=== PATIENT | female | born 1950 | race Caucasian/White ===

== ENCOUNTER 2018-07-12 09:00 | Emergency (ER) | payer MEDICARE, BC ==
[2018-07-12] MEDS ORDERED: Sodium Chloride 0.9% 1,000 ML IV SCH (10:00)
--- NOTE | 2018-07-12 11:01 | CT ---
Head wo Cont CLINICAL HISTORY: Head trauma COMPARISON: None TECHNIQUE: Transverse scans were obtained from the base of the skull through the vertex without IV co ntrast on a multislice, multidetector CT scanner. Auto dosage reduction and iterative reconstruction techniques employed. FINDINGS: There are scattered benign calcifications in both basal ganglia.. There is no mass effect, hemorrhage, or extraaxial collection. The basal cisterns and sulci over the convexities are mildly pr ominent. The ventricles are asymmetric with some mild dilatation of the right lateral ventricle. Ther e is a slight shift of the anterior midline to the left. This is likely chronic Calvarium appears intact IMPRESSION: No intracranial hemorrhage or extra-axial collection Asymmetric lateral ventricles with slight enlargement on the right. This causes some minimal leftward shift of the anterior horn. This is likely chronic
--- NOTE | 2018-07-12 11:28 | EDM.PDOC ---
ED HPI GENERAL MEDICAL PROBLEM - General Chief Complaint: Syncope Stated Complaint: MEDICAL VIA TRI Time Seen by Provider: 07/12/18 09:15 Source of Information: Reports: Patient, Family History Limitations: Reports: No Limitations - History of Present Illness INITIAL COMMENTS - FREE TEXT/NARRATIVE: pt arrived with pain in the upper abdoman. She has a history of multiple episodes of syncope. She had an episode today which was very severe and she bumped her head. Onset: Today, Sudden Duration: Hour(s): Location: Reports: Head, Abdomen Associated Symptoms: Reports: Diaphoresis, Headaches, Syncope Head Pain Score (Numeric/FACES): 3 - Related Data Allergies Allergy/AdvReac Type Severity Reaction Status Date / Time No Known Allergies Allergy Verified 07/12/18 09:20 Home Meds: Home Meds Aspirin [Halfprin] 81 mg PO DAILY 09/01/13 [History] Calcium Carbonate/Vitamin D3 [Calcarb 600 with Vit D] 1 each PO DAILY 09/01/13 [ History] FLUoxetine HCl [Prozac] 20 mg PO DAILY 09/01/13 [History] LORazepam [Ativan] 0.5 mg PO ASDIRECTED PRN 09/01/13 [History] Lidocaine 5% [Lidoderm 5%] 1 patch TOP DAILY 09/01/13 [History] Multivitamin [Multi-Vitamin Daily] 1 each PO DAILY 09/01/13 [History] Omeprazole [Prilosec] 20 mg PO DAILY 09/01/13 [History] Vit B Cmplx 3/Fa/Vit C/Biotin [Christa-Dion Rx Tablet] 1 each PO DAILY 09/01/13 [ History] Vit B12/Pyridoxine/Thiamine [Apatate] 240 ml PO DAILY 09/01/13 [History] Vit D3/Folic Acid/B2/B6/B12 [Folgard Tablet] 1 each PO DAILY 09/01/13 [History] traMADol HCl [Ultram] 50 mg PO ASDIRECTED 09/01/13 [History] traZODone HCl [Trazodone HCl] 50 mg PO DAILY 09/01/13 [History] Past Medical History HEENT History: Reports: Impaired Vision 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: , 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 Musculoskeletal History: Reports: Arthritis Psychiatric History: Reports: Anxiety Hematologic History: Reports: Anemia - Infectious Disease History Infectious Disease History: Reports: Chicken Pox - Past Surgical History GI Surgical History: Reports: Bariatric Procedure, Cholecystectomy, Colonoscopy Social & Family History - Tobacco Use Smoking Status *Q: Current Some Day Smoker Years of Tobacco use: 5 Packs/Tins Daily: 0.2 Used Tobacco, but Quit: No Second Hand Smoke Exposure: Yes - Caffeine Use Caffeine Use: Reports: Coffee - Recreational Drug Use Recreational Drug Use: No ED ROS GENERAL - Review of Systems Review Of Systems: See Below Constitutional: Reports: No Symptoms HEENT: Reports: No Symptoms Respiratory: Reports: No Symptoms Cardiovascular: Reports: Syncope, Other (pt had a sudden episode of feeling dizzy and passing out at home. She did hit her forehead on the left side. ) Endocrine: Reports: Fatigue GI/Abdominal: Reports: Abdominal Pain, Other (Pt has frequent episodes of abdomanal pain. ) : Reports: No Symptoms ED EXAM, GENERAL - Physical Exam Exam: See Below Free Text/Narrative:: Pt had an episode of syncope and she fell to the floor and hit the left side of her head. She has a headache which is not severe. She is having episodes of severe crampy pain which started this am before she passed out. Exam Limited By: No Limitations General Appearance: Alert, Anxious, Mild Distress Ears: Normal TMs Nose: Normal Inspection Throat/Mouth: Normal Inspection Head: Other (Pt has bruising on the left forehead) Neck: Normal Inspection Respiratory/Chest: No Respiratory Distress Cardiovascular: Regular Rate, Rhythm GI/Abdominal: Soft, Non-Tender, Other (Pt has a ventral hernis on the umbilus area to the left) (Female) Exam: Deferred Rectal (Female) Exam: Deferred Back Exam: Normal Inspection Extremities: Normal Inspection Neurological: Alert, Oriented, Normal Cognition Psychiatric: Normal Affect Course - Vital Signs Last Recorded V/S: Last Vital Signs Temp 36.2 C 07/12/18 12:00 Pulse 65 07/12/18 13:05 Resp 18 07/12/18 13:05 BP 106/59 L 07/12/18 13:05 Pulse Ox 95 07/12/18 13:05 Orthostatic Blood Pressure [ 119/64 Standing] Orthostatic Blood Pressure [ 110/62 Sitting] Orthostatic Blood Pressure [ 110/60 Supine] - Orders/Labs/Meds Labs: Laboratory Tests 08/31/18 08/31/18 08/31/18 Range/Units 09:30 09:40 09:47 WBC 7.3 (4.5-11.0) K/uL RBC 3.20 L (3.30-5.50) M/uL Hgb 9.1 L (12.0-15.0) g/dL Hct 28.3 L (36.0-48.0) % MCV 88 (80-98) fL MCH 28 (27-31) pg MCHC 32 (32-36) % Plt Count 384 (150-400) K/uL Neut % (Auto) 84 H (36-66) % Lymph % (Auto) 7 L (24-44) % Travis % (Auto) 8 H (2-6) % Eos % (Auto) 1 L (2-4) % Baso % (Auto) 0 (0-1) % Sodium (140-148) mmol/L Potassium (3.6-5.2) mmol/L Chloride (100-108) mmol/L Carbon Dioxide (21-32) mmol/L Anion Gap (5.0-14.0) mmol/L BUN (7-18) mg/dL Creatinine (0.6-1.0) mg/dL Est Cr Clr Drug Dosing mL/min Estimated GFR (MDRD) (>60) Glucose (74-106) mg/dL Calcium (8.5-10.1) mg/dL Magnesium (1.8-2.4) mg/dL Ferritin (8-388) ng/ml Total Bilirubin (0.2-1.0) mg/dL AST (15-37) U/L ALT (12-78) U/L Alkaline Phosphatase (46-116) U/L Troponin I < 0.017 (0.000-0.056) ng/mL C-Reactive Protein 0.04 (0.0-0.3) mg/dL Total Protein (6.4-8.2) g/dL Albumin (3.4-5.0) g/dL Globulin (2.3-3.5) g/dL Albumin/Globulin Ratio (1.2-2.2) Vitamin B12 (193-986) pg/ml Urine Color Urine Appearance Urine pH (4.5-8.0) Ur Specific [place] (1.008-1.030) Urine Protein (NEGATIVE) mg/dL Urine Glucose (UA) (NEGATIVE) mg/dL Urine Ketones (NEGATIVE) mg/dL Urine Occult Blood (NEGATIVE) Urine Nitrite (NEGATIVE) Urine Bilirubin (NEGATIVE) Urine Urobilinogen (NORMAL) mg/dL Ur Leukocyte Esterase (NEGATIVE) Urine RBC (0-5) Urine WBC (0-5) Ur Epithelial Cells Amorphous Sediment Urine Bacteria Urine Mucus 07/12/18 07/12/18 07/12/18 Range/Units 09:47 10:23 10:42 WBC (4.5-11.0) K/uL RBC (3.30-5.50) M/uL Hgb (12.0-15.0) g/dL Hct (36.0-48.0) % MCV (80-98) fL MCH (27-31) pg MCHC (32-36) % Plt Count (150-400) K/uL Neut % (Auto) (36-66) % Lymph % (Auto) (24-44) % Travis % (Auto) (2-6) % Eos % (Auto) (2-4) % Baso % (Auto) (0-1) % Sodium 133 L (140-148) mmol/L Potassium 4.6 (3.6-5.2) mmol/L Chloride 102 (100-108) mmol/L Carbon Dioxide 24 (21-32) mmol/L Anion Gap 11.6 (5.0-14.0) mmol/L BUN 21 H (7-18) mg/dL Creatinine 0.9 (0.6-1.0) mg/dL Est Cr Clr Drug Dosing 56.78 mL/min Estimated GFR (MDRD) > 60 (>60) Glucose 102 (74-106) mg/dL Calcium 8.6 (8.5-10.1) mg/dL Magnesium 2.4 (1.8-2.4) mg/dL Ferritin 12 (8-388) ng/ml Total Bilirubin 0.3 (0.2-1.0) mg/dL AST 27 (15-37) U/L ALT 24 (12-78) U/L Alkaline Phosphatase 84 (46-116) U/L Troponin I (0.000-0.056) ng/mL C-Reactive Protein (0.0-0.3) mg/dL Total Protein 7.1 (6.4-8.2) g/dL Albumin 3.3 L (3.4-5.0) g/dL Globulin 3.8 H (2.3-3.5) g/dL Albumin/Globulin Ratio 0.9 L (1.2-2.2) Vitamin B12 350 (193-986) pg/ml Urine Color Urine Appearance Urine pH (4.5-8.0) Ur Specific [place] (1.008-1.030) Urine Protein (NEGATIVE) mg/dL Urine Glucose (UA) (NEGATIVE) mg/dL Urine Ketones (NEGATIVE) mg/dL Urine Occult Blood (NEGATIVE) Urine Nitrite (NEGATIVE) Urine Bilirubin (NEGATIVE) Urine Urobilinogen (NORMAL) mg/dL Ur Leukocyte Esterase (NEGATIVE) Urine RBC (0-5) Urine WBC (0-5) Ur Epithelial Cells Amorphous Sediment Urine Bacteria Urine Mucus 07/12/18 Range/Units 11:02 WBC (4.5-11.0) K/uL RBC (3.30-5.50) M/uL Hgb (12.0-15.0) g/dL Hct (36.0-48.0) % MCV (80-98) fL MCH (27-31) pg MCHC (32-36) % Plt Count (150-400) K/uL Neut % (Auto) (36-66) % Lymph % (Auto) (24-44) % Travis % (Auto) (2-6) % Eos % (Auto) (2-4) % Baso % (Auto) (0-1) % Sodium (140-148) mmol/L Potassium (3.6-5.2) mmol/L Chloride (100-108) mmol/L Carbon Dioxide (21-32) mmol/L Anion Gap (5.0-14.0) mmol/L BUN (7-18) mg/dL Creatinine (0.6-1.0) mg/dL Est Cr Clr Drug Dosing mL/min Estimated GFR (MDRD) (>60) Glucose (74-106) mg/dL Calcium (8.5-10.1) mg/dL Magnesium (1.8-2.4) mg/dL Ferritin (8-388) ng/ml Total Bilirubin (0.2-1.0) mg/dL AST (15-37) U/L ALT (12-78) U/L Alkaline Phosphatase (46-116) U/L Troponin I (0.000-0.056) ng/mL C-Reactive Protein (0.0-0.3) mg/dL Total Protein (6.4-8.2) g/dL Albumin (3.4-5.0) g/dL Globulin (2.3-3.5) g/dL Albumin/Globulin Ratio (1.2-2.2) Vitamin B12 (193-986) pg/ml Urine Color Urine Appearance Cloudy Urine pH 6.0 (4.5-8.0) Ur Specific [place] 1.015 (1.008-1.030) Urine Protein Trace (NEGATIVE) mg/dL Urine Glucose (UA) Normal (NEGATIVE) mg/dL Urine Ketones Negative (NEGATIVE) mg/dL Urine Occult Blood Negative (NEGATIVE) Urine Nitrite Positive H (NEGATIVE) Urine Bilirubin Small (NEGATIVE) Urine Urobilinogen 1 (NORMAL) mg/dL Ur Leukocyte Esterase Moderate (NEGATIVE) Urine RBC 0-5 (0-5) Urine WBC 0-5 (0-5) Ur Epithelial Cells Few Amorphous Sediment Not seen Urine Bacteria Many Urine Mucus Not seen Meds: Medications Discontinued Medications Generic Name Dose Route Start Last Admin Trade Name Freq PRN Reason Stop Dose Admin Acetaminophen 650 mg 07/12/18 12:21 07/12/18 12:31 Tylenol PO 07/12/18 12:22 650 mg NOW ONE Administration Sodium Chloride 1,000 mls @ 999 mls/hr 07/12/18 10:00 07/12/18 10:16 Normal Saline IV 999 mls/hr ASDIRECTED ASHWIN Administration Sodium Chloride 71 mls @ 3 mls/sec 07/12/18 12:15 07/12/18 12:14 Normal Saline IV 07/12/18 23:00 3 mls/sec ASDIRECTED ASHWIN Administration Iopamidol 96 ml 07/12/18 12:15 07/12/18 12:14 Isovue-300 (61%) IV 07/12/18 23:00 100 ml . DIRECTED ASHWIN Administration Sodium Chloride 10 ml 07/12/18 12:02 07/12/18 12:14 Saline Flush FLUSH 07/12/18 12:03 10 ml ONETIME ONE Administration - Re-Assessments/Exams Free Text/Narrative Re-Assessment/Exam: 07/12/18 13:32 pt had a cat scn of the head which was neg. She had a cat scan of the abdoman pelvis which showed a large heatal hernia and she has a ventral hernia . She has post RNy changes. Her hb is 9.3 whish is unchanged. Her b12 is ok, mag is good and ferritin is low normal. Departure - Departure Time of Disposition: 13:16 Disposition: Home, Self-Care 01 Condition: Fair Clinical Impression: Syncope, Head contusion, Dehydration, Ventral hernia, Hiatal hernia, Anemia, UTI (urinary tract infection) Instructions: Facial or Scalp Contusion, [id number], Dehydration, Adult, Easy -to-Read, Urinary Tract Infection, Adult, Syncope, [id number] Referrals: PCP,None [Primary Care Provider] - Forms: ED Department Discharge Care Plan Goals: push fluids, consult with Dr Mccallum regarding being gastroscoped. cipro 500mg bid
[2018-07-12] MEDS ORDERED: Sodium Chloride 0.9% 10 ML Syringe FLUSH ONE (12:02)
[2018-07-12] MEDS ORDERED: Iopamidol 612 MG/ML 100 ML Bottle IV SCH (12:15)
[2018-07-12] MEDS ORDERED: Sodium Chloride 0.9% 71 ML IV SCH (12:15)
[2018-07-12] MEDS ORDERED: Acetaminophen 325 MG Tab PO ONE (12:21)
--- NOTE | 2018-07-12 12:50 | CT ---
Abdomen Pelvis w Cont CLINICAL HISTORY: Minimal abdominal pain, recent surgery COMPARISON: None. TECHNIQUE: Axial tomographic images are obtained from the dome of the diaphragm to the pubic symphysi s without IV contrast enhancement. No oral contrast was used. Auto dosage reduction and iterative rec onstruction techniques employed. FINDINGS: The lung bases show some streaky bibasal atelectasis. There is a moderate-sized hiatal lawrence ia. There are postsurgical changes proximal and distal to the hernia. Patient is status post gastric bypass, Donald-en-Y procedure. Patient has had a previous cholecystectomy. The is some fluid in the gal lbladder fossa likely related to recent surgery. There is a midline ventral hernia. The liver shows n o focal mass or biliary dilatation. The spleen has a normal size and shape. The pancreas shows no ma ss or inflammatory change. The adrenal glands appear normal bilaterally. The kidneys show no mass, st ones or hydronephrosis. The aorta has a normal contour. There is no suspicious retroperitoneal adenop athy. There is some focally dilated small bowel in the right lower quadrant. This is likely related to the distal anastomosis. Small bowel configuration is otherwise normal. There is moderate retained stool t hroughout the colon. Bladder has normal contour. IMPRESSION: Patient is status post gastric bypass, Donald-en-Y procedure. Moderate-sized sliding-type hiatal hernia above the diaphragmatic sulma. Small amount of fluid in the gallbladder fossa likely related to prior surgery Mild midline ventral hernia with no evidence of incarceration Moderate retained stool
[2018-07-12 13:06] VITALS: BP 106/59
== END 2018-07-12 13:30 | disposition home or self-care (01) ==
LOC: JP.ED 09:00
DX: R55 Syncope and collapse (principal); S00.93XA Contusion of unspecified part of head, initial encounter; E86.0 Dehydration; K44.9 Diaphragmatic hernia without obstruction or gangrene; K43.9 Ventral hernia without obstruction or gangrene; D64.9 Anemia, unspecified; N39.0 Urinary tract infection, site not specified; F17.210 Nicotine dependence, cigarettes, uncomplicated; Z79.82 Long term (current) use of aspirin; Z79.899 Other long term (current) drug therapy; W01.198A Fall on same level from slipping, tripping and stumbling with subsequent striking against other object, initial encounter
CPT/HCPCS: 36415; 70450; 74177; 80053; 81001; 82607; 82728; 83735; 84484; 85025; 86140; 87086; 87088; 87186; 93005; 96360; 99285; A9270; J7030; J7050; Q9967

== ENCOUNTER 2018-09-30 08:42 | Day surgery (SDC) | payer MEDICARE, BC ==
[2018-09-30] MEDS ORDERED: Cyanocobalamin (Vitamin B12) 1,000 MCG/ML SDV IM ONE (09:30)
[2018-09-30] MEDS ORDERED: Lactated Ringers 1,000 ML IV ONE (09:30)
[2018-09-30] MEDS ORDERED: Glycopyrrolate 0.2 MG/ML 2 ML SDV IVPUSH ONE (10:00)
[2018-09-30] MEDS ORDERED: MVI, Adult with Vitamin K 10 ML, Thiamine 200 MG, Chromium/Copper/Mang/Selen/Zn 1 ML in... IV ONE ×4 (10:30)
[2018-09-30] MEDS ORDERED: Propofol 200 MG/20 ML SDV ONE (10:57)
[2018-09-30] MEDS ORDERED: Midazolam 1 MG/ML 2 ML SDV ONE (10:57)
[2018-09-30] MEDS ORDERED: fentaNYL 100 MCG/2 ML SDV ONE (10:57)
[2018-09-30 13:24] VITALS: BP 100/67
--- NOTE | 2018-10-06 13:38 | OR ---
DATE OF PROCEDURE: 09/30/2018 PREOPERATIVE DIAGNOSIS: Early satiety and dysphagia associated with weight loss. POSTOPERATIVE DIAGNOSIS: Normal upper gastrointestinal endoscopic examination, status post Donald-en-Y gastric bypass. OPERATIVE PROCEDURE: Upper GI endoscopy. ANESTHESIA: IV sedation. INDICATION FOR PROCEDURE: This is a 68-year-old status post previous Donald-en-Y gastric bypass, who has been having early satiety and problems with some sense of dysphagia, and plan is to proceed with upper GI endoscopy with biopsies and/or dilation as indicated. Potential risks including bleeding and perforation were discussed, and the patient wishes to proceed. DETAILS OF PROCEDURE: The patient was taken to the operating room, placed in a left lateral decubitus position. IV sedation was administered, after which the upper GI endoscope was passed orally through the length of the esophagus and into the gastric pouch and from there through the gastrojejunostomy and roughly 20 cm into the Donald limb. Overall, the exam was entirely normal. There was no areas of stricturing or significant inflammation, and no evidence of more distal bowel obstruction in terms of anything backing up in the Donald limb. These above findings were reconfirmed, the procedure was concluded. The patient was taken to the recovery room in satisfactory condition. Gene Mccallum MD /[id number]
== END 2018-09-30 13:49 | disposition home or self-care (01) ==
LOC: JP.SDS 08:42
PROVIDERS: ATTEND Surgery
DX: R68.81 Early satiety (principal); R13.10 Dysphagia, unspecified; R63.4 Abnormal weight loss; K21.9 Gastro-esophageal reflux disease without esophagitis; K44.9 Diaphragmatic hernia without obstruction or gangrene; F41.9 Anxiety disorder, unspecified; Z98.84 Bariatric surgery status; D50.9 Iron deficiency anemia, unspecified
CPT/HCPCS: 36415; 43235; 82525; 82607; 82728; 82746; 84425; 84590; 84630; J2250; J2704; J3010; J3411; J3420; J3490; J7120

== ENCOUNTER 2018-12-19 15:11 | Inpatient (IN) | payer BC, MEDICARE ==
[2018-12-19] MEDS ORDERED: Lactated Ringers 1,000 ML IV SCH ×2 (15:30→17:30)
[2018-12-19] MEDS ORDERED: HYDROmorphone 1 MG/ML Syringe IVPUSH ONE (15:31)
[2018-12-19] MEDS ORDERED: Prochlorperazine 10 MG/2 ML SDV IVPUSH ONE (15:33)
[2018-12-19] MEDS ORDERED: Prochlorperazine 10 MG/2 ML SDV ONE (15:35)
--- NOTE | 2018-12-19 15:42 | EDM.PDOC ---
ED HPI GENERAL MEDICAL PROBLEM - General Chief Complaint: Abdominal Pain Stated Complaint: ABD PAIN Time Seen by Provider: 12/19/18 15:25 Source of Information: Reports: Patient, Old Records, RN History Limitations: Reports: No Limitations - History of Present Illness INITIAL COMMENTS - FREE TEXT/NARRATIVE: 68 yo female presents with mid abdominal pain with a slight amt of bloating. Sx' s began yesterday and have progressed. Had a gastric bypass many yrs ago. Has nausea without vomiting so far. No fever. BM's have been normal so far. Onset: Gradual Onset Date: 12/18/18 Duration: Day(s): (1+), Getting Worse Location: Reports: Abdomen Quality: Reports: Ache Severity: Severe Improves with: Reports: None Worsens with: Reports: Other (time) Context: Reports: Other (see HPI) Associated Symptoms: Reports: Nausea/Vomiting (no vomiting so far.). 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) Abdominal Pain Score (Numeric/FACES): 10 - Related Data Allergies Allergy/AdvReac Type Severity Reaction Status Date / Time No Known Allergies Allergy Verified 09/30/18 09:32 Home Meds: Home Meds Aspirin [Halfprin] 81 mg PO DAILY 09/01/13 [History] Calcium Carbonate/Vitamin D3 [Calcarb 600 with Vit D] 1 tab PO DAILY 09/01/13 [ History] FLUoxetine HCl [Prozac] 60 mg PO DAILY 09/01/13 [History] LORazepam [Ativan] 0.5 mg PO BID PRN 09/01/13 [History] Lidocaine 5% [Lidoderm 5%] 1 patch TOP DAILY 09/01/13 [History] Multivitamin [Multi-Vitamin Daily] 1 tab PO DAILY 09/01/13 [History] Omeprazole [Prilosec] 20 mg PO DAILY 09/01/13 [History] Vit B Cmplx 3/Fa/Vit C/Biotin [Christa-Dion Rx Tablet] 1 tab PO DAILY 09/01/13 [ History] Vit D3/Folic Acid/B2/B6/B12 [Folgard Tablet] 2 tab PO BID 09/01/13 [History] traZODone HCl [Trazodone HCl] 100 mg PO BEDTIME 09/01/13 [History] Albuterol Sulfate [Proair Respiclick] 2 puff IH Q4HR PRN 09/27/18 [History] Cyanocobalamin (Vitamin B12) [Vitamin B12] 1,000 mcg PO DAILY 09/27/18 [History] Iron,Carbonyl/Ascorbic Acid [Iron 100-Vitamin C Tablet] 1 tab PO BID 09/27/18 [ History] Silver Sulfadiazine [Silvadene 1% Cream 20 GM] 1 applic TOP BID 09/27/18 [ History] Zinc Gluconate [Zinc] 50 mg PO DAILY 09/27/18 [History] Cyanocobalamin (Vitamin B-12) [Cyanocobalamin Injection] 1,000 mcg IJ .[id number] 09/30/18 [History] Past Medical History HEENT History: Reports: Impaired Vision Other HEENT History: wears glasses Gastrointestinal History: Reports: GERD Genitourinary History: Reports: UTI, Recurrent 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: , 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 Musculoskeletal History: Reports: Arthritis, Other (See Below) Other Musculoskeletal History: scoliosis Psychiatric History: Reports: Anxiety Endocrine/Metabolic History: Reports: Vitamin D Deficiency Hematologic History: Reports: Anemia, Iron Deficiency - Infectious Disease History Infectious Disease History: Reports: Chicken Pox, Measles - Past Surgical History HEENT Surgical History: Reports: None GI Surgical History: Reports: Bariatric Procedure, Cholecystectomy, Colonoscopy , Esophageal Dilatation, Hernia Repair/Other Female Surgical History: Reports: Section, Hysterectomy Musculoskeletal Surgical History: Reports: Shoulder Surgery Other Musculoskeletal Surgeries/Procedures:: right rotator cuff repair Social & Family History - Family History Family Medical History: Noncontributory - Caffeine Use Caffeine Use: Reports: Coffee ED ROS GENERAL - Review of Systems Review Of Systems: See Below Constitutional: Reports: No Symptoms HEENT: Reports: No Symptoms Respiratory: Reports: No Symptoms Cardiovascular: Reports: No Symptoms GI/Abdominal: Reports: Abdominal Pain, Anorexia, Nausea. Denies: Black Stool, Bloody Stool, Constipation, Diarrhea, Decreased Appetite, Distension, Flatus, Hematemesis, Hematochezia, Melena, Vomiting : Reports: No Symptoms Musculoskeletal: Reports: No Symptoms Skin: Reports: No Symptoms Neurological: Reports: No Symptoms Psychiatric: Reports: No Symptoms ED EXAM, GI/ABD - Physical Exam Exam: See Below Exam Limited By: No Limitations General Appearance: Alert, WD/WN, No Apparent Distress Eyes: Bilateral: Normal Appearance Ears: Normal External Exam, Normal Canal, Hearing Grossly Normal Nose: Normal Inspection, No Blood Throat/Mouth: Normal Inspection, Normal Lips, Normal Oropharynx, Normal Voice, No Airway Compromise Head: Atraumatic, Normocephalic Neck: Normal Inspection Respiratory/Chest: No Respiratory Distress, Lungs Clear, Normal Breath Sounds, No Accessory Muscle Use Cardiovascular: Regular Rate, Rhythm, No Edema GI/Abdominal Exam: Soft, Distended (mild), Guarding, Tender (centrally most tender). No: Non-Tender, No Distention, Rigid, Rebound Back Exam: Normal Inspection. No: CVA Tenderness (R), CVA Tenderness (L) Extremities: Normal Inspection, Normal Range of Motion, Non-Tender, No Pedal Edema Neurological: Alert, Oriented, CN II-XII Intact, Normal Cognition, No Motor/ Sensory Deficits Psychiatric: Normal Affect, Normal Mood Skin Exam: Warm, Dry, Intact, Normal Color, No Rash Lymphatic: No Adenopathy Course - Vital Signs Text/Narrative:: Dr. Mccallum called @ 1713h, Dr. Calix called @ 1716h Last Recorded V/S: Last Vital Signs Temp 36.6 C 12/19/18 15:58 Pulse 61 12/19/18 16:27 Resp 16 12/19/18 16:27 BP 98/52 L 12/19/18 16:27 Pulse Ox 98 12/19/18 16:27 - Orders/Labs/Meds Orders: Active Orders 24 hr Category Date Time Status Abdomen Pelvis w Cont [CT] Stat Exams 12/19/18 15:31 Taken Lactated Ringers [Ringers, Lactated] 1,000 ml Med 12/19/18 15:30 Active IV ASDIRECTED Medication Orders Lactated Ringer's (Ringers, Lactated) 1,000 mls @ 500 mls/hr IV ASDIRECTED ASHWIN Last Admin: 12/19/18 15:49 Dose: 500 mls/hr Labs: Laboratory Tests 12/19/18 12/19/18 Range/Units 15:31 15:31 WBC 8.3 (4.5-11.0) K/uL RBC 3.95 (3.30-5.50) M/uL Hgb 13.6 D (12.0-15.0) g/dL Hct 41.2 (36.0-48.0) % MCV 104 H (80-98) fL MCH 34 H (27-31) pg MCHC 33 (32-36) % Plt Count 235 (150-400) K/uL Sodium 139 L (140-148) mmol/L Potassium 3.9 (3.6-5.2) mmol/L Chloride 106 (100-108) mmol/L Carbon Dioxide 21 (21-32) mmol/L Anion Gap 15.9 H (5.0-14.0) mmol/L BUN 25 H (7-18) mg/dL Creatinine 0.8 (0.6-1.0) mg/dL Est Cr Clr Drug Dosing 61.40 mL/min Estimated GFR (MDRD) > 60 (>60) Glucose 138 H (74-106) mg/dL Calcium 8.3 L (8.5-10.1) mg/dL Meds: Medications Generic Name Dose Route Start Last Admin Trade Name Freq PRN Reason Stop Dose Admin Lactated Ringer's 1,000 mls @ 500 mls/hr 12/19/18 15:30 12/19/18 15:49 Ringers, Lactated IV 500 mls/hr ASDIRECTED ASHWIN Administration Discontinued Medications Generic Name Dose Route Start Last Admin Trade Name Freq PRN Reason Stop Dose Admin Hydromorphone HCl 1 mg 12/19/18 15:31 12/19/18 15:51 Dilaudid IVPUSH 12/19/18 15:32 1 mg ONETIME ONE Administration Sodium Chloride 70 mls @ 3 mls/sec 12/19/18 16:03 12/19/18 16:20 Normal Saline IV 12/19/18 16:04 3 mls/sec ONETIME ONE Administration Iopamidol 93 ml 12/19/18 16:03 12/19/18 16:19 Isovue-300 (61%) IV 12/19/18 16:04 100 ml . DIRECTED PRN Administration RADIOLOGY EXAM Prochlorperazine Edisylate 5 mg 12/19/18 15:33 12/19/18 15:51 Compazine IVPUSH 12/19/18 15:34 5 mg ONETIME ONE Administration Prochlorperazine Edisylate Confirm 12/19/18 15:35 Compazine Administered 12/19/18 15:36 Dose 10 mg .ROUTE .STK-MED ONE Sodium Chloride 10 ml 12/19/18 16:03 12/19/18 17:00 Normal Saline FLUSH 12/19/18 16:04 10 ml ONETIME ONE Administration - Radiology Interpretation Free Text/Narrative:: CT abd/pelvis with IV Contrast-SBO CT Results Date: 12/19/18 Departure - Departure Time of Disposition: 17:35 Disposition: Refer to Observation Condition: Fair Clinical Impression: Small bowel obstruction - Discharge Information *PRESCRIPTION DRUG MONITORING PROGRAM REVIEWED*: Not Applicable *COPY OF PRESCRIPTION DRUG MONITORING REPORT IN PATIENT JUSTYNA: Not Applicable Referrals: PCP,None [Primary Care Provider] - Forms: ED Department Discharge - My Orders Last 24 Hours: My Active Orders 12/19/18 15:30 Lactated Ringers [Ringers, Lactated] 1,000 ml IV ASDIRECTED 12/19/18 15:31 Abdomen Pelvis w Cont [CT] Stat - Assessment/Plan Last 24 Hours: My Active Orders 12/19/18 15:30 Lactated Ringers [Ringers, Lactated] 1,000 ml IV ASDIRECTED 12/19/18 15:31 Abdomen Pelvis w Cont [CT] Stat
[2018-12-19] MEDS ORDERED: Iopamidol 612 MG/ML 100 ML Bottle IV PRN (16:03)
[2018-12-19] MEDS ORDERED: Sodium Chloride 0.9% 10 ML SDV FLUSH ONE (16:03)
--- NOTE | 2018-12-19 17:35 | PCM.HP ---
H&P History of Present Illness - General Date of Service: 12/19/18 Admit Problem/Dx: Admission Diagnosis/Problem Admission Diagnosis/Problem Small bowel obstruction Source of Information: Patient, Family, Old Records, Provider, RN Notes Reviewed History Limitations: Reports: No Limitations - History of Present Illness Initial Comments - Free Text/Narative: Ms. Garcia is a 68-year-old woman who was admitted through the emergency department with nausea and abdominal pain secondary to a small bowel obstruction. She had a recent episode of small bowel obstruction occurring approximately 3 months ago that resolved spontaneously. She felt well until last night when she noted onset of symptoms of nausea associated with a cramping ache across the mid abdomen. Pain would wax and wane, it did not seem to be associated with any particular precipitating or relieving factors. Pain did not radiate from the mid abdomen. Because of persistent symptom she presented to the emergency department this afternoon. CT scan of the abdomen shows evidence of small bowel obstruction but no obvious transition point. Abdominal Pain Score (Numeric/FACES): 10 - Related Data Allergies/Adverse Reactions: Allergies Allergy/AdvReac Type Severity Reaction Status Date / Time No Known Allergies Allergy Verified 09/30/18 09:32 Home Medications: Home Meds Aspirin [Halfprin] 81 mg PO DAILY 09/01/13 [History] Calcium Carbonate/Vitamin D3 [Calcarb 600 with Vit D] 1 tab PO DAILY 09/01/13 [ History] FLUoxetine HCl [Prozac] 60 mg PO DAILY 09/01/13 [History] LORazepam [Ativan] 0.5 mg PO BID PRN 09/01/13 [History] Lidocaine 5% [Lidoderm 5%] 1 patch TOP DAILY 09/01/13 [History] Multivitamin [Multi-Vitamin Daily] 1 tab PO DAILY 09/01/13 [History] Omeprazole [Prilosec] 20 mg PO DAILY 09/01/13 [History] Vit B Cmplx 3/Fa/Vit C/Biotin [Christa-Dion Rx Tablet] 1 tab PO DAILY 09/01/13 [ History] Vit D3/Folic Acid/B2/B6/B12 [Folgard Tablet] 2 tab PO BID 09/01/13 [History] traZODone HCl [Trazodone HCl] 100 mg PO BEDTIME 09/01/13 [History] Albuterol Sulfate [Proair Respiclick] 2 puff IH Q4HR PRN 09/27/18 [History] Cyanocobalamin (Vitamin B12) [Vitamin B12] 1,000 mcg PO DAILY 09/27/18 [History] Iron,Carbonyl/Ascorbic Acid [Iron 100-Vitamin C Tablet] 1 tab PO BID 09/27/18 [ History] Silver Sulfadiazine [Silvadene 1% Cream 20 GM] 1 applic TOP BID 09/27/18 [ History] Zinc Gluconate [Zinc] 50 mg PO DAILY 09/27/18 [History] Cyanocobalamin (Vitamin B-12) [Cyanocobalamin Injection] 1,000 mcg IJ .[id number] 09/30/18 [History] Past Medical History HEENT History: Reports: Impaired Vision Other HEENT History: wears glasses Gastrointestinal History: Reports: GERD Genitourinary History: Reports: UTI, Recurrent [employer] CHIE[employer] History: Reports: , Spontaneous Musculoskeletal History: Reports: Arthritis, Other (See Below) Other Musculoskeletal History: scoliosis Psychiatric History: Reports: Anxiety Endocrine/Metabolic History: Reports: Vitamin D Deficiency Hematologic History: Reports: Anemia, Iron Deficiency - Infectious Disease History Infectious Disease History: Reports: Chicken Pox, Measles - Past Surgical History HEENT Surgical History: Reports: None GI Surgical History: Reports: Bariatric Procedure, Cholecystectomy, Colonoscopy , Esophageal Dilatation, Hernia Repair/Other Female Surgical History: Reports: Section, Hysterectomy Musculoskeletal Surgical History: Reports: Shoulder Surgery Other Musculoskeletal Surgeries/Procedures:: right rotator cuff repair Social & Family History - Family History Family Medical History: Noncontributory - Tobacco Use Smoking Status *Q: Current Every Day Smoker Years of Tobacco use: 6 Packs/Tins Daily: 0.4 - Caffeine Use Caffeine Use: Reports: Coffee - Recreational Drug Use Recreational Drug Use: No H&P Review of Systems - Review of Systems: Review Of Systems: See Below General: Reports: Weakness, Decreased Appetite. Denies: Fever, Chills HEENT: Reports: No Symptoms Pulmonary: Reports: No Symptoms Cardiovascular: Reports: No Symptoms Gastrointestinal: Reports: Abdominal Pain, Decreased Appetite, Nausea. Denies: Black Stool, Bloody Stool, Constipation, Diarrhea, Vomiting Genitourinary: Reports: No Symptoms Musculoskeletal: Reports: Back Pain (Chronic) Skin: Reports: No Symptoms Psychiatric: Reports: No Symptoms Neurological: Reports: No Symptoms Hematologic/Lymphatic: Reports: No Symptoms Immunologic: Reports: No Symptoms Exam - Exam Exam: See Below - Vital Signs Vital Signs: Last Vital Signs Temp 97.8 F 12/19/18 15:58 Pulse 61 12/19/18 16:27 Resp 16 12/19/18 16:27 BP 98/52 L 12/19/18 16:27 Pulse Ox 98 12/19/18 16:27 Weight: 137 lb 2.04 oz - Exam Quality Assessment: DVT Prophylaxis General: Alert, Oriented, Cooperative, Moderate Distress HEENT: Conjunctiva Clear, Hearing Intact, Mucosa Moist & [place], Normal Nasal Septum, Posterior Pharynx Clear, Pupils Equal Neck: Supple, Trachea Midline, +2 Carotid Pulse wo Bruit Lungs: Clear to Auscultation, Normal Respiratory Effort Cardiovascular: Regular Rate, Regular Rhythm, Normal S1, Normal S2. No: Systolic Murmur, Diastolic Murmur GI/Abdominal Exam: Soft, No Organomegaly, Tender. No: Distended, Guarding, Rigid, Rebound Back Exam: Normal Inspection, Full Range of Motion Extremities: Non-Tender, No Pedal Edema Skin: Warm, Dry Neurological: Cranial Nerves Intact, Strength Equal Bilateral, Normal Speech, Normal Tone, Sensation Intact. No: Focal Deficit Neuro Extensive - Mental Status: Alert, Oriented x3, Normal Mood/Affect, Normal Cognition, Memory Intact - Patient Data Lab Results Last 24 hrs: Laboratory Results - last 24 hr 12/19/18 12/19/18 Range/Units 15:31 15:31 WBC 8.3 (4.5-11.0) K/uL RBC 3.95 (3.30-5.50) M/uL Hgb 13.6 D (12.0-15.0) g/dL Hct 41.2 (36.0-48.0) % MCV 104 H (80-98) fL MCH 34 H (27-31) pg MCHC 33 (32-36) % Plt Count 235 (150-400) K/uL Sodium 139 L (140-148) mmol/L Potassium 3.9 (3.6-5.2) mmol/L Chloride 106 (100-108) mmol/L Carbon Dioxide 21 (21-32) mmol/L Anion Gap 15.9 H (5.0-14.0) mmol/L BUN 25 H (7-18) mg/dL Creatinine 0.8 (0.6-1.0) mg/dL Est Cr Clr Drug Dosing 61.40 mL/min Estimated GFR (MDRD) > 60 (>60) Glucose 138 H (74-106) mg/dL Calcium 8.3 L (8.5-10.1) mg/dL Result Diagrams: 12/19/18 15:31 12/19/18 15:31 *Q Meaningful Use (ADM) - VTE *Q VTE Pharmacological Contraindications *Q: Patient Scheduled Surgery - VTE Risk Assess *Q Each Risk Factor Represents 1 Point: None Total Score 1 Point Risk Factors: 0 Each Risk Factor Represents 2 Points: Age 60 - 74 Years Total Score 2 Point Risk Factors: 2 Each Risk Factor Represents 3 Points: None Total Score 3 Point Risk Factors: 0 Each Risk Factor Represents 5 Points: None Total Score 5 Point Risk Factors: 0 Venous Thromboembolism Risk Factor Score *Q: 2 Problem List Initiated/Reviewed/Updated: Yes Orders Last 24hrs: Active Orders 24 hr Category Date Time Status Patient Status Manage Transfer [TRANSFER] Routine ADT 12/19/18 17:21 Ordered Abdomen Pelvis w Cont [CT] Stat Exams 12/19/18 15:31 Taken UA W/MICROSCOPIC [URIN] Stat Lab 12/19/18 17:19 Ordered Lactated Ringers [Ringers, Lactated] 1,000 ml Med 12/19/18 15:30 Active IV ASDIRECTED Lactated Ringers [Ringers, Lactated] 1,000 ml Med 12/19/18 17:30 Active IV ASDIRECTED Resuscitation Status Routine Resus Stat 12/19/18 17:24 Ordered Medication Orders Lactated Ringer's (Ringers, Lactated) 1,000 mls @ 500 mls/hr IV ASDIRECTED ASHWIN Last Admin: 12/19/18 15:49 Dose: 500 mls/hr Lactated Ringer's (Ringers, Lactated) 1,000 mls @ 150 mls/hr IV ASDIRECTED ASHWIN Assessment/Plan Comment:: ASSESSMENT AND PLAN SMALL BOWEL OBSTRUCTION-history of recent obstruction within the past few months that resolved spontaneously. Symptoms of nausea and cramping abdominal pain over the past 24 hours. She was able to have a bowel movement earlier today. CT scan shows evidence of small bowel obstruction with no obvious transition point. -Nothing by mouth -IV fluids for hydration -Follow-up abdominal flat plate and upright x-ray in a.m. -Consult Dr. Mccallum to see and assume care in a.m. -Medication for pain and nausea as needed -NG tube placement if she develops vomiting ADNEXAL MASS NOTED ON CT SCAN -Pelvic ultrasound for further evaluation STATUS POST AUGUSTINA-EN-Y GASTRIC BYPASS SURGERY MAINTENANCE ISSUES -DVT prophylaxis; SCUDs -GI prophylaxis; Protonix 40 mg IV daily -Bonilla catheter; not indicated -Nutrition; nothing by mouth -Nicotine dependence; not required CODE STATUS-FULL CODE ADMISSION STATUS-patient will be admitted to inpatient status, expect at least a 2 night hospital stay for evaluation and management of problems as outlined above. At the time of this admission I do not reasonably expected evaluation and management of this problem will require more than a 96 hour hospital stay. DISPOSITION-anticipate discharge to home after the hospital stay. PRIMARY CARE PROVIDER-
[2018-12-19] MEDS ORDERED: HYDROmorphone 0.5 MG/0.5 ML Syringe IVPUSH ONE (17:57)
[2018-12-19] MEDS ORDERED: Sodium Chloride 0.9% 10 ML Syringe FLUSH PRN (18:10)
[2018-12-19] MEDS ORDERED: Albuterol 0.083% 2.5 MG/3 ML Neb Soln NEB PRN (18:10)
[2018-12-19] MEDS ORDERED: LORazepam 2 MG/ML SDV IVPUSH PRN (18:10)
[2018-12-19] MEDS: Ondansetron 4 MG/2 ML SDV IV PRN (18:29)
[2018-12-19] MEDS: Lactated Ringers 1,000 ML IV SCH (18:41)
[2018-12-19] MEDS: Pantoprazole 40 MG Vial IVPUSH SCH (18:48)
[2018-12-19] MEDS: HYDROmorphone 0.5 MG/0.5 ML Syringe IVPUSH PRN (21:18)
--- NOTE | 2018-12-19 22:34 | CRLUS ---
INDICATION: Cystic lesion in the right adnexa on prior CT. TECHNIQUE: Ultrasound pelvis transabdominal and transvaginal for better assessment or to better visualize the endometrium. Real-time sonographic images with spectral and color Doppler imaging of the ovaries were obtained. COMPARISON: CT abdomen pelvis September 12, 2018. FINDINGS: Uterus: Surgically absent. Right ovary: 4.1 by 3.3 x 3.8 cm. There is a 3.7 x 3.4 x 3.1 cm cystic mass on the right ovary. This is similar to the findings on the prior CT from September 12, 2018. Normal Doppler blood flow in the right ovary. Left ovary: Surgically absent. Cul-de-sac: No significant free fluid. IMPRESSION: No significant change in cystic mass on the right ovary. Recommend nonemergent gynecology consultation for further evaluation. Dictated by Mikayla Nick MD @ Dec 19 2018 10:28PM Signed by Dr. Mikayla Nick @ Dec 19 2018 10:32PM
--- NOTE | 2018-12-19 22:50 | CRLCT ---
INDICATION: Evaluate adnexal mass. COMPARISON: Ultrasound of the pelvis from earlier today and CT of the abdomen and pelvis from 09/12/2018 TECHNIQUE: CT examination of the abdomen and pelvis was performed with the uneventful intravenous administration of 90 cc of Isovue-300 while 3 mm thick axial sections were obtained from the lung bases through the pubic symphysis. Oral contrast was not administered. Please note that all CT scans at this facility use dose modulation, iterative reconstruction, and/or weight-based dosing when appropriate to reduce radiation dose to as low as reasonably achievable. FINDINGS: In the abdomen, the liver is seen to have increased intrahepatic biliary ductal dilatation, now moderate, associated with increased dilatation of the common bile duct, now measuring up to 19 millimeters in caliber extending through the pancreatic head. I cannot identify any obstructing lesion such as a common duct calculus or pancreatic head mass. I suggest correlation with patient`s LFTs. The patient is status post cholecystectomy, but the increase in dilatation is notable. The spleen, pancreas, and adrenals are normal in appearance. Again seen is a tiny simple cyst arising from the upper pole of the right kidney. The kidneys are otherwise normal in appearance. The gallbladder is normal in appearance. The abdominal aorta is normal in caliber with no sign of dilatation. There is no sign of retroperitoneal mass or adenopathy. Again seen are changes of mesh hernia repair in the anterior abdominal wall with no sign of recurrence of a hernia. Again seen is a moderate hiatal hernia. Again seen are multiple lines of surgical tommy along the gastric fundus as well as a small bowel anastomosis in the left upper quadrant, findings consistent with bariatric surgery. There is new moderate dilatation of loops of small bowel in the left abdomen, extending from the upper abdomen through the right lower quadrant. This involves the mid small bowel, with the distal small bowel in the right pelvis having a normal caliber. I cannot identify a definite point of transition, but it may be somewhere in the right upper pelvis. The findings suggest a partial small bowel obstruction possibly from an adhesion. The distal stomach and colon in the abdomen are normal in appearance. In the pelvis, the appendix is nonvisualized, but there is no sign of an inflammatory process in the area of the appendix. The loops of small bowel and colon in the pelvis are normal in appearance. The previously seen simple appearing cyst in the right ovary is unchanged in size and shape. It measures 3.9 x 2.8 by 3.7 centimeters. A few small calcifications are seen adjacent to the cyst. The uterus is absent and the left adnexal region remain normal in appearance. The urinary bladder is normal in appearance. There is no sign of pelvic or inguinal mass or adenopathy. The lung bases are clear. The osseous structures are normal in appearance for the patient`s age. IMPRESSION: CT of the abdomen shows new moderate dilatation of loops of small bowel in the right upper and lower quadrants, without a distinct point of transition. The distal small bowel in the right pelvis is normal in caliber, suggesting partial small bowel obstruction from an adhesion. Stable moderate hiatal hernia. Stable changes of bariatric surgery. Increased dilatation of the intrahepatic and extrahepatic biliary system, with the common bile duct measuring up to 19 millimeters in calibre. The dilatation extends through the pancreatic head with no identifiable obstructing lesion. Recommend correlation with the patient`s LFTs. Status post cholecystectomy. CT of the pelvis shows no change in the simple appearing cyst in the right ovary measuring up to 3.9 centimeters in diameter. Again seen are changes of hysterectomy. Please note that all CT scans at this facility use dose modulation, iterative reconstruction, and/or weight-based dosing when appropriate to reduce radiation dose to as low as reasonably achievable. Dictated by Nico Herrera MD @ Dec 19 2018 10:30PM Signed by Dr. Nico Herrera @ Dec 19 2018 10:49PM
[2018-12-19] MEDS: traZODone 50 MG Tab PO SCH (22:52)
[2018-12-20] MEDS: HYDROmorphone 0.5 MG/0.5 ML Syringe IVPUSH PRN ×7 (00:26→22:23)
[2018-12-20] MEDS: Lactated Ringers 1,000 ML IV SCH (03:00)
--- NOTE | 2018-12-20 05:12 | CRLCR ---
INDICATION: Follow-up SBO COMPARISON: CT of the abdomen and pelvis from yesterday at 2249 hours FINDINGS: Erect and supine films of the abdomen were obtained at 0509 hours. The dilated loops of small bowel in the right paramedian abdomen are not evident on today`s plain film. This suggests resolution of the previously seen obstruction. The rest of the small bowel is nondistended, with relatively little gas in the small bowel. There is fecal material and gas throughout the colon which is nondistended. Again seen are ring markers from mesh hernia repair in the upper abdomen. A moderate hiatal hernia is again seen. The osseous structures are normal in appearance for the patient`s age. The lung bases are clear. IMPRESSION: The previously seen moderately dilated small bowel in the right paramedian abdomen is no longer seen, suggesting resolution of small bowel obstruction. Moderate hiatal hernia. Dictated by Nico Herrera MD @ Dec 20 2018 5:09AM Signed by Dr. Nico Herrera @ Dec 20 2018 5:12AM
[2018-12-20] MEDS: Ondansetron 4 MG/2 ML SDV IV PRN ×4 (05:46→22:23)
[2018-12-20] MEDS: Magnesium Sulfate/Water 2 GM in Premix Bag 1 BAG IV SCH ×2 (09:49→14:22)
[2018-12-20] MEDS: FLUoxetine 20 MG Cap PO SCH (09:52)
[2018-12-20] MEDS: Aspirin 81 MG Tab.EC PO SCH (09:52)
[2018-12-20] MEDS: Lidocaine 5% 700 MG Patch TOP SCH (09:52)
[2018-12-20] MEDS: Dextrose 5%-Lactated Ringers 1,000 ML IV SCH ×2 (11:18→21:17)
[2018-12-20] MEDS: Pantoprazole 40 MG Vial IVPUSH SCH (17:59)
[2018-12-20] MEDS: traZODone 50 MG Tab PO SCH (22:23)
[2018-12-21] MEDS: HYDROmorphone 0.5 MG/0.5 ML Syringe IVPUSH PRN ×2 (01:45→04:57)
--- NOTE | 2018-12-21 04:53 | CRLCR ---
INDICATION: Follow-up small bowel obstruction. COMPARISON: From yesterday at 0404 hours FINDINGS: Erect and supine films of the abdomen were obtained at 0413 hours. In the abdomen, there is no sign of distention of the small bowel or colon to suggest obstruction or ileus. There is no sign of free air or distinct mass. There continues to be a mild amount of gas scattered throughout the colon with a moderate amount of fecal material in the right colon. Again seen are multiple ring markers in the upper abdomen and periumbilical region consistent with mesh hernia repair. The osseous structures are normal in appearance for the patient`s age. The lung bases are clear. IMPRESSION: No sign of obstruction or ileus. Status post mesh hernia repair in the upper abdomen and the periumbilical region. Dictated by Nico Herrera MD @ Dec 21 2018 4:49AM Signed by Dr. Nico Herrera @ Dec 21 2018 4:51AM
[2018-12-21] MEDS ORDERED: Morphine PF 150 MG/30 ML PCA Syringe IV PRN (07:08)
[2018-12-21] MEDS ORDERED: Naloxone 0.4 MG/ML SDV IV PRN (07:08)
[2018-12-21] MEDS ORDERED: Neostigmine Methylsulfate 1 MG/ML 5 ML Syringe ONE (07:17)
[2018-12-21] MEDS ORDERED: Ondansetron 4 MG/2 ML SDV ONE (07:17)
[2018-12-21] MEDS ORDERED: Dexamethasone 4 MG/ML SDV ONE (07:17)
[2018-12-21] MEDS ORDERED: Glycopyrrolate 0.2 MG/ML 5 ML MDV ONE (07:17)
[2018-12-21] MEDS ORDERED: fentaNYL 250 MCG/5 ML SDV ONE (07:17)
[2018-12-21] MEDS ORDERED: Rocuronium 50 MG/5 ML Vial ONE ×2 (07:17→10:08)
[2018-12-21] MEDS ORDERED: Succinylcholine 200 MG/10 ML MDV ONE (07:17)
[2018-12-21] MEDS ORDERED: Propofol 200 MG/20 ML SDV ONE (07:17)
[2018-12-21] MEDS ORDERED: Meropenem 500 MG SDV ONE (07:47)
[2018-12-21] MEDS ORDERED: cefOXitin 2 GM in Sodium Chloride 0.9% 50 ML IV ONE (08:00)
[2018-12-21] MEDS ORDERED: Ropivacaine 32 ML, Dexamethasone 8 MG, EPINEPHrine 0.4 MG, Sodium Chloride 0.9% 45.6 ML NERVRT SCH ×4 (08:00)
[2018-12-21] MEDS: Dextrose 5%-Lactated Ringers 1,000 ML IV SCH ×2 (08:04→20:50)
[2018-12-21] MEDS: FLUoxetine 20 MG Cap PO SCH (09:26)
[2018-12-21] MEDS: Aspirin 81 MG Tab.EC PO SCH (09:26)
[2018-12-21] MEDS: Lidocaine 5% 700 MG Patch TOP SCH (09:26)
[2018-12-21] MEDS ORDERED: Lactated Ringers 1,000 ML ONE (09:34)
[2018-12-21] MEDS ORDERED: fentaNYL 100 MCG/2 ML SDV ONE (11:32)
[2018-12-21] MEDS ORDERED: Albuterol/Ipratropium 3.0-0.5 MG/3 ML Neb Soln INH PRN (13:03)
[2018-12-21] MEDS ORDERED: Labetalol 20 MG/4 ML Syringe IVPUSH PRN (13:03)
[2018-12-21] MEDS ORDERED: diphenhydrAMINE 50 MG/ML SDV IVPUSH PRN (13:03)
[2018-12-21] MEDS ORDERED: hydrOXYzine HCl 100 MG/2 ML SDV IM PRN (13:03)
[2018-12-21] MEDS ORDERED: Metoclopramide 10 MG/2 ML SDV IVPUSH PRN (13:03)
[2018-12-21] MEDS ORDERED: Acetaminophen Soln 650 MG/20.3 ML UD Cup PO SCH (14:00)
[2018-12-21] MEDS ORDERED: Scopolamine 1.5 MG Transdermal Patch TOP SCH (14:00)
[2018-12-21] MEDS: Gabapentin 250 MG/5 ML Solution ML 470 ML Bottle PO SCH ×2 (14:22→20:36)
[2018-12-21] MEDS: Acetaminophen 325 MG Tab PO SCH ×2 (14:24→20:32)
[2018-12-21] MEDS: cefOXitin 2 GM in Sodium Chloride 0.9% 50 ML IV SCH ×2 (15:06→20:33)
[2018-12-21] MEDS: Albuterol/Ipratropium 3.0-0.5 MG/3 ML Neb Soln INH SCH ×2 (15:15→20:32)
[2018-12-21] MEDS ORDERED: MVI, Adult with Vitamin K 10 ML, Thiamine 100 MG, Chromium/Copper/Mang/Selen/Zn 1 ML in... IV SCH ×4 (16:00)
[2018-12-21] MEDS: Pantoprazole 40 MG Vial IVPUSH SCH (17:42)
[2018-12-21] MEDS: traZODone 50 MG Tab PO SCH (20:36)
[2018-12-22] MEDS: Dextrose 5%-Lactated Ringers 1,000 ML IV SCH ×2 (02:27→07:51)
[2018-12-22] MEDS: cefOXitin 2 GM in Sodium Chloride 0.9% 50 ML IV SCH ×4 (02:27→20:51)
[2018-12-22] MEDS: Acetaminophen 325 MG Tab PO SCH ×4 (02:29→20:51)
[2018-12-22] MEDS ORDERED: Iohexol 647 MG/ML 50 ML SDV IVPUSH PRN (04:25)
--- NOTE | 2018-12-22 05:27 | CRLCR ---
INDICATION: Status post laparoscopic Donald-en-Y revision. COMPARISON: Plain film of the abdomen from yesterday. FINDINGS: Two erect films of the abdomen were obtained after the oral administration of contrast. The 1st film was obtained at 0444 hours and the 2nd films obtained at 0457 hours. There is no distention of bowel to suggest obstruction or ileus. There is a tiny amount of free air in the abdomen underneath the left hemidiaphragm consistent with recent surgery. There is a new line of surgical skin clips located along the anterior abdomen and pelvis. The previously seen spring markers from mesh hernia repair in the superior anterior abdominal wall in the periumbilical region are no longer present. Initially, the oral contrast is collected in the moderately dilated, irregular esophagus, consistent with presbyesophagus. On the final image, contrast has passed easily into the mid and distal small bowel, with no sign of extravasation in the upper abdomen. There is no sign of bowel obstruction or ileus. The osseous structures are normal in appearance for the patient`s age. There is mild linear atelectasis in the medial left lung base, similar in appearance to the previous study. IMPRESSION: No sign of obstruction or ileus. Prompt passage of administered oral contrast through the nondistended small bowel to reach the distal small bowel after only 13 minutes. No sign of extravasation of contrast in the upper abdomen in the area of surgery. Dictated by Nico Herrera MD @ Dec 22 2018 5:20AM Signed by Dr. Nico Herrera @ Dec 22 2018 5:25AM
[2018-12-22] MEDS: Albuterol/Ipratropium 3.0-0.5 MG/3 ML Neb Soln INH SCH ×4 (07:19→20:51)
[2018-12-22] MEDS: Docusate Sodium 100 MG Cap PO SCH ×2 (08:34→20:52)
[2018-12-22] MEDS: Aspirin 81 MG Tab.EC PO SCH (08:34)
[2018-12-22] MEDS: FLUoxetine 20 MG Cap PO SCH (08:34)
[2018-12-22] MEDS: Lidocaine 5% 700 MG Patch TOP SCH (08:35)
[2018-12-22] MEDS: Gabapentin 250 MG/5 ML Solution ML 470 ML Bottle PO SCH ×3 (09:36→20:51)
[2018-12-22] MEDS: SCOPOLAMINE PATCH CHECK TOP SCH (09:37)
--- NOTE | 2018-12-22 12:40 | PN ---
DATE OF SERVICE: 12/22/2018 The patient has been afebrile with stable vital signs. No major problems have been noted overnight. Urine output has been satisfactory. Her upper GI x-ray looked good. We will begin a step-2 diet today. Bonilla catheter, we will leave in for today. Otherwise, maximize activity and work with pulmonary toilet. The IV rate will be slowed down as well. Gene Mccallum MD /[id number]
[2018-12-22] MEDS: MVI, Adult with Vitamin K 10 ML, Thiamine 100 MG, Chromium/Copper/Mang/Selen/Zn 1 ML in... IV SCH ×4 (17:31)
[2018-12-22] MEDS: Pantoprazole 40 MG Delayed-Release Granules 1 Packet PO SCH (17:31)
[2018-12-22] MEDS: traZODone 50 MG Tab PO SCH (20:52)
[2018-12-23] MEDS: Acetaminophen 325 MG Tab PO SCH ×3 (02:33→13:42)
[2018-12-23] MEDS: cefOXitin 2 GM in Sodium Chloride 0.9% 50 ML IV SCH ×2 (02:33→08:51)
[2018-12-23] MEDS: Albuterol/Ipratropium 3.0-0.5 MG/3 ML Neb Soln INH SCH ×4 (07:23→20:23)
[2018-12-23] MEDS: Lidocaine 5% 700 MG Patch TOP SCH (08:47)
[2018-12-23] MEDS: Aspirin 81 MG Tab.EC PO SCH (08:47)
[2018-12-23] MEDS: Docusate Sodium 100 MG Cap PO SCH ×2 (08:47→20:21)
[2018-12-23] MEDS: FLUoxetine 20 MG Cap PO SCH (08:48)
[2018-12-23] MEDS: Gabapentin 250 MG/5 ML Solution ML 470 ML Bottle PO SCH ×2 (08:51→13:42)
[2018-12-23] MEDS ORDERED: Magnesium Hydroxide 400 MG/5 ML Susp 30 ML Cup PO ONE (09:00)
[2018-12-23] MEDS ORDERED: Cyanocobalamin (Vitamin B12) 1,000 MCG/ML SDV IM ONE (09:00)
[2018-12-23] MEDS: SCOPOLAMINE PATCH CHECK TOP SCH (09:45)
[2018-12-23] MEDS ORDERED: Bisacodyl 5 MG Tab PO ONE (10:00)
[2018-12-23] MEDS: HYDROmorphone 2 MG Tab PO PRN ×3 (10:32→18:36)
[2018-12-23] MEDS: Ondansetron 4 MG/2 ML SDV IV PRN (10:36)
[2018-12-23] MEDS: MVI, Adult with Vitamin K 10 ML, Thiamine 100 MG, Chromium/Copper/Mang/Selen/Zn 1 ML in... IV SCH ×8 (14:32→15:37)
--- NOTE | 2018-12-23 15:14 | PCM.SURGPN ---
- General Info Date of Service: 12/23/18 Date of Surgery/Procedure: 12/22/18 POD#: 1 Post-Op Diagnosis: a) Adhesive small bowel obstruction involving mesh Donald limb. b) Portion of the stomach. c) Donald limb of the small bowel adherent to intraperitoneal mesh. Functional Status: Reports: Pain Controlled (DC [employer] and transition to Dilaudid 4 mg every 4 hours PRN for pain.), Tolerating Diet (Transition to Step III diet. ), Urinating (825 mL urine output.), Incentive Spirometry (Using 10 times per hour.) - Review of Systems Systems Review Comment:: 68 YO Josie Mcbride is post op day 1 from a SBO. She is afebrile with stable vital signs. No complications or concerns overnight. The patient's pain is tolerated well on [employer] morphine but she will transition to oral pain medications today to include Dilaudid 4 mg every 4 hours PRN and Tylenol 1,000 mg every 6 hours PRN for pain. The patient's catheter and pulse oximeter should be DC today. Patient is tolerating diet and can transition to a Step III diet. The patient does not have questions at this time. - Patient Data Vitals - Most Recent: Last Vital Signs Temp 35.8 C 12/23/18 11:39 Pulse 80 12/23/18 14:43 Resp 16 12/23/18 11:39 BP 127/62 12/23/18 11:39 Pulse Ox 92 L 12/23/18 11:39 Weight - Most Recent: 65.635 kg I&O - Last 24 Hours: Intake & Output 12/23/18 12/23/18 12/23/18 06:59 14:59 22:59 Intake Total 1100 2264 Output Total 1999 825 Balance -900 1439 Med Orders - Current: Current Medications Acetaminophen (Tylenol) 650 mg PO Q6H [facility] Last Admin: 12/23/18 13:42 Dose: 650 mg Albuterol/Ipratropium (Duoneb 3.0-0.5 Mg/3 Ml) 3 ml INH QIDRT [facility] Last Admin: 12/23/18 14:42 Dose: 3 ml Albuterol/Ipratropium (Duoneb 3.0-0.5 Mg/3 Ml) 3 ml INH ASDIRECTED PRN PRN Reason: BREATHING Aspirin (Halfprin) 81 mg PO DAILY [facility] Last Admin: 12/23/18 08:47 Dose: 81 mg Diphenhydramine HCl (Benadryl) 50 mg IVPUSH Q4H PRN PRN Reason: ITCHING Last Admin: 12/21/18 14:18 Dose: 50 mg Docusate Sodium (Colace) 100 mg PO BID [facility] Last Admin: 12/23/18 08:47 Dose: 100 mg Fluoxetine HCl (Prozac) 60 mg PO DAILY [facility] Last Admin: 12/23/18 08:48 Dose: 60 mg Gabapentin (Neurontin) 300 mg PO TID [facility] Last Admin: 12/23/18 13:42 Dose: 300 mg Hydromorphone HCl (Dilaudid) 2 - 4 mg PO Q4H PRN PRN Reason: Pain Last Admin: 12/23/18 14:30 Dose: 4 mg Hydroxyzine HCl (Vistaril) 100 mg IM Q4H PRN PRN Reason: pain Dextrose/Lactated Ringer's (Dextrose 5%-Lactated Ringers) 1,000 mls @ 100 mls/ hr IV ASDIRECTED [facility] Last Admin: 12/22/18 07:51 Dose: 100 mls/hr Multivitamins/Minerals 10 ml/Thiamine HCl 100 mg/ Chromium/Copper/Manganese/ Seleni/Zn 1 ml/ Dextrose/Lactated Ringer's 1,012 mls @ 100 mls/hr IV DAILY@ 1600 [facility] Last Admin: 12/23/18 14:32 Dose: 100 mls/hr Labetalol HCl (Normodyne) 5 mg IVPUSH Q5M PRN PRN Reason: SBP over 160 OR DBP over 95 Lidocaine (Lidoderm 5%) 700 mg TOP DAILY [facility] Last Admin: 12/23/18 08:47 Dose: Not Given Lorazepam (Ativan) 0.5 mg IVPUSH Q4H PRN PRN Reason: Anxiety Last Admin: 12/23/18 13:48 Dose: 0.5 mg Metoclopramide HCl (Reglan) 10 mg IVPUSH Q6H PRN PRN Reason: NAUSEA NOT CONTROL BY ZOFRAN Miscellaneous Information (Remove Patch) 1 ea TRDERM DAILY@2000 [facility] Last Admin: 12/22/18 21:04 Dose: Not Given Ondansetron HCl (Zofran) 4 mg IV Q4H PRN PRN Reason: Nausea/Vomiting Last Admin: 12/23/18 10:36 Dose: 4 mg Pantoprazole Sodium (Protonix Granules) 40 mg PO Q24H [facility] Last Admin: 12/22/18 17:31 Dose: 40 mg Trazodone HCl (Trazodone) 100 mg PO BEDTIME [facility] Last Admin: 12/22/18 20:52 Dose: 100 mg Discontinued Medications Albuterol (Proventil Neb Soln) 2.5 mg NEB Q4H PRN PRN Reason: Shortness Of Breath/wheezing Bisacodyl (Dulcolax) 20 mg PO ONETIME ONE Stop: 12/23/18 10:01 Last Admin: 12/23/18 10:39 Dose: 20 mg Ropivacaine 32 ml/Dexamethasone 8 mg/Epinephrine HCl 0.4 mg/ Sodium Chloride 45.6 ml 0 ml NERVRT ASDIRECTED [facility] Last Admin: 12/21/18 09:30 Dose: 80 syringe Cyanocobalamin (Vitamin B12) 1,000 mcg IM ONETIME ONE Stop: 12/23/18 09:01 Last Admin: 12/23/18 08:48 Dose: 1,000 mcg Dexamethasone (Dexamethasone) Confirm Administered Dose 4 mg .ROUTE .STK-MED ONE Stop: 12/21/18 07:18 Fentanyl (Sublimaze) Confirm Administered Dose 250 mcg .ROUTE .STK-MED ONE Stop: 12/21/18 07:18 Fentanyl (Sublimaze) Confirm Administered Dose 100 mcg .ROUTE .STK-MED ONE Stop: 12/21/18 11:33 Glycopyrrolate (Robinul) Confirm Administered Dose 1 mg .ROUTE .STK-MED ONE Stop: 12/21/18 07:18 Hydromorphone HCl (Dilaudid) 1 mg IVPUSH ONETIME ONE Stop: 12/19/18 15:32 Last Admin: 12/19/18 15:51 Dose: 1 mg Hydromorphone HCl (Dilaudid) 0.5 mg IVPUSH ONETIME ONE Stop: 12/19/18 17:58 Last Admin: 12/19/18 18:20 Dose: 0.5 mg Hydromorphone HCl (Dilaudid) 0.5 mg IVPUSH Q2H PRN PRN Reason: Pain Last Admin: 12/21/18 04:57 Dose: 0.5 mg Lactated Ringer's (Ringers, Lactated) 1,000 mls @ 500 mls/hr IV ASDIRECTED [facility] Last Admin: 12/19/18 15:49 Dose: 500 mls/hr Sodium Chloride (Normal Saline) 70 mls @ 3 mls/sec IV ONETIME ONE Stop: 12/19/18 16:04 Last Admin: 12/19/18 16:20 Dose: 3 mls/sec Lactated Ringer's (Ringers, Lactated) 1,000 mls @ 150 mls/hr IV ASDIRECTED [facility] Lactated Ringer's (Ringers, Lactated) 1,000 mls @ 125 mls/hr IV ASDIRECTED [facility] Last Admin: 12/20/18 03:00 Dose: 125 mls/hr Dextrose/Lactated Ringer's (Dextrose 5%-Lactated Ringers) 1,000 mls @ 100 mls/ hr IV ASDIRECTED [facility] Last Admin: 12/21/18 08:04 Dose: 100 mls/hr Magnesium Sulfate 2 gm/ Premix 50 mls @ 25 mls/hr IV Q6H [facility] Stop: 12/20/18 16:29 Last Admin: 12/20/18 14:22 Dose: 25 mls/hr Cefoxitin Sodium 2 gm/ Sodium (Chloride) 50 mls @ 100 mls/hr IV ONCALL ONE Stop: 12/21/18 08:29 Last Admin: 12/21/18 09:13 Dose: 100 mls/hr Lactated Ringer's (Ringers, Lactated) Confirm Administered Dose 1,000 mls @ as directed .ROUTE .STK-MED ONE Stop: 12/21/18 09:35 Dextrose/Lactated Ringer's (Dextrose 5%-Lactated Ringers) 1,000 mls @ 200 mls/ hr IV ASDIRECTED [facility] Last Admin: 12/22/18 02:27 Dose: 200 mls/hr Multivitamins/Minerals 10 ml/Thiamine HCl 100 mg/ Chromium/Copper/Manganese/ Seleni/Zn 1 ml/ Dextrose/Lactated Ringer's 1,012 mls @ 200 mls/hr IV DAILY@ 1600 [facility] Last Admin: 12/21/18 15:50 Dose: 200 mls/hr Cefoxitin Sodium 2 gm/ Sodium (Chloride) 50 mls @ 100 mls/hr IV Q6H [facility] Stop: 12/23/18 09:29 Last Admin: 12/23/18 08:51 Dose: 100 mls/hr Iohexol (Omnipaque-300) 50 ml IVPUSH . DIRECTED PRN PRN Reason: RADIOLOGY EXAM Stop: 12/23/18 04:26 Last Admin: 12/22/18 04:46 Dose: 50 ml Iopamidol (Isovue-300 (61%)) 93 ml IV . DIRECTED PRN PRN Reason: RADIOLOGY EXAM Stop: 12/19/18 16:04 Last Admin: 12/19/18 16:19 Dose: 100 ml Magnesium Hydroxide (Milk Of Magnesia) 30 ml PO ONETIME ONE Stop: 12/23/18 09:01 Last Admin: 12/23/18 10:32 Dose: 30 ml Meropenem (Merrem) Confirm Administered Dose 500 mg .ROUTE .STK-MED ONE Stop: 12/21/18 07:48 Last Admin: 12/21/18 10:08 Dose: 500 mg Miscellaneous Information (Remove Patch) 1 ea TRDERM ONETIME ONE Stop: 12/23/18 10:01 Last Admin: 12/23/18 09:46 Dose: Not Given Morphine Sulfate (Morphine Casting Room Helper 150 Mg In 30 Ml) 0 mg IV ASDIRECTED PRN; Protocol PRN Reason: PAIN Last Admin: 12/21/18 12:36 Dose: 150 mg Naloxone HCl (Narcan) 0.1 mg IV ASDIRECTED PRN PRN Reason: DECREASED RESPIRATORY RATE Neostigmine Methylsulfate (Neostigmine) Confirm Administered Dose 5 mg .ROUTE .STK-MED ONE Stop: 12/21/18 07:18 Scopolamine Patch (Check) 1 each TOP DAILY [facility] Stop: 12/23/18 13:04 Last Admin: 12/23/18 09:45 Dose: Not Given Ondansetron HCl (Zofran) Confirm Administered Dose 4 mg .ROUTE .STK-MED ONE Stop: 12/21/18 07:18 Pantoprazole Sodium (Protonix Iv) 40 mg IVPUSH Q24H [facility] Last Admin: 12/21/18 17:42 Dose: 40 mg Prochlorperazine Edisylate (Compazine) 5 mg IVPUSH ONETIME ONE Stop: 12/19/18 15:34 Last Admin: 12/19/18 15:51 Dose: 5 mg Prochlorperazine Edisylate (Compazine) Confirm Administered Dose 10 mg .ROUTE .STK-MED ONE Stop: 12/19/18 15:36 Last Admin: 12/20/18 07:38 Dose: Not Given Propofol (Diprivan 20 Ml) Confirm Administered Dose 200 mg .ROUTE .STK-MED ONE Stop: 12/21/18 07:18 Rocuronium [place] (Zemuron) Confirm Administered Dose 50 mg .ROUTE .STK-MED ONE Stop: 12/21/18 07:18 Rocuronium [place] (Zemuron) Confirm Administered Dose 50 mg .ROUTE .STK-MED ONE Stop: 12/21/18 10:09 Scopolamine (Transderm-Scop) 1.5 mg TOP Q72H [facility] Stop: 12/23/18 10:00 Last Admin: 12/21/18 14:20 Dose: 1.5 mg Sodium Chloride (Normal Saline) 10 ml FLUSH ONETIME ONE Stop: 12/19/18 16:04 Last Admin: 12/19/18 17:00 Dose: 10 ml Sodium Chloride (Saline Flush) 10 ml FLUSH ASDIRECTED PRN PRN Reason: Keep Vein Open Last Admin: 12/19/18 18:48 Dose: 10 ml Succinylcholine Chloride (Quelicin) Confirm Administered Dose 200 mg .ROUTE .STK -MED ONE Stop: 12/21/18 07:18 - Exam Quality Assessment: DVT Prophylaxis (SCDs in place) General: Alert, Oriented Neck: Supple Lungs: Clear to Auscultation, Normal Respiratory Effort Cardiovascular: Regular Rate, Regular Rhythm Extremities: No Pedal Edema Neurological: No New Focal Deficit Psy/Mental Status: Normal Affect, Normal Mood - Problem List Review Problem List Initiated/Reviewed/Updated: Yes - My Orders Last 24 Hours: Active Orders 24 hr Category Date Time Status May Shower [RC] ASDIRECTED Care 12/23/18 08:18 Active Consult to Physical Therapy [PT Evaluation and Cons 12/23/18 08:00 Active Treatment] [CONS] Routine Bariatric Diet [DIET] Diet 12/23/18 Breakfast Active HYDROmorphone [Dilaudid] Med 12/23/18 08:18 Active 2 - 4 mg PO Q4H PRN MVI, Adult with Vitamin K [Infuvite Adult] 10 ml Med 12/22/18 16:00 Active Thiamine [Vitamin B-1] 100 mg Chromium/Copper/Austyn/Selen/Zn [Multitrace-5 Concentrate ] 1 ml Dextrose 5%-Lactated Ringers 1,000 ml IV DAILY@1600 Pantoprazole [ProTONIX Granules] Med 12/22/18 16:00 Active 40 mg PO Q24H Oral Care [OM.PC] BID Oth 12/22/18 22:00 Ordered Medication Orders Acetaminophen (Tylenol) 650 mg PO Q6H [facility] Last Admin: 12/23/18 13:42 Dose: 650 mg Admin: 12/23/18 08:47 Dose: 650 mg Admin: 12/23/18 02:33 Dose: 650 mg Admin: 12/22/18 20:51 Dose: 650 mg Admin: 12/22/18 14:27 Dose: 650 mg Admin: 12/22/18 08:34 Dose: 650 mg Admin: 12/22/18 02:29 Dose: 650 mg Admin: 12/21/18 20:32 Dose: 650 mg Admin: 12/21/18 14:24 Dose: 650 mg Albuterol/Ipratropium (Duoneb 3.0-0.5 Mg/3 Ml) 3 ml INH QIDRT [facility] Last Admin: 12/23/18 14:42 Dose: 3 ml Admin: 12/23/18 10:52 Dose: 3 ml Admin: 12/23/18 07:23 Dose: 3 ml Admin: 12/22/18 20:51 Dose: 3 ml Admin: 12/22/18 14:49 Dose: 3 ml Admin: 12/22/18 10:48 Dose: 3 ml Admin: 12/22/18 07:19 Dose: 3 ml Admin: 12/21/18 20:32 Dose: 3 ml Admin: 12/21/18 15:15 Dose: 3 ml Albuterol/Ipratropium (Duoneb 3.0-0.5 Mg/3 Ml) 3 ml INH ASDIRECTED PRN PRN Reason: BREATHING Aspirin (Halfprin) 81 mg PO DAILY [facility] Last Admin: 12/23/18 08:47 Dose: 81 mg Admin: 12/22/18 08:34 Dose: 81 mg Admin: 12/21/18 09:26 Dose: Not Given Admin: 12/20/18 09:52 Dose: 81 mg Diphenhydramine HCl (Benadryl) 50 mg IVPUSH Q4H PRN PRN Reason: ITCHING Last Admin: 12/21/18 14:18 Dose: 50 mg Docusate Sodium (Colace) 100 mg PO BID [facility] Last Admin: 12/23/18 08:47 Dose: 100 mg Admin: 12/22/18 20:52 Dose: 100 mg Admin: 12/22/18 08:34 Dose: 100 mg Fluoxetine HCl (Prozac) 60 mg PO DAILY [facility] Last Admin: 12/23/18 08:48 Dose: 60 mg Admin: 12/22/18 08:34 Dose: 60 mg Admin: 12/21/18 09:26 Dose: Not Given Admin: 12/20/18 09:52 Dose: 60 mg Gabapentin (Neurontin) 300 mg PO TID [facility] Last Admin: 12/23/18 13:42 Dose: 300 mg Admin: 12/23/18 08:51 Dose: 300 mg Admin: 12/22/18 20:51 Dose: 300 mg Admin: 12/22/18 14:27 Dose: 300 mg Admin: 12/22/18 09:36 Dose: 300 mg Admin: 12/21/18 20:36 Dose: 300 mg Admin: 12/21/18 14:22 Dose: 300 mg Hydromorphone HCl (Dilaudid) 2 - 4 mg PO Q4H PRN PRN Reason: Pain Last Admin: 12/23/18 14:30 Dose: 4 mg Admin: 12/23/18 10:32 Dose: 4 mg Hydroxyzine HCl (Vistaril) 100 mg IM Q4H PRN PRN Reason: pain Dextrose/Lactated Ringer's (Dextrose 5%-Lactated Ringers) 1,000 mls @ 100 mls/ hr IV ASDIRECTED [facility] Last Admin: 12/22/18 07:51 Dose: 100 mls/hr Multivitamins/Minerals 10 ml/Thiamine HCl 100 mg/ Chromium/Copper/Manganese/ Seleni/Zn 1 ml/ Dextrose/Lactated Ringer's 1,012 mls @ 100 mls/hr IV DAILY@ 1600 [facility] Last Admin: 12/23/18 14:32 Dose: 100 mls/hr Admin: 02/10/19 17:31 Dose: 100 mls/hr Labetalol HCl (Normodyne) 5 mg IVPUSH Q5M PRN PRN Reason: SBP over 160 OR DBP over 95 Lidocaine (Lidoderm 5%) 700 mg TOP DAILY [facility] Last Admin: 12/23/18 08:47 Dose: Not Given Admin: 12/22/18 08:35 Dose: Not Given Admin: 12/21/18 09:26 Dose: Not Given Admin: 12/20/18 09:52 Dose: Not Given Lorazepam (Ativan) 0.5 mg IVPUSH Q4H PRN PRN Reason: Anxiety Last Admin: 12/23/18 13:48 Dose: 0.5 mg Metoclopramide HCl (Reglan) 10 mg IVPUSH Q6H PRN PRN Reason: NAUSEA NOT CONTROL BY ZOFRAN Miscellaneous Information (Remove Patch) 1 ea TRDERM DAILY@1999 [facility] Last Admin: 12/22/18 21:04 Dose: Not Given Admin: 12/21/18 20:25 Dose: Not Given Admin: 12/20/18 21:18 Dose: Not Given Admin: 12/19/18 22:52 Dose: Not Given Ondansetron HCl (Zofran) 4 mg IV Q4H PRN PRN Reason: Nausea/Vomiting Last Admin: 12/23/18 10:36 Dose: 4 mg Admin: 12/20/18 22:23 Dose: 4 mg Admin: 12/20/18 15:53 Dose: 4 mg Admin: 12/20/18 11:08 Dose: 4 mg Admin: 12/20/18 05:46 Dose: 4 mg Admin: 12/19/18 18:29 Dose: 4 mg Pantoprazole Sodium (Protonix Granules) 40 mg PO Q24H [facility] Last Admin: 12/22/18 17:31 Dose: 40 mg Trazodone HCl (Trazodone) 100 mg PO BEDTIME [facility] Last Admin: 12/22/18 20:52 Dose: 100 mg Admin: 12/21/18 20:36 Dose: 100 mg Admin: 12/20/18 22:23 Dose: 100 mg Admin: 12/19/18 22:52 Dose: 100 mg - Assessment Assessment (Free Text/Narrative):: Operation: a) 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 b) Separate small bowel resection. c) Removal of peritoneal mesh. d) Excision of wedge bypassed stomach adherent to mesh. e) Placement of vicryl mesh. Post Operative Diagnosis: a) Adhesive small bowel obstruction involving mesh Donald limb. b) Portion of the stomach. c) Donald limb of the small bowel adherent to intraperitoneal mesh. Surgeon: Gene Mccallum MD Date of Surgery: 12/22/2018 Assistants: Ruth Santillan PA-C and TIFFANIE PerezS - Plan Plan (Free Text/Narrative):: 1. Step III diet. 2. Dilaudid 4 mg every 4 hours PRN for pain. 3. May shower. 4. M 5. DC [employer]. 6. DC pulse ox.
[2018-12-23] MEDS: Pantoprazole 40 MG Delayed-Release Granules 1 Packet PO SCH (16:30)
[2018-12-23] MEDS: Acetaminophen/HYDROcodone 325-5 MG Tab PO PRN (20:20)
[2018-12-23] MEDS: traZODone 50 MG Tab PO SCH (20:21)
[2018-12-23] MEDS: Dextrose 5%-Lactated Ringers 1,000 ML IV SCH (23:54)
[2018-12-24] MEDS: Acetaminophen/HYDROcodone 325-5 MG Tab PO PRN ×6 (03:23→23:51)
[2018-12-24] MEDS: Albuterol/Ipratropium 3.0-0.5 MG/3 ML Neb Soln INH SCH ×4 (07:16→21:37)
[2018-12-24] MEDS: Aspirin 81 MG Tab.EC PO SCH (08:49)
[2018-12-24] MEDS: Docusate Sodium 100 MG Cap PO SCH ×2 (08:49→21:36)
[2018-12-24] MEDS: FLUoxetine 20 MG Cap PO SCH (08:49)
[2018-12-24] MEDS: Bisacodyl 5 MG Tab PO SCH ×2 (08:50→21:36)
[2018-12-24] MEDS: Lidocaine 5% 700 MG Patch TOP SCH ×2 (08:50→11:25)
--- NOTE | 2018-12-24 11:22 | PCM.SURGPN ---
- General Info Date of Service: 12/24/18 Date of Surgery/Procedure: 12/21/18 POD#: 3 Post-Op Diagnosis: a) Adhesive small bowel obstruction involving mesh Donald limb. b) Portion of the stomach. c) Donald limb of the small bowel adherent to intraperitoneal mesh. Functional Status: Reports: Pain Controlled ([place] 325-5 mg 1-2 tabs PO every 4 hours PRN), Tolerating Diet, Urinating (Urine output 350 mL), New Symptoms (The gabapentin made her dizzy and confused. This was DC.), Incentive Spirometry ( Using 10x in a row per hour) - Review of Systems Systems Review Comment:: 68 YO female Josie Mcbride is post op day 3 from an adhesive small bowel obstruction involving mesh Donald limb, portion of the stomach, and Donald limb of the small bowel adherent to intraperitoneal mesh. The patient remains afebrile with stable vital signs. The patient was started on gabapentin and this made her dizzy and confused which caused a fall yesterday. The gabapentin was DC. She remains slightly confused today. Her pain is well controlled on [place]. The patient is urinating but is not passing gas or having BMs. The patient will start Doculax until BM. The patient will not be discharged today. - Patient Data Vitals - Most Recent: Last Vital Signs Temp 36.9 C 12/24/18 08:00 Pulse 82 12/24/18 08:00 Resp 16 12/24/18 08:00 BP 111/53 L 12/24/18 08:00 Pulse Ox 90 L 12/24/18 08:00 Weight - Most Recent: 65.635 kg I&O - Last 24 Hours: Intake & Output 12/23/18 12/24/18 12/24/18 22:59 06:59 14:59 Intake Total 817 440 960 Output Total 500 600 350 Balance 317 -160 610 Med Orders - Current: Current Medications Hydrocodone Bitart/Acetaminophen ([place] 325-5 Mg) 1 - 2 tab PO Q4H PRN PRN Reason: Pain Last Admin: 12/24/18 07:37 Dose: 2 tab Albuterol/Ipratropium (Duoneb 3.0-0.5 Mg/3 Ml) 3 ml INH QIDRT ASHWIN Last Admin: 12/24/18 10:37 Dose: 3 ml Albuterol/Ipratropium (Duoneb 3.0-0.5 Mg/3 Ml) 3 ml INH ASDIRECTED PRN PRN Reason: BREATHING Aspirin (Halfprin) 81 mg PO DAILY [facility] Last Admin: 12/24/18 08:49 Dose: 81 mg Bisacodyl (Dulcolax) 10 mg PO BID [facility] Last Admin: 12/24/18 08:50 Dose: 10 mg Diphenhydramine HCl (Benadryl) 50 mg IVPUSH Q4H PRN PRN Reason: ITCHING Last Admin: 12/21/18 14:18 Dose: 50 mg Docusate Sodium (Colace) 100 mg PO BID [facility] Last Admin: 12/24/18 08:49 Dose: 100 mg Fluoxetine HCl (Prozac) 60 mg PO DAILY [facility] Last Admin: 12/24/18 08:49 Dose: 60 mg Hydroxyzine HCl (Vistaril) 100 mg IM Q4H PRN PRN Reason: pain Labetalol HCl (Normodyne) 5 mg IVPUSH Q5M PRN PRN Reason: SBP over 160 OR DBP over 95 Lidocaine (Lidoderm 5%) 700 mg TOP DAILY [facility] Last Admin: 12/24/18 08:50 Dose: Not Given Metoclopramide HCl (Reglan) 10 mg IVPUSH Q6H PRN PRN Reason: NAUSEA NOT CONTROL BY ZOFRAN Miscellaneous Information (Remove Patch) 1 ea TRDERM DAILY@1999 [facility] Last Admin: 12/23/18 20:22 Dose: Not Given Ondansetron HCl (Zofran) 4 mg IV Q4H PRN PRN Reason: Nausea/Vomiting Last Admin: 12/23/18 10:36 Dose: 4 mg Pantoprazole Sodium (Protonix Granules) 40 mg PO Q24H [facility] Last Admin: 12/23/18 16:30 Dose: 40 mg Trazodone HCl (Trazodone) 100 mg PO BEDTIME [facility] Last Admin: 12/23/18 20:21 Dose: 100 mg Discontinued Medications Acetaminophen (Tylenol) 650 mg PO Q6H [facility] Last Admin: 12/23/18 13:42 Dose: 650 mg Albuterol (Proventil Neb Soln) 2.5 mg NEB Q4H PRN PRN Reason: Shortness Of Breath/wheezing Bisacodyl (Dulcolax) 20 mg PO ONETIME ONE Stop: 12/23/18 10:01 Last Admin: 12/23/18 10:39 Dose: 20 mg Ropivacaine 32 ml/Dexamethasone 8 mg/Epinephrine HCl 0.4 mg/ Sodium Chloride 45.6 ml 0 ml NERVRT ASDIRECTED [facility] Last Admin: 12/21/18 09:30 Dose: 80 syringe Cyanocobalamin (Vitamin B12) 1,000 mcg IM ONETIME ONE Stop: 12/23/18 09:01 Last Admin: 12/23/18 08:48 Dose: 1,000 mcg Dexamethasone (Dexamethasone) Confirm Administered Dose 4 mg .ROUTE .STK-MED ONE Stop: 12/21/18 07:18 Fentanyl (Sublimaze) Confirm Administered Dose 250 mcg .ROUTE .STK-MED ONE Stop: 12/21/18 07:18 Fentanyl (Sublimaze) Confirm Administered Dose 100 mcg .ROUTE .STK-MED ONE Stop: 12/21/18 11:33 Gabapentin (Neurontin) 300 mg PO TID [facility] Last Admin: 12/23/18 13:42 Dose: 300 mg Glycopyrrolate (Robinul) Confirm Administered Dose 1 mg .ROUTE .STK-MED ONE Stop: 12/21/18 07:18 Hydromorphone HCl (Dilaudid) 1 mg IVPUSH ONETIME ONE Stop: 12/19/18 15:32 Last Admin: 12/19/18 15:51 Dose: 1 mg Hydromorphone HCl (Dilaudid) 0.5 mg IVPUSH ONETIME ONE Stop: 12/19/18 17:58 Last Admin: 12/19/18 18:20 Dose: 0.5 mg Hydromorphone HCl (Dilaudid) 0.5 mg IVPUSH Q2H PRN PRN Reason: Pain Last Admin: 12/21/18 04:57 Dose: 0.5 mg Hydromorphone HCl (Dilaudid) 2 - 4 mg PO Q4H PRN PRN Reason: Pain Last Admin: 12/23/18 18:36 Dose: 4 mg Lactated Ringer's (Ringers, Lactated) 1,000 mls @ 500 mls/hr IV ASDIRECTED [facility] Last Admin: 12/19/18 15:49 Dose: 500 mls/hr Sodium Chloride (Normal Saline) 70 mls @ 3 mls/sec IV ONETIME ONE Stop: 12/19/18 16:04 Last Admin: 12/19/18 16:20 Dose: 3 mls/sec Lactated Ringer's (Ringers, Lactated) 1,000 mls @ 150 mls/hr IV ASDIRECTED [facility] Lactated Ringer's (Ringers, Lactated) 1,000 mls @ 125 mls/hr IV ASDIRECTED [facility] Last Admin: 12/20/18 03:00 Dose: 125 mls/hr Dextrose/Lactated Ringer's (Dextrose 5%-Lactated Ringers) 1,000 mls @ 100 mls/ hr IV ASDIRECTED [facility] Last Admin: 12/21/18 08:04 Dose: 100 mls/hr Magnesium Sulfate 2 gm/ Premix 50 mls @ 25 mls/hr IV Q6H [facility] Stop: 12/20/18 16:29 Last Admin: 12/20/18 14:22 Dose: 25 mls/hr Cefoxitin Sodium 2 gm/ Sodium (Chloride) 50 mls @ 100 mls/hr IV ONCALL ONE Stop: 12/21/18 08:29 Last Admin: 12/21/18 09:13 Dose: 100 mls/hr Lactated Ringer's (Ringers, Lactated) Confirm Administered Dose 1,000 mls @ as directed .ROUTE .STK-MED ONE Stop: 12/21/18 09:35 Dextrose/Lactated Ringer's (Dextrose 5%-Lactated Ringers) 1,000 mls @ 200 mls/ hr IV ASDIRECTED [facility] Last Admin: 12/22/18 02:27 Dose: 200 mls/hr Multivitamins/Minerals 10 ml/Thiamine HCl 100 mg/ Chromium/Copper/Manganese/ Seleni/Zn 1 ml/ Dextrose/Lactated Ringer's 1,012 mls @ 200 mls/hr IV DAILY@ 1600 [facility]WIN Last Admin: 12/21/18 15:50 Dose: 200 mls/hr Cefoxitin Sodium 2 gm/ Sodium (Chloride) 50 mls @ 100 mls/hr IV Q6H [facility] Stop: 12/23/18 09:29 Last Admin: 12/23/18 08:51 Dose: 100 mls/hr Dextrose/Lactated Ringer's (Dextrose 5%-Lactated Ringers) 1,000 mls @ 100 mls/ hr IV ASDIRECTED [facility] Last Admin: 12/23/18 23:54 Dose: 100 mls/hr Multivitamins/Minerals 10 ml/Thiamine HCl 100 mg/ Chromium/Copper/Manganese/ Seleni/Zn 1 ml/ Dextrose/Lactated Ringer's 1,012 mls @ 100 mls/hr IV DAILY@ 1600 ASHWIN Last Admin: 12/23/18 15:37 Dose: Not Given Iohexol (Omnipaque-300) 50 ml IVPUSH . DIRECTED PRN PRN Reason: RADIOLOGY EXAM Stop: 12/23/18 04:26 Last Admin: 12/22/18 04:46 Dose: 50 ml Iopamidol (Isovue-300 (61%)) 93 ml IV . DIRECTED PRN PRN Reason: RADIOLOGY EXAM Stop: 12/19/18 16:04 Last Admin: 12/19/18 16:19 Dose: 100 ml Lorazepam (Ativan) 0.5 mg IVPUSH Q4H PRN PRN Reason: Anxiety Last Admin: 12/23/18 13:48 Dose: 0.5 mg Magnesium Hydroxide (Milk Of Magnesia) 30 ml PO ONETIME ONE Stop: 12/23/18 09:01 Last Admin: 12/23/18 10:32 Dose: 30 ml Meropenem (Merrem) Confirm Administered Dose 500 mg .ROUTE .STK-MED ONE Stop: 12/21/18 07:48 Last Admin: 12/21/18 10:08 Dose: 500 mg Miscellaneous Information (Remove Patch) 1 ea TRDERM ONETIME ONE Stop: 12/23/18 10:01 Last Admin: 12/23/18 09:46 Dose: Not Given Morphine Sulfate (Morphine [employer] Helper 150 Mg In 30 Ml) 0 mg IV ASDIRECTED PRN; Protocol PRN Reason: PAIN Last Admin: 12/21/18 12:36 Dose: 150 mg Naloxone HCl (Narcan) 0.1 mg IV ASDIRECTED PRN PRN Reason: DECREASED RESPIRATORY RATE Neostigmine Methylsulfate (Neostigmine) Confirm Administered Dose 5 mg .ROUTE .STK-MED ONE Stop: 12/21/18 07:18 Scopolamine Patch (Check) 1 each TOP DAILY [facility] Stop: 12/23/18 13:04 Last Admin: 12/23/18 09:45 Dose: Not Given Ondansetron HCl (Zofran) Confirm Administered Dose 4 mg .ROUTE .STK-MED ONE Stop: 12/21/18 07:18 Pantoprazole Sodium (Protonix Iv) 40 mg IVPUSH Q24H [facility] Last Admin: 12/21/18 17:42 Dose: 40 mg Prochlorperazine Edisylate (Compazine) 5 mg IVPUSH ONETIME ONE Stop: 12/19/18 15:34 Last Admin: 12/19/18 15:51 Dose: 5 mg Prochlorperazine Edisylate (Compazine) Confirm Administered Dose 10 mg .ROUTE .STK-MED ONE Stop: 12/19/18 15:36 Last Admin: 12/20/18 07:38 Dose: Not Given Propofol (Diprivan 20 Ml) Confirm Administered Dose 200 mg .ROUTE .STK-MED ONE Stop: 12/21/18 07:18 Rocuronium [place] (Zemuron) Confirm Administered Dose 50 mg .ROUTE .STK-MED ONE Stop: 12/21/18 07:18 Rocuronium [place] (Zemuron) Confirm Administered Dose 50 mg .ROUTE .STK-MED ONE Stop: 12/21/18 10:09 Scopolamine (Transderm-Scop) 1.5 mg TOP Q72H [facility] Stop: 12/23/18 10:00 Last Admin: 12/21/18 14:20 Dose: 1.5 mg Sodium Chloride (Normal Saline) 10 ml FLUSH ONETIME ONE Stop: 12/19/18 16:04 Last Admin: 12/19/18 17:00 Dose: 10 ml Sodium Chloride (Saline Flush) 10 ml FLUSH ASDIRECTED PRN PRN Reason: Keep Vein Open Last Admin: 12/19/18 18:48 Dose: 10 ml Succinylcholine Chloride (Quelicin) Confirm Administered Dose 200 mg .ROUTE .STK -MED ONE Stop: 12/21/18 07:18 - Exam General: Alert, Other (Slight confusion today) Neck: Supple Lungs: Normal Respiratory Effort, Wheezing (In left lower lung field) Cardiovascular: Regular Rate, Regular Rhythm Extremities: No Pedal Edema Neurological: No New Focal Deficit Psy/Mental Status: Normal Affect, Normal Mood - Problem List Review Problem List Initiated/Reviewed/Updated: Yes - My Orders Last 24 Hours: Active Orders 24 hr Category Date Time Status Acetaminophen/HYDROcodone [[place] 325-5 MG] Med 12/23/18 19:55 Active 1 - 2 tab PO Q4H PRN Bisacodyl [Dulcolax] Med 12/24/18 09:00 Active 10 mg PO BID Convert IV to Saline Lock [OM.PC] Routine Oth 12/24/18 07:58 Ordered Medication Orders Hydrocodone Bitart/Acetaminophen ([place] 325-5 Mg) 1 - 2 tab PO Q4H PRN PRN Reason: Pain Last Admin: 12/24/18 07:37 Dose: 2 tab Admin: 12/24/18 03:23 Dose: 2 tab Admin: 12/23/18 20:20 Dose: 2 tab Albuterol/Ipratropium (Duoneb 3.0-0.5 Mg/3 Ml) 3 ml INH QIDRT [facility] Last Admin: 12/24/18 10:37 Dose: 3 ml Admin: 12/24/18 07:16 Dose: 3 ml Admin: 12/23/18 20:23 Dose: 3 ml Admin: 12/23/18 14:42 Dose: 3 ml Admin: 12/23/18 10:52 Dose: 3 ml Admin: 12/23/18 07:23 Dose: 3 ml Admin: 12/22/18 20:51 Dose: 3 ml Admin: 12/22/18 14:49 Dose: 3 ml Admin: 12/22/18 10:48 Dose: 3 ml Admin: 12/22/18 07:19 Dose: 3 ml Admin: 12/21/18 20:32 Dose: 3 ml Admin: 12/21/18 15:15 Dose: 3 ml Albuterol/Ipratropium (Duoneb 3.0-0.5 Mg/3 Ml) 3 ml INH ASDIRECTED PRN PRN Reason: BREATHING Aspirin (Halfprin) 81 mg PO DAILY [facility] Last Admin: 12/24/18 08:49 Dose: 81 mg Admin: 12/23/18 08:47 Dose: 81 mg Admin: 12/22/18 08:34 Dose: 81 mg Admin: 12/21/18 09:26 Dose: Not Given Admin: 12/20/18 09:52 Dose: 81 mg Bisacodyl (Dulcolax) 10 mg PO BID [facility] Last Admin: 12/24/18 08:50 Dose: 10 mg Diphenhydramine HCl (Benadryl) 50 mg IVPUSH Q4H PRN PRN Reason: ITCHING Last Admin: 12/21/18 14:18 Dose: 50 mg Docusate Sodium (Colace) 100 mg PO BID [facility] Last Admin: 12/24/18 08:49 Dose: 100 mg Admin: 12/23/18 20:21 Dose: 100 mg Admin: 12/23/18 08:47 Dose: 100 mg Admin: 12/22/18 20:52 Dose: 100 mg Admin: 12/22/18 08:34 Dose: 100 mg Fluoxetine HCl (Prozac) 60 mg PO DAILY [facility] Last Admin: 12/24/18 08:49 Dose: 60 mg Admin: 12/23/18 08:48 Dose: 60 mg Admin: 12/22/18 08:34 Dose: 60 mg Admin: 12/21/18 09:26 Dose: Not Given Admin: 12/20/18 09:52 Dose: 60 mg Hydroxyzine HCl (Vistaril) 100 mg IM Q4H PRN PRN Reason: pain Labetalol HCl (Normodyne) 5 mg IVPUSH Q5M PRN PRN Reason: SBP over 160 OR DBP over 95 Lidocaine (Lidoderm 5%) 700 mg TOP DAILY [facility] Last Admin: 12/24/18 08:50 Dose: Not Given Admin: 12/23/18 08:47 Dose: Not Given Admin: 12/22/18 08:35 Dose: Not Given Admin: 12/21/18 09:26 Dose: Not Given Admin: 12/20/18 09:52 Dose: Not Given Metoclopramide HCl (Reglan) 10 mg IVPUSH Q6H PRN PRN Reason: NAUSEA NOT CONTROL BY ZOFRAN Miscellaneous Information (Remove Patch) 1 ea TRDERM DAILY@1999 [facility] Last Admin: 12/23/18 20:22 Dose: Admin: 12/22/18 21:04 Dose: Not Given Admin: 12/21/18 20:25 Dose: Not Given Admin: 12/20/18 21:18 Dose: Not Given Admin: 12/19/18 22:52 Dose: Not Given Ondansetron HCl (Zofran) 4 mg IV Q4H PRN PRN Reason: Nausea/Vomiting Last Admin: 12/23/18 10:36 Dose: 4 mg Admin: 12/20/18 22:23 Dose: 4 mg Admin: 12/20/18 15:53 Dose: 4 mg Admin: 12/20/18 11:08 Dose: 4 mg Admin: 12/20/18 05:46 Dose: 4 mg Admin: 12/19/18 18:29 Dose: 4 mg Pantoprazole Sodium (Protonix Granules) 40 mg PO Q24H [facility] Last Admin: 12/23/18 16:30 Dose: 40 mg Admin: 12/22/18 17:31 Dose: 40 mg Trazodone HCl (Trazodone) 100 mg PO BEDTIME [facility] Last Admin: 12/23/18 20:21 Dose: 100 mg Admin: 12/22/18 20:52 Dose: 100 mg Admin: 12/21/18 20:36 Dose: 100 mg Admin: 12/20/18 22:23 Dose: 100 mg Admin: 12/19/18 22:52 Dose: 100 mg - Assessment Assessment (Free Text/Narrative):: Operation: a) 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 b) Separate small bowel resection. c) Removal of peritoneal mesh. d) Excision of wedge bypassed stomach adherent to mesh. e) Placement of vicryl mesh. Post Operative Diagnosis: a) Adhesive small bowel obstruction involving mesh Donald limb. b) Portion of the stomach. c) Donald limb of the small bowel adherent to intraperitoneal mesh. Surgeon: Gene Mccallum MD Date of Surgery: 12/22/2018 Assistants: Ruth Santillan PA-C and TIFFANIE PerezS - Plan Plan (Free Text/Narrative):: 1. IV to saline lock 2. Dulcolax 10 mg PO BID. DC when she has a BM. 3. DC Dilaudid and Gabapentin. 4. [place] 325-5 mg 1-2 tabs PO every 4 hours PRN for pain.
[2018-12-24] MEDS ORDERED: LORazepam 0.5 MG Tab PO PRN (12:30)
[2018-12-24] MEDS: Pantoprazole 40 MG Delayed-Release Granules 1 Packet PO SCH (15:18)
[2018-12-24] MEDS: traZODone 50 MG Tab PO SCH (21:37)
[2018-12-24] MEDS: Acetaminophen 325 MG Tab PO PRN (23:51)
[2018-12-25] MEDS: Acetaminophen 325 MG Tab PO PRN ×5 (05:00→21:48)
[2018-12-25] MEDS: Acetaminophen/HYDROcodone 325-5 MG Tab PO PRN ×5 (05:01→21:47)
[2018-12-25] MEDS: Albuterol/Ipratropium 3.0-0.5 MG/3 ML Neb Soln INH SCH ×4 (07:14→21:31)
[2018-12-25] MEDS ORDERED: Magnesium Hydroxide 400 MG/5 ML Susp 30 ML Cup PO ONE (08:00)
--- NOTE | 2018-12-25 08:32 | PCM.SURGPN ---
- General Info Date of Service: 12/25/18 Date of Surgery/Procedure: 12/21/18 POD#: 4 Post-Op Diagnosis: Post Operative Diagnosis: a) Adhesive small bowel obstruction involving mesh Donald limb. b) Portion of the stomach. c) Donald limb of the small bowel adherent to intraperitoneal mesh. Functional Status: Reports: Tolerating Diet (She would like to increase her diet but this has not been recommended due to lack of BM.), Ambulating, Urinating - Review of Systems Systems Review Comment:: 68 YO female Josie Mcbride is post op day 4 from an adhesive small bowel obstruction involving mesh Donald limb, portion of the stomach, and Doanld limb of the small bowel adherent to intraperitoneal mesh. The patient remains afebrile with stable vital signs. Her pain is poorly controlled per patient on 1 Gunlock 325-5 mg PO and 1 Tylenol 600 mg PG every 6 hours. The patient's pain is 1/10 when the medication is initiated but goes to 8/10 within a couple hours. She is dissatisfied with the pain control at this point. The patient is urinating and passing gas but has not had a BM. The patient is also concerned about the amount of fluid retained on her legs and is wondering how we will manage this. The nurses noted confusion and forgetfulness with her bed alarm. - Patient Data Vitals - Most Recent: Last Vital Signs Temp 36.9 C 12/25/18 07:35 Pulse 79 12/25/18 07:35 Resp 18 12/25/18 07:35 BP 106/62 12/25/18 07:35 Pulse Ox 97 12/25/18 07:35 Weight - Most Recent: 65.635 kg I&O - Last 24 Hours: Intake & Output 12/24/18 12/25/18 12/25/18 22:59 06:59 14:59 Intake Total 400 1220 Output Total 1700 700 Balance -1300 520 Lab Results Last 24 Hrs: Laboratory Results - last 24 hr 12/20/18 Range/Units 04:40 Thiamine (Vit B1) Mary 163.3 (66.5-200.0) nmol/L Med Orders - Current: Current Medications Acetaminophen (Tylenol) 325 mg PO Q4H PRN PRN Reason: Pain Last Admin: 12/25/18 05:00 Dose: 325 mg Hydrocodone Bitart/Acetaminophen (Gunlock 325-5 Mg) 1 - 2 tab PO Q4H PRN PRN Reason: Pain Last Admin: 12/25/18 05:01 Dose: 1 tab Albuterol/Ipratropium (Duoneb 3.0-0.5 Mg/3 Ml) 3 ml INH QIDRT [facility] Last Admin: 12/25/18 07:14 Dose: 3 ml Albuterol/Ipratropium (Duoneb 3.0-0.5 Mg/3 Ml) 3 ml INH ASDIRECTED PRN PRN Reason: BREATHING Aspirin (Halfprin) 81 mg PO DAILY [facility] Last Admin: 12/24/18 08:49 Dose: 81 mg Bisacodyl (Dulcolax) 10 mg PO BID [facility] Last Admin: 12/24/18 21:36 Dose: 10 mg Diphenhydramine HCl (Benadryl) 50 mg IVPUSH Q4H PRN PRN Reason: ITCHING Last Admin: 12/21/18 14:18 Dose: 50 mg Docusate Sodium (Colace) 100 mg PO BID [facility] Last Admin: 12/24/18 21:36 Dose: 100 mg Fluoxetine HCl (Prozac) 60 mg PO DAILY [facility] Last Admin: 12/24/18 08:49 Dose: 60 mg Hydroxyzine HCl (Vistaril) 100 mg IM Q4H PRN PRN Reason: pain Last Admin: 12/24/18 17:00 Dose: 100 mg Labetalol HCl (Normodyne) 5 mg IVPUSH Q5M PRN PRN Reason: SBP over 160 OR DBP over 95 Lidocaine (Lidoderm 5%) 700 mg TOP DAILY [facility] Last Admin: 12/24/18 11:25 Dose: 700 mg Lorazepam (Ativan) 0.5 mg PO QID PRN PRN Reason: ANXIETY Last Admin: 12/24/18 12:41 Dose: 0.5 mg Metoclopramide HCl (Reglan) 10 mg IVPUSH Q6H PRN PRN Reason: NAUSEA NOT CONTROL BY ZOFRAN Miscellaneous Information (Remove Patch) 1 ea TRDERM DAILY@1999 [facility] Last Admin: 12/24/18 19:24 Dose: Not Given Ondansetron HCl (Zofran) 4 mg IV Q4H PRN PRN Reason: Nausea/Vomiting Last Admin: 12/23/18 10:36 Dose: 4 mg Pantoprazole Sodium (Protonix Granules) 40 mg PO Q24H [facility] Last Admin: 12/24/18 15:18 Dose: 40 mg Trazodone HCl (Trazodone) 100 mg PO BEDTIME [facility] Last Admin: 12/24/18 21:37 Dose: 100 mg Discontinued Medications Acetaminophen (Tylenol) 650 mg PO Q6H [facility] Last Admin: 12/23/18 13:42 Dose: 650 mg Albuterol (Proventil Neb Soln) 2.5 mg NEB Q4H PRN PRN Reason: Shortness Of Breath/wheezing Bisacodyl (Dulcolax) 20 mg PO ONETIME ONE Stop: 12/23/18 10:01 Last Admin: 12/23/18 10:39 Dose: 20 mg Ropivacaine 32 ml/Dexamethasone 8 mg/Epinephrine HCl 0.4 mg/ Sodium Chloride 45.6 ml 0 ml NERVRT ASDIRECTED [facility] Last Admin: 12/21/18 09:30 Dose: 80 syringe Cyanocobalamin (Vitamin B12) 1,000 mcg IM ONETIME ONE Stop: 12/23/18 09:01 Last Admin: 12/23/18 08:48 Dose: 1,000 mcg Dexamethasone (Dexamethasone) Confirm Administered Dose 4 mg .ROUTE .STK-MED ONE Stop: 12/21/18 07:18 Fentanyl (Sublimaze) Confirm Administered Dose 250 mcg .ROUTE .STK-MED ONE Stop: 12/21/18 07:18 Fentanyl (Sublimaze) Confirm Administered Dose 100 mcg .ROUTE .STK-MED ONE Stop: 12/21/18 11:33 Gabapentin (Neurontin) 300 mg PO TID [facility] Last Admin: 12/23/18 13:42 Dose: 300 mg Glycopyrrolate (Robinul) Confirm Administered Dose 1 mg .ROUTE .STK-MED ONE Stop: 12/21/18 07:18 Hydromorphone HCl (Dilaudid) 1 mg IVPUSH ONETIME ONE Stop: 12/19/18 15:32 Last Admin: 12/19/18 15:51 Dose: 1 mg Hydromorphone HCl (Dilaudid) 0.5 mg IVPUSH ONETIME ONE Stop: 12/19/18 17:58 Last Admin: 12/19/18 18:20 Dose: 0.5 mg Hydromorphone HCl (Dilaudid) 0.5 mg IVPUSH Q2H PRN PRN Reason: Pain Last Admin: 12/21/18 04:57 Dose: 0.5 mg Hydromorphone HCl (Dilaudid) 2 - 4 mg PO Q4H PRN PRN Reason: Pain Last Admin: 12/23/18 18:36 Dose: 4 mg Lactated Ringer's (Ringers, Lactated) 1,000 mls @ 500 mls/hr IV ASDIRECTED [facility] Last Admin: 12/19/18 15:49 Dose: 500 mls/hr Sodium Chloride (Normal Saline) 70 mls @ 3 mls/sec IV ONETIME ONE Stop: 12/19/18 16:04 Last Admin: 12/19/18 16:20 Dose: 3 mls/sec Lactated Ringer's (Ringers, Lactated) 1,000 mls @ 150 mls/hr IV ASDIRECTED [facility] Lactated Ringer's (Ringers, Lactated) 1,000 mls @ 125 mls/hr IV ASDIRECTED [facility] Last Admin: 12/20/18 03:00 Dose: 125 mls/hr Dextrose/Lactated Ringer's (Dextrose 5%-Lactated Ringers) 1,000 mls @ 100 mls/ hr IV ASDIRECTED [facility] Last Admin: 12/21/18 08:04 Dose: 100 mls/hr Magnesium Sulfate 2 gm/ Premix 50 mls @ 25 mls/hr IV Q6H [facility] Stop: 12/20/18 16:29 Last Admin: 12/20/18 14:22 Dose: 25 mls/hr Cefoxitin Sodium 2 gm/ Sodium (Chloride) 50 mls @ 100 mls/hr IV ONCALL ONE Stop: 12/21/18 08:29 Last Admin: 12/21/18 09:13 Dose: 100 mls/hr Lactated Ringer's (Ringers, Lactated) Confirm Administered Dose 1,000 mls @ as directed .ROUTE .STK-MED ONE Stop: 12/21/18 09:35 Dextrose/Lactated Ringer's (Dextrose 5%-Lactated Ringers) 1,000 mls @ 200 mls/ hr IV ASDIRECTED [facility] Last Admin: 12/22/18 02:27 Dose: 200 mls/hr Multivitamins/Minerals 10 ml/Thiamine HCl 100 mg/ Chromium/Copper/Manganese/ Seleni/Zn 1 ml/ Dextrose/Lactated Ringer's 1,012 mls @ 200 mls/hr IV DAILY@ 1600 [facility] Last Admin: 12/21/18 15:50 Dose: 200 mls/hr Cefoxitin Sodium 2 gm/ Sodium (Chloride) 50 mls @ 100 mls/hr IV Q6H [facility] Stop: 12/23/18 09:29 Last Admin: 12/23/18 08:51 Dose: 100 mls/hr Dextrose/Lactated Ringer's (Dextrose 5%-Lactated Ringers) 1,000 mls @ 100 mls/ hr IV ASDIRECTED [facility] Last Admin: 12/23/18 23:54 Dose: 100 mls/hr Multivitamins/Minerals 10 ml/Thiamine HCl 100 mg/ Chromium/Copper/Manganese/ Seleni/Zn 1 ml/ Dextrose/Lactated Ringer's 1,012 mls @ 100 mls/hr IV DAILY@ 1600 [facility] Last Admin: 12/23/18 15:37 Dose: Not Given Iohexol (Omnipaque-300) 50 ml IVPUSH . DIRECTED PRN PRN Reason: RADIOLOGY EXAM Stop: 12/23/18 04:26 Last Admin: 12/22/18 04:46 Dose: 50 ml Iopamidol (Isovue-300 (61%)) 93 ml IV . DIRECTED PRN PRN Reason: RADIOLOGY EXAM Stop: 12/19/18 16:04 Last Admin: 12/19/18 16:19 Dose: 100 ml Lorazepam (Ativan) 0.5 mg IVPUSH Q4H PRN PRN Reason: Anxiety Last Admin: 12/23/18 13:48 Dose: 0.5 mg Magnesium Hydroxide (Milk Of Magnesia) 30 ml PO ONETIME ONE Stop: 12/23/18 09:01 Last Admin: 12/23/18 10:32 Dose: 30 ml Magnesium Hydroxide (Milk Of Magnesia) 30 ml PO ONETIME ONE Stop: 12/25/18 08:01 Meropenem (Merrem) Confirm Administered Dose 500 mg .ROUTE .STK-MED ONE Stop: 12/21/18 07:48 Last Admin: 12/21/18 10:08 Dose: 500 mg Miscellaneous Information (Remove Patch) 1 ea TRDERM ONETIME ONE Stop: 12/23/18 10:01 Last Admin: 12/23/18 09:46 Dose: Not Given Morphine Sulfate (Morphine Pony Trimmer 150 Mg In 30 Ml) 0 mg IV ASDIRECTED PRN; Protocol PRN Reason: PAIN Last Admin: 12/21/18 12:36 Dose: 150 mg Naloxone HCl (Narcan) 0.1 mg IV ASDIRECTED PRN PRN Reason: DECREASED RESPIRATORY RATE Neostigmine Methylsulfate (Neostigmine) Confirm Administered Dose 5 mg .ROUTE .STK-MED ONE Stop: 12/21/18 07:18 Scopolamine Patch (Check) 1 each TOP DAILY [facility] Stop: 12/23/18 13:04 Last Admin: 12/23/18 09:45 Dose: Not Given Ondansetron HCl (Zofran) Confirm Administered Dose 4 mg .ROUTE .STK-MED ONE Stop: 12/21/18 07:18 Pantoprazole Sodium (Protonix Iv) 40 mg IVPUSH Q24H [facility] Last Admin: 12/21/18 17:42 Dose: 40 mg Prochlorperazine Edisylate (Compazine) 5 mg IVPUSH ONETIME ONE Stop: 12/19/18 15:34 Last Admin: 12/19/18 15:51 Dose: 5 mg Prochlorperazine Edisylate (Compazine) Confirm Administered Dose 10 mg .ROUTE .STK-MED ONE Stop: 12/19/18 15:36 Last Admin: 12/20/18 07:38 Dose: Not Given Propofol (Diprivan 20 Ml) Confirm Administered Dose 200 mg .ROUTE .STK-MED ONE Stop: 12/21/18 07:18 Rocuronium [place] (Zemuron) Confirm Administered Dose 50 mg .ROUTE .STK-MED ONE Stop: 12/21/18 07:18 Rocuronium [place] (Zemuron) Confirm Administered Dose 50 mg .ROUTE .STK-MED ONE Stop: 12/21/18 10:09 Scopolamine (Transderm-Scop) 1.5 mg TOP Q72H [facility] Stop: 12/23/18 10:00 Last Admin: 12/21/18 14:20 Dose: 1.5 mg Sodium Chloride (Normal Saline) 10 ml FLUSH ONETIME ONE Stop: 12/19/18 16:04 Last Admin: 12/19/18 17:00 Dose: 10 ml Sodium Chloride (Saline Flush) 10 ml FLUSH ASDIRECTED PRN PRN Reason: Keep Vein Open Last Admin: 12/19/18 18:48 Dose: 10 ml Succinylcholine Chloride (Quelicin) Confirm Administered Dose 200 mg .ROUTE .STK -MED ONE Stop: 12/21/18 07:18 - Exam Physical Findings Comment:: General: No fever, sweats, chills, or weight loss. Approximate 12 lb weight gain since surgery. HEENT: Negative. Neck: Supple. Heart: Regular rate and rhythm. Lungs: Wheezing is gone from yesterday but ronchi noted. Extremities: Dependent edema in legs bilaterally with 1+ pitting edema. Neuro: No new focal deficit. Psych: Excessive talkativeness and confusion noted per staff. - Problem List Review Problem List Initiated/Reviewed/Updated: Yes - My Orders Last 24 Hours: Active Orders 24 hr Category Date Time Status Acetaminophen [Tylenol] Med 12/24/18 23:27 Active 325 mg PO Q4H PRN Bisacodyl [Dulcolax] Med 12/24/18 09:00 Active 10 mg PO BID LORazepam [Ativan] Med 12/24/18 12:30 Active 0.5 mg PO QID PRN Convert IV to Saline Lock [OM.PC] Routine Oth 12/24/18 07:58 Ordered Peripheral IV Discontinue [OM.PC] Routine Oth 12/24/18 12:15 Ordered Medication Orders Acetaminophen (Tylenol) 325 mg PO Q4H PRN PRN Reason: Pain Last Admin: 12/25/18 05:00 Dose: 325 mg Admin: 12/24/18 23:51 Dose: 325 mg Hydrocodone Bitart/Acetaminophen (Gunlock 325-5 Mg) 1 - 2 tab PO Q4H PRN PRN Reason: Pain Last Admin: 12/25/18 05:01 Dose: 1 tab Admin: 12/24/18 23:51 Dose: 1 tab Admin: 12/24/18 19:23 Dose: 2 tab Admin: 12/24/18 15:18 Dose: 2 tab Admin: 12/24/18 11:24 Dose: 2 tab Admin: 12/24/18 07:37 Dose: 2 tab Admin: 12/24/18 03:23 Dose: 2 tab Admin: 12/23/18 20:20 Dose: 2 tab Albuterol/Ipratropium (Duoneb 3.0-0.5 Mg/3 Ml) 3 ml INH QIDRT [facility] Last Admin: 12/25/18 07:14 Dose: 3 ml Admin: 12/24/18 21:37 Dose: 3 ml Admin: 12/24/18 14:33 Dose: 3 ml Admin: 12/24/18 10:37 Dose: 3 ml Admin: 12/24/18 07:16 Dose: 3 ml Admin: 12/23/18 20:23 Dose: 3 ml Admin: 12/23/18 14:42 Dose: 3 ml Admin: 12/23/18 10:52 Dose: 3 ml Admin: 12/23/18 07:23 Dose: 3 ml Admin: 12/22/18 20:51 Dose: 3 ml Admin: 12/22/18 14:49 Dose: 3 ml Admin: 12/22/18 10:48 Dose: 3 ml Admin: 12/22/18 07:19 Dose: 3 ml Admin: 12/21/18 20:32 Dose: 3 ml Admin: 12/21/18 15:15 Dose: 3 ml Albuterol/Ipratropium (Duoneb 3.0-0.5 Mg/3 Ml) 3 ml INH ASDIRECTED PRN PRN Reason: BREATHING Aspirin (Halfprin) 81 mg PO DAILY [facility] Last Admin: 12/24/18 08:49 Dose: 81 mg Admin: 12/23/18 08:47 Dose: 81 mg Admin: 12/22/18 08:34 Dose: 81 mg Admin: 12/21/18 09:26 Dose: Not Given Admin: 12/20/18 09:52 Dose: 81 mg Bisacodyl (Dulcolax) 10 mg PO BID [facility] Last Admin: 12/24/18 21:36 Dose: 10 mg Admin: 12/24/18 08:50 Dose: 10 mg Diphenhydramine HCl (Benadryl) 50 mg IVPUSH Q4H PRN PRN Reason: ITCHING Last Admin: 12/21/18 14:18 Dose: 50 mg Docusate Sodium (Colace) 100 mg PO BID [facility] Last Admin: 12/24/18 21:36 Dose: 100 mg Admin: 12/24/18 08:49 Dose: 100 mg Admin: 12/23/18 20:21 Dose: 100 mg Admin: 12/23/18 08:47 Dose: 100 mg Admin: 12/22/18 20:52 Dose: 100 mg Admin: 12/22/18 08:34 Dose: 100 mg Fluoxetine HCl (Prozac) 60 mg PO DAILY [facility] Last Admin: 12/24/18 08:49 Dose: 60 mg Admin: 12/23/18 08:48 Dose: 60 mg Admin: 12/22/18 08:34 Dose: 60 mg Admin: 12/21/18 09:26 Dose: Not Given Admin: 12/20/18 09:52 Dose: 60 mg Hydroxyzine HCl (Vistaril) 100 mg IM Q4H PRN PRN Reason: pain Last Admin: 12/24/18 17:00 Dose: 100 mg Labetalol HCl (Normodyne) 5 mg IVPUSH Q5M PRN PRN Reason: SBP over 160 OR DBP over 95 Lidocaine (Lidoderm 5%) 700 mg TOP DAILY [facility] Last Admin: 12/24/18 11:25 Dose: 700 mg Admin: 12/24/18 08:50 Dose: Not Given Admin: 12/23/18 08:47 Dose: Not Given Admin: 12/22/18 08:35 Dose: Not Given Admin: 12/21/18 09:26 Dose: Not Given Admin: 12/20/18 09:52 Dose: Not Given Lorazepam (Ativan) 0.5 mg PO QID PRN PRN Reason: ANXIETY Last Admin: 12/24/18 12:41 Dose: 0.5 mg Metoclopramide HCl (Reglan) 10 mg IVPUSH Q6H PRN PRN Reason: NAUSEA NOT CONTROL BY ZOFRAN Miscellaneous Information (Remove Patch) 1 ea TRDERM DAILY@1999 [facility] Last Admin: 12/24/18 19:24 Dose: Admin: 12/23/18 20:22 Dose: Admin: 12/22/18 21:04 Dose: Not Given Admin: 12/21/18 20:25 Dose: Not Given Admin: 12/20/18 21:18 Dose: Not Given Admin: 12/19/18 22:52 Dose: Not Given Ondansetron HCl (Zofran) 4 mg IV Q4H PRN PRN Reason: Nausea/Vomiting Last Admin: 12/23/18 10:36 Dose: 4 mg Admin: 12/20/18 22:23 Dose: 4 mg Admin: 12/20/18 15:53 Dose: 4 mg Admin: 12/20/18 11:08 Dose: 4 mg Admin: 12/20/18 05:46 Dose: 4 mg Admin: 12/19/18 18:29 Dose: 4 mg Pantoprazole Sodium (Protonix Granules) 40 mg PO Q24H [facility] Last Admin: 12/24/18 15:18 Dose: 40 mg Admin: 12/23/18 16:30 Dose: 40 mg Admin: 12/22/18 17:31 Dose: 40 mg Trazodone HCl (Trazodone) 100 mg PO BEDTIME [facility] Last Admin: 12/24/18 21:37 Dose: 100 mg Admin: 12/23/18 20:21 Dose: 100 mg Admin: 12/22/18 20:52 Dose: 100 mg Admin: 12/21/18 20:36 Dose: 100 mg Admin: 12/20/18 22:23 Dose: 100 mg Admin: 12/19/18 22:52 Dose: 100 mg - Assessment Assessment (Free Text/Narrative):: Operation: a) 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 b) Separate small bowel resection. c) Removal of peritoneal mesh. d) Excision of wedge bypassed stomach adherent to mesh. e) Placement of vicryl mesh. Post Operative Diagnosis: a) Adhesive small bowel obstruction involving mesh Donald limb. b) Portion of the stomach. c) Donald limb of the small bowel adherent to intraperitoneal mesh. Surgeon: Gene Mccallum MD Date of Surgery: 12/22/2018 Assistants: Ruth Santillan PA-C and TIFFANIE PerezS - Plan Plan (Free Text/Narrative):: 1. Start Lasix 10 mg PO one time for dependent edema. 2. Start Potassium 20 mg PO one time. 3. Extra dose of Milk of Magnesia to initiate BM. 4. Keep pain medications as prescribed.
[2018-12-25] MEDS ORDERED: Potassium Chloride 10% 20 MEQ/15 ML Soln 15 ML UD Cup PO ONE (08:35)
[2018-12-25] MEDS ORDERED: Furosemide 20 MG Tab PO ONE (09:00)
[2018-12-25] MEDS ORDERED: Potassium Chloride 20 MEQ Tab.ER PO ONE (09:00)
[2018-12-25] MEDS: Aspirin 81 MG Tab.EC PO SCH (09:27)
[2018-12-25] MEDS: Docusate Sodium 100 MG Cap PO SCH ×2 (09:27→21:31)
[2018-12-25] MEDS: Bisacodyl 5 MG Tab PO SCH ×2 (09:27→21:31)
[2018-12-25] MEDS: FLUoxetine 20 MG Cap PO SCH (09:28)
[2018-12-25] MEDS: Lidocaine 5% 700 MG Patch TOP SCH ×2 (09:29→11:30)
[2018-12-25] MEDS ORDERED: hydrOXYzine HCl 25 MG Tab PO PRN (13:34)
[2018-12-25] MEDS: traMADol 50 MG Tab PO SCH ×2 (14:30→20:11)
[2018-12-25] MEDS: Pantoprazole 40 MG Delayed-Release Granules 1 Packet PO SCH (16:39)
[2018-12-25] MEDS ORDERED: Bisacodyl 10 MG Supp RECTAL ONE (17:28)
[2018-12-25] MEDS ORDERED: Bisacodyl 10 MG Supp RECTAL PRN (17:29)
[2018-12-25] MEDS: traZODone 50 MG Tab PO SCH (21:32)
[2018-12-26] MEDS: traMADol 50 MG Tab PO SCH ×2 (01:23→07:31)
[2018-12-26] MEDS: Acetaminophen/HYDROcodone 325-5 MG Tab PO PRN ×2 (03:23→08:15)
[2018-12-26] MEDS: Acetaminophen 325 MG Tab PO PRN ×2 (03:23→08:15)
[2018-12-26] MEDS: Albuterol/Ipratropium 3.0-0.5 MG/3 ML Neb Soln INH SCH (07:38)
[2018-12-26 07:56] VITALS: BP 125/62
[2018-12-26] MEDS: Docusate Sodium 100 MG Cap PO SCH (08:00)
[2018-12-26] MEDS: Aspirin 81 MG Tab.EC PO SCH (08:00)
[2018-12-26] MEDS: Bisacodyl 5 MG Tab PO SCH (08:00)
[2018-12-26] MEDS: FLUoxetine 20 MG Cap PO SCH (08:00)
[2018-12-26] MEDS: Lidocaine 5% 700 MG Patch TOP SCH (08:01)
--- NOTE | 2018-12-26 08:59 | PCM.DCSUM1 ---
Discharge Summary - Hospital Course Free Text/Narrative:: Admission Diagnosis: 1. Small bowel obstruction 2. Status post exploratory laparotomy 3. Bariatric surgery status 4. GERD 5. Anemia 6. Dehydration 7. Head contusion 8. Hiatal hernia 9. Ventral hernia 10. Hx of past hernia repair 11. Syncope 12. UTI 13. Colonoscopy 14. Pain medication agreement Discharge Diagnosis: Exploratory laparotomy with removal of intra peritoneal mesh, release of small bowel obstruction, placement of vicryl mesh, partial gastrectomy, and excision of right ovarian cyst. Brief History: Pre-Op Diagnosis: Small bowel obstruction. Procedure: Exploratory laparotomy with removal of intraperitoneal mesh, release of small bowel obstruction, and placement of Vicryl mesh. Partial gastrectomy and excision of right ovarian cyst. Post-Op Diagnosis: Small bowel obstruction. Surgeon: Gene Mccallum MD. Date of Surgery: 12/21/18. Post-Op Day 1: Patient remained afebrile with stable vital signs. Urine output satisfactoy. Upper GI x- ray looked good. Began Step II diet today. Left in Bonilla catheter. Post-Op Day 2: Remained afebrile with stable vital signs. 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 DC Bonilla catheter today. Transitioned to Step III diet. Post-Op Day 3: Remained afebrile with stable vital signs. Gabapentin made her dizzy and confused which caused a fall. This was DC. Pain is well controlled on Ponce. Patient is urinating but is not passing gas or BM. Started Dulcolax until BM today. Post-Op Day 4: Remained afebrile with stable vital signs. Per patient, pain is poorly controlled on Ponce and scheduled Tylenol. Tramadol was added to pain control management. Patient is urinating and passing gas, but without a BM. Patient continue Dulcolax tabs. Per patient, concern of fluid retention in her legs. Nurses noted confusion and forgetfullness at times. Post-Op Day 5: Remained afebrile with stable vital signs. Pain is well controll on Ponce and Tramadol with Tylenol as needed. Urination is satisfactoy. Bowel movement was successful. Lasix helped the fluid retention. Patient discharged home today without any complications. - Discharge Data Discharge Date: 12/26/18 Discharge Disposition: Home, Self-Care 01 Condition: Good - Patient Summary/Data Consults: Consultations 12/19/18 18:10 Consult to Physician [CONS] Routine Consulting Provider: Gene Mccallum Call Completed to Consulting Physician: Yes Reason for Consult: Small bowel obstruction, please see and assume care in a.m. 12/21/18 13:17 Consult to Mail Order Sorter [CONS] Routine Comment: Physician Instructions: Quantity: 12/21/18 21:54 Consult to Bariatric Services [CONS] Routine Comment: Consult to Mail Order Sorter [CONS] Routine Comment: Physician Instructions: Quantity: Respiratory Care Assess and Treatment [CONS] Routine Comment: Physician Instructions: Post-Op Pneumonia Prevention 12/23/18 08:00 Consult to Physical Therapy [PT Evaluation and Treatment] [CONS] Routine Please Evaluate and Treat. PT Reason for Consult: Other (Type Response) Special Instructions: PT consult for home instructions on POD#2 (12/23/2018). This query below is only for informational purposes and is not editable. Admission Diagnosis/Problem: Small bowel obstruction - Patient Instructions Diet: Drink 8-10+ Glasses/Day Diet, Other: Step 3 Gastric bypass diet Activity: As Tolerated, No Lifting Over 10 Pounds (for 6 weeks. ) Driving: Do Not Drive (for 1 week and while on pain medication) Showering/Bathing: May Shower Wound/Incision Care: Keep Operative Site/Wound Site Clean and Dry Notify Provider of: Fever, Increased Pain, Nausea and/or Vomiting Other/Special Instructions: Use incentive inspirometer 10 times every hour while awake for 1 week. - Discharge Plan *PRESCRIPTION DRUG MONITORING PROGRAM REVIEWED*: Not Applicable *COPY OF PRESCRIPTION DRUG MONITORING REPORT IN PATIENT JUSTYNA: Not Applicable Prescriptions/Med Rec: Acetaminophen/HYDROcodone [Ponce 325-5 MG] 1 tab PO Q4H PRN #40 tablet PRN Reason: Pain traMADol [Ultram] 50 mg PO Q6H #40 tablet Home Medications: Home Meds Aspirin [Halfprin] 81 mg PO DAILY 09/01/13 [History] Calcium Carbonate/Vitamin D3 [Calcarb 600 with Vit D] 1 tab PO DAILY 09/01/13 [ History] FLUoxetine HCl [Prozac] 60 mg PO DAILY 09/01/13 [History] LORazepam [Ativan] 0.5 mg PO BID PRN 09/01/13 [History] Lidocaine 5% [Lidoderm 5%] 1 patch TOP DAILY 09/01/13 [History] Multivitamin [Multi-Vitamin Daily] 1 tab PO DAILY 09/01/13 [History] Omeprazole [Prilosec] 20 mg PO DAILY 09/01/13 [History] Vit B Cmplx 3/Fa/Vit C/Biotin [Christa-Dion Rx Tablet] 1 tab PO DAILY 09/01/13 [ History] Vit D3/Folic Acid/B2/B6/B12 [Folgard Tablet] 2 tab PO BID 09/01/13 [History] traZODone HCl [Trazodone HCl] 100 mg PO BEDTIME 09/01/13 [History] Albuterol Sulfate [Proair Respiclick] 2 puff IH Q4HR PRN 09/27/18 [History] Cyanocobalamin (Vitamin B12) [Vitamin B12] 1,000 mcg PO DAILY 09/27/18 [History] Iron,Carbonyl/Ascorbic Acid [Iron 100-Vitamin C Tablet] 1 tab PO BID 09/27/18 [ History] Silver Sulfadiazine [Silvadene 1% Cream 20 GM] 1 applic TOP BID 09/27/18 [ History] Zinc Gluconate [Zinc] 50 mg PO ASDIRECTED 09/27/18 [History] Cyanocobalamin (Vitamin B-12) [Cyanocobalamin Injection] 1,000 mcg IJ .[id number] 09/30/18 [History] Acetaminophen [Tylenol] 325 mg PO Q4H PRN tablet 12/26/18 [Rx] Acetaminophen/HYDROcodone [Ponce 325-5 MG] 1 tab PO Q4H PRN #40 tablet 12/26/18 [Rx] traMADol [Ultram] 50 mg PO Q6H #40 tablet 12/26/18 [Rx] Referrals: Ruth Santillan PA-C [Physician Trace Evidence Technician] - 01/01/19 9:15 am PCP,None [Primary Care Provider] - - Discharge Summary/Plan Comment DC Time >30 min.: Yes - Patient Data Vitals - Most Recent: Last Vital Signs Temp 37.2 C 12/26/18 07:53 Pulse 81 12/26/18 07:53 Resp 16 12/26/18 07:53 BP 125/62 12/26/18 07:53 Pulse Ox 97 12/26/18 07:53 Weight - Most Recent: 70.874 kg I&O - Last 24 hours: Intake & Output 12/25/18 12/26/18 12/26/18 22:59 06:59 14:59 Intake Total 780 300 Output Total 1300 1300 350 Balance -520 -1000 -350 Med Orders - Current: Current Medications Acetaminophen (Tylenol) 325 mg PO Q4H PRN PRN Reason: Pain Last Admin: 12/26/18 08:15 Dose: 325 mg Hydrocodone Bitart/Acetaminophen (Ponce 325-5 Mg) 1 - 2 tab PO Q4H PRN PRN Reason: Pain Last Admin: 12/26/18 08:15 Dose: 1 tab Albuterol/Ipratropium (Duoneb 3.0-0.5 Mg/3 Ml) 3 ml INH QIDRT [facility] Last Admin: 12/26/18 07:38 Dose: 3 ml Albuterol/Ipratropium (Duoneb 3.0-0.5 Mg/3 Ml) 3 ml INH ASDIRECTED PRN PRN Reason: BREATHING Aspirin (Halfprin) 81 mg PO DAILY [facility] Last Admin: 12/26/18 08:00 Dose: 81 mg Bisacodyl (Dulcolax) 10 mg PO BID [facility] Last Admin: 12/26/18 08:00 Dose: 10 mg Bisacodyl (Dulcolax) 10 mg RECTAL BID PRN PRN Reason: Constipation Diphenhydramine HCl (Benadryl) 50 mg IVPUSH Q4H PRN PRN Reason: ITCHING Last Admin: 12/21/18 14:18 Dose: 50 mg Docusate Sodium (Colace) 100 mg PO BID [facility] Last Admin: 12/26/18 08:00 Dose: 100 mg Fluoxetine HCl (Prozac) 60 mg PO DAILY [facility] Last Admin: 12/26/18 08:00 Dose: 60 mg Hydroxyzine HCl (Vistaril) 100 mg IM Q4H PRN PRN Reason: pain Last Admin: 12/24/18 17:00 Dose: 100 mg Hydroxyzine HCl (Atarax) 100 mg PO Q6H PRN PRN Reason: Pain Last Admin: 12/25/18 13:52 Dose: 100 mg Labetalol HCl (Normodyne) 5 mg IVPUSH Q5M PRN PRN Reason: SBP over 160 OR DBP over 95 Lidocaine (Lidoderm 5%) 700 mg TOP DAILY [facility] Last Admin: 12/26/18 08:01 Dose: 700 mg Lorazepam (Ativan) 0.5 mg PO QID PRN PRN Reason: ANXIETY Last Admin: 12/24/18 12:41 Dose: 0.5 mg Metoclopramide HCl (Reglan) 10 mg IVPUSH Q6H PRN PRN Reason: NAUSEA NOT CONTROL BY ZOFRAN Miscellaneous Information (Remove Patch) 1 ea TRDERM DAILY@1999 [facility] Last Admin: 12/25/18 21:04 Dose: Not Given Ondansetron HCl (Zofran) 4 mg IV Q4H PRN PRN Reason: Nausea/Vomiting Last Admin: 12/23/18 10:36 Dose: 4 mg Pantoprazole Sodium (Protonix Granules) 40 mg PO Q24H [facility] Last Admin: 12/25/18 16:39 Dose: 40 mg Tramadol HCl (Ultram) 100 mg PO Q6H [facility] Last Admin: 12/26/18 07:31 Dose: 100 mg Trazodone HCl (Trazodone) 100 mg PO BEDTIME [facility] Last Admin: 12/25/18 21:32 Dose: 100 mg Discontinued Medications Acetaminophen (Tylenol) 650 mg PO Q6H [facility] Last Admin: 12/23/18 13:42 Dose: 650 mg Albuterol (Proventil Neb Soln) 2.5 mg NEB Q4H PRN PRN Reason: Shortness Of Breath/wheezing Bisacodyl (Dulcolax) 20 mg PO ONETIME ONE Stop: 12/23/18 10:01 Last Admin: 12/23/18 10:39 Dose: 20 mg Bisacodyl (Dulcolax) 10 mg RECTAL ONETIME ONE Stop: 12/25/18 17:29 Last Admin: 12/25/18 17:48 Dose: 10 mg Ropivacaine 32 ml/Dexamethasone 8 mg/Epinephrine HCl 0.4 mg/ Sodium Chloride 45.6 ml 0 ml NERVRT ASDIRECTED [facility] Last Admin: 12/21/18 09:30 Dose: 80 syringe Cyanocobalamin (Vitamin B12) 1,000 mcg IM ONETIME ONE Stop: 12/23/18 09:01 Last Admin: 12/23/18 08:48 Dose: 1,000 mcg Dexamethasone (Dexamethasone) Confirm Administered Dose 4 mg .ROUTE .[facility]-MED ONE Stop: 12/21/18 07:18 Fentanyl (Sublimaze) Confirm Administered Dose 250 mcg .ROUTE .STK-MED ONE Stop: 12/21/18 07:18 Fentanyl (Sublimaze) Confirm Administered Dose 100 mcg .ROUTE .STK-MED ONE Stop: 12/21/18 11:33 Furosemide (Lasix) 10 mg PO ONETIME ONE Stop: 12/25/18 09:01 Last Admin: 12/25/18 09:28 Dose: 10 mg Gabapentin (Neurontin) 300 mg PO TID [facility] Last Admin: 12/23/18 13:42 Dose: 300 mg Glycopyrrolate (Robinul) Confirm Administered Dose 1 mg .ROUTE .STK-MED ONE Stop: 12/21/18 07:18 Hydromorphone HCl (Dilaudid) 1 mg IVPUSH ONETIME ONE Stop: 12/19/18 15:32 Last Admin: 12/19/18 15:51 Dose: 1 mg Hydromorphone HCl (Dilaudid) 0.5 mg IVPUSH ONETIME ONE Stop: 12/19/18 17:58 Last Admin: 12/19/18 18:20 Dose: 0.5 mg Hydromorphone HCl (Dilaudid) 0.5 mg IVPUSH Q2H PRN PRN Reason: Pain Last Admin: 12/21/18 04:57 Dose: 0.5 mg Hydromorphone HCl (Dilaudid) 2 - 4 mg PO Q4H PRN PRN Reason: Pain Last Admin: 12/23/18 18:36 Dose: 4 mg Lactated Ringer's (Ringers, Lactated) 1,000 mls @ 500 mls/hr IV ASDIRECTED [facility] Last Admin: 12/19/18 15:49 Dose: 500 mls/hr Sodium Chloride (Normal Saline) 70 mls @ 3 mls/sec IV ONETIME ONE Stop: 12/19/18 16:04 Last Admin: 12/19/18 16:20 Dose: 3 mls/sec Lactated Ringer's (Ringers, Lactated) 1,000 mls @ 150 mls/hr IV ASDIRECTED [facility] Lactated Ringer's (Ringers, Lactated) 1,000 mls @ 125 mls/hr IV ASDIRECTED [facility] Last Admin: 12/20/18 03:00 Dose: 125 mls/hr Dextrose/Lactated Ringer's (Dextrose 5%-Lactated Ringers) 1,000 mls @ 100 mls/ hr [facility] Last Admin: 12/21/18 08:04 Dose: 100 mls/hr Magnesium Sulfate 2 gm/ Premix 50 mls @ 25 mls/hr IV Q6H [facility] Stop: 12/20/18 16:29 Last Admin: 12/20/18 14:22 Dose: 25 mls/hr Cefoxitin Sodium 2 gm/ Sodium (Chloride) 50 mls @ 100 mls/hr IV ONCALL ONE Stop: 12/21/18 08:29 Last Admin: 12/21/18 09:13 Dose: 100 mls/hr Lactated Ringer's (Ringers, Lactated) Confirm Administered Dose 1,000 mls @ as directed .ROUTE .STK-MED ONE Stop: 12/21/18 09:35 Dextrose/Lactated Ringer's (Dextrose 5%-Lactated Ringers) 1,000 mls @ 200 mls/ hr [facility] Last Admin: 12/22/18 02:27 Dose: 200 mls/hr Multivitamins/Minerals 10 ml/Thiamine HCl 100 mg/ Chromium/Copper/Manganese/ Seleni/Zn 1 ml/ Dextrose/Lactated Ringer's 1,012 mls @ 200 mls/hr IV DAILY@ 1600 [facility]WIN Last Admin: 12/21/18 15:50 Dose: 200 mls/hr Cefoxitin Sodium 2 gm/ Sodium (Chloride) 50 mls @ 100 mls/hr IV Q6H [facility] Stop: 12/23/18 09:29 Last Admin: 12/23/18 08:51 Dose: 100 mls/hr Dextrose/Lactated Ringer's (Dextrose 5%-Lactated Ringers) 1,000 mls @ 100 mls/ hr IV ASDIRECTED [facility] Last Admin: 12/23/18 23:54 Dose: 100 mls/hr Multivitamins/Minerals 10 ml/Thiamine HCl 100 mg/ Chromium/Copper/Manganese/ Seleni/Zn 1 ml/ Dextrose/Lactated Ringer's 1,012 mls @ 100 mls/hr IV DAILY@ 1600 [facility]WIN Last Admin: 12/23/18 15:37 Dose: Not Given Iohexol (Omnipaque-300) 50 ml IVPUSH . DIRECTED PRN PRN Reason: RADIOLOGY EXAM Stop: 12/23/18 04:26 Last Admin: 12/22/18 04:46 Dose: 50 ml Iopamidol (Isovue-300 (61%)) 93 ml IV . DIRECTED PRN PRN Reason: RADIOLOGY EXAM Stop: 12/19/18 16:04 Last Admin: 12/19/18 16:19 Dose: 100 ml Lorazepam (Ativan) 0.5 mg IVPUSH Q4H PRN PRN Reason: Anxiety Last Admin: 12/23/18 13:48 Dose: 0.5 mg Magnesium Hydroxide (Milk Of Magnesia) 30 ml PO ONETIME ONE Stop: 12/23/18 09:01 Last Admin: 12/23/18 10:32 Dose: 30 ml Magnesium Hydroxide (Milk Of Magnesia) 30 ml PO ONETIME ONE Stop: 12/25/18 08:01 Last Admin: 12/25/18 09:27 Dose: 30 ml Meropenem (Merrem) Confirm Administered Dose 500 mg .ROUTE .STK-MED ONE Stop: 12/21/18 07:48 Last Admin: 12/21/18 10:08 Dose: 500 mg Miscellaneous Information (Remove Patch) 1 ea TRDERM ONETIME ONE Stop: 12/23/18 10:01 Last Admin: 12/23/18 09:46 Dose: Not Given Morphine Sulfate (Morphine Information Systems Consultant 150 Mg In 30 Ml) 0 mg IV ASDIRECTED PRN; Protocol PRN Reason: PAIN Last Admin: 12/21/18 12:36 Dose: 150 mg Naloxone HCl (Narcan) 0.1 mg IV ASDIRECTED PRN PRN Reason: DECREASED RESPIRATORY RATE Neostigmine Methylsulfate (Neostigmine) Confirm Administered Dose 5 mg .ROUTE .STK-MED ONE Stop: 12/21/18 07:18 Scopolamine Patch (Check) 1 each TOP DAILY [facility] Stop: 12/23/18 13:04 Last Admin: 12/23/18 09:45 Dose: Not Given Ondansetron HCl (Zofran) Confirm Administered Dose 4 mg .ROUTE .STK-MED ONE Stop: 12/21/18 07:18 Pantoprazole Sodium (Protonix Iv) 40 mg IVPUSH Q24H [facility] Last Admin: 12/21/18 17:42 Dose: 40 mg Potassium Chloride (Klor-Con M20) 20 meq PO ONETIME ONE Stop: 12/25/18 09:01 Last Admin: 12/25/18 09:28 Dose: 20 meq Potassium Chloride (Potassium Chloride Solution) 20 meq PO ONETIME ONE Stop: 12/25/18 08:36 Last Admin: 12/25/18 10:52 Dose: Not Given Prochlorperazine Edisylate (Compazine) 5 mg IVPUSH ONETIME ONE Stop: 12/19/18 15:34 Last Admin: 12/19/18 15:51 Dose: 5 mg Prochlorperazine Edisylate (Compazine) Confirm Administered Dose 10 mg .ROUTE .STK-MED ONE Stop: 12/19/18 15:36 Last Admin: 12/20/18 07:38 Dose: Not Given Propofol (Diprivan 20 Ml) Confirm Administered Dose 200 mg .ROUTE .STK-MED ONE Stop: 12/21/18 07:18 Rocuronium [place] (Zemuron) Confirm Administered Dose 50 mg .ROUTE .STK-MED ONE Stop: 12/21/18 07:18 Rocuronium [place] (Zemuron) Confirm Administered Dose 50 mg .ROUTE .STK-MED ONE Stop: 12/21/18 10:09 Scopolamine (Transderm-Scop) 1.5 mg TOP Q72H [facility] Stop: 12/23/18 10:00 Last Admin: 12/21/18 14:20 Dose: 1.5 mg Sodium Chloride (Normal Saline) 10 ml FLUSH ONETIME ONE Stop: 12/19/18 16:04 Last Admin: 12/19/18 17:00 Dose: 10 ml Sodium Chloride (Saline Flush) 10 ml FLUSH ASDIRECTED PRN PRN Reason: Keep Vein Open Last Admin: 12/19/18 18:48 Dose: 10 ml Succinylcholine Chloride (Quelicin) Confirm Administered Dose 200 mg .ROUTE .STK -MED ONE Stop: 12/21/18 07:18 - Exam Physical Findings Comments:: General: Josie Mcbride is a 68-year-old female with no signs of fever, sweats , chills, weight loss or gain. HEENT: Negative. Neck: Supple. Heart: Regular rate and rhythm. Lungs: Clear to auscultation bilaterally. Abdomen: Dressing remained in place but the nursing staff will remove before discharge. Expected tenderness with palpation. Abdominal binder has been on. Extremities: Without peripheral edema. Disposition: Discharged to home. Condition: Stable and improving. Follow-Up Appointment: Ruth Santillan PA-C on Sunday, January 01 at 9:15 AM for staple remove and post operative evaluation. *Q Meaningful Use (DIS) - VTE *Q VTE Pharmacological Contraindications *Q: Patient Scheduled Surgery
--- NOTE | 2018-12-30 12:11 | PN ---
DATE OF SERVICE: 12/21/2018 We initially admitted Josie on the night of 12/19/2018 and yesterday morning, she quickly looked fairly good and quite mobile, and not having much in the way of pain overnight. She has now developed more nausea and some ongoing discomfort, and this would indicate that we will likely need to proceed with an exploratory laparotomy and release of the bowel obstruction. She has quite in the way of intraperitoneal mesh in place, and she is aware that this may need to be removed and otherwise release of bowel obstruction being entertained with bowel resection as indicated. Potential risks including bleeding and infection were reviewed along with leaks from GI tract closure, possible recurrence of bowel obstruction over time, and the patient wishes to proceed. This surgery will be undertaken later on this morning. Gene Mccallum MD /[id number]
--- NOTE | 2018-12-31 08:53 | OR ---
CORRECTED REPORT 01/08/2019 DATE OF PROCEDURE: 12/21/2018 PREOPERATIVE DIAGNOSIS: Small bowel obstruction. POSTOPERATIVE DIAGNOSES: 1. Adhesive small bowel obstruction involving the proximal Donald limb. 2. Portion of bypassed stomach and Donald limb of the small bowel densely adherent to the previously placed intraperitoneal mesh. 3. Right ovarian cyst OPERATIVE PROCEDURES: Exploratory laparotomy with: 1. Revision of jejunojejunostomy component of Donald-en-Y gastric bypass (40710). 2. Separate small bowel resection (11347). 3. Removal of intraperitoneal mesh (31444). 4. Excision of wedge of bypassed stomach adherent to the mesh (83897). 5. Placement of Vicryl mesh to limit recurrent adhesion formation between pelvic and abdominal wall and underlying viscera (42083). 6. Right salpingo oophorectomy including removal of ovarian cyst ANESTHESIA: General. SURGEON: Gene Mccallum MD CEMENT LOADER: HENRY Perez. INDICATION FOR PROCEDURE: Please see progress note dictated earlier today. DETAILS OF PROCEDURE: The patient was taken to the operating room and placed in a supine position. After general endotracheal anesthesia was induced, a Bonilla catheter was inserted and the abdomen prepped and draped. Beginning at the lower aspect of the abdomen where there appeared to not likely be any mesh present, the abdomen was entered. This incision was then gradually extended upward in order to eventually remove all of the intraperitoneal mesh. As one entered the lower abdomen, there was a densely adherent small bowel to this area. The lower end of the mesh was an old Snyder-Javier type mesh and the upper end appeared to be a Parietex mesh. The mesh was eventually removed from the abdominal wall, as it was clear that we were going to need to do a bowel resection in this case due to the mesh being densely adherent to the small bowel. Once the mesh was freed up and fully detached from the abdominal wall, the small bowel was then noted to have a length of around 20 cm that had basically fused with the mesh. Proximal and distal to this, this bowel was then divided with the YUDITH stapler, and the underlying mesentery was then also divided with the YUDITH mesenteric loads. The patient also had a portion of bypassed stomach which was densely adherent to the upper end of the mesh, and this stomach was divided with a YUDITH purple load and the rim of stomach adherent to the mesh was then marked with a suture for pathologic confirmation. The actual small bowel obstruction was what appeared to be an adhesive event in the midportion of the Donald limb. The bowel proximal and distal to that point was divided, as the bowel was quite boggy and edematous and somewhat hemorrhagic in appearance in the area of involvement. The bowel was divided proximally and distally with YUDITH staplers, as was the underlying mesentery. At this point, the Donald limb was judged to be satisfactory in terms of overall length, and a [id number] enteroenterostomy was accomplished with internal firing of the YUDITH bhatt loads and the common opening closed transversely with the same stapler. Angles were anastomosed and mesenteric defect approximated with a 3-0 Vicryl stitch, as was the mesenteric defect. The more distal small bowel continuity was then reestablished, as this was more or less in the mid common limb, and this area was anastomosed identical to the previous anastomosis and reinforced also in a similar manner with a 3-0 Vicryl stitch. At this point, no further problems were noted. The abdomen was irrigated with meropenem-containing saline solution. The patient had no mobilizable omentum at this point, and given this, a 12-inch Vicryl mesh was placed behind the urinary bladder along the pelvic sidewalls and up against the abdominal wall to displace those surfaces from the underlying viscera and limit recurrent adhesion formation. Once this was accomplished, the fascia was approximated with #2 Vicryl stitch, the subcutaneous tissue with some 4-0 Vicryl stitch, and the skin with tommy. Dressing was applied. The patient was taken to the recovery room in satisfactory condition. There were no evident complications. Additionally, a right ovarian cyst (about 4 cm) was present and excised by means of stapled right salpingo oophorectomy. The left ovary was normal. Gene Mccallum MD /[id number]
--- NOTE | 2019-01-02 11:56 | PN ---
DATE OF SERVICE: 12/20/2018 The patient was admitted overnight with a picture of small bowel obstruction. Clinically, this morning, she is feeling too poorly and the abdomen was mildly distended, but not tender at all. Evaluation of CT scan showed little in the way of any contents in the Donald limb, so an NG tube is unlikely to be of significant help. The plan will therefore be to give the patient some additional time in order to see if the clinical picture improves to the extent that we may be able to treat this nonoperatively. We will repeat some abdominal x-rays tomorrow morning. If things fail to open up or if she develops little more clinical signs of discomfort, we will need to do an exploratory laparotomy at that time. We will re- evaluate the patient tomorrow morning. Gene Mccallum MD /[id number]
== END 2018-12-26 09:30 | disposition home or self-care (01) | DRG 328 ==
LOC: JP.ED 15:11 → JP.ICU 17:21 → JP.2SS 12-22 15:40 → JP.MS 12-23 14:58
PROVIDERS: ADMIT Hospitalist; ATTEND Surgery
PROC: 0DBA0ZZ Excision of Jejunum, Open Approach (ICD-10-PCS; principal; 2018-12-21)
PROC: 0DB60ZZ Excision of Stomach, Open Approach (ICD-10-PCS; 2018-12-21)
PROC: 0WPF0JZ Removal of Synthetic Substitute from Abdominal Wall, Open Approach (ICD-10-PCS; 2018-12-21)
PROC: 0UB00ZZ Excision of Right Ovary, Open Approach (ICD-10-PCS; 2018-12-21)
PROC: 3E0M05Z Introduction of Adhesion Barrier into Peritoneal Cavity, Open Approach (ICD-10-PCS; 2018-12-21)
DX: K56.50 Intestinal adhesions [bands], unspecified as to partial versus complete obstruction (principal); K66.0 Peritoneal adhesions (postprocedural) (postinfection); R11.0 Nausea; R10.9 Unspecified abdominal pain; Y84.8 Other medical procedures as the cause of abnormal reaction of the patient, or of later complication, without mention of misadventure at the time of the procedure; N83.201 Unspecified ovarian cyst, right side; F17.210 Nicotine dependence, cigarettes, uncomplicated; R42 Dizziness and giddiness; T42.6X5A Adverse effect of other antiepileptic and sedative-hypnotic drugs, initial encounter; Y92.230 Patient room in hospital as the place of occurrence of the external cause; R41.0 Disorientation, unspecified; W19.XXXA Unspecified fall, initial encounter; Z98.84 Bariatric surgery status; Z98.0 Intestinal bypass and anastomosis status; K21.9 Gastro-esophageal reflux disease without esophagitis; E55.9 Vitamin D deficiency, unspecified; D50.9 Iron deficiency anemia, unspecified; F41.9 Anxiety disorder, unspecified; M19.90 Unspecified osteoarthritis, unspecified site; H54.7 Unspecified visual loss; Z90.49 Acquired absence of other specified parts of digestive tract; Z90.710 Acquired absence of both cervix and uterus; M41.9 Scoliosis, unspecified; Z79.82 Long term (current) use of aspirin
CPT/HCPCS: 36415; 74177; 80048; 85027; 96361; 96374; 96375; 99285; J0780; J1170; J7030; J7120; Q9967; 74019; 74021; 74240; 76856; 80053; 81001; 82607; 82728; 82746; 83735; 83880; 84100; 84425; 85025; 88307; 88313; 88341; 88342; 94640; 94762; 99284; A9270-GY; C1781; C9113; J0171; J0330; J0694; J1100; J1200; J2060; J2185; J2270; J2405; J2704; J2710; J2795; J3010; J3410; J3411; J3420; J3475; J3490; J7042; J7050; J7620-GY

== ENCOUNTER 2019-01-26 17:58 | Emergency (ER) | payer MEDICARE ==
[2019-01-26 18:23] VITALS: BP 101/74
[2019-01-26] MEDS ORDERED: Sodium Chloride 0.9% 10 ML Syringe FLUSH PRN (18:40)
--- NOTE | 2019-01-26 18:44 | EDM.PDOC ---
ED HPI GENERAL MEDICAL PROBLEM - General Chief Complaint: Abdominal Pain Stated Complaint: POSSIBLE SURGERY COMPLICATIONS Time Seen by Provider: 01/26/19 18:34 Source of Information: Reports: Patient, Family, RN Notes Reviewed History Limitations: Reports: No Limitations - History of Present Illness INITIAL COMMENTS - FREE TEXT/NARRATIVE: The 68-year-old female presents emergency department today complaint of abdominal pain, she is a history gastric bypass about 13 years ago recently underwent lysis of adhesions removal of mesh and partial revision about 3 weeks ago states she's doing well. And then today increasing abdominal pain along the midline she has passed gas did have some waves of nausea but that now has resolved. Has had poor oral intake and feels weak Upper Abdomen Pain Score (Numeric/FACES): 9 - Related Data Allergies Allergy/AdvReac Type Severity Reaction Status Date / Time No Known Allergies Allergy Verified 01/26/19 18:23 Home Meds: Home Meds Aspirin [Halfprin] 81 mg PO DAILY 09/01/13 [History] Calcium Carbonate/Vitamin D3 [Calcarb 600 with Vit D] 1 tab PO DAILY 09/01/13 [ History] FLUoxetine HCl [Prozac] 60 mg PO DAILY 09/01/13 [History] LORazepam [Ativan] 0.5 mg PO BID PRN 09/01/13 [History] Lidocaine 5% [Lidoderm 5%] 1 patch TOP DAILY 09/01/13 [History] Multivitamin [Multi-Vitamin Daily] 1 tab PO DAILY 09/01/13 [History] Omeprazole [Prilosec] 20 mg PO DAILY 09/01/13 [History] Vit B Cmplx 3/Fa/Vit C/Biotin [Christa-Dion Rx Tablet] 1 tab PO DAILY 09/01/13 [ History] Vit D3/Folic Acid/B2/B6/B12 [Folgard Tablet] 2 tab PO BID 09/01/13 [History] traZODone HCl [Trazodone HCl] 100 mg PO BEDTIME 09/01/13 [History] Albuterol Sulfate [Proair Respiclick] 2 puff IH Q4HR PRN 09/27/18 [History] Cyanocobalamin (Vitamin B12) [Vitamin B12] 1,000 mcg PO DAILY 09/27/18 [History] Iron,Carbonyl/Ascorbic Acid [Iron 100-Vitamin C Tablet] 1 tab PO BID 09/27/18 [ History] Silver Sulfadiazine [Silvadene 1% Cream 20 GM] 1 applic TOP BID 09/27/18 [ History] Zinc Gluconate [Zinc] 50 mg PO ASDIRECTED 09/27/18 [History] Cyanocobalamin (Vitamin B-12) [Cyanocobalamin Injection] 1,000 mcg IJ .[id number] 09/30/18 [History] Acetaminophen [Tylenol] 325 mg PO Q4H PRN tablet 12/26/18 [Rx] Acetaminophen/HYDROcodone [[place] 325-5 MG] 1 tab PO Q4H PRN #40 tablet 12/26/18 [Rx] traMADol [Ultram] 50 mg PO Q6H #40 tablet 12/26/18 [Rx] Past Medical History HEENT History: Reports: Impaired Vision Other HEENT History: wears glasses Gastrointestinal History: Reports: GERD Genitourinary History: Reports: UTI, Recurrent 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: , Spontaneous Other ANIMAL CRUELTY INVESTIGATOR History: ovarian cyst removed Musculoskeletal History: Reports: Arthritis, Other (See Below) Other Musculoskeletal History: scoliosis Psychiatric History: Reports: Anxiety, Depression Endocrine/Metabolic History: Reports: Vitamin D Deficiency Hematologic History: Reports: Anemia, B12 Deficiency, Blood Transfusion(s), Folic Acid, Iron Deficiency - Infectious Disease History Infectious Disease History: Reports: Chicken Pox, Measles - Past Surgical History HEENT Surgical History: Reports: None GI Surgical History: Reports: Appendectomy, Bariatric Procedure, Cholecystectomy , Colonoscopy, EGD, Esophageal Dilatation, Hernia Repair/Other Female Surgical History: Reports: Section, Hysterectomy Musculoskeletal Surgical History: Reports: Shoulder Surgery Other Musculoskeletal Surgeries/Procedures:: right rotator cuff repair Social & Family History - Family History Family Medical History: Noncontributory - Tobacco Use Smoking Status *Q: Current Every Day Smoker Years of Tobacco use: 6 Packs/Tins Daily: 0.4 - Caffeine Use Caffeine Use: Reports: Coffee - Recreational Drug Use Recreational Drug Use: No ED ROS GENERAL - Review of Systems Review Of Systems: See Below Constitutional: Reports: Weakness HEENT: Reports: No Symptoms Respiratory: Reports: No Symptoms Cardiovascular: Reports: No Symptoms GI/Abdominal: Reports: Abdominal Pain, Flatus, Nausea. Denies: Constipation, Diarrhea, Vomiting : Reports: No Symptoms Musculoskeletal: Reports: No Symptoms Skin: Reports: No Symptoms Neurological: Reports: No Symptoms ED EXAM, GI/ABD - Physical Exam Exam: See Below Exam Limited By: No Limitations General Appearance: Alert, WD/WN, No Apparent Distress Eyes: Bilateral: Normal Appearance Throat/Mouth: Normal Inspection, Normal Lips, Normal Teeth, No Airway Compromise Head: Atraumatic, Normocephalic Neck: Normal Inspection, Supple, Non-Tender, Full Range of Motion Respiratory/Chest: No Respiratory Distress, Lungs Clear, Normal Breath Sounds, No Accessory Muscle Use, Chest Non-Tender Cardiovascular: Regular Rate, Rhythm, No Murmur GI/Abdominal Exam: Normal Bowel Sounds, Soft, No Distention, Tender (Midline periumbilical region) Extremities: Normal Inspection, Non-Tender, No Pedal Edema Course - Vital Signs Last Recorded V/S: Last Vital Signs Temp 97.1 F 01/26/19 18:15 Pulse 98 01/26/19 18:15 Resp 16 01/26/19 18:15 BP 101/74 01/26/19 18:15 Pulse Ox 98 01/26/19 18:15 - Orders/Labs/Meds Orders: Active Orders 24 hr Category Date Time Status Peripheral IV Care [RC] . DIRECTED Care 01/26/19 18:40 Active Iopamidol [Isovue-300 (61%)] Med 01/26/19 19:00 Active 81 ml IV . DIRECTED Lactated Ringers [Ringers, Lactated] 1,000 ml Med 01/26/19 18:45 Active IV ASDIRECTED Sodium Chloride 0.9% [Normal Saline] 74 ml Med 01/26/19 19:00 Active IV ASDIRECTED Sodium Chloride 0.9% [Saline Flush] Med 01/26/19 18:40 Active 10 ml FLUSH ASDIRECTED PRN Peripheral IV Insertion Adult [OM.PC] Urgent Oth 01/26/19 18:40 Ordered Medication Orders Lactated Ringer's (Ringers, Lactated) 1,000 mls @ 999 mls/hr IV ASDIRECTED ASHWIN Last Admin: 01/26/19 19:15 Dose: 999 mls/hr Sodium Chloride (Normal Saline) 74 mls @ 3 mls/sec IV ASDIRECTED ASHWIN Last Admin: 01/26/19 19:59 Dose: 3 mls/sec Iopamidol (Isovue-300 (61%)) 81 ml IV . DIRECTED ASHWIN Last Admin: 01/26/19 19:59 Dose: 100 ml Sodium Chloride (Saline Flush) 10 ml FLUSH ASDIRECTED PRN PRN Reason: Keep Vein Open Last Admin: 01/26/19 20:26 Dose: 10 ml Labs: Laboratory Tests 01/26/19 01/26/19 01/26/19 Range/Units 18:54 18:54 18:54 WBC 4.6 (4.5-11.0) K/uL RBC 3.45 (3.30-5.50) M/uL Hgb 11.9 L (12.0-15.0) g/dL Hct 36.7 (36.0-48.0) % MCV 106 H (80-98) fL MCH 35 H (27-31) pg MCHC 32 (32-36) % Plt Count 328 (150-400) K/uL Neut % (Auto) 48 (36-66) % Lymph % (Auto) 39 (24-44) % [place] % (Auto) 10 H (2-6) % Eos % (Auto) 2 (2-4) % Baso % (Auto) 0 (0-1) % Sodium 136 L (140-148) mmol/L Potassium 4.2 (3.6-5.2) mmol/L Chloride 104 (100-108) mmol/L Carbon Dioxide 22 (21-32) mmol/L Anion Gap 14.2 H (5.0-14.0) mmol/L BUN 22 H D (7-18) mg/dL Creatinine 0.8 (0.6-1.0) mg/dL Est Cr Clr Drug Dosing 58.93 mL/min Estimated GFR (MDRD) > 60 (>60) Glucose 99 (74-106) mg/dL Lactic Acid 1.0 (0.4-2.0) mmol/L Calcium 8.8 (8.5-10.1) mg/dL Total Bilirubin 0.2 (0.2-1.0) mg/dL AST 25 (15-37) U/L ALT 28 (12-78) U/L Alkaline Phosphatase 123 H D (46-116) U/L Troponin I < 0.017 (0.000-0.056) ng/mL Total Protein 7.3 (6.4-8.2) g/dL Albumin 3.2 L (3.4-5.0) g/dL Globulin 4.1 H (2.3-3.5) g/dL Albumin/Globulin Ratio 0.8 L (1.2-2.2) Lipase 597 H (73-393) U/L Urine Color Urine Appearance Urine pH (4.5-8.0) Ur Specific [place] (1.008-1.030) Urine Protein (NEGATIVE) mg/dL Urine Glucose (UA) (NEGATIVE) mg/dL Urine Ketones (NEGATIVE) mg/dL Urine Occult Blood (NEGATIVE) Urine Nitrite (NEGATIVE) Urine Bilirubin (NEGATIVE) Urine Urobilinogen (NORMAL) mg/dL Ur Leukocyte Esterase (NEGATIVE) Urine RBC (0-5) Urine WBC (0-5) Ur Epithelial Cells Amorphous Sediment Urine Bacteria Urine Mucus 01/26/19 Range/Units 19:21 WBC (4.5-11.0) K/uL RBC (3.30-5.50) M/uL Hgb (12.0-15.0) g/dL Hct (36.0-48.0) % MCV (80-98) fL MCH (27-31) pg MCHC (32-36) % Plt Count (150-400) K/uL Neut % (Auto) (36-66) % Lymph % (Auto) (24-44) % [place] % (Auto) (2-6) % Eos % (Auto) (2-4) % Baso % (Auto) (0-1) % Sodium (140-148) mmol/L Potassium (3.6-5.2) mmol/L Chloride (100-108) mmol/L Carbon Dioxide (21-32) mmol/L Anion Gap (5.0-14.0) mmol/L BUN (7-18) mg/dL Creatinine (0.6-1.0) mg/dL Est Cr Clr Drug Dosing mL/min Estimated GFR (MDRD) (>60) Glucose (74-106) mg/dL Lactic Acid (0.4-2.0) mmol/L Calcium (8.5-10.1) mg/dL Total Bilirubin (0.2-1.0) mg/dL AST (15-37) U/L ALT (12-78) U/L Alkaline Phosphatase (46-116) U/L Troponin I (0.000-0.056) ng/mL Total Protein (6.4-8.2) g/dL Albumin (3.4-5.0) g/dL Globulin (2.3-3.5) g/dL Albumin/Globulin Ratio (1.2-2.2) Lipase (73-393) U/L Urine Color Yellow Urine Appearance Clear Urine pH 5.0 (4.5-8.0) Ur Specific [place] 1.015 (1.008-1.030) Urine Protein Negative (NEGATIVE) mg/dL Urine Glucose (UA) Normal (NEGATIVE) mg/dL Urine Ketones Negative (NEGATIVE) mg/dL Urine Occult Blood Negative (NEGATIVE) Urine Nitrite Negative (NEGATIVE) Urine Bilirubin Negative (NEGATIVE) Urine Urobilinogen Normal (NORMAL) mg/dL Ur Leukocyte Esterase Negative (NEGATIVE) Urine RBC 0-5 (0-5) Urine WBC 0-5 (0-5) Ur Epithelial Cells Few Amorphous Sediment Not seen Urine Bacteria Moderate Urine Mucus Not seen Meds: Medications Generic Name Dose Route Start Last Admin Trade Name Freq PRN Reason Stop Dose Admin Lactated Ringer's 1,000 mls @ 999 mls/hr 01/26/19 18:45 01/26/19 19:15 Ringers, Lactated IV 999 mls/hr ASDIRECTED ASHWIN Administration Sodium Chloride 74 mls @ 3 mls/sec 01/26/19 19:00 01/26/19 19:59 Normal Saline IV 3 mls/sec ASDIRECTED ASHWIN Administration Iopamidol 81 ml 01/26/19 19:00 01/26/19 19:59 Isovue-300 (61%) IV 100 ml . DIRECTED ASHWIN Administration Sodium Chloride 10 ml 01/26/19 18:40 01/26/19 20:26 Saline Flush FLUSH 10 ml ASDIRECTED PRN Administration Keep Vein Open Discontinued Medications Generic Name Dose Route Start Last Admin Trade Name Freq PRN Reason Stop Dose Admin Fentanyl 50 mcg 01/26/19 18:47 01/26/19 19:16 Sublimaze IVPUSH 01/26/19 18:48 50 mcg ONETIME ONE Administration Sodium Chloride 10 ml 01/26/19 18:49 01/26/19 19:59 Saline Flush FLUSH 01/26/19 18:50 10 ml ONETIME ONE Administration Departure - Departure Time of Disposition: 21:20 Disposition: Home, Self-Care 01 Condition: Fair Clinical Impression: Abdominal pain Qualifiers: Abdominal location: periumbilical Qualified Code(s): R10.33 - Periumbilical pain - Discharge Information Referrals: Ruth Santillan PA-C [Primary Care Provider] - Forms: ED Department Discharge Additional Instructions: Continue to use Tylenol or Motrin as needed for pain control recommend follow- up with Dr. Mccallum's clinic in 2-3 days if abdominal pain persists, call or return to the emergency department worsening of symptoms - My Orders Last 24 Hours: My Active Orders 01/26/19 18:40 Peripheral IV Care [RC] . DIRECTED Sodium Chloride 0.9% [Saline Flush] 10 ml FLUSH ASDIRECTED PRN Peripheral IV Insertion Adult [OM.PC] Urgent 01/26/19 18:45 Lactated Ringers [Ringers, Lactated] 1,000 ml IV ASDIRECTED 01/26/19 19:00 Iopamidol [Isovue-300 (61%)] 81 ml IV . DIRECTED Sodium Chloride 0.9% [Normal Saline] 74 ml IV ASDIRECTED - Assessment/Plan Last 24 Hours: My Active Orders 01/26/19 18:40 Peripheral IV Care [RC] . DIRECTED Sodium Chloride 0.9% [Saline Flush] 10 ml FLUSH ASDIRECTED PRN Peripheral IV Insertion Adult [OM.PC] Urgent 01/26/19 18:45 Lactated Ringers [Ringers, Lactated] 1,000 ml IV ASDIRECTED 01/26/19 19:00 Iopamidol [Isovue-300 (61%)] 81 ml IV . DIRECTED Sodium Chloride 0.9% [Normal Saline] 74 ml IV ASDIRECTED Plan: Assessment Acuity = acute Site and laterality = abdominal pain complicated patient with known history gastric bypass postop 3 weeks surgical procedure Etiology = unclear etiology Manifestations = none Location of injury = Home Lab values = CBC, CMP unremarkable urinalysis is negative lipase slightly elevated at 597 of uncertain significance, CT scan of the abdomen shows no acute process Plan Call discussed case Dr. Mccallum at 21:10 recommended treatment pain control Tylenol Motrin follow-up in clinic to 3 days she does have a intake at [facility] tomorrow morning for narcotic addiction. 2 family members came and spoke with me independent about concern for narcotic addiction and the timing of her abdominal pain she did receive fentanyl 50 g 1 IV while in the emergency department This note was dictated using Odojo voice recognition software please call with any questions on syntax or grammar.
[2019-01-26] MEDS ORDERED: Lactated Ringers 1,000 ML IV SCH (18:45)
[2019-01-26] MEDS ORDERED: fentaNYL 100 MCG/2 ML SDV IVPUSH ONE (18:47)
[2019-01-26] MEDS ORDERED: Iopamidol 612 MG/ML 100 ML Bottle IV SCH (19:00)
[2019-01-26] MEDS: Sodium Chloride 0.9% 10 ML Syringe FLUSH ONE ×2 (19:16→19:59)
--- NOTE | 2019-01-26 21:11 | CRLCT ---
INDICATION: RNY UMBILICAL PAIN POSTOP 3 WEEKS 320 IMAGES TAKEN 81 ML ISOVUE GIVEN PREVIOUS SCAN DONE 2 WEEKS AGO, SENT THE SCAN, CRL READ, SHOULD HAVE REPORT HISTORY: Prior Donald-en-Y gastric bypass. Umbilical pain. COMPARISON: CT of the abdomen and pelvis 01/17/2019. CT of the abdomen and pelvis 09/12/2018, May 2019. TECHNIQUE: CT of the abdomen and pelvis. 81 cc of Isovue-300 IV. Coronal/sagittal reconstruction images. FINDINGS: Lung bases: Stable hiatal hernia. No pleural or pericardial effusion. Heart size is normal. There is bibasilar dependent atelectasis. There is no acute airspace disease. There is no basilar pneumothorax. Abdomen/pelvis: Hepatic morphology is normal. No perihepatic ascites. Cholecystectomy. Normal caliber biliary tree post cholecystectomy. Symmetric nephrograms. No solid renal mass. No perinephric fluid collection. Spleen size is normal. No pancreatic mass or pancreatic duct dilation. Urinary bladder is normal. There is no free air. There is no drainable fluid collection. There is no pneumatosis. There is no portal venous gas. The Donald limb appears retrocolic and retrogastric. There is no obstruction of the Donald limb or pancreaticobiliary limb. No findings are seen to explain the patient`s pain. Visceral artery branches are patent. No adenopathy is seen by size criteria in the pelvis, retroperitoneum, or gastrohepatic ligament. The bone windows demonstrate degenerative changes at the symphysis pubis. No lytic or blastic bone lesions. Diffuse bone demineralization. On sagittal reconstruction images, the vertebral body heights are maintained. IMPRESSION: 1. There is no obstruction of the Donald limb or pancreaticobiliary limb. 2. No drainable fluid collection. 3. No pneumatosis, portal venous gas, or free intraperitoneal air. 4. Focally dilated loop of small bowel at the jejunojejunostomy on the prior CT from 01/16/2019 is not present today. Dictated by Bladimir Wray MD @ 01/26/2019 9:10:49 PM Please note that all CT scans at this facility use dose modulation, iterative reconstruction, and/or weight-based dosing when appropriate to reduce radiation dose to as low as reasonably achievable. Dictated by: Bladimir Wray MD @ 01/26/2019 21:10:57 (Electronically Signed)
== END 2019-01-26 21:32 | disposition home or self-care (01) ==
LOC: JP.ED 17:58
DX: R10.33 Periumbilical pain (principal); Z98.84 Bariatric surgery status; K21.9 Gastro-esophageal reflux disease without esophagitis; F17.210 Nicotine dependence, cigarettes, uncomplicated; F41.9 Anxiety disorder, unspecified; F32.9 Major depressive disorder, single episode, unspecified; Z79.899 Other long term (current) drug therapy; Z79.82 Long term (current) use of aspirin
CPT/HCPCS: 36415; 74177; 80053; 81001; 83605; 83690; 84484; 85025; 96361; 96374; 99284; J3010; J7030; J7120; Q9967

== ENCOUNTER 2019-01-27 06:42 | Emergency (ER) | payer MEDICARE ==
[2019-01-27 07:18] VITALS: BP 120/62
[2019-01-27] MEDS ORDERED: fentaNYL 100 MCG/2 ML SDV IM ONE (07:42)
--- NOTE | 2019-01-27 07:47 | EDM.PDOC ---
ED HPI GENERAL MEDICAL PROBLEM - General Chief Complaint: Abdominal Pain Stated Complaint: STOMACH PAIN Time Seen by Provider: 01/27/19 07:30 Source of Information: Reports: Patient, Family History Limitations: Reports: No Limitations - History of Present Illness INITIAL COMMENTS - FREE TEXT/NARRATIVE: 68-year-old female with upper abdominal pain for the past 48 hours. The pain is left upper quadrant, generally nonradiating and responded well to IV fentanyl last evening. She was in the emergency room last night and had a fairly complete workup including a CT scan which was negative. She does have difficulty with narcotic medications and chronic pain, actually has an appointment later this afternoon to discuss living without pain medication. No fevers or chills, no distention or significant nausea. When she first woke this morning and got up the pain was so intense that she almost fainted. Now that she is here she thinks it's getting better but still bothersome. Duration: Day(s): (Several days) Location: Reports: Abdomen. Denies: Radiates to (No radiation of the pain) Quality: Reports: Sharp, Stabbing Severity: Moderate Associated Symptoms: Reports: Loss of Appetite, Other (Near syncope this morning ). Denies: Nausea/Vomiting, Shortness of Breath, Weakness Lower Abdominal Pain Score (Numeric/FACES): 9 - Related Data Allergies Allergy/AdvReac Type Severity Reaction Status Date / Time No Known Allergies Allergy Verified 01/26/19 18:23 Home Meds: Home Meds Aspirin [Halfprin] 81 mg PO DAILY 09/01/13 [History] Calcium Carbonate/Vitamin D3 [Calcarb 600 with Vit D] 1 tab PO DAILY 09/01/13 [ History] FLUoxetine HCl [Prozac] 60 mg PO DAILY 09/01/13 [History] LORazepam [Ativan] 0.5 mg PO BID PRN 09/01/13 [History] Lidocaine 5% [Lidoderm 5%] 1 patch TOP DAILY 09/01/13 [History] Multivitamin [Multi-Vitamin Daily] 1 tab PO DAILY 09/01/13 [History] Omeprazole [Prilosec] 20 mg PO DAILY 09/01/13 [History] Vit B Cmplx 3/Fa/Vit C/Biotin [Christa-Dion Rx Tablet] 1 tab PO DAILY 09/01/13 [ History] Vit D3/Folic Acid/B2/B6/B12 [Folgard Tablet] 2 tab PO BID 09/01/13 [History] traZODone HCl [Trazodone HCl] 100 mg PO BEDTIME 09/01/13 [History] Albuterol Sulfate [Proair Respiclick] 2 puff IH Q4HR PRN 09/27/18 [History] Cyanocobalamin (Vitamin B12) [Vitamin B12] 1,000 mcg PO DAILY 09/27/18 [History] Iron,Carbonyl/Ascorbic Acid [Iron 100-Vitamin C Tablet] 1 tab PO BID 09/27/18 [ History] Silver Sulfadiazine [Silvadene 1% Cream 20 GM] 1 applic TOP BID 09/27/18 [ History] Zinc Gluconate [Zinc] 50 mg PO ASDIRECTED 09/27/18 [History] Cyanocobalamin (Vitamin B-12) [Cyanocobalamin Injection] 1,000 mcg IJ .[id number] 09/30/18 [History] Acetaminophen [Tylenol] 325 mg PO Q4H PRN tablet 12/26/18 [Rx] Acetaminophen/HYDROcodone [[place] 325-5 MG] 1 tab PO Q4H PRN #40 tablet 12/26/18 [Rx] traMADol [Ultram] 50 mg PO Q6H #40 tablet 12/26/18 [Rx] Past Medical History HEENT History: Reports: Impaired Vision Other HEENT History: wears glasses Gastrointestinal History: Reports: GERD Genitourinary History: Reports: UTI, Recurrent 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: , Spontaneous Other APPRAISER IRRIGATION TAX History: ovarian cyst removed Musculoskeletal History: Reports: Arthritis, Other (See Below) Other Musculoskeletal History: scoliosis Psychiatric History: Reports: Anxiety, Depression Endocrine/Metabolic History: Reports: Vitamin D Deficiency Hematologic History: Reports: Anemia, B12 Deficiency, Blood Transfusion(s), Folic Acid, Iron Deficiency - Infectious Disease History Infectious Disease History: Reports: Chicken Pox, Measles - Past Surgical History HEENT Surgical History: Reports: None GI Surgical History: Reports: Appendectomy, Bariatric Procedure, Cholecystectomy , Colonoscopy, EGD, Esophageal Dilatation, Hernia Repair/Other Female Surgical History: Reports: Section, Hysterectomy Musculoskeletal Surgical History: Reports: Shoulder Surgery Other Musculoskeletal Surgeries/Procedures:: right rotator cuff repair Social & Family History - Family History Family Medical History: Noncontributory - Tobacco Use Smoking Status *Q: Never Smoker - Caffeine Use Caffeine Use: Reports: None - Recreational Drug Use Recreational Drug Use: No ED ROS GENERAL - Review of Systems Review Of Systems: See Below Constitutional: Denies: Fever, Chills HEENT: Reports: No Symptoms Respiratory: Denies: Shortness of Breath, Pleuritic Chest Pain Cardiovascular: Denies: Chest Pain GI/Abdominal: Reports: Abdominal Pain, Other (Normal small bowel movement last night, stools tend to be loose). Denies: Constipation, Diarrhea : Reports: No Symptoms Skin: Reports: No Symptoms Neurological: Denies: Headache ED EXAM, GI/ABD - Physical Exam Exam: See Below Exam Limited By: No Limitations General Appearance: Alert, No Apparent Distress (She looks uncomfortable, tearful but no acute distress) Eyes: Bilateral: Normal Appearance (Normal hydration, no jaundice) Head: Atraumatic Respiratory/Chest: No Respiratory Distress, Lungs Clear Cardiovascular: Regular Rate, Rhythm GI/Abdominal Exam: Normal Bowel Sounds, Soft, Tender (Reacts with tenderness to palpation in the left upper quadrant and some tenderness across the lower abdomen as well but no guarding or rebound.) Course - Vital Signs Last Recorded V/S: Last Vital Signs Temp 96.7 F 01/27/19 07:20 Pulse 71 01/27/19 07:20 Resp 12 01/27/19 07:20 BP 120/62 01/27/19 07:20 Pulse Ox 96 01/27/19 07:20 - Orders/Labs/Meds Labs: Laboratory Tests 01/27/19 01/27/19 Range/Units 07:56 07:56 WBC 5.0 (4.5-11.0) K/uL RBC 3.41 (3.30-5.50) M/uL Hgb 11.7 L (12.0-15.0) g/dL Hct 35.8 L (36.0-48.0) % MCV 105 H (80-98) fL MCH 34 H (27-31) pg MCHC 33 (32-36) % Plt Count 321 (150-400) K/uL Neut % (Auto) 77 H (36-66) % Lymph % (Auto) 14 L (24-44) % [place] % (Auto) 8 H (2-6) % Eos % (Auto) 2 (2-4) % Baso % (Auto) 0 (0-1) % Amylase 83 (25-115) U/L Lipase 347 (73-393) U/L Meds: Medications Discontinued Medications Generic Name Dose Route Start Last Admin Trade Name Jelly PRN Reason Stop Dose Admin Fentanyl 75 mcg 01/27/19 07:42 01/27/19 07:46 Sublimaze IM 01/27/19 07:43 75 mcg ONETIME ONE Administration - Re-Assessments/Exams Free Text/Narrative Re-Assessment/Exam: 01/27/19 07:47 Reviewed the workup from last evening, only concern is her elevated lipase. Otherwise reassuring. She was given 75 g of fentanyl IM, CBC lipase and amylase were repeated. 01/27/19 08:33 30 minutes after the fentanyl she felt markedly better, amylase lipase and white count today are normal. Patient will be discharged to keep her appointment this afternoon and can recheck in the next 24-48 hours if worsening. Departure - Departure Time of Disposition: 08:39 Disposition: Home, Self-Care 01 Condition: Good Clinical Impression: Abdominal pain Qualifiers: Abdominal location: upper abdomen, unspecified Qualified Code(s): R10.10 - Upper abdominal pain, unspecified - Discharge Information Instructions: Abdominal Pain, Adult, [id number] Referrals: Karen Nagy PA [Primary Care Provider] - Forms: ED Department Discharge Care Plan Goals: Continue any current medications, keep your appointment this afternoon as scheduled and recheck in the next 24-48 hours if worsening or you develop other concerns.
== END 2019-01-27 08:39 | disposition home or self-care (01) ==
LOC: JP.ED 06:42
DX: R10.12 Left upper quadrant pain (principal); R10.30 Lower abdominal pain, unspecified; Z90.710 Acquired absence of both cervix and uterus; Z90.49 Acquired absence of other specified parts of digestive tract; Z98.84 Bariatric surgery status; K21.9 Gastro-esophageal reflux disease without esophagitis; Z79.899 Other long term (current) drug therapy
CPT/HCPCS: 36415; 82150; 83690; 85025; 96372; 99284; J3010

== ENCOUNTER 2019-03-18 21:10 | Inpatient (IN) | payer MEDICARE ==
[2019-03-18] MEDS ORDERED: Sodium Chloride 0.9% 1,000 ML IV SCH ×2 (22:00→23:45)
[2019-03-18] MEDS ORDERED: Ondansetron 4 MG/2 ML SDV IVPUSH ONE ×2 (22:00→23:58)
--- NOTE | 2019-03-18 22:03 | EDM.PDOC ---
ED HPI GENERAL MEDICAL PROBLEM - General Chief Complaint: Abdominal Pain Stated Complaint: ABD PAIN Time Seen by Provider: 03/18/19 21:22 Source of Information: Reports: Patient History Limitations: Reports: No Limitations - History of Present Illness INITIAL COMMENTS - FREE TEXT/NARRATIVE: pt arrived with severe mid abdomanal pain and marked nausea. She has been having normal bms. Onset: Gradual, Other ( She has been having problems for about 2 weeks. ) Duration: Day(s): Location: Reports: Abdomen Associated Symptoms: Reports: Loss of Appetite, Nausea/Vomiting Lower Abdomen Pain Score (Numeric/FACES): 10 - Related Data Allergies Allergy/AdvReac Type Severity Reaction Status Date / Time No Known Allergies Allergy Verified 03/18/19 21:44 Home Meds: Home Meds Aspirin [Halfprin] 81 mg PO DAILY 09/01/13 [History] Calcium Carbonate/Vitamin D3 [Calcarb 600 with Vit D] 1 tab PO DAILY 09/01/13 [ History] FLUoxetine HCl [Prozac] 60 mg PO DAILY 09/01/13 [History] LORazepam [Ativan] 0.5 mg PO BID PRN 09/01/13 [History] Lidocaine 5% [Lidoderm 5%] 1 patch TOP DAILY 09/01/13 [History] Multivitamin [Multi-Vitamin Daily] 1 tab PO DAILY 09/01/13 [History] Omeprazole [Prilosec] 20 mg PO DAILY 09/01/13 [History] Vit B Cmplx 3/Fa/Vit C/Biotin [Christa-Dion Rx Tablet] 1 tab PO DAILY 09/01/13 [ History] Vit D3/Folic Acid/B2/B6/B12 [Folgard Tablet] 2 tab PO BID 09/01/13 [History] traZODone HCl [Trazodone HCl] 100 mg PO BEDTIME 09/01/13 [History] Albuterol Sulfate [Proair Respiclick] 2 puff IH Q4HR PRN 09/27/18 [History] Cyanocobalamin (Vitamin B12) [Vitamin B12] 1,000 mcg PO DAILY 09/27/18 [History] Iron,Carbonyl/Ascorbic Acid [Iron 100-Vitamin C Tablet] 1 tab PO BID 09/27/18 [ History] Zinc Gluconate [Zinc] 50 mg PO ASDIRECTED 09/27/18 [History] Cyanocobalamin (Vitamin B-12) [Cyanocobalamin Injection] 1,000 mcg IJ .[id number] 09/30/18 [History] Acetaminophen [Tylenol] 325 mg PO Q4H PRN tablet 12/26/18 [Rx] Past Medical History HEENT History: Reports: Impaired Vision Other HEENT History: wears glasses Gastrointestinal History: Reports: GERD Genitourinary History: Reports: UTI, Recurrent 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: , 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 Other LEGAL RECRUITER History: ovarian cyst removed Musculoskeletal History: Reports: Arthritis, Other (See Below) Other Musculoskeletal History: scoliosis Psychiatric History: Reports: Anxiety, Depression Endocrine/Metabolic History: Reports: Vitamin D Deficiency Hematologic History: Reports: Anemia, B12 Deficiency, Blood Transfusion(s), Folic Acid, Iron Deficiency - Infectious Disease History Infectious Disease History: Reports: Chicken Pox, Measles - Past Surgical History Head Surgeries/Procedures: Reports: None HEENT Surgical History: Reports: None GI Surgical History: Reports: Appendectomy, Bariatric Procedure, Cholecystectomy , Colonoscopy, EGD, Esophageal Dilatation, Hernia Repair/Other Female Surgical History: Reports: Section, Hysterectomy Endocrine Surgical History: Reports: None Musculoskeletal Surgical History: Reports: Shoulder Surgery Other Musculoskeletal Surgeries/Procedures:: right rotator cuff repair Social & Family History - Family History Family Medical History: Noncontributory - Caffeine Use Caffeine Use: Reports: None ED ROS GENERAL - Review of Systems Review Of Systems: See Below Constitutional: Reports: Weakness, Decreased Appetite, Other (pt is having profound nausea. ) HEENT: Reports: No Symptoms Respiratory: Reports: No Symptoms Cardiovascular: Reports: No Symptoms Endocrine: Reports: No Symptoms GI/Abdominal: Reports: Abdominal Pain, Other (pt describes abdomanal pain in the center of her abdoman. Her pain is going to her back. ) : Reports: No Symptoms Musculoskeletal: Reports: No Symptoms ED EXAM, GI/ABD - Physical Exam Exam: See Below Text/Narrative:: pt arrived with pain in the middle of her abdoman going to her back. She has been very nauseated with the pain. She has not been able to eat. Exam Limited By: No Limitations General Appearance: Alert, Moderate Distress Ears: Normal TMs Nose: Normal Inspection Throat/Mouth: Normal Inspection Head: Atraumatic Neck: Normal Inspection Respiratory/Chest: No Respiratory Distress Cardiovascular: Regular Rate, Rhythm, Tachycardia GI/Abdominal Exam: Other (pain in the mid abdoman radiating to her back. ) (Female) Exam: Deferred Rectal (Female) Exam: Deferred Back Exam: Normal Inspection, Other (pt did have xrays at the clinic today which reveals degenerative disc disease. ) Extremities: Normal Inspection Neurological: Alert, Oriented, Normal Cognition Psychiatric: Normal Affect Course - Vital Signs Last Recorded V/S: Last Vital Signs Temp 35.2 C L 03/18/19 21:49 Pulse 73 03/18/19 21:49 Resp 16 03/18/19 21:49 BP 153/82 H 03/18/19 21:49 Pulse Ox 96 03/18/19 21:49 - Orders/Labs/Meds Orders: Active Orders 24 hr Category Date Time Status Iopamidol [Isovue-300 (61%)] Med 03/18/19 22:15 Active 100 ml IV . DIRECTED Sodium Chloride 0.9% [Normal Saline] 1,000 ml Med 03/18/19 22:00 Active IV ASDIRECTED Sodium Chloride 0.9% [Normal Saline] 80 ml Med 03/18/19 22:15 Active IV ASDIRECTED Sodium Chloride 0.9% [Saline Flush] Med 03/18/19 22:06 Active 10 ml FLUSH ASDIRECTED PRN Medication Orders Sodium Chloride (Normal Saline) 1,000 mls @ 999 mls/hr IV ASDIRECTED [facility] Last Admin: 03/18/19 22:57 Dose: 999 mls/hr Sodium Chloride (Normal Saline) 80 mls @ 3 mls/sec IV ASDIRECTED [facility] Last Admin: 03/18/19 22:32 Dose: 3 mls/sec Iopamidol (Isovue-300 (61%)) 100 ml IV . DIRECTED [facility] Last Admin: 03/18/19 22:32 Dose: 100 ml Sodium Chloride (Saline Flush) 10 ml FLUSH ASDIRECTED PRN PRN Reason: Keep Vein Open Last Admin: 03/18/19 22:25 Dose: 10 ml Labs: Laboratory Tests 03/18/19 03/18/19 03/18/19 Range/Units 22:02 23:26 23:31 C-Reactive Protein 2.10 H (0.0-0.3) mg/dL Amylase 125 H D (25-115) U/L Lipase 1192 H (73-393) U/L Meds: Medications Generic Name Dose Route Start Last Admin Trade Name Freq PRN Reason Stop Dose Admin Sodium Chloride 1,000 mls @ 999 mls/hr 03/18/19 22:00 03/18/19 22:57 Normal Saline IV 999 mls/hr ASDIRECTED [facility] Administration Sodium Chloride 80 mls @ 3 mls/sec 03/18/19 22:15 03/18/19 22:32 Normal Saline IV 3 mls/sec ASDIRECTED [facility] Administration Iopamidol 100 ml 03/18/19 22:15 03/18/19 22:32 Isovue-300 (61%) IV 100 ml . DIRECTED [facility] Administration Sodium Chloride 10 ml 03/18/19 22:06 03/18/19 22:25 Saline Flush FLUSH 10 ml ASDIRECTED PRN Administration Keep Vein Open Discontinued Medications Generic Name Dose Route Start Last Admin Trade Name Peterq PRN Reason Stop Dose Admin Hydromorphone HCl 0.5 mg 03/18/19 23:05 03/18/19 23:12 Dilaudid IVPUSH 03/18/19 23:06 0.5 mg ONETIME ONE Administration Ondansetron HCl 4 mg 03/18/19 22:00 03/18/19 22:20 Zofran IVPUSH 03/18/19 22:01 4 mg ONETIME ONE Administration - Re-Assessments/Exams Free Text/Narrative Re-Assessment/Exam: 03/19/19 00:00 cat scan did reveal swelling of the lower portion of her duodeum. She was found to have a lipase of nearly 1200. Her amylase was normal. She was given 2 liters of fluid. She did respond to the zoforan given iv, Departure - Departure Time of Disposition: 00:01 Disposition: Admitted As Inpatient 67 Condition: Fair Clinical Impression: Pancreatitis - Discharge Information Referrals: Karen Nagy PA [Primary Care Provider] - Forms: ED Department Discharge Care Plan Goals: [facility] to [facility] - My Orders Last 24 Hours: My Active Orders 03/18/19 22:00 Sodium Chloride 0.9% [Normal Saline] 1,000 ml IV ASDIRECTED 03/18/19 22:06 Sodium Chloride 0.9% [Saline Flush] 10 ml FLUSH ASDIRECTED PRN 03/18/19 22:15 Iopamidol [Isovue-300 (61%)] 100 ml IV . DIRECTED Sodium Chloride 0.9% [Normal Saline] 80 ml IV ASDIRECTED - Assessment/Plan Last 24 Hours: My Active Orders 03/18/19 22:00 Sodium Chloride 0.9% [Normal Saline] 1,000 ml IV ASDIRECTED 03/18/19 22:06 Sodium Chloride 0.9% [Saline Flush] 10 ml FLUSH ASDIRECTED PRN 03/18/19 22:15 Iopamidol [Isovue-300 (61%)] 100 ml IV . DIRECTED Sodium Chloride 0.9% [Normal Saline] 80 ml IV ASDIRECTED
[2019-03-18] MEDS ORDERED: Sodium Chloride 0.9% 10 ML Syringe FLUSH PRN (22:06)
[2019-03-18] MEDS ORDERED: Iopamidol 612 MG/ML 100 ML Bottle IV SCH (22:15)
[2019-03-18] MEDS ORDERED: Sodium Chloride 0.9% 80 ML IV SCH (22:15)
--- NOTE | 2019-03-18 22:56 | CRLCT ---
INDICATION: Abdominal pain, creatinine at clinic today 0. 65 TECHNIQUE: CT Abdomen and pelvis with i.v. contrast. Coronal and sagittal reformats were obtained. CONTRAST: 100 mL Isovue 300 COMPARISON: 01/26/2019 FINDINGS: Lower chest: Unremarkable. Liver: Unremarkable. Spleen: Unremarkable. Pancreas: Unremarkable. Gallbladder: Unremarkable. Kidney: Unremarkable. No kidney or ureteral stones or obstruction seen. Adrenal: Unremarkable. Bowel: Moderate wall thickening is seen in the second-third portion of the duodenum. Multiple surgical clips are present near the GE junction within adjacent air-filled and dilated portion of stomach measuring 3.3 cm. Small bowel anastomotic staple line is seen in the left flank. The appendix is not identified. Vascular: Unremarkable. Lymph: Unremarkable. Peritoneum: Unremarkable. No pneumoperitoneum is seen. No significant ascites is noted. Pelvis: Unremarkable. Soft tissue: Unremarkable. Bone: Unremarkable for age. IMPRESSIONS: 1. Moderate wall thickening is seen in the second-third portion of the duodenum. Findings may be due to duodenitis, groove pancreatitis, or peptic ulcer disease. 2. Multiple surgical clips are present near the GE junction within adjacent air-filled and dilated portion of stomach measuring 3.3 cm. Evaluation with barium esophagram may be helpful for further characterization and to exclude a paraesophageal hernia. Dictated by Vinnie Joaquin MD @ 03/18/2019 10:55:01 PM Please note that all CT scans at this facility use dose modulation, iterative reconstruction, and/or weight-based dosing when appropriate to reduce radiation dose to as low as reasonably achievable. Dictated by: Vinnie Joaquin MD @ 03/18/2019 22:55:31 (Electronically Signed)
[2019-03-18] MEDS ORDERED: HYDROmorphone 0.5 MG/0.5 ML Syringe IVPUSH ONE (23:05)
[2019-03-19] MEDS ORDERED: Albuterol 0.083% 2.5 MG/3 ML Neb Soln NEB PRN (01:24)
[2019-03-19] MEDS ORDERED: LORazepam 0.5 MG Tab PO PRN (01:24)
[2019-03-19] MEDS ORDERED: Promethazine 25 MG Tab PO PRN (01:24)
[2019-03-19] MEDS ORDERED: Sodium Chloride 0.9% 1,000 ML IV SCH (01:24)
[2019-03-19] MEDS ORDERED: LORazepam 2 MG/ML SDV IV PRN (01:24)
--- NOTE | 2019-03-19 01:24 | PCM.HP ---
H&P History of Present Illness - General Date of Service: 03/18/19 Admit Problem/Dx: Admission Diagnosis/Problem Admission Diagnosis/Problem Pancreatitis Source of Information: Patient History Limitations: Reports: No Limitations - History of Present Illness Initial Comments - Free Text/Narative: chief complaint: abdominal pain with nausea This is a 69 year old female reports two week history abdominal pain, Sunday the pain worsen. She was seen in [facility], told may have virus and rest. She then went to see her Primary Care Provider, who did labs and abdominal xray. She continued to have pain and not feeling well. This evening came to [facility] because pain intensity and radiates to back. she was severe nausea but couldn't vomit. Last surgery by Dr. Mccallum in January for small bowel obstruction and repair of abdominal mesh. Onset of Symptoms: Reports: Gradual Duration of Symptoms: Reports: Getting Worse Location: Reports: Abdomen Quality: Reports: Ache Severity: Severe (at rest pain is tolerable at 3 or 4 on pain scale, with walking or movement rate pain at 7 or 8) Improves with: Reports: None Worsens with: Reports: Eating, Movement Associated Symptoms: Reports: Fever/Chills (chills), Loss of Appetite, Nausea/ Vomiting (nausea without vomiting.) Lower Abdomen Pain Score (Numeric/FACES): 10 - Related Data Allergies/Adverse Reactions: Allergies Allergy/AdvReac Type Severity Reaction Status Date / Time No Known Allergies Allergy Verified 03/18/19 21:44 Home Medications: Home Meds Aspirin [Halfprin] 81 mg PO DAILY 09/01/13 [History] Calcium Carbonate/Vitamin D3 [Calcarb 600 with Vit D] 1 tab PO DAILY 09/01/13 [ History] FLUoxetine HCl [Prozac] 60 mg PO DAILY 09/01/13 [History] LORazepam [Ativan] 0.5 mg PO BID PRN 09/01/13 [History] Lidocaine 5% [Lidoderm 5%] 1 patch TOP DAILY 09/01/13 [History] Multivitamin [Multi-Vitamin Daily] 1 tab PO DAILY 09/01/13 [History] Omeprazole [Prilosec] 20 mg PO DAILY 09/01/13 [History] Vit B Cmplx 3/Fa/Vit C/Biotin [Christa-Dion Rx Tablet] 1 tab PO DAILY 09/01/13 [ History] Vit D3/Folic Acid/B2/B6/B12 [Folgard Tablet] 2 tab PO BID 09/01/13 [History] traZODone HCl [Trazodone HCl] 100 mg PO BEDTIME 09/01/13 [History] Albuterol Sulfate [Proair Respiclick] 2 puff IH Q4HR PRN 09/27/18 [History] Cyanocobalamin (Vitamin B12) [Vitamin B12] 1,000 mcg PO DAILY 09/27/18 [History] Iron,Carbonyl/Ascorbic Acid [Iron 100-Vitamin C Tablet] 1 tab PO BID 09/27/18 [ History] Zinc Gluconate [Zinc] 50 mg PO ASDIRECTED 09/27/18 [History] Cyanocobalamin (Vitamin B-12) [Cyanocobalamin Injection] 1,000 mcg IJ .[id number] 09/30/18 [History] Acetaminophen [Tylenol] 325 mg PO Q4H PRN tablet 12/26/18 [Rx] Past Medical History HEENT History: Reports: Impaired Vision Other HEENT History: wears glasses Gastrointestinal History: Reports: GERD Genitourinary History: Reports: UTI, Recurrent 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: , 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 Other OB/BYN History: ovarian cyst removed Musculoskeletal History: Reports: Arthritis, Other (See Below) Other Musculoskeletal History: scoliosis Psychiatric History: Reports: Anxiety, Depression Endocrine/Metabolic History: Reports: Vitamin D Deficiency Hematologic History: Reports: Anemia, B12 Deficiency, Blood Transfusion(s), Folic Acid, Iron Deficiency - Infectious Disease History Infectious Disease History: Reports: Chicken Pox, Measles - Past Surgical History Head Surgeries/Procedures: Reports: None HEENT Surgical History: Reports: None GI Surgical History: Reports: Appendectomy, Bariatric Procedure, Cholecystectomy , Colonoscopy, EGD, Esophageal Dilatation, Hernia Repair/Other Female Surgical History: Reports: Section, Hysterectomy Endocrine Surgical History: Reports: None Musculoskeletal Surgical History: Reports: Shoulder Surgery Other Musculoskeletal Surgeries/Procedures:: right rotator cuff repair Social & Family History - Family History Family Medical History: Noncontributory - Caffeine Use Caffeine Use: Reports: None - Living Situation & Occupation Living situation: Reports: , with Spouse (lives with in [facility]. 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 had 13 children from age 48 yr to 28 yrs. 115 Grandchildren. One of her Daughters is a RN on [address] [place] [address].) Occupation: Student H&P Review of Systems - Review of Systems: Review Of Systems: See Below General: Reports: Chills, Malaise, Decreased Appetite HEENT: Reports: Glasses Pulmonary: Reports: No Symptoms Cardiovascular: Reports: No Symptoms Gastrointestinal: Reports: Abdominal Pain (epigastric radiated to middle of back.), Decreased Appetite, Nausea Genitourinary: Reports: No Symptoms Musculoskeletal: Reports: Back Pain Skin: Reports: Other (reports "thin" skin, easily bruising, bleeding and skin tears.) Neurological: Reports: No Symptoms Hematologic/Lymphatic: Reports: No Symptoms Immunologic: Reports: No Symptoms Exam - Exam Exam: See Below - Vital Signs Vital Signs: Last Vital Signs Temp 35.2 C L 03/18/19 21:49 Pulse 73 03/18/19 21:49 Resp 16 03/18/19 21:49 BP 153/82 H 03/18/19 21:49 Pulse Ox 96 03/18/19 21:49 Weight: 62.8 kg - Exam General: Alert, Oriented, Cooperative HEENT: PERRLA, Hearing Intact, Mucosa Moist & [place], Nares Patent, Normal Nasal Septum, Posterior Pharynx Clear, Conjunctiva Clear, EOMI, EACs Clear, TMs Clear Neck: Supple, Trachea Midline, 2 Lungs: Clear to Auscultation, Normal Respiratory Effort Cardiovascular: Regular Rate, Regular Rhythm GI/Abdominal Exam: Normal Bowel Sounds, Soft, Tender (epigastric region radiates to back), Other (recent surgery in January 2019, mid line surgery scar. well healed. ) (Female) Exam: Deferred Rectal (Female) Exam: Deferred Extremities: Normal Inspection, Normal Range of Motion, Non-Tender, No Pedal Edema, Normal Capillary Refill Skin: Warm, Dry, Intact Neurological: Cranial Nerves Intact, Reflexes Equal Bilateral Neuro Extensive - Mental Status: Alert, Oriented x3, Normal Mood/Affect, Normal Cognition Psychiatric: Alert, Normal Affect, Normal Mood - Patient Data Lab Results Last 24 hrs: Laboratory Results - last 24 hr 03/18/19 03/18/19 03/18/19 Range/Units 22:02 23:26 23:31 C-Reactive Protein 2.10 H (0.0-0.3) mg/dL Amylase 125 H D (25-115) U/L Lipase 1192 H (73-393) U/L - Problem List (1) Pancreatitis SNOMED Code(s): 64485763 ICD Code: K85.90 - ACUTE PANCREATITIS WITHOUT NECROSIS OR INFECTION, UNSP Status: Acute Priority: High Current Visit: Yes Qualifiers: Chronicity: acute Pancreatitis type: other Acute pancreatitis complication: no infection or necrosis Qualified Code(s): K85.80 - Other acute pancreatitis without necrosis or infection (2) Bariatric surgery status SNOMED Code(s): 667413101, 506251751, 356565206 ICD Code: Z98.84 - BARIATRIC SURGERY STATUS Status: Chronic Priority: Low Current Visit: Yes Problem List Initiated/Reviewed/Updated: Yes Orders Last 24hrs: Active Orders 24 hr Category Date Time Status Patient Status Manage Transfer [TRANSFER] Routine ADT 03/19/19 00:47 Ordered Iopamidol [Isovue-300 (61%)] Med 03/18/19 22:15 Active 100 ml IV . DIRECTED Sodium Chloride 0.9% [Normal Saline] 1,000 ml Med 03/18/19 22:00 Active IV ASDIRECTED Sodium Chloride 0.9% [Normal Saline] 1,000 ml Med 03/18/19 23:45 Active IV ASDIRECTED Sodium Chloride 0.9% [Normal Saline] 80 ml Med 03/18/19 22:15 Active IV ASDIRECTED Sodium Chloride 0.9% [Saline Flush] Med 03/18/19 22:06 Active 10 ml FLUSH ASDIRECTED PRN Resuscitation Status Routine Resus Stat 03/19/19 00:49 Ordered Medication Orders Sodium Chloride (Normal Saline) 1,000 mls @ 999 mls/hr IV ASDIRECTED [facility] Last Admin: 03/18/19 22:57 Dose: 999 mls/hr Sodium Chloride (Normal Saline) 80 mls @ 3 mls/sec IV ASDIRECTED [facility] Last Admin: 03/18/19 22:32 Dose: 3 mls/sec Sodium Chloride (Normal Saline) 1,000 mls @ 500 mls/hr IV ASDIRECTED [facility] Last Admin: 03/19/19 00:06 Dose: 500 mls/hr Iopamidol (Isovue-300 (61%)) 100 ml IV . DIRECTED [facility] Last Admin: 03/18/19 22:32 Dose: 100 ml Sodium Chloride (Saline Flush) 10 ml FLUSH ASDIRECTED PRN PRN Reason: Keep Vein Open Last Admin: 03/18/19 22:25 Dose: 10 ml Assessment/Plan Comment:: ASSESSMENT / PLAN This is a 69 year old female reports two week history abdominal pain, Sunday the pain worsen. She was seen in [facility], told may have virus and rest. She then went to see her Primary Care Provider, who did labs and abdominal xray. She continued to have pain and not feeling well. This evening came to [facility] because pain intensity and radiates to back. she was severe nausea but couldn't vomit. Last surgery by Dr. Mccallum in January for small bowel obstruction and repair of abdominal mesh. Lab values = CBC unremarkable WBC 5.9 CRP elevated 2.10, lipase 1192, amylase 125, Cr. 0.68, Glucose 102 CT scan of the abdomen shows moderate wall thickening is seen in the second- third portion of the duodenum. findings may be due to duodenitis, groove pancreatitis or peptic ulcer disease. 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 Plan Called discussed case with hospitalist industrial automation specialist agreed to come and evaluate the patient in the emergency department for admission Pancreatitis -Admit to [address] [place] [address] for further monitoring -NPO -IV Fluids Normal Saline at 125 mL per hour -IV Dilaudid 1 mg every 2 hours for pain control rate at 7 to 9 -PO Hydrocodone 5-325mg 2 tabs every 4 hours less acute pain -anti nausea medication ordered -Advise to notify nurses of any fever or worsen pain -And a.m. labs: CBC, BMP, CRP, amylase, lipase History of Gastric Bypass -continue B vitamin supplement -consult to Dr. Gene Mccallum Maintenance issues -Orders home meds reviewed and ordered as appropriate -Nutrition: NPO -Bonilla catheter not indicated at this time -DVT: SCD -PPI; IV Protonix 40mg daily CODE STATUS: FULL Admission status: Admit to [address] [place] [address] This Patient is Admitted for Inpatient Services and is Medically Appropriate and Meets Medical Necessity for Inpatient Admission. I Reasonably Expect the Patient will Require Inpatient Services that Span a Period of Over 2 Midnights. My Rationale for Medically Necessary Inpatient Care will be Found in the Admission History & Physical and Progress Notes. I Reasonably Expect the Patient to be Discharged or Transferred within 96 Hours After Admission to this Critical [facility] Hospital. Disposition: home Primary care provider: Dr. Nagy Hospitalist: Dr. Gonzalez
[2019-03-19] MEDS ORDERED: Albuterol 8 GM Inhaler INH PRN (01:37)
[2019-03-19] MEDS: Acetaminophen 325 MG Tab PO PRN (01:49)
[2019-03-19] MEDS: Ondansetron 4 MG/2 ML SDV IVPUSH PRN ×2 (02:41→13:20)
[2019-03-19] MEDS: HYDROmorphone 1 MG/ML Syringe IVPUSH PRN ×2 (04:09→07:00)
[2019-03-19] MEDS ORDERED: Cyanocobalamin (Vitamin B12) 1,000 MCG/ML SDV IM ONE (09:00)
[2019-03-19] MEDS ORDERED: MVI, Adult with Vitamin K 10 ML, Thiamine 100 MG, Magnesium Sulfate 2 GM, Folic Acid 1 ... IV ONE ×5 (09:00)
[2019-03-19] MEDS ORDERED: Pantoprazole 40 MG Vial IVPUSH SCH (09:00)
[2019-03-19] MEDS: Lidocaine 5% 700 MG Patch TOP SCH (09:41)
[2019-03-19] MEDS: Pantoprazole 40 MG Vial IVPUSH SCH ×2 (09:41→21:59)
[2019-03-19] MEDS: Cyanocobalamin (Vitamin B12) 1,000 MCG Tab PO SCH (09:41)
[2019-03-19] MEDS: FLUoxetine 20 MG Cap PO SCH (09:41)
[2019-03-19] MEDS: Potassium Chloride 20 MEQ, Lidocaine 1% 2 ML in Sodium Chloride 0.9% 100 ML IV SCH ×3 (10:37→15:34)
[2019-03-19] MEDS: Acetaminophen/HYDROcodone 325-5 MG Tab PO PRN ×3 (11:11→20:22)
--- NOTE | 2019-03-19 15:43 | PN ---
DATE OF SERVICE: 03/19/2019 SUBJECTIVE: Josie was admitted earlier this morning with abdominal pain, thought to be pancreatitis. She states she has had pain in her mid epigastric area that radiated around to her right upper quadrant. She has had this pain for 2 weeks, associated with nausea, but has not vomited. Reports no appetite. Bowel movements have been normal. Last bowel movement was yesterday. Eating and drinking without any problems. Has noticed no change in color of stools. She states that since being admitted, her pain is 2 to 3. REVIEW OF SYSTEMS: HEENT: Negative. NECK: Negative. GENITOURINARY: No UTI signs and symptoms. MUSCULOSKELETAL: Reports arthritis. States that she has been having a lot of low back pain and is seeing her primary care provider for this, and an x-ray did show some arthritis. PSYCHIATRIC: Reports anxiety, depression. ENDOCRINE: Vitamin D deficiency. HEMATOLOGY: Iron deficiency anemia. Has felt tired, she states all the time. Remainder of review of systems negative for any pertinent positives and negatives. OBJECTIVE: GENERAL: Josie Mcbride is a 69-year-old female. VITAL SIGNS: Height 5 feet 4.9 inches, weight is 140 pounds, BMI is 23. TPR 99, 79, 18, blood pressure 120/69. HEENT: Negative. NECK: Supple. HEART: Regular rate and rhythm. LUNGS: Clear. ABDOMEN: Soft, nondistended. Minimal pain in the mid epigastric and right upper quadrant. BACK: Positive for low lumbar sacral pain to palpation. EXTREMITIES: Without peripheral edema. SKIN: Without rash. PSYCHIATRIC: Mood and affect appropriate. Memory intact. NEUROLOGIC: Negative. ASSESSMENT: Duodenal ulcer. CT showed thickening of the duodenum. Status post Donald-en-Y gastric bypass surgery, unspecified surgical malabsorption, B12 deficiency, vitamin D deficiency, depression, anxiety. PLAN: 1. Protonix 40 mg IV b.i.d. 2. Lactated Ringer's with multivitamin 1 L today. 3. Rx vitamin B12 1000 mcg one time IM. 4. Check phos, magnesium, and ferritin toxicology screen today. 5. D5LR to 100 mL per hour. 6. Step 4 gastric bypass diet. 7. Breath test for H. pylori. 8. Check CBC, CMP, mag, phos, amylase, and lipase in a.m. 9. KCl 60 mEq IV today. 10.K-Phos 45 mEq IV one time today. 11.We will evaluate p.r.n. or in a.m. Ruth Santillan PA-C /[id number]
[2019-03-19] MEDS: Dextrose 5%-Lactated Ringers 1,000 ML IV SCH (15:58)
[2019-03-19] MEDS ORDERED: Potassium Phosphates 22.5 MMOLE in Sodium Chloride 0.9% 250 ML IV SCH (16:00)
[2019-03-19] MEDS: Potassium Phosphates 22.5 MMOLE in Sodium Chloride 0.9% 250 ML IV SCH ×2 (17:57→21:10)
[2019-03-19] MEDS: traZODone 50 MG Tab PO SCH (21:59)
[2019-03-20] MEDS: Dextrose 5%-Lactated Ringers 1,000 ML IV SCH ×2 (01:28→23:49)
[2019-03-20] MEDS: Acetaminophen/HYDROcodone 325-5 MG Tab PO PRN (01:30)
[2019-03-20] MEDS: Acetaminophen 325 MG Tab PO PRN ×3 (08:19→18:13)
[2019-03-20] MEDS: Cyanocobalamin (Vitamin B12) 1,000 MCG Tab PO SCH (08:21)
[2019-03-20] MEDS: FLUoxetine 20 MG Cap PO SCH (08:21)
[2019-03-20] MEDS: Lidocaine 5% 700 MG Patch TOP SCH (08:21)
[2019-03-20] MEDS: Pantoprazole 40 MG Vial IVPUSH SCH ×2 (08:21→21:01)
--- NOTE | 2019-03-20 09:45 | PN ---
DATE OF SERVICE: 03/20/2019 SUBJECTIVE: Fernanda reports minimal pain in her abdomen. Most of her pain is in her back. Vital signs have been stable. She has been afebrile. Oral intake 3836, urine output unknown. The patient is independent. REVIEW OF SYSTEMS: HEENT: Negative. NECK: Negative. CHEST: No chest pain, shortness of breath, fast or irregular heart beat. LUNGS: No cough. ABDOMEN: As above. GENITOURINARY: Negative. EXTREMITIES: Negative. BACK: Reports chronic low back pain, which increases when she has mid epigastric and abdominal pain. NEUROLOGIC: Intact. PSYCHIATRIC: Mood and affect appropriate. No new symptoms. OBJECTIVE: GENERAL: Fernanda Mcbride is a 69-year-old female. She is alert and orientated. VITAL SIGNS: TPR 97.8, 76, 18, blood pressure 130/87. HEENT: Negative. NECK: Supple. HEART: Regular rate and rhythm. LUNGS: Clear. ABDOMEN: Less tenderness is noted in the mid epigastric and right and left quadrants, flat, nondistended. BACK: Remains to be tender in the lumbosacral area. EXTREMITIES: Without peripheral edema. SKIN: Without rash. PSYCHIATRIC: Mood and affect appropriate. ASSESSMENT: 1. Duodenal ulcers. CT showing thickening of the duodenum. 2. Status post Donald-en-Y gastric bypass surgery. 3. Unspecified surgical malabsorption. 4. B12 deficiency. 5. Vitamin D deficiency. 6. Depression. 7. Anxiety. PLAN: 1. Continue IV Protonix 40 mg b.i.d. 2. Accurate intake and output. 3. Check CBC, CMP, amylase and lipase in a.m. 4. We will evaluate deyvi Santillan PA-C /[id number]
[2019-03-20] MEDS ORDERED: Acetaminophen/HYDROcodone 325-10 MG Tab PO PRN (12:49)
[2019-03-20 18:07] LABS: H. PYLORI BREATH TEST Negative (Negative)
[2019-03-20] MEDS ORDERED: Bisacodyl 10 MG Supp RECTAL PRN (18:27)
[2019-03-20] MEDS: traZODone 50 MG Tab PO SCH (21:01)
[2019-03-21 08:25] VITALS: BP 137/65
[2019-03-21] MEDS: Lidocaine 5% 700 MG Patch TOP SCH (08:49)
[2019-03-21] MEDS: Acetaminophen 325 MG Tab PO PRN (08:53)
[2019-03-21] MEDS: Cyanocobalamin (Vitamin B12) 1,000 MCG Tab PO SCH (08:55)
[2019-03-21] MEDS: FLUoxetine 20 MG Cap PO SCH (08:55)
[2019-03-21] MEDS: Pantoprazole 40 MG Vial IVPUSH SCH (08:55)
--- NOTE | 2019-03-21 14:39 | DISCH ---
ADMISSION DIAGNOSES: Left upper quadrant abdominal pain, status post Donald-en-Y gastric bypass surgery, unspecified surgical malabsorption, B12 deficiency, iron deficiency anemia, insomnia, gastroesophageal reflux disease, vitamin D deficiency, anxiety, B complex deficiency. DISCHARGE DIAGNOSIS: Duodenal ulcer, CT showing thickening of the duodenum. HISTORY: Josie Mcbride went to the emergency room on 03/13/2019 with severe mid abdominal pain and marked nausea, which radiated to her right upper quadrant and around to her back. She has been having pain for about 2 weeks. She had seen her primary provider earlier that day, and the pain increased significantly, so she went to the ER. At the time of admission, lipase was elevated at 1192 and amylase was 125. Her amylase, in less than 12 hours, decreased to 72, lipase 585, and gradually decreased each day until she was discharged on 03/21/2019. According to the CT scan, Gene Mccallum MD, thought it was more consistent with a duodenal ulcer. She was put on Protonix 40 mg IV twice a day. Her diet was gradually increased, her potassium replaced, and K-Phos was replaced. Her pain gradually decreased. Her activity was good. Vital signs were stable. Labs improved and she was able to be discharged to home on 03/21/2019. PHYSICAL EXAMINATION: GENERAL: Josie Mcbride is a 69-year-old female. VITAL SIGNS: Height is 5 feet 4.96 inches, weight is 140 pounds. TPR is 98.6, 81, 16, blood pressure 137/65. HEENT: Negative. NECK: Supple. HEART: Regular rate and rhythm. LUNGS: Clear. ABDOMEN: Soft. Very minimally tender. EXTREMITIES: Without peripheral edema. DISPOSITION: Discharged to home. CONDITION: Stable and improving. FOLLOWUP APPOINTMENT: Ruth Santillan PA-C, 03/28/2019 at 9 a.m. HOME MEDICATIONS: Protonix 40 mg b.i.d. for 30 days with 2 refills. She is to resume her home medications: Tylenol 325 mg every 4 hours p.r.n. pain, ProAir two puffs every 4 hours p.r.n. shortness of breath, aspirin 81 mg oral daily, calcium supplement 1 tablet oral daily, B12 1000 mcg injection every 3 weeks and she received one in the hospital on 03/19/2019, vitamin B12 1000 mcg daily, Prozac 60 mg oral daily, Vitron-C one tablet oral twice daily, Ativan 0.5 mg oral twice daily p.r.n. anxiety, lidocaine 5% one patch topical daily, multivitamin one daily, vitamin B complex 1 tablet daily, vitamin D3, Folic acid, B2, B6, B12, Folgard tablet two tablets oral twice daily, zinc gluconate 50 mg oral as directed, trazodone 100 mg at bedtime. DIET: Usual diet as tolerated. Drink 8 to 10 glasses of water a day. ACTIVITY: As tolerated. May drive today. May shower. DISCHARGE INSTRUCTIONS: Notify provider if any increased pain, nausea, or vomiting.
[2019-03-24 11:09] LABS: 7 AMINO-CLONAZEPAM (LCMSMS) Not Detected (NOTDET); ALPHA-OH ALPRAZOLAM (LCMSMS) Not Detected (NOTDET); AMPHET/METHAMPHET SCREEN Negative ng/mL (Cutoff:==500); BARBITURATE SCREEN RFLX Negative ng/mL (Cutoff:=200); BUPRENORPHINE Negative ng/mL (Cutoff:=5); CANNABINOID SCREEN (50) RFLX Negative ng/mL (Cutoff:=50); CARISOPRODOL Negative ug/mL (Cutoff:=0.1); CITALOPRAM Not Detected (NOTDET); COCAINE SCREEN RFLX Negative ng/mL (Cutoff:=150); CYCLOBENZAPRINE Not Detected (NOTDET); DIAZEPAM (LCMSMS) Not Detected (NOTDET); DIPHENHYDRAMINE Positive (NOTDET); DOXYLAMINE Not Detected (NOTDET); EPHEDRINE/PSEUDOPHEDRINE Not Detected (NOTDET); ETHANOL URINE Negative mg/dL (Cutoff:=20); FENTANYL SCREEN Negative ng/mL (Cutoff=2); HYDROXYBUPROPION Not Detected (NOTDET); LIDOCAINE Not Detected (NOTDET); MEPERIDINE SCREEN RFLX Negative ng/mL (Cutoff:=200); METHADONE RFLX Negative ng/mL (Cutoff:=100); METOPROLOL Not Detected (NOTDET); NORDIAZEPAM (LCMSMS) Not Detected (NOTDET); NORVENLAFAXINE Not Detected (NOTDET); OLANZAPINE Not Detected (NOTDET); OXAZEPAM (LCMSMS) Not Detected (NOTDET); OXCARBAZEPINE Not Detected (NOTDET); OXYCODONE SCREEN Negative ng/mL (Cutoff:=100); PHENCYCLIDINE SCREEN Negative ng/mL (Cutoff:=25); PHENTERMINE Not Detected (NOTDET); PHENYLPROPANOLAMINE Not Detected (NOTDET); PROPOXYPHENE Negative ng/mL (Cutoff:=300); PROPRANOLOL Not Detected (NOTDET); QUETIAPINE Not Detected (NOTDET); QUININE/QUINIDINE Not Detected (NOTDET); SERTRALINE Not Detected (NOTDET); TEMAZEPAM (LCMSMS) Not Detected (NOTDET); TOXICOLOGY GLUCOSE 0 mg/dL (<20); TOXICOLOGY SPECIFIC GRAVITY 1.016 (1.003-1.020); TRAMADOL Negative ng/mL (Cutoff:=200); TRIHEXYPHENIDYL Not Detected (NOTDET); VERAPAMIL Not Detected (NOTDET)
== END 2019-03-21 10:35 | disposition home or self-care (01) | DRG 384 ==
LOC: JP.ED 21:10 → JP.MS 03-19 00:47
PROVIDERS: ADMIT Internal Medicine; ATTEND Internal Medicine
DX: R10.13 Epigastric pain (principal); R11.0 Nausea; K26.9 Duodenal ulcer, unspecified as acute or chronic, without hemorrhage or perforation; K91.2 Postsurgical malabsorption, not elsewhere classified; E55.9 Vitamin D deficiency, unspecified; Z98.84 Bariatric surgery status; Z98.0 Intestinal bypass and anastomosis status; E87.6 Hypokalemia; F32.9 Major depressive disorder, single episode, unspecified; F41.9 Anxiety disorder, unspecified; E61.1 Iron deficiency; E53.8 Deficiency of other specified B group vitamins; M19.90 Unspecified osteoarthritis, unspecified site; Z87.440 Personal history of urinary (tract) infections; K21.9 Gastro-esophageal reflux disease without esophagitis; H54.7 Unspecified visual loss; Z79.82 Long term (current) use of aspirin
CPT/HCPCS: 36415; 74177; 82150; 83690; 86140; 96361; 96374; 96375; 96376; 99285; J1170; J2405 ×2; J7030 ×3; Q9967; 80053; 80305-QW; 80307; 80325; 80333; 80338; 80339; 80343; 80360; 80369; 80377; 82728; 83013; 83735; 84100; 85025; 85027; A9270-GY; C9113; G0481; J2001; J3411; J3420; J3475; J3480; J3490; J7042; J7050; J7120

== ENCOUNTER 2019-04-02 07:08 | Emergency (ER) | payer MEDICARE ==
[2019-04-02] MEDS ORDERED: LORazepam 0.5 MG Tab PO ONE (07:27)
--- NOTE | 2019-04-02 07:32 | EDM.PDOC ---
ED HPI GENERAL MEDICAL PROBLEM - General Chief Complaint: General Stated Complaint: SHAKY WEAK Time Seen by Provider: 04/02/19 07:15 Source of Information: Reports: Patient, Old Records, RN History Limitations: Reports: No Limitations - History of Present Illness INITIAL COMMENTS - FREE TEXT/NARRATIVE: 69 yo female presents with what she perceives as a panic attack with shakiness. She took one of her Ativan 0.5 mg tabs(her last dose) and did not get relief. She normally gets relief from this. She averages one dose per week of the Ativan. She called in for a refill from her primary on this yesterday, but it was not taken care of. There is nothing that she can pin down that is bothering her currently. She denies any recent/curren illnesses. 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) (Ativan 0.5 mg about 0630h today) - Related Data Allergies Allergy/AdvReac Type Severity Reaction Status Date / Time morphine Allergy Edema Verified 04/02/19 07:12 Home Meds: Home Meds Aspirin [Halfprin] 81 mg PO DAILY 09/01/13 [History] Calcium Carbonate/Vitamin D3 [Calcarb 600 with Vit D] 1 tab PO DAILY 09/01/13 [ History] FLUoxetine HCl [Prozac] 60 mg PO DAILY 09/01/13 [History] LORazepam [Ativan] 0.5 mg PO BID PRN 09/01/13 [History] Lidocaine 5% [Lidoderm 5%] 1 patch TOP DAILY 09/01/13 [History] Multivitamin [Multi-Vitamin Daily] 1 tab PO DAILY 09/01/13 [History] Vit B Cmplx 3/Fa/Vit C/Biotin [Christa-Dion Rx Tablet] 1 tab PO DAILY 09/01/13 [ History] Vit D3/Folic Acid/B2/B6/B12 [Folgard Tablet] 2 tab PO BID 09/01/13 [History] traZODone HCl [Trazodone HCl] 100 mg PO BEDTIME 09/01/13 [History] Albuterol Sulfate [Proair Respiclick] 2 puff IH Q4HR PRN 09/27/18 [History] Cyanocobalamin (Vitamin B12) [Vitamin B12] 1,000 mcg PO DAILY 09/27/18 [History] Iron,Carbonyl/Ascorbic Acid [Iron 100-Vitamin C Tablet] 1 tab PO BID 09/27/18 [ History] Zinc Gluconate [Zinc] 50 mg PO ASDIRECTED 09/27/18 [History] Cyanocobalamin (Vitamin B-12) [Cyanocobalamin Injection] 1,000 mcg IJ .[id number] 09/30/18 [History] Acetaminophen [Tylenol] 325 mg PO Q4H PRN tablet 12/26/18 [Rx] Pantoprazole Sodium [Protonix] 40 mg PO BID #60 tablet. 03/21/19 [Rx] Past Medical History HEENT History: Reports: Impaired Vision Other HEENT History: wears glasses Gastrointestinal History: Reports: GERD Genitourinary History: Reports: UTI, Recurrent TITLE I DIRECTOR History: Reports: , Spontaneous Other TITLE I DIRECTOR History: ovarian cyst removed Musculoskeletal History: Reports: Arthritis, Other (See Below) Other Musculoskeletal History: scoliosis Psychiatric History: Reports: Anxiety, Depression, Panic Attack Endocrine/Metabolic History: Reports: Vitamin D Deficiency Hematologic History: Reports: Anemia, B12 Deficiency, Blood Transfusion(s), Folic Acid, Iron Deficiency - Infectious Disease History Infectious Disease History: Reports: Chicken Pox, Measles - Past Surgical History Head Surgeries/Procedures: Reports: None HEENT Surgical History: Reports: None GI Surgical History: Reports: Appendectomy, Bariatric Procedure, Cholecystectomy , Colonoscopy, EGD, Esophageal Dilatation, Hernia Repair/Other Female Surgical History: Reports: Section, Hysterectomy Endocrine Surgical History: Reports: None Musculoskeletal Surgical History: Reports: Shoulder Surgery Other Musculoskeletal Surgeries/Procedures:: right rotator cuff repair Social & Family History - Family History Family Medical History: Noncontributory - Tobacco Use Smoking Status *Q: Never Smoker Second Hand Smoke Exposure: No - Caffeine Use Caffeine Use: Reports: Coffee - Recreational Drug Use Recreational Drug Use: No - Living Situation & Occupation Living situation: Reports: , with Spouse (lives with in [facility]. 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 had 13 children from age 48 yr to 27 yrs. 115 Grandchildren. One of her Daughters is a RN on [address] [place] [address].) Occupation: Student ED ROS GENERAL - Review of Systems Review Of Systems: See Below Constitutional: Reports: No Symptoms HEENT: Reports: No Symptoms Respiratory: Reports: No Symptoms Cardiovascular: Reports: No Symptoms GI/Abdominal: Reports: No Symptoms : Reports: No Symptoms Musculoskeletal: Reports: No Symptoms Skin: Reports: No Symptoms Neurological: Reports: Tremors Psychiatric: Reports: Anxiety ED EXAM, GENERAL - Physical Exam Exam: See Below Exam Limited By: No Limitations General Appearance: Alert, WD/WN, No Apparent Distress Eye Exam: Bilateral Eye: Normal Inspection Ears: Normal External Exam, Normal Canal, Hearing Grossly Normal Ear Exam: Bilateral Ear: Auricle Normal, Canal Normal Nose: Normal Inspection, No Blood Throat/Mouth: Normal Inspection, Normal Lips, Normal Oropharynx, Normal Voice, No Airway Compromise Head: Atraumatic, Normocephalic Neck: Normal Inspection Respiratory/Chest: No Respiratory Distress, Lungs Clear, Normal Breath Sounds, No Accessory Muscle Use Cardiovascular: Regular Rate, Rhythm, No Edema GI/Abdominal: Soft, Non-Tender, No Distention Back Exam: Normal Inspection. No: CVA Tenderness (R), CVA Tenderness (L) Extremities: Normal Inspection, Normal Range of Motion, Non-Tender, No Pedal Edema Neurological: Alert, Oriented, CN II-XII Intact, Normal Cognition, No Motor/ Sensory Deficits Psychiatric: Normal Affect, Normal Mood Skin Exam: Warm, Dry, Intact, Normal Color, No Rash Course - Vital Signs Text/Narrative:: Feeling better after the Ativan 0.5 mg po Last Recorded V/S: Last Vital Signs Temp 36.0 C 04/02/19 07:16 Pulse 88 04/02/19 07:16 Resp 16 04/02/19 07:16 BP 152/90 H 04/02/19 07:16 Pulse Ox 98 04/02/19 07:16 - Orders/Labs/Meds Meds: Medications Discontinued Medications Generic Name Dose Route Start Last Admin Trade Name Freq PRN Reason Stop Dose Admin Lorazepam 0.5 mg 04/02/19 07:27 04/02/19 07:30 Ativan PO 04/02/19 07:28 0.5 mg ONETIME ONE Administration Departure - Departure Time of Disposition: 08:13 Disposition: Home, Self-Care 01 Condition: Good Clinical Impression: Anxiety - Discharge Information *PRESCRIPTION DRUG MONITORING PROGRAM REVIEWED*: No *COPY OF PRESCRIPTION DRUG MONITORING REPORT IN PATIENT JUSTYNA: No Instructions: Living With Anxiety Referrals: Kaern Nagy PA [Primary Care Provider] - Forms: ED Department Discharge Additional Instructions: Discuss your situation with your provider. Return as needed.
[2019-04-02 08:12] VITALS: BP 152/90
== END 2019-04-02 08:18 | disposition home or self-care (01) ==
LOC: JP.ED 07:08
DX: F41.9 Anxiety disorder, unspecified (principal); F32.9 Major depressive disorder, single episode, unspecified; K21.9 Gastro-esophageal reflux disease without esophagitis; Z79.82 Long term (current) use of aspirin; Z79.899 Other long term (current) drug therapy; Z88.5 Allergy status to narcotic agent
CPT/HCPCS: 99283; A9270-GY

== ENCOUNTER 2019-04-02 10:55 | Emergency (ER) | payer MEDICARE ==
[2019-04-02 11:10] VITALS: BP 184/82
[2019-04-02] MEDS ORDERED: LORazepam 1 MG Tab PO ONE (11:30)
--- NOTE | 2019-04-02 11:38 | EDM.PDOC ---
ED HPI GENERAL MEDICAL PROBLEM - General Chief Complaint: General Stated Complaint: CAME BACK FROM CLINIC Time Seen by Provider: 04/02/19 11:20 Source of Information: Reports: Patient, Family, Old Records History Limitations: Reports: Other (incomplete records) - History of Present Illness INITIAL COMMENTS - FREE TEXT/NARRATIVE: 69 yo female patient of Yogi Che returns for the 2nd time today for anxiety. Has been taking Ativan for this and reportedly took her last dose this morning. The office and our patient have been playing phone tag about this and to date have not connected. Josie got a dose of Ativan this morning in the ER and then went to the office to discuss a refill and was told that her provider was not available and that likely the Ativan was being d/c'd. No med was offered in its place. Apparently, the story the patient told us this morning was not exactly accurate. She has been suffering more than just since yesterday with her anxiety and is losing weight. She is on a 2nd benzodiazepine at for sleep , Temazepam. She says with this she generally sleeps OK. Onset: Unknown/Unsure Duration: Chronic, Getting Worse Location: Reports: Generalized Quality: Reports: Other (no pain) Severity: Severe (anxiety) Improves with: Reports: Medication Worsens with: Reports: Other (time) Context: Reports: Other (See HPI) Associated Symptoms: Reports: Loss of Appetite, Other (weight loss) Treatments JAVA SOFTWARE: Reports: Other (see below) (none since leaving the ER) - Related Data Allergies Allergy/AdvReac Type Severity Reaction Status Date / Time morphine Allergy Edema Verified 04/02/19 07:12 Home Meds: Home Meds Aspirin [Halfprin] 81 mg PO DAILY 09/01/13 [History] Calcium Carbonate/Vitamin D3 [Calcarb 600 with Vit D] 1 tab PO DAILY 09/01/13 [ History] FLUoxetine HCl [Prozac] 60 mg PO DAILY 09/01/13 [History] LORazepam [Ativan] 0.5 mg PO BID PRN 09/01/13 [History] Lidocaine 5% [Lidoderm 5%] 1 patch TOP DAILY 09/01/13 [History] Multivitamin [Multi-Vitamin Daily] 1 tab PO DAILY 09/01/13 [History] Vit B Cmplx 3/Fa/Vit C/Biotin [Christa-Dion Rx Tablet] 1 tab PO DAILY 09/01/13 [ History] Vit D3/Folic Acid/B2/B6/B12 [Folgard Tablet] 2 tab PO BID 09/01/13 [History] traZODone HCl [Trazodone HCl] 100 mg PO BEDTIME 09/01/13 [History] Albuterol Sulfate [Proair Respiclick] 2 puff IH Q4HR PRN 09/27/18 [History] Cyanocobalamin (Vitamin B12) [Vitamin B12] 1,000 mcg PO DAILY 09/27/18 [History] Iron,Carbonyl/Ascorbic Acid [Iron 100-Vitamin C Tablet] 1 tab PO BID 09/27/18 [ History] Zinc Gluconate [Zinc] 50 mg PO ASDIRECTED 09/27/18 [History] Cyanocobalamin (Vitamin B-12) [Cyanocobalamin Injection] 1,000 mcg IJ .[id number] 09/30/18 [History] Acetaminophen [Tylenol] 325 mg PO Q4H PRN tablet 12/26/18 [Rx] Pantoprazole Sodium [Protonix] 40 mg PO BID #60 tablet. 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: , Spontaneous Other COLD PRESS OPERATOR History: ovarian cyst removed Musculoskeletal History: Reports: Arthritis, Other (See Below) Other Musculoskeletal History: scoliosis Psychiatric History: Reports: Anxiety, Depression, Panic Attack Endocrine/Metabolic History: Reports: Vitamin D Deficiency Hematologic History: Reports: Anemia, B12 Deficiency, Blood Transfusion(s), Folic Acid, Iron Deficiency - Infectious Disease History Infectious Disease History: Reports: Chicken Pox, Measles - Past Surgical History Head Surgeries/Procedures: Reports: None HEENT Surgical History: Reports: None GI Surgical History: Reports: Appendectomy, Bariatric Procedure, Cholecystectomy , Colonoscopy, EGD, Esophageal Dilatation, Hernia Repair/Other Female Surgical History: Reports: Section, Hysterectomy Endocrine Surgical History: Reports: None Musculoskeletal Surgical History: Reports: Shoulder Surgery Other Musculoskeletal Surgeries/Procedures:: right rotator cuff repair Social & Family History - Family History Family Medical History: Noncontributory - Tobacco Use Smoking Status *Q: Unknown Ever Smoked - Caffeine Use Caffeine Use: Reports: Coffee - Living Situation & Occupation Living situation: Reports: , with Spouse (lives with in [facility]. 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 115 Grandchildren. One of her Daughters is a RN on [address] [place] [address].) Occupation: Student ED ROS GENERAL - Review of Systems Review Of Systems: See Below Constitutional: Reports: Decreased Appetite, Weight Loss HEENT: Reports: No Symptoms Respiratory: Reports: No Symptoms Cardiovascular: Reports: No Symptoms GI/Abdominal: Reports: No Symptoms : Reports: No Symptoms Musculoskeletal: Reports: No Symptoms Skin: Reports: No Symptoms Neurological: Reports: Tremors Psychiatric: Reports: Anxiety ED EXAM, GENERAL - Physical Exam Exam: See Below Exam Limited By: No Limitations General Appearance: Alert, WD/WN, No Apparent Distress, Anxious Eye Exam: Bilateral Eye: Normal Inspection Ears: Normal External Exam, Normal Canal, Hearing Grossly Normal, Normal TMs Ear Exam: Bilateral Ear: Auricle Normal, Canal Normal, TM normal Nose: Normal Inspection, No Blood Throat/Mouth: Normal Inspection, Normal Lips, Normal Oropharynx, Normal Voice, No Airway Compromise Head: Atraumatic, Normocephalic Neck: Normal Inspection, Supple, Non-Tender Respiratory/Chest: No Respiratory Distress, Lungs Clear, Normal Breath Sounds, No Accessory Muscle Use Cardiovascular: Regular Rate, Rhythm, No Edema GI/Abdominal: Normal Bowel Sounds, Soft, Non-Tender, No Distention Back Exam: Normal Inspection, Vertebral Tenderness. No: CVA Tenderness (R), CVA Tenderness (L) Extremities: Normal Inspection, Normal Range of Motion, Non-Tender, No Pedal Edema Neurological: Alert, Oriented, CN II-XII Intact, Normal Cognition, No Motor/ Sensory Deficits Psychiatric: Normal Affect, Normal Mood Skin Exam: Warm, Dry, Intact, Normal Color, No Rash Course - Vital Signs Last Recorded V/S: Last Vital Signs Temp 36.7 C 04/02/19 11:08 Pulse 94 04/02/19 11:08 Resp 18 04/02/19 11:08 BP 184/82 H 04/02/19 11:08 Pulse Ox 98 04/02/19 11:08 - Orders/Labs/Meds Meds: Medications Discontinued Medications Generic Name Dose Route Start Last Admin Trade Name Freq PRN Reason Stop Dose Admin Lorazepam 1 mg 04/02/19 11:30 04/02/19 11:36 Ativan PO 04/02/19 11:31 1 mg ONETIME ONE Administration Departure - Departure Time of Disposition: 11:56 Disposition: Home, Self-Care 01 Condition: Fair Clinical Impression: Generalized anxiety disorder, Anxiety - Discharge Information *PRESCRIPTION DRUG MONITORING PROGRAM REVIEWED*: No *COPY OF PRESCRIPTION DRUG MONITORING REPORT IN PATIENT JUSTYNA: No Instructions: Generalized Anxiety Disorder, Adult Referrals: Karen Nagy PA [Primary Care Provider] - Forms: ED Department Discharge Additional Instructions: APPT WITH YOGI NAGY ON 04/03 AT 10 AM ARRIVE AT 9:45AM TO REGISTER Care Plan Goals: Take Ativan as directed. See Yogi Nagy at 10 am tomorrow to discuss your anxiety.
== END 2019-04-02 12:08 | disposition home or self-care (01) ==
LOC: JP.ED 10:55
DX: F41.1 Generalized anxiety disorder (principal); K21.9 Gastro-esophageal reflux disease without esophagitis; F32.9 Major depressive disorder, single episode, unspecified; D64.9 Anemia, unspecified; Z79.82 Long term (current) use of aspirin; Z79.899 Other long term (current) drug therapy; Z88.5 Allergy status to narcotic agent; F41.9 Anxiety disorder, unspecified
CPT/HCPCS: 99282; 99283; A9270

== ENCOUNTER 2019-04-08 14:22 | Emergency (ER) | payer MEDICARE ==
[2019-04-08 15:01] VITALS: BP 142/73
--- NOTE | 2019-04-08 15:30 | EDM.PDOC ---
ED HPI GENERAL MEDICAL PROBLEM - General Chief Complaint: General Stated Complaint: MEDICATION OVERDOSE Time Seen by Provider: 04/08/19 15:10 Source of Information: Reports: Patient, Old Records, RN History Limitations: Reports: No Limitations - History of Present Illness INITIAL COMMENTS - FREE TEXT/NARRATIVE: 69 yo female has been here now 3 times in the past couple weeks for anxiety. Has a primary care provider in the clinic who has been treating this. This patient seems to have lost confidence in the care she is getting as she is coming here a lot recently. Has not seen a psychiatrist. Her daughter shows up later and states that her mother is taking more of her anti-anxiety meds than is prescribed, is also drinking alcohol with her pills and has at least a 10 yr history of abusing her meds. Is not sure exactly how much her mother is taking as she is not honest about it. Her father does not know what to do and cries over the situation. Wants her mother in a treatment facility of some type. Onset: Unknown/Unsure Duration: Chronic Location: Reports: Generalized Quality: Reports: Other (no pain) Severity: Moderate Improves with: Reports: Medication Worsens with: Reports: Other (time) Context: Reports: Other (see HPI) Associated Symptoms: Reports: No Other Symptoms Treatments WALL MAN: Reports: Other (see below) (usual meds) - Related Data Allergies Allergy/AdvReac Type Severity Reaction Status Date / Time morphine Allergy Edema Verified 04/02/19 07:12 Home Meds: Home Meds Aspirin [Halfprin] 81 mg PO DAILY 09/01/13 [History] Calcium Carbonate/Vitamin D3 [Calcarb 600 with Vit D] 1 tab PO DAILY 09/01/13 [ History] FLUoxetine HCl [Prozac] 60 mg PO DAILY 09/01/13 [History] LORazepam [Ativan] 0.5 mg PO BID PRN 09/01/13 [History] Lidocaine 5% [Lidoderm 5%] 1 patch TOP DAILY 09/01/13 [History] Multivitamin [Multi-Vitamin Daily] 1 tab PO DAILY 09/01/13 [History] Vit B Cmplx 3/Fa/Vit C/Biotin [Christa-Dion Rx Tablet] 1 tab PO DAILY 09/01/13 [ History] Vit D3/Folic Acid/B2/B6/B12 [Folgard Tablet] 2 tab PO BID 09/01/13 [History] traZODone HCl [Trazodone HCl] 100 mg PO BEDTIME 09/01/13 [History] Albuterol Sulfate [Proair Respiclick] 2 puff IH Q4HR PRN 09/27/18 [History] Cyanocobalamin (Vitamin B12) [Vitamin B12] 1,000 mcg PO DAILY 09/27/18 [History] Iron,Carbonyl/Ascorbic Acid [Iron 100-Vitamin C Tablet] 1 tab PO BID 09/27/18 [ History] Zinc Gluconate [Zinc] 50 mg PO ASDIRECTED 09/27/18 [History] Cyanocobalamin (Vitamin B-12) [Cyanocobalamin Injection] 1,000 mcg IJ .[id number] 09/30/18 [History] Acetaminophen [Tylenol] 325 mg PO Q4H PRN tablet 12/26/18 [Rx] Pantoprazole Sodium [Protonix] 40 mg PO BID #60 tablet. 03/21/19 [Rx] Past Medical History HEENT History: Reports: Impaired Vision Other HEENT History: wears glasses Gastrointestinal History: Reports: GERD Genitourinary History: Reports: UTI, Recurrent BROADCAST OPERATIONS DIRECTOR History: Reports: , Spontaneous Other BROADCAST OPERATIONS DIRECTOR History: ovarian cyst removed Musculoskeletal History: Reports: Arthritis, Other (See Below) Other Musculoskeletal History: scoliosis Psychiatric History: Reports: Anxiety, Depression, Panic Attack Endocrine/Metabolic History: Reports: Vitamin D Deficiency Hematologic History: Reports: Anemia, B12 Deficiency, Blood Transfusion(s), Folic Acid, Iron Deficiency - Infectious Disease History Infectious Disease History: Reports: Chicken Pox, Measles - Past Surgical History Head Surgeries/Procedures: Reports: None HEENT Surgical History: Reports: None GI Surgical History: Reports: Appendectomy, Bariatric Procedure, Cholecystectomy , Colonoscopy, EGD, Esophageal Dilatation, Hernia Repair/Other Female Surgical History: Reports: Section, Hysterectomy Endocrine Surgical History: Reports: None Musculoskeletal Surgical History: Reports: Shoulder Surgery Other Musculoskeletal Surgeries/Procedures:: right rotator cuff repair Social & Family History - Family History Family Medical History: Noncontributory - Tobacco Use Smoking Status *Q: Heavy Tobacco Smoker Years of Tobacco use: 4 Packs/Tins Daily: 0.5 - Caffeine Use Caffeine Use: Reports: Coffee - Alcohol Use Days Per Week of Alcohol Use: 7 Number of Drinks Per Day: 2 Total Drinks Per Week: 14 - Recreational Drug Use Recreational Drug Use: No - Living Situation & Occupation Living situation: Reports: , with Spouse (lives with in [facility]. 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 had 13 children from age 48 yr to 28 yrs. 115 Grandchildren. One of her Daughters is a RN on [address] [place] [address].) Occupation: Student ED ROS GENERAL - Review of Systems Review Of Systems: See Below Constitutional: Reports: No Symptoms HEENT: Reports: No Symptoms Respiratory: Reports: No Symptoms Cardiovascular: Reports: No Symptoms GI/Abdominal: Reports: No Symptoms : Reports: No Symptoms Musculoskeletal: Reports: No Symptoms Skin: Reports: No Symptoms Neurological: Reports: No Symptoms Psychiatric: Reports: Anxiety ED EXAM, GENERAL - Physical Exam Exam: See Below Exam Limited By: No Limitations General Appearance: Alert, WD/WN, No Apparent Distress Eye Exam: Bilateral Eye: Normal Inspection Ears: Normal External Exam, Normal Canal, Hearing Grossly Normal, Normal TMs Ear Exam: Bilateral Ear: Auricle Normal, Canal Normal, TM normal Nose: Normal Inspection, Normal Mucosa, No Blood Throat/Mouth: Normal Inspection, Normal Lips, Normal Oropharynx, Normal Voice, No Airway Compromise Head: Atraumatic, Normocephalic Neck: Normal Inspection Respiratory/Chest: No Respiratory Distress, Lungs Clear, Normal Breath Sounds, No Accessory Muscle Use Cardiovascular: Regular Rate, Rhythm, No Edema GI/Abdominal: Normal Bowel Sounds, Soft, Non-Tender, No Distention Back Exam: Normal Inspection. No: CVA Tenderness (R), CVA Tenderness (L) Extremities: Normal Inspection, Normal Range of Motion, Non-Tender, No Pedal Edema Neurological: Alert, Oriented, CN II-XII Intact, Normal Cognition, No Motor/ Sensory Deficits Psychiatric: Normal Affect, Normal Mood Skin Exam: Warm, Dry, Intact, Normal Color, No Rash Course - Vital Signs Last Recorded V/S: Last Vital Signs Temp 37.3 C 04/08/19 15:08 Pulse 96 04/08/19 15:08 Resp 17 04/08/19 15:08 BP 142/73 H 04/08/19 15:08 Pulse Ox 95 04/08/19 15:08 - Orders/Labs/Meds Labs: Laboratory Tests 04/08/19 04/08/19 Range/Units 15:33 15:54 Urine Opiates Screen Negative (NEGATIVE) Ur Oxycodone Screen Negative (NEGATIVE) Urine Methadone Screen Negative (NEGATIVE) Ur Propoxyphene Screen Negative (NEGATIVE) Ur Barbiturates Screen Negative (NEGATIVE) Ur Tricyclics Screen Negative (NEGATIVE) Ur Phencyclidine Scrn Negative (NEGATIVE) Ur Amphetamine Screen Negative (NEGATIVE) U Methamphetamines Scrn Negative (NEGATIVE) Urine MDMA Screen Negative (NEGATIVE) U Benzodiazepines Scrn Presumptive positive H (NEGATIVE) U Cocaine Metab Screen Negative (NEGATIVE) U Marijuana (THC) Screen Negative (NEGATIVE) Ethyl Alcohol 209 mg/dL Departure - Departure Time of Disposition: 17:27 Disposition: DC/Tfer to Other 70 Condition: Fair Clinical Impression: Alcohol abuse, Benzodiazepine abuse, Chronic anxiety - Discharge Information *PRESCRIPTION DRUG MONITORING PROGRAM REVIEWED*: No *COPY OF PRESCRIPTION DRUG MONITORING REPORT IN PATIENT JUSTYNA: No Referrals: Karen Nagy PA [Primary Care Provider] - Forms: ED Department Discharge
== END 2019-04-08 17:38 | disposition other institution (70) ==
LOC: JP.ED 14:22
DX: F41.9 Anxiety disorder, unspecified (principal); F10.10 Alcohol abuse, uncomplicated; F13.10 Sedative, hypnotic or anxiolytic abuse, uncomplicated; K21.9 Gastro-esophageal reflux disease without esophagitis; F32.9 Major depressive disorder, single episode, unspecified; M19.90 Unspecified osteoarthritis, unspecified site; F17.210 Nicotine dependence, cigarettes, uncomplicated; Z79.82 Long term (current) use of aspirin; Z79.899 Other long term (current) drug therapy; Z88.5 Allergy status to narcotic agent; Z90.49 Acquired absence of other specified parts of digestive tract; Z98.84 Bariatric surgery status; Z90.710 Acquired absence of both cervix and uterus; Y90.7 Blood alcohol level of 200-239 mg/100 ml
CPT/HCPCS: 36415; 80305; 99284; G0480

== ENCOUNTER 2019-04-24 13:48 | Emergency (ER) | payer MEDICARE ==
--- NOTE | 2019-04-24 16:00 | EDM.PDOCBH ---
ED HPI GENERAL MEDICAL PROBLEM - General Chief Complaint: Behavioral/Psych Stated Complaint: ANXIOUS OUT OF ONE MED Time Seen by Provider: 04/24/19 15:52 Source of Information: Reports: Patient, Family History Limitations: Reports: No Limitations - History of Present Illness INITIAL COMMENTS - FREE TEXT/NARRATIVE: Patient presents today nervous, tired, fearful after using up her allocation of lorazepam earlier than scheduled. Patient has had difficulty with substance abuse from a number of things in the past including narcotics. She is on scheduled doses of lorazepam twice daily but has used up the entire month's quantity already and is not due for refill of the medication until 03 May. She contacted her primary care provider who will not refill early. Patient and family were concerned about her emotional well-being and personal safety as the patient is now feeling that she is bad enough that she would consider suicide using pills of some kind. In the last day or 2, she has taken doses of NyQuil which is 25% alcohol as a means of getting through the withdrawal symptoms. Her daughter, a nurse in the building here, provides collateral information in addition to the patient. At this time, the patient is extremely nervous and tremulous. She is willing to be admitted to the hospital for her suicidal ideation, withdrawal symptoms and further care regarding substance abuse. She, and family, state that they will take her anywhere! Onset: Gradual Duration: Day(s): Severity: Moderate Improves with: Reports: None Worsens with: Reports: None Associated Symptoms: Reports: Other (Frustration and despair.) - Related Data Allergies Allergy/AdvReac Type Severity Reaction Status Date / Time morphine Allergy Edema Verified 04/02/19 07:12 Home Meds: Home Meds Aspirin [Halfprin] 81 mg PO DAILY 09/01/13 [History] Calcium Carbonate/Vitamin D3 [Calcarb 600 with Vit D] 1 tab PO DAILY 09/01/13 [ History] FLUoxetine HCl [Prozac] 60 mg PO DAILY 09/01/13 [History] LORazepam [Ativan] 0.5 mg PO BID PRN 09/01/13 [History] Lidocaine 5% [Lidoderm 5%] 1 patch TOP DAILY 09/01/13 [History] Multivitamin [Multi-Vitamin Daily] 1 tab PO DAILY 09/01/13 [History] Vit B Cmplx 3/Fa/Vit C/Biotin [Christa-Dion Rx Tablet] 1 tab PO DAILY 09/01/13 [ History] Vit D3/Folic Acid/B2/B6/B12 [Folgard Tablet] 2 tab PO BID 09/01/13 [History] traZODone HCl [Trazodone HCl] 100 mg PO BEDTIME 09/01/13 [History] Albuterol Sulfate [Proair Respiclick] 2 puff IH Q4HR PRN 09/27/18 [History] Cyanocobalamin (Vitamin B12) [Vitamin B12] 1,000 mcg PO DAILY 09/27/18 [History] Iron,Carbonyl/Ascorbic Acid [Iron 100-Vitamin C Tablet] 1 tab PO BID 09/27/18 [ History] Zinc Gluconate [Zinc] 50 mg PO ASDIRECTED 09/27/18 [History] Cyanocobalamin (Vitamin B-12) [Cyanocobalamin Injection] 1,000 mcg IJ .[id number] 09/30/18 [History] Acetaminophen [Tylenol] 325 mg PO Q4H PRN tablet 12/26/18 [Rx] Pantoprazole Sodium [Protonix] 40 mg PO BID #60 tablet. 03/21/19 [Rx] Past Medical History HEENT History: Reports: Impaired Vision Other HEENT History: wears glasses Gastrointestinal History: Reports: GERD Genitourinary History: Reports: UTI, Recurrent STATISTICAL GENETICIST History: Reports: , Spontaneous Other STATISTICAL GENETICIST History: ovarian cyst removed Musculoskeletal History: Reports: Arthritis, Other (See Below) Other Musculoskeletal History: scoliosis Psychiatric History: Reports: Anxiety, Depression, Panic Attack Endocrine/Metabolic History: Reports: Vitamin D Deficiency Hematologic History: Reports: Anemia, B12 Deficiency, Blood Transfusion(s), Folic Acid, Iron Deficiency - Infectious Disease History Infectious Disease History: Reports: Chicken Pox, Measles - Past Surgical History Head Surgeries/Procedures: Reports: None HEENT Surgical History: Reports: None GI Surgical History: Reports: Appendectomy, Bariatric Procedure, Cholecystectomy , Colonoscopy, EGD, Esophageal Dilatation, Hernia Repair/Other Female Surgical History: Reports: Section, Hysterectomy Endocrine Surgical History: Reports: None Musculoskeletal Surgical History: Reports: Shoulder Surgery Other Musculoskeletal Surgeries/Procedures:: right rotator cuff repair Social & Family History - Family History Family Medical History: Noncontributory - Tobacco Use Smoking Status *Q: Current Every Day Smoker Years of Tobacco use: 2 Packs/Tins Daily: 0.2 - Caffeine Use Caffeine Use: Reports: Coffee Caffeine Use Comment: daily use - Recreational Drug Use Recreational Drug Use: Yes Recreational Drug Type: Reports: Oxycodone, Vicodin Recreational Drug Use Frequency: Not Used In Over 1 Month - Living Situation & Occupation Living situation: Reports: , with Spouse (lives with in [facility]. 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 115 Grandchildren. One of her Daughters is a RN on [address] [place] [address].) Occupation: Student ED ROS GENERAL - Review of Systems Review Of Systems: See Below Constitutional: Reports: Malaise Respiratory: Reports: No Symptoms Cardiovascular: Reports: No Symptoms Psychiatric: Reports: Anxiety, Depression, Suicidal Ideation, Other (Indecision / despair) ED EXAM, BEHAVIORAL HEALTH - Physical Exam Exam: See Below Exam Limited By: Other (Tremulous and distracted.) General Appearance: Alert, Anxious, Moderate Distress Respiratory/Chest: No Respiratory Distress Cardiovascular: Regular Rate, Rhythm GI/Abdominal: Normal Bowel Sounds Psychiatric: Normal Cognition, Depressed Mood, Flat Affect, Restless, Suicidal Plan (Pills), Suicidal Thoughts. No: Agitated, Flight of Ideas, Homicidal Thoughts, Paranoid Thoughts COURSE, BEHAVIORAL HEALTH COMP - Course Vital Signs: Last Vital Signs Temp 37.1 C 04/24/19 14:16 Pulse 76 04/24/19 18:21 Resp 14 04/24/19 18:21 BP 155/83 H 04/24/19 18:21 Pulse Ox 99 04/24/19 18:21 Orders, Labs, Meds: Laboratory Tests 04/24/19 04/24/19 04/24/19 Range/Units 16:38 16:38 16:38 WBC 5.0 (4.5-11.0) K/uL RBC 3.40 (3.30-5.50) M/uL Hgb 10.3 L (12.0-15.0) g/dL Hct 32.8 L (36.0-48.0) % MCV 97 (80-98) fL MCH 30 (27-31) pg MCHC 31 L (32-36) % Plt Count 545 H (150-400) K/uL Neut % (Auto) 57 (36-66) % Lymph % (Auto) 32 (24-44) % Noble % (Auto) 10 H (2-6) % Eos % (Auto) 1 L (2-4) % Baso % (Auto) 0 (0-1) % Sodium 138 L (140-148) mmol/L Potassium 3.5 L (3.6-5.2) mmol/L Chloride 105 (100-108) mmol/L Carbon Dioxide 23 (21-32) mmol/L Anion Gap 13.5 (5.0-14.0) mmol/L BUN 7 (7-18) mg/dL Creatinine 0.7 (0.6-1.0) mg/dL Est Cr Clr Drug Dosing 69.21 mL/min Estimated GFR (MDRD) > 60 (>60) Glucose 108 H (74-106) mg/dL Calcium 9.3 (8.5-10.1) mg/dL Total Bilirubin 0.3 D (0.2-1.0) mg/dL AST 21 (15-37) U/L ALT 24 (12-78) U/L Alkaline Phosphatase 151 H (46-116) U/L Total Protein 7.6 (6.4-8.2) g/dL Albumin 3.8 (3.4-5.0) g/dL Globulin 3.8 H (2.3-3.5) g/dL Albumin/Globulin Ratio 1.0 L (1.2-2.2) TSH, Ultra Sensitive (0.358-3.740) uIU/mL Urine Color Urine Appearance Urine pH (4.5-8.0) Ur Specific [place] (1.008-1.030) Urine Protein (NEGATIVE) mg/dL Urine Glucose (UA) (NEGATIVE) mg/dL Urine Ketones (NEGATIVE) mg/dL Urine Occult Blood (NEGATIVE) Urine Nitrite (NEGATIVE) Urine Bilirubin (NEGATIVE) Urine Urobilinogen (NORMAL) mg/dL Ur Leukocyte Esterase (NEGATIVE) Urine RBC (0-5) Urine WBC (0-5) Ur Epithelial Cells Amorphous Sediment Urine Bacteria Urine Mucus Urine Opiates Screen (NEGATIVE) Ur Oxycodone Screen (NEGATIVE) Urine Methadone Screen (NEGATIVE) Ur Propoxyphene Screen (NEGATIVE) Acetaminophen < 2.0 L (10.0-30.0) ug/mL Ur Barbiturates Screen (NEGATIVE) Ur Tricyclics Screen (NEGATIVE) Ur Phencyclidine Scrn (NEGATIVE) Ur Amphetamine Screen (NEGATIVE) U Methamphetamines Scrn (NEGATIVE) Urine MDMA Screen (NEGATIVE) U Benzodiazepines Scrn (NEGATIVE) U Cocaine Metab Screen (NEGATIVE) U Marijuana (THC) Screen (NEGATIVE) Ethyl Alcohol mg/dL 04/24/19 04/24/19 04/24/19 Range/Units 16:38 17:20 17:20 WBC (4.5-11.0) K/uL RBC (3.30-5.50) M/uL Hgb (12.0-15.0) g/dL Hct (36.0-48.0) % MCV (80-98) fL MCH (27-31) pg MCHC (32-36) % Plt Count (150-400) K/uL Neut % (Auto) (36-66) % Lymph % (Auto) (24-44) % Noble % (Auto) (2-6) % Eos % (Auto) (2-4) % Baso % (Auto) (0-1) % Sodium (140-148) mmol/L Potassium (3.6-5.2) mmol/L Chloride (100-108) mmol/L Carbon Dioxide (21-32) mmol/L Anion Gap (5.0-14.0) mmol/L BUN (7-18) mg/dL Creatinine (0.6-1.0) mg/dL Est Cr Clr Drug Dosing mL/min Estimated GFR (MDRD) (>60) Glucose (74-106) mg/dL Calcium (8.5-10.1) mg/dL Total Bilirubin (0.2-1.0) mg/dL AST (15-37) U/L ALT (12-78) U/L Alkaline Phosphatase (46-116) U/L Total Protein (6.4-8.2) g/dL Albumin (3.4-5.0) g/dL Globulin (2.3-3.5) g/dL Albumin/Globulin Ratio (1.2-2.2) TSH, Ultra Sensitive (0.358-3.740) uIU/mL Urine Color Yellow Urine Appearance Clear Urine pH 7.0 (4.5-8.0) Ur Specific [place] 1.005 L (1.008-1.030) Urine Protein Negative (NEGATIVE) mg/dL Urine Glucose (UA) Normal (NEGATIVE) mg/dL Urine Ketones 15 H (NEGATIVE) mg/dL Urine Occult Blood Trace (NEGATIVE) Urine Nitrite Negative (NEGATIVE) Urine Bilirubin Negative (NEGATIVE) Urine Urobilinogen Normal (NORMAL) mg/dL Ur Leukocyte Esterase Negative (NEGATIVE) Urine RBC 0-5 (0-5) Urine WBC 0-5 (0-5) Ur Epithelial Cells Rare Amorphous Sediment Not seen Urine Bacteria Not seen Urine Mucus Not seen Urine Opiates Screen Negative (NEGATIVE) Ur Oxycodone Screen Negative (NEGATIVE) Urine Methadone Screen Negative (NEGATIVE) Ur Propoxyphene Screen Negative (NEGATIVE) Acetaminophen (10.0-30.0) ug/mL Ur Barbiturates Screen Negative (NEGATIVE) Ur Tricyclics Screen Negative (NEGATIVE) Ur Phencyclidine Scrn Negative (NEGATIVE) Ur Amphetamine Screen Negative (NEGATIVE) U Methamphetamines Scrn Negative (NEGATIVE) Urine MDMA Screen Negative (NEGATIVE) U Benzodiazepines Scrn Presumptive positive H (NEGATIVE) U Cocaine Metab Screen Negative (NEGATIVE) U Marijuana (THC) Screen Negative (NEGATIVE) Ethyl Alcohol < 3 mg/dL 04/24/19 Range/Units 19:34 WBC (4.5-11.0) K/uL RBC (3.30-5.50) M/uL Hgb (12.0-15.0) g/dL Hct (36.0-48.0) % MCV (80-98) fL MCH (27-31) pg MCHC (32-36) % Plt Count (150-400) K/uL Neut % (Auto) (36-66) % Lymph % (Auto) (24-44) % Noble % (Auto) (2-6) % Eos % (Auto) (2-4) % Baso % (Auto) (0-1) % Sodium (140-148) mmol/L Potassium (3.6-5.2) mmol/L Chloride (100-108) mmol/L Carbon Dioxide (21-32) mmol/L Anion Gap (5.0-14.0) mmol/L BUN (7-18) mg/dL Creatinine (0.6-1.0) mg/dL Est Cr Clr Drug Dosing mL/min Estimated GFR (MDRD) (>60) Glucose (74-106) mg/dL Calcium (8.5-10.1) mg/dL Total Bilirubin (0.2-1.0) mg/dL AST (15-37) U/L ALT (12-78) U/L Alkaline Phosphatase (46-116) U/L Total Protein (6.4-8.2) g/dL Albumin (3.4-5.0) g/dL Globulin (2.3-3.5) g/dL Albumin/Globulin Ratio (1.2-2.2) TSH, Ultra Sensitive 0.753 (0.358-3.740) uIU/mL Urine Color Urine Appearance Urine pH (4.5-8.0) Ur Specific [place] (1.008-1.030) Urine Protein (NEGATIVE) mg/dL Urine Glucose (UA) (NEGATIVE) mg/dL Urine Ketones (NEGATIVE) mg/dL Urine Occult Blood (NEGATIVE) Urine Nitrite (NEGATIVE) Urine Bilirubin (NEGATIVE) Urine Urobilinogen (NORMAL) mg/dL Ur Leukocyte Esterase (NEGATIVE) Urine RBC (0-5) Urine WBC (0-5) Ur Epithelial Cells Amorphous Sediment Urine Bacteria Urine Mucus Urine Opiates Screen (NEGATIVE) Ur Oxycodone Screen (NEGATIVE) Urine Methadone Screen (NEGATIVE) Ur Propoxyphene Screen (NEGATIVE) Acetaminophen (10.0-30.0) ug/mL Ur Barbiturates Screen (NEGATIVE) Ur Tricyclics Screen (NEGATIVE) Ur Phencyclidine Scrn (NEGATIVE) Ur Amphetamine Screen (NEGATIVE) U Methamphetamines Scrn (NEGATIVE) Urine MDMA Screen (NEGATIVE) U Benzodiazepines Scrn (NEGATIVE) U Cocaine Metab Screen (NEGATIVE) U Marijuana (THC) Screen (NEGATIVE) Ethyl Alcohol mg/dL Medications Discontinued Medications Generic Name Dose Route Start Last Admin Trade Name Jelly PRN Reason Stop Dose Admin Lorazepam 1 mg 04/24/19 16:06 04/24/19 16:18 Ativan PO 04/24/19 16:07 1 mg ONETIME ONE Administration Re-Assessment/Re-Exam: Patient and family are hoping that she can be admitted somewhere today. I explained that she would need to have screening labs done and then we would contact area facilities to review her case. Patient was given lorazepam 1 mg orally because of severe anxiety and tremulousness. She was much more relaxed following that and has remained so throughout her time in the department. I contacted intake staff at [facility] in [place]. We will fax her case information to them for review by their psychiatrist service correspondent. Departure - Departure Time of Disposition: 20:52 Disposition: DC/Tfer to Psych Hosp/Unit 65 Condition: Good Clinical Impression: Suicidal ideation, Withdrawal from benzodiazepine, Depression - Discharge Information *PRESCRIPTION DRUG MONITORING PROGRAM REVIEWED*: Not Applicable *COPY OF PRESCRIPTION DRUG MONITORING REPORT IN PATIENT JUSTYNA: Not Applicable Referrals: Karen Nagy PA [Primary Care Provider] - Forms: ED Department Discharge Additional Instructions: Go to [facility] in [place] for planned admission.
[2019-04-24] MEDS ORDERED: LORazepam 1 MG Tab PO ONE (16:06)
[2019-04-24 18:22] VITALS: BP 155/83
== END 2019-04-24 21:39 ==
LOC: JP.ED 13:48
DX: F32.9 Major depressive disorder, single episode, unspecified (principal); F19.939 Other psychoactive substance use, unspecified with withdrawal, unspecified; F17.210 Nicotine dependence, cigarettes, uncomplicated; K21.9 Gastro-esophageal reflux disease without esophagitis; F41.9 Anxiety disorder, unspecified; Z79.899 Other long term (current) drug therapy; Z88.5 Allergy status to narcotic agent
CPT/HCPCS: 36415; 80053; 80305; 81001; 84443; 85025; 99284; A9270; G0480

== ENCOUNTER 2019-06-30 05:33 | Emergency (ER) | payer MEDICARE ==
[2019-06-30] MEDS ORDERED: LORazepam 1 MG Tab PO ONE (07:26)
--- NOTE | 2019-06-30 07:29 | EDM.PDOCBH ---
ED HPI GENERAL MEDICAL PROBLEM - General Chief Complaint: Drug or Alcohol Abuse Stated Complaint: MEDICAL Time Seen by Provider: 06/30/19 06:34 Source of Information: Reports: Patient, Family History Limitations: Reports: No Limitations - History of Present Illness INITIAL COMMENTS - FREE TEXT/NARRATIVE: 69-year-old female with chronic anxiety and alcohol abuse issues presents asking for help with detox for alcohol. She's been drinking daily for several weeks. She recently spent 4 days in an alcohol treatment center about 2 months ago. Onset: Unknown/Unsure Associated Symptoms: Reports: Malaise, Other (Extremely anxious). Denies: Nausea/Vomiting, Shortness of Breath, Weakness - Related Data Allergies Allergy/AdvReac Type Severity Reaction Status Date / Time morphine Allergy Edema Verified 06/30/19 06:03 Home Meds: Home Meds Aspirin [Halfprin] 81 mg PO DAILY 09/01/13 [History] Calcium Carbonate/Vitamin D3 [Calcarb 600 with Vit D] 1 tab PO DAILY 09/01/13 [ History] FLUoxetine HCl [Prozac] 60 mg PO DAILY 09/01/13 [History] LORazepam [Ativan] 0.5 mg PO BID PRN 09/01/13 [History] Lidocaine 5% [Lidoderm 5%] 1 patch TOP DAILY 09/01/13 [History] Multivitamin [Multi-Vitamin Daily] 1 tab PO DAILY 09/01/13 [History] Vit B Cmplx 3/Fa/Vit C/Biotin [Christa-Dion Rx Tablet] 1 tab PO DAILY 09/01/13 [ History] Vit D3/Folic Acid/B2/B6/B12 [Folgard Tablet] 2 tab PO BID 09/01/13 [History] traZODone HCl [Trazodone HCl] 100 mg PO BEDTIME 09/01/13 [History] Albuterol Sulfate [Proair Respiclick] 2 puff IH Q4HR PRN 09/27/18 [History] Cyanocobalamin (Vitamin B12) [Vitamin B12] 1,000 mcg PO DAILY 09/27/18 [History] Iron,Carbonyl/Ascorbic Acid [Iron 100-Vitamin C Tablet] 1 tab PO BID 09/27/18 [ History] Zinc Gluconate [Zinc] 50 mg PO ASDIRECTED 09/27/18 [History] Cyanocobalamin (Vitamin B-12) [Cyanocobalamin Injection] 1,000 mcg IJ .[id number] 09/30/18 [History] Acetaminophen [Tylenol] 325 mg PO Q4H PRN tablet 12/26/18 [Rx] Pantoprazole Sodium [Protonix] 40 mg PO BID #60 tablet. 03/21/19 [Rx] Past Medical History HEENT History: Reports: Impaired Vision Other HEENT History: wears glasses Gastrointestinal History: Reports: GERD Genitourinary History: Reports: UTI, Recurrent SIFTER AND MILLER History: Reports: , Spontaneous Other SIFTER AND MILLER History: ovarian cyst removed Musculoskeletal History: Reports: Arthritis, Other (See Below) Other Musculoskeletal History: scoliosis Psychiatric History: Reports: Addiction, Anxiety, Depression, Panic Attack, Suicidal Ideation Endocrine/Metabolic History: Reports: Vitamin D Deficiency Hematologic History: Reports: Anemia, B12 Deficiency, Blood Transfusion(s), Folic Acid, Iron Deficiency - Infectious Disease History Infectious Disease History: Reports: Chicken Pox, Measles - Past Surgical History Head Surgeries/Procedures: Reports: None HEENT Surgical History: Reports: None GI Surgical History: Reports: Appendectomy, Bariatric Procedure, Cholecystectomy , Colonoscopy, EGD, Esophageal Dilatation, Hernia Repair/Other Female Surgical History: Reports: Section, Hysterectomy Endocrine Surgical History: Reports: None Musculoskeletal Surgical History: Reports: Shoulder Surgery Other Musculoskeletal Surgeries/Procedures:: right rotator cuff repair Social & Family History - Family History Family Medical History: Noncontributory - Tobacco Use Smoking Status *Q: Current Every Day Smoker Years of Tobacco use: 35 Packs/Tins Daily: 0.5 - Caffeine Use Caffeine Use: Reports: Coffee Caffeine Use Comment: daily use - Recreational Drug Use Recreational Drug Use: No - Living Situation & Occupation Living situation: Reports: , with Spouse (lives with in [facility]. 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 had 13 children from age 48 yr to 28 yrs. 115 Grandchildren. One of her Daughters is a RN on [address] [place] [address].) Occupation: Student ED ROS GENERAL - Review of Systems Review Of Systems: See Below Constitutional: Denies: Fever, Chills HEENT: Reports: No Symptoms Respiratory: Denies: Shortness of Breath Cardiovascular: Denies: Chest Pain GI/Abdominal: Denies: Abdominal Pain, Nausea, Vomiting Musculoskeletal: Reports: No Symptoms Skin: Reports: No Symptoms Neurological: Reports: Dizziness. Denies: Headache Psychiatric: Reports: Anxiety ED EXAM, BEHAVIORAL HEALTH - Physical Exam Exam: See Below Exam Limited By: No Limitations General Appearance: Alert, Anxious Eye Exam: Bilateral Eye: Normal Inspection Head: Atraumatic Neck: Supple, Non-Tender Respiratory/Chest: No Respiratory Distress, Lungs Clear Cardiovascular: Regular Rate, Rhythm. No: Tachycardia GI/Abdominal: Soft, Non-Tender Extremities: Normal Inspection. No: Pedal Edema Neurological: Alert, No Motor/Sensory Deficits, Oriented x 3 Psychiatric: Restless Skin Exam: Warm, Dry COURSE, BEHAVIORAL HEALTH COMP - Course Vital Signs: Last Vital Signs Temp 98.3 F 06/30/19 05:55 Pulse 91 06/30/19 07:47 Resp 16 06/30/19 05:55 BP 158/83 H 06/30/19 07:47 Pulse Ox 97 06/30/19 05:55 Orders, Labs, Meds: Laboratory Tests 06/30/19 06/30/19 06/30/19 Range/Units 07:16 07:16 07:16 WBC 5.8 (4.5-11.0) K/uL RBC 3.78 (3.30-5.50) M/uL Hgb 10.4 L (12.0-15.0) g/dL Hct 32.0 L (36.0-48.0) % MCV 85 (80-98) fL MCH 28 (27-31) pg MCHC 33 (32-36) % Plt Count 391 (150-400) K/uL Neut % (Auto) 80 H (36-66) % Lymph % (Auto) 12 L (24-44) % [place] % (Auto) 7 H (2-6) % Eos % (Auto) 0 L (2-4) % Baso % (Auto) 0 (0-1) % Sodium 140 (140-148) mmol/L Potassium 3.8 (3.6-5.2) mmol/L Chloride 105 (100-108) mmol/L Carbon Dioxide 22 (21-32) mmol/L Anion Gap 12.9 (5.0-14.0) mmol/L BUN 13 D (7-18) mg/dL Creatinine 1.5 H D (0.6-1.0) mg/dL Est Cr Clr Drug Dosing 32.30 mL/min Estimated GFR (MDRD) 35 L (>60) Glucose 114 H (74-106) mg/dL Calcium 8.5 (8.5-10.1) mg/dL Urine Opiates Screen (NEGATIVE) Ur Oxycodone Screen (NEGATIVE) Urine Methadone Screen (NEGATIVE) Ur Propoxyphene Screen (NEGATIVE) Ur Barbiturates Screen (NEGATIVE) Ur Tricyclics Screen (NEGATIVE) Ur Phencyclidine Scrn (NEGATIVE) Ur Amphetamine Screen (NEGATIVE) U Methamphetamines Scrn (NEGATIVE) Urine MDMA Screen (NEGATIVE) U Benzodiazepines Scrn (NEGATIVE) U Cocaine Metab Screen (NEGATIVE) U Marijuana (THC) Screen (NEGATIVE) Ethyl Alcohol < 3 mg/dL 06/30/19 Range/Units 07:31 WBC (4.5-11.0) K/uL RBC (3.30-5.50) M/uL Hgb (12.0-15.0) g/dL Hct (36.0-48.0) % MCV (80-98) fL MCH (27-31) pg MCHC (32-36) % Plt Count (150-400) K/uL Neut % (Auto) (36-66) % Lymph % (Auto) (24-44) % [place] % (Auto) (2-6) % Eos % (Auto) (2-4) % Baso % (Auto) (0-1) % Sodium (140-148) mmol/L Potassium (3.6-5.2) mmol/L Chloride (100-108) mmol/L Carbon Dioxide (21-32) mmol/L Anion Gap (5.0-14.0) mmol/L BUN (7-18) mg/dL Creatinine (0.6-1.0) mg/dL Est Cr Clr Drug Dosing mL/min Estimated GFR (MDRD) (>60) Glucose (74-106) mg/dL Calcium (8.5-10.1) mg/dL Urine Opiates Screen Negative (NEGATIVE) Ur Oxycodone Screen Negative (NEGATIVE) Urine Methadone Screen Negative (NEGATIVE) Ur Propoxyphene Screen Negative (NEGATIVE) Ur Barbiturates Screen Negative (NEGATIVE) Ur Tricyclics Screen Negative (NEGATIVE) Ur Phencyclidine Scrn Negative (NEGATIVE) Ur Amphetamine Screen Negative (NEGATIVE) U Methamphetamines Scrn Negative (NEGATIVE) Urine MDMA Screen Negative (NEGATIVE) U Benzodiazepines Scrn Presumptive positive H (NEGATIVE) U Cocaine Metab Screen Negative (NEGATIVE) U Marijuana (THC) Screen Negative (NEGATIVE) Ethyl Alcohol mg/dL Medications Discontinued Medications Generic Name Dose Route Start Last Admin Trade Name Jelly PRN Reason Stop Dose Admin Lorazepam 1 mg 06/30/19 07:26 06/30/19 07:46 Ativan PO 06/30/19 07:27 1 mg ONETIME ONE Administration Re-Assessment/Re-Exam: Called out to [facility], they do have a bed available for female. EtOH, CBC, CMP and urine drug screen was obtained and the patient was given 1 mg of oral Ativan because of her intense anxiety. She is not experiencing true alcohol withdrawal at this time. Labs are reassuring other than some mild dehydration. Patient was given some water to drink. EtOH is 0. is willing to take her to [facility]. Departure - Departure Time of Disposition: 09:25 Disposition: DC/Tfer to Other 70 Clinical Impression: Alcohol abuse - Discharge Information Instructions: Alcohol Use Disorder Referrals: Karen Nagy PA [Primary Care Provider] - Forms: ED Department Discharge Care Plan Goals: Go directly to [facility] for admission and detox.
[2019-06-30 07:47] VITALS: BP 158/83; PULSE 91
== END 2019-06-30 09:26 | disposition other institution (70) ==
LOC: JP.ED 05:33
DX: F10.20 Alcohol dependence, uncomplicated (principal); Y90.0 Blood alcohol level of less than 20 mg/100 ml; K21.9 Gastro-esophageal reflux disease without esophagitis; F41.0 Panic disorder [episodic paroxysmal anxiety]; D64.9 Anemia, unspecified; M19.90 Unspecified osteoarthritis, unspecified site; F17.210 Nicotine dependence, cigarettes, uncomplicated; Z88.6 Allergy status to analgesic agent; Z79.82 Long term (current) use of aspirin; Z79.899 Other long term (current) drug therapy
CPT/HCPCS: 36415; 80048; 80305; 85025; 99284; A9270; G0480

== ENCOUNTER 2020-05-27 13:38 | Emergency (ER) | payer MEDICARE ==
--- NOTE | 2020-05-27 14:00 | EDM.PDOC ---
ED HPI GENERAL MEDICAL PROBLEM - General Chief Complaint: General Stated Complaint: MEDICAL VIA [place] Time Seen by Provider: 05/27/20 13:45 Source of Information: Reports: Patient, EMS, Old Records History Limitations: Reports: No Limitations - History of Present Illness INITIAL COMMENTS - FREE TEXT/NARRATIVE: 70 yo female was shopping at [employer] today and got weak and light headed. No chest pain or SOB. Has been eating normally. No vomiting, diarrhea, black or bloody stools. Says he BP always runs low. Was fine when she entered [employer] alone. has been notified. EMS transported. Onset: Today Onset Date: 05/27/20 Duration: Minutes:, Improving Location: Reports: Generalized Quality: Reports: Other (no pain) Severity: Moderate Improves with: Reports: Other (lying) Worsens with: Reports: Other (standing) Context: Reports: Other (See HPI) Associated Symptoms: Reports: Malaise, Weakness, Other (light headed). Denies: Fever/Chills, Nausea/Vomiting Treatments CHIEF UNIT FORESTER: Reports: Other (see below) (none) - Related Data Allergies Allergy/AdvReac Type Severity Reaction Status Date / Time morphine Allergy Edema Verified 06/30/19 06:03 Home Meds: Home Meds Aspirin [Halfprin] 81 mg PO DAILY 09/01/13 [History] Calcium Carbonate/Vitamin D3 [Calcarb 600 with Vit D] 1 tab PO DAILY 09/01/13 [History] FLUoxetine HCl [Prozac] 60 mg PO DAILY 09/01/13 [History] LORazepam [Ativan] 0.5 mg PO BID PRN 09/01/13 [History] Lidocaine 5% [Lidoderm 5%] 1 patch TOP DAILY 09/01/13 [History] Multivitamin [Multi-Vitamin Daily] 1 tab PO DAILY 09/01/13 [History] Vit B Cmplx 3/Fa/Vit C/Biotin [Christa-Dion Rx Tablet] 1 tab PO DAILY 09/01/13 [History] Vit D3/Folic Acid/B2/B6/B12 [Folgard Tablet] 2 tab PO BID 09/01/13 [History] traZODone HCl [Trazodone HCl] 100 mg PO BEDTIME 09/01/13 [History] Albuterol Sulfate [Proair Respiclick] 2 puff IH Q4HR PRN 09/27/18 [History] Cyanocobalamin (Vitamin B12) [Vitamin B12] 1,000 mcg PO DAILY 09/27/18 [History] Iron,Carbonyl/Ascorbic Acid [Iron 100-Vitamin C Tablet] 1 tab PO BID 09/27/18 [History] Zinc Gluconate [Zinc] 50 mg PO ASDIRECTED 09/27/18 [History] Cyanocobalamin (Vitamin B-12) [Cyanocobalamin Injection] 1,000 mcg IJ .[id number] 09/30/18 [History] Acetaminophen [Tylenol] 325 mg PO Q4H PRN tablet 12/26/18 [Rx] Pantoprazole Sodium [Protonix] 40 mg PO BID #60 tablet. 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: , Spontaneous Other SALON SHAMPOO ASSISTANT History: ovarian cyst removed Musculoskeletal History: Reports: Arthritis, Other (See Below) Other Musculoskeletal History: scoliosis Psychiatric History: Reports: Addiction, Anxiety, Depression, Panic Attack, Suicidal Ideation Endocrine/Metabolic History: Reports: Vitamin D Deficiency Hematologic History: Reports: Anemia, B12 Deficiency, Blood Transfusion(s), Folic Acid, Iron Deficiency - Infectious Disease History Infectious Disease History: Reports: Chicken Pox - Past Surgical History Head Surgeries/Procedures: Reports: None HEENT Surgical History: Reports: None GI Surgical History: Reports: Appendectomy, Bariatric Procedure, Cholecystectomy, Colonoscopy, EGD, Esophageal Dilatation, Hernia Repair/Other Female Surgical History: Reports: Section, Hysterectomy Endocrine Surgical History: Reports: None Musculoskeletal Surgical History: Reports: Shoulder Surgery Other Musculoskeletal Surgeries/Procedures:: right rotator cuff repair Social & Family History - Family History Family Medical History: Noncontributory - Tobacco Use Smoking Status *Q: Current Every Day Smoker Years of Tobacco use: 5 Packs/Tins Daily: 0.5 - Caffeine Use Caffeine Use: Reports: Coffee Caffeine Use Comment: daily use - Recreational Drug Use Recreational Drug Use: No - Living Situation & Occupation Living situation: Reports: , with Spouse (lives with in [facility]. 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 115 Grandchildren. One of her Daughters is a RN on [address] [place] [address].) Occupation: Student ED ROS GENERAL - Review of Systems Review Of Systems: See Below Constitutional: Reports: Malaise, Weakness. Denies: Fever, Chills HEENT: Reports: No Symptoms Respiratory: Reports: No Symptoms Cardiovascular: Reports: Lightheadedness Endocrine: Reports: No Symptoms GI/Abdominal: Reports: No Symptoms : Reports: No Symptoms Musculoskeletal: Reports: No Symptoms Skin: Reports: No Symptoms Neurological: Reports: No Symptoms ED EXAM, GENERAL - Physical Exam Exam: See Below Exam Limited By: No Limitations General Appearance: Alert, WD/WN, No Apparent Distress, Thin Eye Exam: Bilateral Eye: Normal Inspection Ears: Normal External Exam, Normal Canal, Hearing Grossly Normal Ear Exam: Bilateral Ear: Auricle Normal, Canal Normal Nose: Normal Inspection, No Blood Throat/Mouth: Normal Inspection, Normal Lips, Normal Oropharynx, Normal Voice, No Airway Compromise Head: Atraumatic, Normocephalic Neck: Normal Inspection Respiratory/Chest: No Respiratory Distress, Lungs Clear, Normal Breath Sounds, No Accessory Muscle Use Cardiovascular: Regular Rate, Rhythm, No Edema GI/Abdominal: Normal Bowel Sounds, Soft, Non-Tender, No Distention Extremities: Normal Inspection, Normal Range of Motion, Non-Tender, No Pedal Edema Neurological: Alert, Oriented, CN II-XII Intact, Normal Cognition, No Motor/Sensory Deficits Psychiatric: Normal Affect, Normal Mood Skin Exam: Warm, Dry, Intact, Normal Color, No Rash Course - Vital Signs Last Recorded V/S: Last Vital Signs Temp 35.5 C L 05/27/20 13:41 Pulse 65 05/27/20 15:07 Resp 20 05/27/20 15:07 BP 110/60 05/27/20 15:07 Pulse Ox 98 05/27/20 15:07 - Orders/Labs/Meds Orders: Active Orders 24 hr Category Date Time Status Orthostatic Vital Signs [RC] ASDIRECTED Care 05/27/20 13:55 Active Labs: Laboratory Tests 05/27/20 05/27/20 05/27/20 Range/Units 13:55 14:17 14:17 WBC 4.3 L (4.5-11.0) K/uL RBC 2.80 L (3.30-5.50) M/uL Hgb 9.7 L (12.0-15.0) g/dL Hct 29.8 L (36.0-48.0) % MCV 106 H (80-98) fL MCH 35 H (27-31) pg MCHC 33 (32-36) % Plt Count 400 (150-400) K/uL Sodium 136 L (140-148) mmol/L Potassium 4.6 (3.6-5.2) mmol/L Chloride 105 (100-108) mmol/L Carbon Dioxide 18 L (21-32) mmol/L Anion Gap 17.6 H (5.0-14.0) mmol/L BUN 24 H D (7-18) mg/dL Creatinine 0.9 (0.6-1.0) mg/dL Est Cr Clr Drug Dosing 53.09 mL/min Estimated GFR (MDRD) > 60 (>60) Glucose 110 H (74-106) mg/dL Calcium 8.3 L (8.5-10.1) mg/dL Troponin I < 0.017 (0.000-0.056) ng/mL Urine Color Yellow (YELLOW) Urine Appearance Slightly cloudy A (CLEAR) Urine pH 6.0 (5.0-8.0) Ur Specific [place] 1.025 (1.008-1.030) Urine Protein Negative (NEGATIVE) mg/dL Urine Glucose (UA) Negative (NEGATIVE) mg/dL Urine Ketones 15 H (NEGATIVE) mg/dL Urine Occult Blood Negative (NEGATIVE) Urine Nitrite Positive H (NEGATIVE) Urine Bilirubin Negative (NEGATIVE) Urine Urobilinogen 0.2 (0.2-1.0) EU/dL Ur Leukocyte Esterase Negative (NEGATIVE) Urine RBC Not seen (0-5) Urine WBC 0-5 (0-5) Ur Epithelial Cells Rare Amorphous Sediment Not seen Urine Bacteria Many Urine Mucus Not seen Meds: Medications Discontinued Medications Generic Name Dose Route Start Last Admin Trade Name Freq PRN Reason Stop Dose Admin Hydroxyzine HCl 25 mg 05/27/20 15:22 05/27/20 15:34 Atarax PO 05/27/20 15:23 25 mg ONETIME ONE Administration Sodium Chloride 1,000 mls @ 1,000 mls/hr 05/27/20 14:50 05/27/20 15:10 Normal Saline IV 05/27/20 15:49 1,000 mls/hr .BOLUS ONE Administration - Re-Assessments/Exams Free Text/Narrative Re-Assessment/Exam: 05/27/20 16:43 Feeling better after IV fluids Departure - Departure Time of Disposition: 16:42 Disposition: Home, Self-Care 01 Condition: Fair Clinical Impression: Mild dehydration, Macrocytic anemia - Discharge Information *PRESCRIPTION DRUG MONITORING PROGRAM REVIEWED*: Not Applicable *COPY OF PRESCRIPTION DRUG MONITORING REPORT IN PATIENT JUSTYNA: Not Applicable Referrals: PCP,None [Primary Care Provider] - Forms: ED Department Discharge Additional Instructions: Make sure you are taking all your prescribed vitamins. Avoid alcohol. Drink more fluids so that your urine is always light yellow in color. Return as needed. Sepsis Event Note (ED) - Evaluation Sepsis Screening Result: No Definite Risk - Focused Exam Vital Signs: Vital Signs Temp Pulse Resp BP Pulse Ox 05/27/20 15:07 65 20 110/60 98 05/27/20 13:41 35.5 C L 69 13 112/54 L 99 - My Orders Last 24 Hours: My Active Orders 05/27/20 13:55 Orthostatic Vital Signs [RC] ASDIRECTED - Assessment/Plan Last 24 Hours: My Active Orders 05/27/20 13:55 Orthostatic Vital Signs [RC] ASDIRECTED
[2020-05-27] MEDS ORDERED: Sodium Chloride 0.9% 1,000 ML IV ONE (14:50)
[2020-05-27 15:08] VITALS: BP 110/60; PULSE 65
[2020-05-27] MEDS ORDERED: hydrOXYzine HCl 25 MG Tab PO ONE (15:22)
== END 2020-05-27 17:07 | disposition home or self-care (01) ==
LOC: JP.ED 13:38
DX: E86.0 Dehydration (principal); D53.9 Nutritional anemia, unspecified; K21.9 Gastro-esophageal reflux disease without esophagitis; M19.90 Unspecified osteoarthritis, unspecified site; F41.9 Anxiety disorder, unspecified; F32.9 Major depressive disorder, single episode, unspecified; M41.9 Scoliosis, unspecified; F17.210 Nicotine dependence, cigarettes, uncomplicated; Z88.5 Allergy status to narcotic agent; Z79.82 Long term (current) use of aspirin; Z79.899 Other long term (current) drug therapy
CPT/HCPCS: 36415; 80048; 81001; 84484; 85027; 96360; 99284; A9270; J7030

== ENCOUNTER 2020-06-02 05:18 | Inpatient (IN) | payer MEDICARE ==
[2020-06-02] MEDS ORDERED: HYDROmorphone 0.5 MG/0.5 ML Syringe IVPUSH ONE ×3 (06:10→08:32)
[2020-06-02] MEDS ORDERED: Sodium Chloride 0.9% 1,000 ML IV SCH ×2 (06:15→09:00)
--- NOTE | 2020-06-02 06:22 | EDM.PDOC ---
<Jorge Jones - Last Filed: 06/02/20 07:03> ED HPI GENERAL MEDICAL PROBLEM - General Chief Complaint: Gastrointestinal Problem Stated Complaint: ABD PAIN Time Seen by Provider: 06/02/20 06:05 Source of Information: Reports: Patient, Family History Limitations: Reports: No Limitations - History of Present Illness Onset: Other (Chronic abdominal pain which is gotten worse today with severe nausea) Duration: Getting Worse Location: Reports: Abdomen (She points to wide swath in her epigastrium) Abdominal Pain Score (Numeric/FACES): 9 - Related Data Allergies Allergy/AdvReac Type Severity Reaction Status Date / Time morphine Allergy Edema Verified 06/02/20 05:26 Home Meds: Home Meds Aspirin [Halfprin] 81 mg PO DAILY 09/01/13 [History] Calcium Carbonate/Vitamin D3 [Calcarb 600 with Vit D] 1 tab PO BID 09/01/13 [History] Lidocaine 5% [Lidoderm 5%] 3 patch TOP DAILY 09/01/13 [History] Multivitamin [Multi-Vitamin Daily] 1 tab PO DAILY 09/01/13 [History] Vit B Cmplx 3/Fa/Vit C/Biotin [Christa-Dion Rx Tablet] 1 tab PO DAILY 09/01/13 [History] traZODone HCl [Trazodone HCl] 100 mg PO BEDTIME 09/01/13 [History] Albuterol Sulfate [Proair Respiclick] 2 puff IH Q4HR PRN 09/27/18 [History] Cyanocobalamin (Vitamin B12) [Vitamin B12] 1,000 mcg PO DAILY 09/27/18 [History] Iron,Carbonyl/Ascorbic Acid [Iron 100-Vitamin C Tablet] 1 tab PO BID 09/27/18 [History] Acetaminophen [Tylenol] 325 mg PO Q4H PRN tablet 12/26/18 [Rx] ALPRAZolam [Alprazolam] 1 tab PO DAILY PRN 06/02/20 [History] Cholecalciferol (Vitamin D3) [Vitamin D3] 2 tab PO BID 06/02/20 [History] Diclofenac Sodium [Voltaren] 75 mg PO BIDMEALS 06/02/20 [History] FLUoxetine HCl [Fluoxetine HCl] 2 tab PO DAILY 06/02/20 [History] Naltrexone 50 mg PO ASDIRECTED 06/02/20 [History] Naltrexone Microspheres [Vivitrol] 380 mg IM Q28D 06/02/20 [History] Omeprazole 1 tab PO DAILY 06/02/20 [History] busPIRone [Buspar] 1 tab PO BID 06/02/20 [History] hydrOXYzine HCL [hydrOXYzine] 1 tab PO Q6H PRN 06/02/20 [History] Past Medical History HEENT History: Reports: Impaired Vision Other HEENT History: wears glasses Gastrointestinal History: Reports: GERD, PUD Genitourinary History: Reports: UTI, Recurrent PACKAGE SORTER History: Reports: , Spontaneous Other PACKAGE SORTER History: ovarian cyst removed Musculoskeletal History: Reports: Arthritis, Other (See Below) Other Musculoskeletal History: scoliosis Psychiatric History: Reports: Addiction, Anxiety, Depression, Panic Attack, Psych Hospitalization(s), Suicidal Ideation Endocrine/Metabolic History: Reports: Vitamin D Deficiency Hematologic History: Reports: Anemia, B12 Deficiency, Blood Transfusion(s), Folic Acid, Iron Deficiency - Infectious Disease History Infectious Disease History: Reports: Chicken Pox - Past Surgical History Head Surgeries/Procedures: Reports: None HEENT Surgical History: Reports: None GI Surgical History: Reports: Appendectomy, Bariatric Procedure, Cholecystectomy, Colonoscopy, EGD, Esophageal Dilatation, Hernia Repair/Other Female Surgical History: Reports: Section, Cystectomy, Hysterectomy Endocrine Surgical History: Reports: None Musculoskeletal Surgical History: Reports: Shoulder Surgery Other Musculoskeletal Surgeries/Procedures:: right rotator cuff repair Social & Family History - Family History Family Medical History: Noncontributory - Tobacco Use Smoking Status *Q: Current Every Day Smoker Years of Tobacco use: 5 Packs/Tins Daily: 0.5 - Caffeine Use Caffeine Use: Reports: Coffee Caffeine Use Comment: daily use - Recreational Drug Use Recreational Drug Use: No - Living Situation & Occupation Living situation: Reports: , with Spouse (lives with in [facility]. 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 had 13 children from age 48 yr to 28 yrs. 115 Grandchildren. One of her Daughters is a RN on [address] [place] [address].) Occupation: Student ED ROS GENERAL - Review of Systems Review Of Systems: See Below Constitutional: Reports: Malaise, Weakness, Diaphoresis. Denies: Fever HEENT: Reports: Other (Dry mouth) Respiratory: Reports: No Symptoms Cardiovascular: Reports: Lightheadedness. Denies: Chest Pain GI/Abdominal: Reports: Abdominal Pain, Anorexia, Decreased Appetite, Distension, Nausea. Denies: Bloody Stool, Constipation, Diarrhea, Vomiting : Denies: Dysuria, Frequency, Pain Musculoskeletal: Reports: No Symptoms Skin: Reports: No Symptoms Neurological: Reports: No Symptoms ED EXAM, GI/ABD - Physical Exam Exam: See Below Text/Narrative:: Thin, pale, dehydrated appearing female. Exam Limited By: No Limitations General Appearance: Alert, Anxious, Moderate Distress Ears: Normal External Exam Nose: Normal Inspection Throat/Mouth: Other (markedly dry mucous membranes and lips) Head: Atraumatic, Normocephalic Respiratory/Chest: No Respiratory Distress, Lungs Clear Cardiovascular: Normal Peripheral Pulses, Regular Rate, Rhythm GI/Abdominal Exam: No Organomegaly, No Mass, Tender, Abnormal Bowel Sounds, Other (Mildly distended on gross inspection. Auscultation reveals hyperactive bowel sounds.). No: Guarding Extremities: Normal Inspection, Normal Range of Motion. No: Pedal Edema Neurological: Alert, Oriented Psychiatric: Anxious Skin Exam: Warm, Dry, No Rash EKG INTERPRETATION EKG Date: 06/02/20 Time: 06:20 Rhythm: NSR Rate (Beats/Min): 70 [place]: Normal P-Wave: Present ST-T: Normal Course - Vital Signs Text/Narrative:: The patient's initial blood pressure shows systolic in the 90s. She states that her blood pressure normally runs in that range. Differential diagnosis: Dehydration, electrolyte abnormality, small bowel obstruction or ileus, pancreatitis, drug seeking, myocardial ischemia. There is explaining to the patient and her significant other what my plan was for evaluation she repeatedly requested medication for pain and anxiety. In the past she has violated agreement in the clinic for use of controlled substances. Slt elevation of WBC. @ 0700 I discussed pt. w/Dr. Roper who will F/U pending labs and CT. Departure - Departure Disposition: Home, Self-Care 01 Clinical Impression: Mild dehydration Acute pancreatitis Qualifiers: Pancreatitis type: unspecified pancreatitis type Acute pancreatitis complication: unspecified Qualified Code(s): K85.90 - Acute pancreatitis without necrosis or infection, unspecified - Discharge Information Referrals: PCP,None [Primary Care Provider] - Forms: ED Department Discharge Sepsis Event Note (ED) - Evaluation Sepsis Screening Result: No Definite Risk <Preston Roper - Last Filed: 06/02/20 09:49> Course - Vital Signs Text/Narrative:: discussed with Dr. Calix @ [facility], no beds available until noon. Will keep her in the ER until then and admit her at that time. Last Recorded V/S: Last Vital Signs Temp 36.6 C 06/02/20 05:31 Pulse 74 06/02/20 07:59 Resp 18 06/02/20 07:59 BP 113/57 L 06/02/20 07:59 Pulse Ox 98 06/02/20 07:59 - Orders/Labs/Meds Orders: Active Orders 24 hr Category Date Time Status Patient Status Manage Transfer [TRANSFER] Routine ADT 06/02/20 09:32 Active EKG Documentation Completion [RC] ASDIRECTED Care 06/02/20 06:09 Active Pulse Oximetry [RC] ASDIRECTED Care 06/02/20 06:11 Active NPO [Nothing Per Oral Diet] [DIET] Diet 06/02/20 Breakfast Active Sodium Chloride 0.9% [Normal Saline] 1,000 ml Med 06/02/20 06:15 Active IV ASDIRECTED Sodium Chloride 0.9% [Normal Saline] 1,000 ml Med 06/02/20 09:00 Active IV ASDIRECTED Sodium Chloride 0.9% [Normal Saline] 70 ml Med 06/02/20 07:30 Active IV ASDIRECTED Sodium Chloride 0.9% [Saline Flush] Med 06/02/20 07:19 Active 10 ml FLUSH ONETIME PRN Resuscitation Status Routine Resus Stat 06/02/20 09:37 Ordered EKG 12 Lead [EK] Urgent Ther 06/02/20 06:08 Ordered Medication Orders Sodium Chloride (Normal Saline) 1,000 mls @ 500 mls/hr IV ASDIRECTED ASHWIN Last Admin: 06/02/20 06:23 Dose: 500 mls/hr Documented by: ROULA Sodium Chloride (Normal Saline) 70 mls @ 3 mls/sec IV ASDIRECTED ASHWIN Stop: 06/02/20 10:00 Last Admin: 06/02/20 07:41 Dose: 3 mls/sec Documented by: GIUSEPPE Sodium Chloride (Normal Saline) 1,000 mls @ 500 mls/hr IV ASDIRECTED ASHWIN Sodium Chloride (Saline Flush) 10 ml FLUSH ONETIME PRN PRN Reason: per radiology protocol Last Admin: 06/02/20 07:38 Dose: 10 ml Documented by: GIUSEPPE Labs: Laboratory Tests 06/02/20 06/02/20 06/02/20 Range/Units 06:19 06:19 06:19 WBC 11.7 H (4.5-11.0) K/uL RBC 2.88 L (3.30-5.50) M/uL Hgb 10.2 L (12.0-15.0) g/dL Hct 30.2 L (36.0-48.0) % MCV 105 H (80-98) fL MCH 35 H (27-31) pg MCHC 34 (32-36) % Plt Count 478 H (150-400) K/uL PT (9.5-12.0) sec INR (0.80-1.20) Sodium 138 L (140-148) mmol/L Potassium 4.4 (3.6-5.2) mmol/L Chloride 104 (100-108) mmol/L Carbon Dioxide 21 (21-32) mmol/L Anion Gap 17.4 H (5.0-14.0) mmol/L BUN 21 H (7-18) mg/dL Creatinine 0.8 (0.6-1.0) mg/dL Est Cr Clr Drug Dosing 56.89 mL/min Estimated GFR (MDRD) > 60 (>60) Glucose 106 (74-106) mg/dL Lactic Acid (0.4-2.0) mmol/L Calcium 8.6 (8.5-10.1) mg/dL Total Bilirubin 0.3 (0.2-1.0) mg/dL AST 22 (15-37) U/L ALT 21 (12-78) U/L Alkaline Phosphatase 92 (46-116) U/L Troponin I < 0.017 (0.000-0.056) ng/mL Total Protein 6.9 (6.4-8.2) g/dL Albumin 3.0 L (3.4-5.0) g/dL Globulin 3.9 H (2.3-3.5) g/dL Albumin/Globulin Ratio 0.8 L (1.2-2.2) Lipase (73-393) U/L Urine Color (YELLOW) Urine Appearance (CLEAR) Urine pH (5.0-8.0) Ur Specific [place] (1.008-1.030) Urine Protein (NEGATIVE) mg/dL Urine Glucose (UA) (NEGATIVE) mg/dL Urine Ketones (NEGATIVE) mg/dL Urine Occult Blood (NEGATIVE) Urine Nitrite (NEGATIVE) Urine Bilirubin (NEGATIVE) Urine Urobilinogen (0.2-1.0) EU/dL Ur Leukocyte Esterase (NEGATIVE) Urine RBC (0-5) Urine WBC (0-5) Ur Epithelial Cells Amorphous Sediment Urine Bacteria Urine Mucus Urine Opiates Screen (NEGATIVE) Ur Oxycodone Screen (NEGATIVE) Urine Methadone Screen (NEGATIVE) Ur Propoxyphene Screen (NEGATIVE) Ur Barbiturates Screen (NEGATIVE) Ur Tricyclics Screen (NEGATIVE) Ur Phencyclidine Scrn (NEGATIVE) Ur Amphetamine Screen (NEGATIVE) U Methamphetamines Scrn (NEGATIVE) Urine MDMA Screen (NEGATIVE) U Benzodiazepines Scrn (NEGATIVE) U Cocaine Metab Screen (NEGATIVE) U Marijuana (THC) Screen (NEGATIVE) Ethyl Alcohol mg/dL 06/02/20 06/02/20 06/02/20 Range/Units 06:19 06:19 06:19 WBC (4.5-11.0) K/uL RBC (3.30-5.50) M/uL Hgb (12.0-15.0) g/dL Hct (36.0-48.0) % MCV (80-98) fL MCH (27-31) pg MCHC (32-36) % Plt Count (150-400) K/uL PT 10.4 (9.5-12.0) sec INR 0.95 (0.80-1.20) Sodium (140-148) mmol/L Potassium (3.6-5.2) mmol/L Chloride (100-108) mmol/L Carbon Dioxide (21-32) mmol/L Anion Gap (5.0-14.0) mmol/L BUN (7-18) mg/dL Creatinine (0.6-1.0) mg/dL Est Cr Clr Drug Dosing mL/min Estimated GFR (MDRD) (>60) Glucose (74-106) mg/dL Lactic Acid 0.8 (0.4-2.0) mmol/L Calcium (8.5-10.1) mg/dL Total Bilirubin (0.2-1.0) mg/dL AST (15-37) U/L ALT (12-78) U/L Alkaline Phosphatase (46-116) U/L Troponin I (0.000-0.056) ng/mL Total Protein (6.4-8.2) g/dL Albumin (3.4-5.0) g/dL Globulin (2.3-3.5) g/dL Albumin/Globulin Ratio (1.2-2.2) Lipase 939 H (73-393) U/L Urine Color (YELLOW) Urine Appearance (CLEAR) Urine pH (5.0-8.0) Ur Specific [place] (1.008-1.030) Urine Protein (NEGATIVE) mg/dL Urine Glucose (UA) (NEGATIVE) mg/dL Urine Ketones (NEGATIVE) mg/dL Urine Occult Blood (NEGATIVE) Urine Nitrite (NEGATIVE) Urine Bilirubin (NEGATIVE) Urine Urobilinogen (0.2-1.0) EU/dL Ur Leukocyte Esterase (NEGATIVE) Urine RBC (0-5) Urine WBC (0-5) Ur Epithelial Cells Amorphous Sediment Urine Bacteria Urine Mucus Urine Opiates Screen (NEGATIVE) Ur Oxycodone Screen (NEGATIVE) Urine Methadone Screen (NEGATIVE) Ur Propoxyphene Screen (NEGATIVE) Ur Barbiturates Screen (NEGATIVE) Ur Tricyclics Screen (NEGATIVE) Ur Phencyclidine Scrn (NEGATIVE) Ur Amphetamine Screen (NEGATIVE) U Methamphetamines Scrn (NEGATIVE) Urine MDMA Screen (NEGATIVE) U Benzodiazepines Scrn (NEGATIVE) U Cocaine Metab Screen (NEGATIVE) U Marijuana (THC) Screen (NEGATIVE) Ethyl Alcohol mg/dL 06/02/20 06/02/20 06/02/20 Range/Units 06:31 07:16 07:16 WBC (4.5-11.0) K/uL RBC (3.30-5.50) M/uL Hgb (12.0-15.0) g/dL Hct (36.0-48.0) % MCV (80-98) fL MCH (27-31) pg MCHC (32-36) % Plt Count (150-400) K/uL PT (9.5-12.0) sec INR (0.80-1.20) Sodium (140-148) mmol/L Potassium (3.6-5.2) mmol/L Chloride (100-108) mmol/L Carbon Dioxide (21-32) mmol/L Anion Gap (5.0-14.0) mmol/L BUN (7-18) mg/dL Creatinine (0.6-1.0) mg/dL Est Cr Clr Drug Dosing mL/min Estimated GFR (MDRD) (>60) Glucose (74-106) mg/dL Lactic Acid (0.4-2.0) mmol/L Calcium (8.5-10.1) mg/dL Total Bilirubin (0.2-1.0) mg/dL AST (15-37) U/L ALT (12-78) U/L Alkaline Phosphatase (46-116) U/L Troponin I (0.000-0.056) ng/mL Total Protein (6.4-8.2) g/dL Albumin (3.4-5.0) g/dL Globulin (2.3-3.5) g/dL Albumin/Globulin Ratio (1.2-2.2) Lipase (73-393) U/L Urine Color Yellow (YELLOW) Urine Appearance Clear (CLEAR) Urine pH 5.5 (5.0-8.0) Ur Specific [place] >= 1.030 (1.008-1.030) Urine Protein Negative (NEGATIVE) mg/dL Urine Glucose (UA) Negative (NEGATIVE) mg/dL Urine Ketones 15 H (NEGATIVE) mg/dL Urine Occult Blood Negative (NEGATIVE) Urine Nitrite Negative (NEGATIVE) Urine Bilirubin Small H (NEGATIVE) Urine Urobilinogen 0.2 (0.2-1.0) EU/dL Ur Leukocyte Esterase Negative (NEGATIVE) Urine RBC 0-5 (0-5) Urine WBC 0-5 (0-5) Ur Epithelial Cells Few Amorphous Sediment Not seen Urine Bacteria Few Urine Mucus Few Urine Opiates Screen Negative (NEGATIVE) Ur Oxycodone Screen Presumptive positive H (NEGATIVE) Urine Methadone Screen Negative (NEGATIVE) Ur Propoxyphene Screen Negative (NEGATIVE) Ur Barbiturates Screen Negative (NEGATIVE) Ur Tricyclics Screen Negative (NEGATIVE) Ur Phencyclidine Scrn Negative (NEGATIVE) Ur Amphetamine Screen Negative (NEGATIVE) U Methamphetamines Scrn Negative (NEGATIVE) Urine MDMA Screen Negative (NEGATIVE) U Benzodiazepines Scrn Presumptive positive H (NEGATIVE) U Cocaine Metab Screen Negative (NEGATIVE) U Marijuana (THC) Screen Negative (NEGATIVE) Ethyl Alcohol 9 mg/dL Meds: Medications Generic Name Dose Route Start Last Admin Trade Name Freq PRN Reason Stop Dose Admin Sodium Chloride 1,000 mls @ 500 mls/hr 06/02/20 06:15 06/02/20 06:23 Normal Saline IV 500 mls/hr ASDIRECTED ASHWIN Administration Sodium Chloride 70 mls @ 3 mls/sec 06/02/20 07:30 06/02/20 07:41 Normal Saline IV 06/02/20 10:00 3 mls/sec ASDIRECTED ASHWIN Administration Sodium Chloride 1,000 mls @ 500 mls/hr 06/02/20 09:00 Normal Saline IV ASDIRECTED ASHWIN Sodium Chloride 10 ml 06/02/20 07:19 06/02/20 07:38 Saline Flush FLUSH 10 ml ONETIME PRN Administration per radiology protocol Discontinued Medications Generic Name Dose Route Start Last Admin Trade Name Jelly PRN Reason Stop Dose Admin Diazepam 5 mg 06/02/20 06:10 06/02/20 06:23 Valium IVPUSH 06/02/20 06:11 5 mg ONETIME ONE Administration Fentanyl 100 mcg 06/02/20 09:48 Sublimaze IVPUSH 06/02/20 09:49 ONETIME ONE Hydromorphone HCl 0.5 mg 06/02/20 06:10 06/02/20 06:23 Dilaudid IVPUSH 06/02/20 06:11 0.5 mg ONETIME ONE Administration Hydromorphone HCl 0.5 mg 06/02/20 07:50 06/02/20 08:09 Dilaudid IVPUSH 06/02/20 07:51 0.5 mg ONETIME ONE Administration Hydromorphone HCl 0.5 mg 06/02/20 08:32 06/02/20 08:38 Dilaudid IVPUSH 06/02/20 08:33 0.5 mg ONETIME ONE Administration Hydroxyzine HCl 50 mg 06/02/20 08:20 06/02/20 08:27 Vistaril IM 06/02/20 08:21 50 mg ONETIME ONE Administration Iopamidol 81 ml 06/02/20 07:19 06/02/20 07:41 Isovue-300 (61%) IV 06/02/20 07:20 81 ml ONETIME ONE Administration - Radiology Interpretation Free Text/Narrative:: CT abd/pelvis- IMPRESSION: 1. There are extensive surgical changes associated with gastric bypass though these appear to be stable. 2. Mildly prominent small bowel without obvious findings of mechanical obstruction. The findings are probably due to enteritis. 3. Other nonacute appearing findings as discussed above Please note that all CT scans at this facility use dose modulation, iterative reconstruction, and/or weight-based dosing when appropriate to reduce radiation dose to as low as reasonably achievable. Dictated by Gene Schuster MD @ Jun 02 2020 8:09AM (Electronic Signature) CT Results Date: 06/02/20 CT Results Time: 08:31 Departure - Departure Time of Disposition: 10:00 Condition: Fair - Discharge Information *PRESCRIPTION DRUG MONITORING PROGRAM REVIEWED*: No *COPY OF PRESCRIPTION DRUG MONITORING REPORT IN PATIENT JUSTYNA: No Sepsis Event Note (ED) - Focused Exam Vital Signs: Vital Signs Temp Pulse Resp BP Pulse Ox 06/02/20 07:59 74 18 113/57 L 98 06/02/20 06:35 73 20 114/67 93 L 06/02/20 05:31 36.6 C 74 20 93/56 L 99 06/02/20 05:30 36.6 C 74 20 93/56 L 99 - My Orders Last 24 Hours: My Active Orders 06/02/20 07:19 Sodium Chloride 0.9% [Saline Flush] 10 ml FLUSH ONETIME PRN 06/02/20 07:30 Sodium Chloride 0.9% [Normal Saline] 70 ml IV ASDIRECTED 06/02/20 09:00 Sodium Chloride 0.9% [Normal Saline] 1,000 ml IV ASDIRECTED - Assessment/Plan Last 24 Hours: My Active Orders 06/02/20 07:19 Sodium Chloride 0.9% [Saline Flush] 10 ml FLUSH ONETIME PRN 06/02/20 07:30 Sodium Chloride 0.9% [Normal Saline] 70 ml IV ASDIRECTED 06/02/20 09:00 Sodium Chloride 0.9% [Normal Saline] 1,000 ml IV ASDIRECTED
[2020-06-02] MEDS ORDERED: Sodium Chloride 0.9% 10 ML Syringe FLUSH PRN ×2 (07:19→11:08)
[2020-06-02] MEDS ORDERED: Iopamidol 612 MG/ML 500 ML Multipack Bottle IV ONE (07:19)
--- NOTE | 2020-06-02 08:18 | CRLCT ---
INDICATION: Abdominal pain. Remote history gastric bypass. COMPARISON: March 18, 2019 TECHNIQUE: CT examination of the abdomen and pelvis was performed following the uneventful intravenous administration of 81 cc of Isovue-300. Thin section axial images were obtained from the lung bases through the pubic symphysis. Oral contrast was not administered. Please note that all CT scans at this facility use dose modulation, iterative reconstruction, and/or weight-based dosing when appropriate to reduce radiation dose to as low as reasonably achievable. FINDINGS: LUNG BASES: Atelectasis at the lung bases.Heart size is normal lung bases LIVER/BILIARY SYSTEM:The liver is normal in size and configuration. There is no focal mass and there is no intra- or extra hepatic biliary ductal dilatation.Gallbladder surgically absent ADRENALS: Normal KIDNEYS, URETERS and BLADDER:The kidneys appear normal. No visible mass, calculus or hydronephrosis. No ureteric dilation. Bladder is decompressed and poorly visualized. SPLEEN:Normal appearance. PANCREAS: Appears normal. RETROPERITONEUM and MESENTERY: There is no mass, adenopathy or aortic aneurysm. GASTROINTESTINAL SYSTEM: Extensive postsurgical changes. Findings related to a gastric bypass. Small to moderate hiatal hernia. Numerous anastomotic lines identified in the abdomen and pelvis. There are mildly prominent loops of distal small bowel without significant air-fluid levels or fecalization. No wall thickening. The findings are likely due to enteritis rather than mechanical obstruction PELVIS: No mass, adenopathy or free fluid. OSSEOUS STRUCTURES and ABDOMINAL WALL: There is an age-appropriate appearance of the osseous structures.No significant abdominal wall defect. OTHER: No free fluid or free air. IMPRESSION: 1. There are extensive surgical changes associated with gastric bypass though these appear to be stable. 2. Mildly prominent small bowel without obvious findings of mechanical obstruction. The findings are probably due to enteritis. 3. Other nonacute appearing findings as discussed above Please note that all CT scans at this facility use dose modulation, iterative reconstruction, and/or weight-based dosing when appropriate to reduce radiation dose to as low as reasonably achievable. Dictated by Gene Schuster MD @ Jun 02 2020 8:09AM Signed by Dr. Gene Schuster @ Jun 02 2020 8:15AM
[2020-06-02] MEDS ORDERED: hydrOXYzine HCL 100 MG/2 ML SDV IM ONE (08:20)
--- NOTE | 2020-06-02 09:43 | PCM.HP.2 ---
H&P History of Present Illness - General Date of Service: 06/02/20 Admit Problem/Dx: Admission Diagnosis/Problem Admission Diagnosis/Problem Pancreatitis Source of Information: Patient, Family, Provider, RN Notes Reviewed History Limitations: Reports: No Limitations - History of Present Illness Initial Comments - Free Text/Narative: Ms. Mcbride is a 70-year-old woman who was admitted through the emergency department with abdominal pain, nausea, and vomiting, secondary to pancreatitis. She has not felt well over the past few weeks with mild symptoms of pain and nausea. Over the last 2 days has had increased pain in the supraumbilical region which radiates to the back and described as an intense ache. This has been associated with nausea and vomiting and very poor oral intake. On evaluation in the emergency department CT scan of the abdomen pelvis shows no obvious abnormalities. Lipase level is elevated at 900. Vital signs have been stable and she has been afebrile. Abdominal Pain Score (Numeric/FACES): 9 - Related Data Allergies/Adverse Reactions: Allergies Allergy/AdvReac Type Severity Reaction Status Date / Time morphine Allergy Edema Verified 06/02/20 05:26 Home Medications: Home Meds Aspirin [Halfprin] 81 mg PO DAILY 09/01/13 [History] Calcium Carbonate/Vitamin D3 [Calcarb 600 with Vit D] 1 tab PO BID 09/01/13 [History] Lidocaine 5% [Lidoderm 5%] 3 patch TOP DAILY 09/01/13 [History] Multivitamin [Multi-Vitamin Daily] 1 tab PO DAILY 09/01/13 [History] Vit B Cmplx 3/Fa/Vit C/Biotin [Christa-Dion Rx Tablet] 1 tab PO DAILY 09/01/13 [History] traZODone HCl [Trazodone HCl] 100 mg PO BEDTIME 09/01/13 [History] Albuterol Sulfate [Proair Respiclick] 2 puff IH Q4HR PRN 09/27/18 [History] Cyanocobalamin (Vitamin B12) [Vitamin B12] 1,000 mcg PO DAILY 09/27/18 [History] Iron,Carbonyl/Ascorbic Acid [Iron 100-Vitamin C Tablet] 1 tab PO BID 09/27/18 [History] Acetaminophen [Tylenol] 325 mg PO Q4H PRN tablet 12/26/18 [Rx] ALPRAZolam [Alprazolam] 1 tab PO DAILY PRN 06/02/20 [History] Cholecalciferol (Vitamin D3) [Vitamin D3] 2 tab PO BID 06/02/20 [History] Diclofenac Sodium [Voltaren] 75 mg PO BIDMEALS 06/02/20 [History] FLUoxetine HCl [Fluoxetine HCl] 2 tab PO DAILY 06/02/20 [History] Naltrexone 50 mg PO ASDIRECTED 06/02/20 [History] Naltrexone Microspheres [Vivitrol] 380 mg IM Q28D 06/02/20 [History] Omeprazole 1 tab PO DAILY 06/02/20 [History] busPIRone [Buspar] 1 tab PO BID 06/02/20 [History] hydrOXYzine HCL [hydrOXYzine] 1 tab PO Q6H PRN 06/02/20 [History] Past Medical History HEENT History: Reports: Impaired Vision Other HEENT History: wears glasses Gastrointestinal History: Reports: GERD, PUD Genitourinary History: Reports: UTI, 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: , 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 Other OB/BYN History: ovarian cyst removed Musculoskeletal History: Reports: Arthritis, Other (See Below) Other Musculoskeletal History: scoliosis Psychiatric History: Reports: Addiction, Anxiety, Depression, Panic Attack, Psych Hospitalization(s), Suicidal Ideation Endocrine/Metabolic History: Reports: Vitamin D Deficiency Hematologic History: Reports: Anemia, B12 Deficiency, Blood Transfusion(s), Folic Acid, Iron Deficiency - Infectious Disease History Infectious Disease History: Reports: Chicken Pox - Past Surgical History Head Surgeries/Procedures: Reports: None HEENT Surgical History: Reports: None GI Surgical History: Reports: Appendectomy, Bariatric Procedure, Cholecystectomy, Colonoscopy, EGD, Esophageal Dilatation, Hernia Repair/Other Female Surgical History: Reports: Section, Cystectomy, Hysterectomy Endocrine Surgical History: Reports: None Musculoskeletal Surgical History: Reports: Shoulder Surgery Other Musculoskeletal Surgeries/Procedures:: right rotator cuff repair Social & Family History - Family History Family Medical History: Noncontributory - Tobacco Use Smoking Status *Q: Current Every Day Smoker Years of Tobacco use: 5 Packs/Tins Daily: 0.5 - Caffeine Use Caffeine Use: Reports: Coffee Caffeine Use Comment: daily use - Recreational Drug Use Recreational Drug Use: No - Living Situation & Occupation Living situation: Reports: , with Spouse (lives with in [facility]. 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 had 13 children from age 48 yr to 28 yrs. 115 Grandchildren. One of her Daughters is a RN on [address] [place] [address].) Occupation: Student H&P Review of Systems - Review of Systems: Review Of Systems: See Below General: Reports: Malaise, Weakness, Decreased Appetite HEENT: Reports: No Symptoms Pulmonary: Reports: No Symptoms Cardiovascular: Reports: No Symptoms Gastrointestinal: Reports: Abdominal Pain, Distension, Nausea, Vomiting. Denies: Difficulty Swallowing, Hematemesis, Hematochezia, Melena Genitourinary: Reports: No Symptoms Musculoskeletal: Reports: No Symptoms Skin: Reports: No Symptoms Psychiatric: Reports: No Symptoms Neurological: Reports: No Symptoms Hematologic/Lymphatic: Reports: No Symptoms Immunologic: Reports: No Symptoms Exam - Exam Exam: See Below - Vital Signs Vital Signs: Last Vital Signs Temp 97.8 F 06/02/20 05:31 Pulse 74 06/02/20 07:59 Resp 18 06/02/20 07:59 BP 113/57 L 06/02/20 07:59 Pulse Ox 98 06/02/20 07:59 Weight: 119 lb 11.376 oz - Exam Quality Assessment: DVT Prophylaxis General: Alert, Oriented, Moderate Distress HEENT: Conjunctiva Clear, Hearing Intact, Normal Nasal Septum, Posterior Pharynx Clear, Pupils Equal. No: Mucosa Moist & [place] Neck: Supple, Trachea Midline, +2 Carotid Pulse wo Bruit Lungs: Clear to Auscultation, Normal Respiratory Effort Cardiovascular: Regular Rate, Regular Rhythm, Normal S1, Normal S2. No: Systolic Murmur, Diastolic Murmur GI/Abdominal Exam: Soft, No Organomegaly, Distended, Tender. No: Guarding, Rigid, Rebound Back Exam: Normal Inspection, Full Range of Motion Extremities: Non-Tender, No Pedal Edema Skin: Warm, Dry, Intact Neurological: Cranial Nerves Intact, Strength Equal Bilateral, Normal Speech, Normal Tone, Sensation Intact. No: Focal Deficit Neuro Extensive - Mental Status: Alert, Oriented x3, Normal Mood/Affect, Normal Cognition, Memory Intact - Patient Data Lab Results Last 24 hrs: Laboratory Results - last 24 hr 06/02/20 06/02/20 06/02/20 Range/Units 06:19 06:19 06:19 WBC 11.7 H (4.5-11.0) K/uL RBC 2.88 L (3.30-5.50) M/uL Hgb 10.2 L (12.0-15.0) g/dL Hct 30.2 L (36.0-48.0) % MCV 105 H (80-98) fL MCH 35 H (27-31) pg MCHC 34 (32-36) % Plt Count 478 H (150-400) K/uL PT (9.5-12.0) sec INR (0.80-1.20) Sodium 138 L (140-148) mmol/L Potassium 4.4 (3.6-5.2) mmol/L Chloride 104 (100-108) mmol/L Carbon Dioxide 21 (21-32) mmol/L Anion Gap 17.4 H (5.0-14.0) mmol/L BUN 21 H (7-18) mg/dL Creatinine 0.8 (0.6-1.0) mg/dL Est Cr Clr Drug Dosing 56.89 mL/min Estimated GFR (MDRD) > 60 (>60) Glucose 106 (74-106) mg/dL Lactic Acid (0.4-2.0) mmol/L Calcium 8.6 (8.5-10.1) mg/dL Total Bilirubin 0.3 (0.2-1.0) mg/dL AST 22 (15-37) U/L ALT 21 (12-78) U/L Alkaline Phosphatase 92 (46-116) U/L Troponin I < 0.017 (0.000-0.056) ng/mL Total Protein 6.9 (6.4-8.2) g/dL Albumin 3.0 L (3.4-5.0) g/dL Globulin 3.9 H (2.3-3.5) g/dL Albumin/Globulin Ratio 0.8 L (1.2-2.2) Lipase (73-393) U/L Urine Color (YELLOW) Urine Appearance (CLEAR) Urine pH (5.0-8.0) Ur Specific [place] (1.008-1.030) Urine Protein (NEGATIVE) mg/dL Urine Glucose (UA) (NEGATIVE) mg/dL Urine Ketones (NEGATIVE) mg/dL Urine Occult Blood (NEGATIVE) Urine Nitrite (NEGATIVE) Urine Bilirubin (NEGATIVE) Urine Urobilinogen (0.2-1.0) EU/dL Ur Leukocyte Esterase (NEGATIVE) Urine RBC (0-5) Urine WBC (0-5) Ur Epithelial Cells Amorphous Sediment Urine Bacteria Urine Mucus Urine Opiates Screen (NEGATIVE) Ur Oxycodone Screen (NEGATIVE) Urine Methadone Screen (NEGATIVE) Ur Propoxyphene Screen (NEGATIVE) Ur Barbiturates Screen (NEGATIVE) Ur Tricyclics Screen (NEGATIVE) Ur Phencyclidine Scrn (NEGATIVE) Ur Amphetamine Screen (NEGATIVE) U Methamphetamines Scrn (NEGATIVE) Urine MDMA Screen (NEGATIVE) U Benzodiazepines Scrn (NEGATIVE) U Cocaine Metab Screen (NEGATIVE) U Marijuana (THC) Screen (NEGATIVE) Ethyl Alcohol mg/dL 06/02/20 06/02/20 06/02/20 Range/Units 06:19 06:19 06:19 WBC (4.5-11.0) K/uL RBC (3.30-5.50) M/uL Hgb (12.0-15.0) g/dL Hct (36.0-48.0) % MCV (80-98) fL MCH (27-31) pg MCHC (32-36) % Plt Count (150-400) K/uL PT 10.4 (9.5-12.0) sec INR 0.95 (0.80-1.20) Sodium (140-148) mmol/L Potassium (3.6-5.2) mmol/L Chloride (100-108) mmol/L Carbon Dioxide (21-32) mmol/L Anion Gap (5.0-14.0) mmol/L BUN (7-18) mg/dL Creatinine (0.6-1.0) mg/dL Est Cr Clr Drug Dosing mL/min Estimated GFR (MDRD) (>60) Glucose (74-106) mg/dL Lactic Acid 0.8 (0.4-2.0) mmol/L Calcium (8.5-10.1) mg/dL Total Bilirubin (0.2-1.0) mg/dL AST (15-37) U/L ALT (12-78) U/L Alkaline Phosphatase (46-116) U/L Troponin I (0.000-0.056) ng/mL Total Protein (6.4-8.2) g/dL Albumin (3.4-5.0) g/dL Globulin (2.3-3.5) g/dL Albumin/Globulin Ratio (1.2-2.2) Lipase 939 H (73-393) U/L Urine Color (YELLOW) Urine Appearance (CLEAR) Urine pH (5.0-8.0) Ur Specific [place] (1.008-1.030) Urine Protein (NEGATIVE) mg/dL Urine Glucose (UA) (NEGATIVE) mg/dL Urine Ketones (NEGATIVE) mg/dL Urine Occult Blood (NEGATIVE) Urine Nitrite (NEGATIVE) Urine Bilirubin (NEGATIVE) Urine Urobilinogen (0.2-1.0) EU/dL Ur Leukocyte Esterase (NEGATIVE) Urine RBC (0-5) Urine WBC (0-5) Ur Epithelial Cells Amorphous Sediment Urine Bacteria Urine Mucus Urine Opiates Screen (NEGATIVE) Ur Oxycodone Screen (NEGATIVE) Urine Methadone Screen (NEGATIVE) Ur Propoxyphene Screen (NEGATIVE) Ur Barbiturates Screen (NEGATIVE) Ur Tricyclics Screen (NEGATIVE) Ur Phencyclidine Scrn (NEGATIVE) Ur Amphetamine Screen (NEGATIVE) U Methamphetamines Scrn (NEGATIVE) Urine MDMA Screen (NEGATIVE) U Benzodiazepines Scrn (NEGATIVE) U Cocaine Metab Screen (NEGATIVE) U Marijuana (THC) Screen (NEGATIVE) Ethyl Alcohol mg/dL 06/02/20 06/02/20 06/02/20 Range/Units 06:31 07:16 07:16 WBC (4.5-11.0) K/uL RBC (3.30-5.50) M/uL Hgb (12.0-15.0) g/dL Hct (36.0-48.0) % MCV (80-98) fL MCH (27-31) pg MCHC (32-36) % Plt Count (150-400) K/uL PT (9.5-12.0) sec INR (0.80-1.20) Sodium (140-148) mmol/L Potassium (3.6-5.2) mmol/L Chloride (100-108) mmol/L Carbon Dioxide (21-32) mmol/L Anion Gap (5.0-14.0) mmol/L BUN (7-18) mg/dL Creatinine (0.6-1.0) mg/dL Est Cr Clr Drug Dosing mL/min Estimated GFR (MDRD) (>60) Glucose (74-106) mg/dL Lactic Acid (0.4-2.0) mmol/L Calcium (8.5-10.1) mg/dL Total Bilirubin (0.2-1.0) mg/dL AST (15-37) U/L ALT (12-78) U/L Alkaline Phosphatase (46-116) U/L Troponin I (0.000-0.056) ng/mL Total Protein (6.4-8.2) g/dL Albumin (3.4-5.0) g/dL Globulin (2.3-3.5) g/dL Albumin/Globulin Ratio (1.2-2.2) Lipase (73-393) U/L Urine Color Yellow (YELLOW) Urine Appearance Clear (CLEAR) Urine pH 5.5 (5.0-8.0) Ur Specific [place] >= 1.030 (1.008-1.030) Urine Protein Negative (NEGATIVE) mg/dL Urine Glucose (UA) Negative (NEGATIVE) mg/dL Urine Ketones 15 H (NEGATIVE) mg/dL Urine Occult Blood Negative (NEGATIVE) Urine Nitrite Negative (NEGATIVE) Urine Bilirubin Small H (NEGATIVE) Urine Urobilinogen 0.2 (0.2-1.0) EU/dL Ur Leukocyte Esterase Negative (NEGATIVE) Urine RBC 0-5 (0-5) Urine WBC 0-5 (0-5) Ur Epithelial Cells Few Amorphous Sediment Not seen Urine Bacteria Few Urine Mucus Few Urine Opiates Screen Negative (NEGATIVE) Ur Oxycodone Screen Presumptive positive H (NEGATIVE) Urine Methadone Screen Negative (NEGATIVE) Ur Propoxyphene Screen Negative (NEGATIVE) Ur Barbiturates Screen Negative (NEGATIVE) Ur Tricyclics Screen Negative (NEGATIVE) Ur Phencyclidine Scrn Negative (NEGATIVE) Ur Amphetamine Screen Negative (NEGATIVE) U Methamphetamines Scrn Negative (NEGATIVE) Urine MDMA Screen Negative (NEGATIVE) U Benzodiazepines Scrn Presumptive positive H (NEGATIVE) U Cocaine Metab Screen Negative (NEGATIVE) U Marijuana (THC) Screen Negative (NEGATIVE) Ethyl Alcohol 9 mg/dL Result Diagrams: 06/02/20 06:19 06/02/20 06:19 Sepsis Event Note - Evaluation Sepsis Screening Result: No Definite Risk - Focused Exam Vital Signs: Vital Signs Temp Pulse Resp BP Pulse Ox 06/02/20 07:59 74 18 113/57 L 98 06/02/20 06:35 73 20 114/67 93 L 06/02/20 05:31 97.8 F 74 20 93/56 L 99 06/02/20 05:30 97.8 F 74 20 93/56 L 99 Date Exam was Performed: 06/02/20 Time Exam was Performed: 12:57 *Q Meaningful Use (ADM) - VTE Risk Assess *Q Each Risk Factor Represents 1 Point: None Total Score 1 Point Risk Factors: 0 Each Risk Factor Represents 2 Points: Age 60 - 74 Years Total Score 2 Point Risk Factors: 2 Each Risk Factor Represents 3 Points: None Total Score 3 Point Risk Factors: 0 Each Risk Factor Represents 5 Points: None Total Score 5 Point Risk Factors: 0 Venous Thromboembolism Risk Factor Score *Q: 2 Problem List Initiated/Reviewed/Updated: Yes Orders Last 24hrs: Active Orders 24 hr Category Date Time Status Patient Status Manage Transfer [TRANSFER] Routine ADT 06/02/20 09:32 Active EKG Documentation Completion [RC] ASDIRECTED Care 06/02/20 06:09 Active Pulse Oximetry [RC] ASDIRECTED Care 06/02/20 06:11 Active NPO [Nothing Per Oral Diet] [DIET] Diet 06/02/20 Breakfast Active Sodium Chloride 0.9% [Normal Saline] 1,000 ml Med 06/02/20 06:15 Active IV ASDIRECTED Sodium Chloride 0.9% [Normal Saline] 1,000 ml Med 06/02/20 09:00 Active IV ASDIRECTED Sodium Chloride 0.9% [Normal Saline] 70 ml Med 06/02/20 07:30 Active IV ASDIRECTED Sodium Chloride 0.9% [Saline Flush] Med 06/02/20 07:19 Active 10 ml FLUSH ONETIME PRN Resuscitation Status Routine Resus Stat 06/02/20 09:37 Ordered EKG 12 Lead [EK] Urgent Ther 06/02/20 06:08 Ordered Medication Orders Sodium Chloride (Normal Saline) 1,000 mls @ 500 mls/hr IV ASDIRECTED ASHWIN Last Admin: 06/02/20 06:23 Dose: 500 mls/hr Documented by: ROULA Sodium Chloride (Normal Saline) 70 mls @ 3 mls/sec IV ASDIRECTED ASHWIN Stop: 06/02/20 10:00 Last Admin: 06/02/20 07:41 Dose: 3 mls/sec Documented by: GIUSEPPE Sodium Chloride (Normal Saline) 1,000 mls @ 500 mls/hr IV ASDIRECTED [facility] Sodium Chloride (Saline Flush) 10 ml FLUSH ONETIME PRN PRN Reason: per radiology protocol Last Admin: 06/02/20 07:38 Dose: 10 ml Documented by: GIUSEPPE Assessment/Plan Comment:: ASSESSMENT AND PLAN PANCREATITIS-she denies recent history of alcohol use, liver enzymes are all within normal range. Previous history of pancreatitis x1. -N.p.o. -IV fluids for hydration -Pain and nausea medication as needed -Repeat lipase level in a.m. MAINTENANCE ISSUES -DVT prophylaxis; Lovenox 40 mg subcu daily -GI prophylaxis; Protonix 40 mg daily -[place] catheter; not indicated -Nutrition; n.p.o. -Nicotine dependence; not required CODE STATUS-FULL CODE ADMISSION STATUS-patient will be admitted to inpatient status, expect at least a 2 night hospital stay for evaluation and management of problems as outlined above. At the time of this admission I do not reasonably expected evaluation and management of this problem will require more than a 96 hour hospital stay. DISPOSITION-anticipate discharge to home after the hospital stay. PRIMARY CARE PROVIDER- - Mortality Measure Prognosis:: Good
[2020-06-02] MEDS ORDERED: fentaNYL 100 MCG/2 ML SDV IVPUSH ONE (09:48)
[2020-06-02] MEDS ORDERED: Albuterol 0.083% 2.5 MG/3 ML Neb Soln NEB PRN (11:08)
[2020-06-02] MEDS ORDERED: Polyethylene Glycol 3350 Powder 17 GM Packet PO PRN (11:08)
[2020-06-02] MEDS ORDERED: Acetaminophen 325 MG Tab PO PRN (11:08)
[2020-06-02] MEDS ORDERED: Albuterol 8 GM Inhaler INH PRN ×2 (11:32→11:35)
[2020-06-02] MEDS: Ondansetron 4 MG/2 ML SDV IV PRN ×2 (11:33→16:00)
[2020-06-02] MEDS: HYDROmorphone 0.5 MG/0.5 ML Syringe IVPUSH PRN ×2 (11:33→13:57)
[2020-06-02] MEDS: Sodium Chloride 0.9% 1,000 ML IV SCH ×3 (11:37→23:23)
[2020-06-02] MEDS ORDERED: Enoxaparin 40 MG/0.4 ML Syringe SUBCUT SCH (12:00)
[2020-06-02] MEDS: ALPRAZolam 0.5 MG Tab PO PRN (12:16)
[2020-06-02] MEDS: Pantoprazole 40 MG Vial IVPUSH SCH (12:16)
[2020-06-02] MEDS: Enoxaparin 40 MG/0.4 ML Syringe SUBCUT SCH (15:25)
[2020-06-02] MEDS: Acetaminophen/HYDROcodone 325-5 MG Tab PO PRN ×2 (15:58→19:59)
[2020-06-02] MEDS: busPIRone 10 MG Tab PO SCH (20:00)
[2020-06-02] MEDS: Remove Patch LIDOCAINE PATCH TRDERM SCH (20:00)
[2020-06-02] MEDS: traZODone 50 MG Tab PO SCH (20:00)
[2020-06-03] MEDS: Acetaminophen/HYDROcodone 325-5 MG Tab PO PRN ×6 (02:26→22:43)
[2020-06-03] MEDS: Sodium Chloride 0.9% 1,000 ML IV SCH (07:34)
[2020-06-03] MEDS: ALPRAZolam 0.5 MG Tab PO PRN (07:45)
[2020-06-03] MEDS ORDERED: Magnesium Sulfate/Water 2 GM in Premix Bag 1 BAG IV ONE (09:00)
[2020-06-03] MEDS ORDERED: Lidocaine 5% 700 MG Patch TOP SCH (09:00)
[2020-06-03] MEDS: Magnesium Oxide 400 MG Tab PO SCH ×2 (09:29→21:03)
[2020-06-03] MEDS: busPIRone 10 MG Tab PO SCH ×2 (09:29→21:03)
[2020-06-03] MEDS: FLUoxetine 20 MG Cap PO SCH (09:29)
[2020-06-03] MEDS: Aspirin 81 MG Tab.EC PO SCH (09:29)
[2020-06-03] MEDS: Pantoprazole 40 MG Vial IVPUSH SCH (10:31)
--- NOTE | 2020-06-03 10:57 | PCM.PN ---
- General Info Date of Service: 06/03/20 Subjective Update: Ms. Mcbride has been stable since admission. Abdominal pain has improved but not totally resolved, no nausea or vomiting. Functional Status: Reports: Ambulating, Urinating - Review of Systems General: Reports: Weakness. Denies: Fever, Chills Pulmonary: Reports: No Symptoms Cardiovascular: Reports: No Symptoms Gastrointestinal: Reports: Abdominal Pain. Denies: Diarrhea, Difficulty Swallowing, Nausea, Vomiting - Patient Data Vitals - Most Recent: Last Vital Signs Temp 99.2 F 06/03/20 07:00 Pulse 69 06/03/20 07:00 Resp 18 06/03/20 07:00 BP 113/68 06/03/20 07:00 Pulse Ox 98 06/03/20 07:00 Weight - Most Recent: 123 lb 9.6 oz I&O - Last 24 Hours: Intake & Output 06/02/20 06/03/20 06/03/20 22:59 06:59 14:59 Intake Total 880 1383 Output Total 625 850 150 Balance 255 533 -150 Lab Results Last 24 Hours: Laboratory Results - last 24 hr 06/03/20 06/03/20 06/03/20 Range/Units 04:30 04:30 04:30 WBC 9.9 (4.5-11.0) K/uL RBC 2.46 L (3.30-5.50) M/uL Hgb 8.6 L (12.0-15.0) g/dL Hct 25.9 L (36.0-48.0) % MCV 105 H (80-98) fL MCH 35 H (27-31) pg MCHC 33 (32-36) % Plt Count 402 H (150-400) K/uL Neut % (Auto) 81 H (36-66) % Lymph % (Auto) 8 L (24-44) % [place] % (Auto) 9 H (2-6) % Eos % (Auto) 3 (2-4) % Baso % (Auto) 0 (0-1) % Sodium 137 L (140-148) mmol/L Potassium 3.8 (3.6-5.2) mmol/L Chloride 106 (100-108) mmol/L Carbon Dioxide 20 L (21-32) mmol/L Anion Gap 14.8 H (5.0-14.0) mmol/L BUN 10 D (7-18) mg/dL Creatinine 0.7 (0.6-1.0) mg/dL Est Cr Clr Drug Dosing 65.02 mL/min Estimated GFR (MDRD) > 60 (>60) Glucose 86 (74-106) mg/dL Calcium 8.0 L (8.5-10.1) mg/dL Magnesium 1.7 L (1.8-2.4) mg/dL Total Bilirubin 0.4 (0.2-1.0) mg/dL AST 21 (15-37) U/L ALT 14 (12-78) U/L Alkaline Phosphatase 79 (46-116) U/L Total Protein 5.7 L (6.4-8.2) g/dL Albumin 2.3 L (3.4-5.0) g/dL Globulin 3.4 (2.3-3.5) g/dL Albumin/Globulin Ratio 0.7 L (1.2-2.2) Lipase 526 H (73-393) U/L Med Orders - Current: Current Medications Acetaminophen (Tylenol) 650 mg PO Q4H PRN PRN Reason: Pain (Mild 1-3)/fever Hydrocodone Bitart/Acetaminophen ([place] 325-5 Mg) 2 tab PO Q4H PRN PRN Reason: Pain Last Admin: 06/03/20 10:26 Dose: 2 tab Documented by: Albuterol (Proventil Neb Soln) 2.5 mg NEB Q4H PRN PRN Reason: Shortness Of Breath/wheezing Albuterol (Ventolin Hfa) 0 gm INH Q4H PRN PRN Reason: Shortness of Breath Alprazolam (Xanax) 0.5 mg PO DAILY PRN PRN Reason: Anxiety Last Admin: 06/03/20 07:45 Dose: 0.5 mg Documented by: Aspirin (Halfprin) 81 mg PO DAILY [facility] Last Admin: 06/03/20 09:29 Dose: 81 mg Documented by: Buspirone HCl (Buspar) 10 mg PO BID [facility] Last Admin: 06/03/20 09:29 Dose: 10 mg Documented by: Enoxaparin Sodium (Lovenox) 40 mg SUBCUT Q24H [facility] Last Admin: 06/02/20 15:25 Dose: 40 mg Documented by: Fluoxetine HCl (Prozac) 80 mg PO DAILY [facility] Last Admin: 06/03/20 09:29 Dose: 80 mg Documented by: Hydromorphone HCl (Dilaudid) 0.5 mg IVPUSH Q2H PRN PRN Reason: Pain Last Admin: 06/02/20 13:57 Dose: 0.5 mg Documented by: Magnesium Sulfate 2 gm/ Premix 50 mls @ 25 mls/hr IV ONETIME ONE Stop: 06/03/20 10:59 Last Admin: 06/03/20 09:29 Dose: 25 mls/hr Documented by: Magnesium Oxide (Magnesium Oxide) 400 mg PO BID [facility] Last Admin: 06/03/20 09:29 Dose: 400 mg Documented by: Miscellaneous Information (Remove Patch) 1 ea TRDERM BEDTIME [facility] Last Admin: 06/02/20 20:00 Dose: Not Given Documented by: Ondansetron HCl (Zofran) 4 mg IV Q4H PRN PRN Reason: Nausea/Vomiting Last Admin: 06/02/20 16:00 Dose: 4 mg Documented by: Pantoprazole Sodium (Protonix Iv) 40 mg IVPUSH Q24H [facility] Last Admin: 06/03/20 10:31 Dose: 40 mg Documented by: Polyethylene Glycol (Miralax) 17 gm PO DAILY PRN PRN Reason: Constipation Sodium Chloride (Saline Flush) 10 ml FLUSH ASDIRECTED PRN PRN Reason: Keep Vein Open Trazodone HCl (Trazodone) 100 mg PO BEDTIME [facility] Last Admin: 06/02/20 20:00 Dose: 100 mg Documented by: Discontinued Medications Albuterol (Ventolin Hfa) 2 gm INH Q4H PRN PRN Reason: Shortness of Breath Diazepam (Valium) 5 mg IVPUSH ONETIME ONE Stop: 06/02/20 06:11 Last Admin: 06/02/20 06:23 Dose: 5 mg Documented by: Enoxaparin Sodium (Lovenox) 40 mg SUBCUT DAILY [facility] Last Admin: 06/02/20 13:34 Dose: Not Given Documented by: Fentanyl (Sublimaze) 100 mcg IVPUSH ONETIME ONE Stop: 06/02/20 09:49 Last Admin: 06/02/20 09:53 Dose: 100 mcg Documented by: Hydromorphone HCl (Dilaudid) 0.5 mg IVPUSH ONETIME ONE Stop: 06/02/20 06:11 Last Admin: 06/02/20 06:23 Dose: 0.5 mg Documented by: Hydromorphone HCl (Dilaudid) 0.5 mg IVPUSH ONETIME ONE Stop: 06/02/20 07:51 Last Admin: 06/02/20 08:09 Dose: 0.5 mg Documented by: Hydromorphone HCl (Dilaudid) 0.5 mg IVPUSH ONETIME ONE Stop: 06/02/20 08:33 Last Admin: 06/02/20 08:38 Dose: 0.5 mg Documented by: Hydroxyzine HCl (Vistaril) 50 mg IM ONETIME ONE Stop: 06/02/20 08:21 Last Admin: 06/02/20 08:27 Dose: 50 mg Documented by: Sodium Chloride (Normal Saline) 1,000 mls @ 500 mls/hr IV ASDIRECTED [facility] Last Admin: 06/02/20 06:23 Dose: 500 mls/hr Documented by: Sodium Chloride (Normal Saline) 70 mls @ 3 mls/sec IV ASDIRECTED [facility] Stop: 06/02/20 10:00 Last Admin: 06/02/20 07:41 Dose: 3 mls/sec Documented by: Sodium Chloride (Normal Saline) 1,000 mls @ 500 mls/hr IV ASDIRECTED [facility] Last Admin: 06/02/20 09:55 Dose: 500 mls/hr Documented by: Sodium Chloride (Normal Saline) 1,000 mls @ 125 mls/hr IV ASDIRECTED [facility] Last Admin: 06/03/20 07:34 Dose: 125 mls/hr Documented by: Iopamidol (Isovue-300 (61%)) 81 ml IV ONETIME ONE Stop: 06/02/20 07:20 Last Admin: 06/02/20 07:41 Dose: 81 ml Documented by: Lidocaine (Lidoderm 5%) 2,100 mg TOP DAILY [facility] Last Admin: 06/03/20 08:40 Dose: Not Given Documented by: Sodium Chloride (Saline Flush) 10 ml FLUSH ONETIME PRN PRN Reason: per radiology protocol Last Admin: 06/02/20 07:38 Dose: 10 ml Documented by: - Exam Quality Assessment: DVT Prophylaxis General: Alert, Oriented, Cooperative, Mild Distress Lungs: Clear to Auscultation, Normal Respiratory Effort Cardiovascular: Regular Rate, Regular Rhythm, No Murmurs GI/Abdominal Exam: Soft, No Organomegaly, Tender. No: Distended, Guarding, Rigid, Rebound Extremities: Non-Tender, No Pedal Edema Sepsis Event Note - Evaluation Sepsis Screening Result: No Definite Risk - Focused Exam Vital Signs: Vital Signs Temp Pulse Resp BP Pulse Ox 06/03/20 07:00 99.2 F 69 18 113/68 98 06/03/20 03:00 100.0 F 83 18 123/65 97 Date Exam was Performed: 06/03/20 Time Exam was Performed: 10:55 - Problem List Review Problem List Initiated/Reviewed/Updated: Yes - My Orders Last 24 Hours: My Active Orders 06/02/20 11:08 Acetaminophen [Tylenol] 650 mg PO Q4H PRN Albuterol [Proventil Neb Soln] 2.5 mg NEB Q4H PRN HYDROmorphone [Dilaudid] 0.5 mg IVPUSH Q2H PRN Ondansetron [Zofran] 4 mg IV Q4H PRN Sodium Chloride 0.9% [Saline Flush] 10 ml FLUSH ASDIRECTED PRN polyethylene glycoL 3350 [MiraLAX] 17 gm PO DAILY PRN 06/02/20 11:08 Patient Status [ADT] Routine Ambulate [RC] QID Height and Weight [RC] DAILY Intake and Output [RC] QSHIFT Notify Provider Vital Signs [RC] ASDIRECTED Oxygen Therapy [RC] PRN Peripheral IV Care [RC] . DIRECTED RT Aerosol Therapy [RC] ASDIRECTED Up With Assistance [RC] ASDIRECTED Up to Chair [RC] QID VTE/DVT Education [RC] Per Unit Routine Vital Signs [RC] Q4H Peripheral IV Insertion Adult [OM.PC] Routine 06/02/20 11:30 Pantoprazole [ProTONIX IV] 40 mg IVPUSH Q24H 06/02/20 11:35 Albuterol [Ventolin HFA] 0 gm INH Q4H PRN 06/02/20 11:46 ALPRAZolam [Xanax] 0.5 mg PO DAILY PRN 06/02/20 14:00 Enoxaparin [Lovenox] 40 mg SUBCUT Q24H 06/02/20 15:39 Acetaminophen/HYDROcodone [[place] 325-5 MG] 2 tab PO Q4H PRN 06/02/20 21:00 Remove Patch 1 ea TRDERM BEDTIME busPIRone [Buspar] 10 mg PO BID traZODone 100 mg PO BEDTIME 06/03/20 Breakfast Clear Liquid Diet [DIET] 06/03/20 09:00 Aspirin [Halfprin] 81 mg PO DAILY FLUoxetine [PROzac] 80 mg PO DAILY Magnesium Oxide 400 mg PO BID Magnesium Sulfate/Water [Magnesium Sulfate in Water Premix] 2 gm Premix Bag 1 bag IV ONETIME 06/03/20 09:55 Convert IV to Saline Lock [OM.PC] Routine 06/04/20 05:00 BASIC METABOLIC PANEL,BMP [CHEM] Timed CBC WITH AUTO DIFF [HEME] Timed LIPASE [CHEM] Timed - Plan Plan:: ASSESSMENT AND PLAN PANCREATITIS-she denies recent history of alcohol use, liver enzymes are all within normal range. Previous history of pancreatitis x1. Symptomatically improved from admission with less abdominal pain and improvement in the lipase level -Clear liquid diet -Saline lock IV -Pain and nausea medication as needed -Repeat lipase level in a.m. MAINTENANCE ISSUES -DVT prophylaxis; Lovenox 40 mg subcu daily -GI prophylaxis; Protonix 40 mg daily -[place] catheter; not indicated -Nutrition; n.p.o. -Nicotine dependence; not required CODE STATUS-FULL CODE ADMISSION STATUS-patient will be admitted to inpatient status, expect at least a 2 night hospital stay for evaluation and management of problems as outlined above. At the time of this admission I do not reasonably expected evaluation and management of this problem will require more than a 96 hour hospital stay. DISPOSITION-anticipate discharge to home after the hospital stay. PRIMARY CARE PROVIDER-
[2020-06-03] MEDS: Enoxaparin 40 MG/0.4 ML Syringe SUBCUT SCH (14:43)
[2020-06-03] MEDS: Remove Patch LIDOCAINE PATCH TRDERM SCH (21:03)
[2020-06-03] MEDS: traZODone 50 MG Tab PO SCH (21:03)
[2020-06-04] MEDS: Acetaminophen/HYDROcodone 325-5 MG Tab PO PRN ×5 (03:54→21:03)
[2020-06-04] MEDS: ALPRAZolam 0.5 MG Tab PO PRN (07:55)
[2020-06-04] MEDS: Magnesium Oxide 400 MG Tab PO SCH ×2 (08:00→21:04)
[2020-06-04] MEDS: FLUoxetine 20 MG Cap PO SCH (08:00)
[2020-06-04] MEDS: busPIRone 10 MG Tab PO SCH ×2 (08:00→21:04)
[2020-06-04] MEDS: Aspirin 81 MG Tab.EC PO SCH (08:00)
--- NOTE | 2020-06-04 10:47 | PCM.PN ---
- General Info Date of Service: 06/04/20 Subjective Update: Ms. Mcbride is noted further improvement over the last 24 hours she continues to experience some supraumbilical pain but this is better than she had noted yesterday and on admission. Lipase level is staying within the same range, slightly elevated. She is tolerated a soft low residue diet without significant difficulty. Functional Status: Reports: Tolerating Diet, Ambulating, Urinating - Review of Systems General: Denies: Fever, Chills Pulmonary: Reports: No Symptoms Cardiovascular: Reports: No Symptoms Gastrointestinal: Reports: Abdominal Pain, Nausea. Denies: Diarrhea, Difficulty Swallowing, Vomiting - Patient Data Vitals - Most Recent: Last Vital Signs Temp 96.6 F L 06/04/20 07:58 Pulse 81 06/04/20 07:58 Resp 16 06/04/20 07:58 BP 106/60 06/04/20 07:58 Pulse Ox 94 L 06/04/20 07:58 Weight - Most Recent: 124 lb 9.6 oz I&O - Last 24 Hours: Intake & Output 06/03/20 06/04/20 06/04/20 22:59 06:59 14:59 Intake Total 2537 240 120 Output Total 975 900 900 Balance 4977 -170 -091 Lab Results Last 24 Hours: Laboratory Results - last 24 hr 06/04/20 06/04/20 Range/Units 04:25 04:25 WBC 8.1 (4.5-11.0) K/uL RBC 2.39 L (3.30-5.50) M/uL Hgb 8.3 L (12.0-15.0) g/dL Hct 24.8 L (36.0-48.0) % MCV 104 H (80-98) fL MCH 35 H (27-31) pg MCHC 34 (32-36) % Plt Count 379 (150-400) K/uL Neut % (Auto) 73 H (36-66) % Lymph % (Auto) 13 L (24-44) % [place] % (Auto) 10 H (2-6) % Eos % (Auto) 4 (2-4) % Baso % (Auto) 0 (0-1) % Sodium 136 L (140-148) mmol/L Potassium 3.6 (3.6-5.2) mmol/L Chloride 104 (100-108) mmol/L Carbon Dioxide 22 (21-32) mmol/L Anion Gap 13.6 (5.0-14.0) mmol/L BUN 8 (7-18) mg/dL Creatinine 0.7 (0.6-1.0) mg/dL Est Cr Clr Drug Dosing 67.68 mL/min Estimated GFR (MDRD) > 60 (>60) Glucose 90 (74-106) mg/dL Calcium 8.0 L (8.5-10.1) mg/dL Lipase 553 H (73-393) U/L Med Orders - Current: Current Medications Acetaminophen (Tylenol) 650 mg PO Q4H PRN PRN Reason: Pain (Mild 1-3)/fever Albuterol (Proventil Neb Soln) 2.5 mg NEB Q4H PRN PRN Reason: Shortness Of Breath/wheezing Albuterol (Ventolin Hfa) 0 gm INH Q4H PRN PRN Reason: Shortness of Breath Alprazolam (Xanax) 0.5 mg PO DAILY PRN PRN Reason: Anxiety Last Admin: 06/04/20 07:55 Dose: 0.5 mg Documented by: Aspirin (Halfprin) 81 mg PO DAILY [facility] Last Admin: 06/04/20 08:00 Dose: 81 mg Documented by: Buspirone HCl (Buspar) 10 mg PO BID [facility] Last Admin: 06/04/20 08:00 Dose: 10 mg Documented by: Enoxaparin Sodium (Lovenox) 40 mg SUBCUT Q24H [facility] Last Admin: 06/03/20 14:43 Dose: 40 mg Documented by: Fluoxetine HCl (Prozac) 80 mg PO DAILY [facility] Last Admin: 06/04/20 08:00 Dose: 80 mg Documented by: Hydromorphone HCl (Dilaudid) 0.5 mg IVPUSH Q2H PRN PRN Reason: Pain Last Admin: 06/02/20 13:57 Dose: 0.5 mg Documented by: Magnesium Oxide (Magnesium Oxide) 400 mg PO BID [facility] Last Admin: 06/04/20 08:00 Dose: 400 mg Documented by: Ondansetron HCl (Zofran) 4 mg IV Q4H PRN PRN Reason: Nausea/Vomiting Last Admin: 06/02/20 16:00 Dose: 4 mg Documented by: Polyethylene Glycol (Miralax) 17 gm PO DAILY PRN PRN Reason: Constipation Sodium Chloride (Saline Flush) 10 ml FLUSH ASDIRECTED PRN PRN Reason: Keep Vein Open Trazodone HCl (Trazodone) 100 mg PO BEDTIME [facility] Last Admin: 06/03/20 21:03 Dose: 100 mg Documented by: Discontinued Medications Hydrocodone Bitart/Acetaminophen ([place] 325-5 Mg) 2 tab PO Q4H PRN PRN Reason: Pain Last Admin: 06/04/20 07:54 Dose: 2 tab Documented by: Albuterol (Ventolin Hfa) 2 gm INH Q4H PRN PRN Reason: Shortness of Breath Diazepam (Valium) 5 mg IVPUSH ONETIME ONE Stop: 06/02/20 06:11 Last Admin: 06/02/20 06:23 Dose: 5 mg Documented by: Enoxaparin Sodium (Lovenox) 40 mg SUBCUT DAILY [facility] Last Admin: 06/02/20 13:34 Dose: Not Given Documented by: Fentanyl (Sublimaze) 100 mcg IVPUSH ONETIME ONE Stop: 06/02/20 09:49 Last Admin: 06/02/20 09:53 Dose: 100 mcg Documented by: Hydromorphone HCl (Dilaudid) 0.5 mg IVPUSH ONETIME ONE Stop: 06/02/20 06:11 Last Admin: 06/02/20 06:23 Dose: 0.5 mg Documented by: Hydromorphone HCl (Dilaudid) 0.5 mg IVPUSH ONETIME ONE Stop: 06/02/20 07:51 Last Admin: 06/02/20 08:09 Dose: 0.5 mg Documented by: Hydromorphone HCl (Dilaudid) 0.5 mg IVPUSH ONETIME ONE Stop: 06/02/20 08:33 Last Admin: 06/02/20 08:38 Dose: 0.5 mg Documented by: Hydroxyzine HCl (Vistaril) 50 mg IM ONETIME ONE Stop: 06/02/20 08:21 Last Admin: 06/02/20 08:27 Dose: 50 mg Documented by: Sodium Chloride (Normal Saline) 1,000 mls @ 500 mls/hr IV ASDIRECTED [facility] Last Admin: 06/02/20 06:23 Dose: 500 mls/hr Documented by: Sodium Chloride (Normal Saline) 70 mls @ 3 mls/sec IV ASDIRECTED [facility] Stop: 06/02/20 10:00 Last Admin: 06/02/20 07:41 Dose: 3 mls/sec Documented by: Sodium Chloride (Normal Saline) 1,000 mls @ 500 mls/hr IV ASDIRECTED [facility] Last Admin: 06/02/20 09:55 Dose: 500 mls/hr Documented by: Sodium Chloride (Normal Saline) 1,000 mls @ 125 mls/hr IV ASDIRECTED [facility] Last Admin: 06/03/20 07:34 Dose: 125 mls/hr Documented by: Magnesium Sulfate 2 gm/ Premix 50 mls @ 25 mls/hr IV ONETIME ONE Stop: 06/03/20 10:59 Last Admin: 06/03/20 09:29 Dose: 25 mls/hr Documented by: Iopamidol (Isovue-300 (61%)) 81 ml IV ONETIME ONE Stop: 06/02/20 07:20 Last Admin: 06/02/20 07:41 Dose: 81 ml Documented by: Lidocaine (Lidoderm 5%) 2,100 mg TOP DAILY [facility] Last Admin: 06/03/20 08:40 Dose: Not Given Documented by: Miscellaneous Information (Remove Patch) 1 ea TRDERM BEDTIME [facility] Last Admin: 06/03/20 21:03 Dose: Not Given Documented by: Pantoprazole Sodium (Protonix Iv) 40 mg IVPUSH Q24H [facility] Last Admin: 06/03/20 10:31 Dose: 40 mg Documented by: Sodium Chloride (Saline Flush) 10 ml FLUSH ONETIME PRN PRN Reason: per radiology protocol Last Admin: 06/02/20 07:38 Dose: 10 ml Documented by: - Exam Quality Assessment: DVT Prophylaxis General: Alert, Oriented, Cooperative, Mild Distress Lungs: Clear to Auscultation, Normal Respiratory Effort Cardiovascular: Regular Rate, Regular Rhythm, No Murmurs GI/Abdominal Exam: Soft, No Organomegaly, Tender. No: Distended, Guarding, Rigid, Rebound Extremities: Non-Tender, No Pedal Edema Sepsis Event Note - Evaluation Sepsis Screening Result: No Definite Risk - Focused Exam Vital Signs: Vital Signs Temp Pulse Resp BP Pulse Ox 06/04/20 07:58 96.6 F L 81 16 106/60 94 L 07/24/20 03:00 100.4 F 77 16 125/73 95 Date Exam was Performed: 06/04/20 Time Exam was Performed: 10:45 - Problem List Review Problem List Initiated/Reviewed/Updated: Yes - My Orders Last 24 Hours: My Active Orders 06/03/20 09:55 Convert IV to Saline Lock [OM.PC] Routine 06/03/20 Dinner Low Residue [Low Fiber Diet] [DIET] 06/04/20 10:44 Acetaminophen/HYDROcodone [[place] 325-5 MG] 1 tab PO Q4H PRN 06/05/20 05:00 LIPASE [CHEM] Timed 06/05/20 09:00 Pantoprazole [ProTONIX] 40 mg PO DAILY - Plan Plan:: ASSESSMENT AND PLAN PANCREATITIS-she denies recent history of alcohol use, liver enzymes are all within normal range. Previous history of pancreatitis x1. Symptomatically improved from admission with less abdominal pain and improvement in the lipase level -Soft low residue diet -Saline lock IV -Pain and nausea medication as needed -Repeat lipase level in a.m. MAINTENANCE ISSUES -DVT prophylaxis; Lovenox 40 mg subcu daily -GI prophylaxis; Protonix 40 mg daily -[place] catheter; not indicated -Nutrition; n.p.o. -Nicotine dependence; not required CODE STATUS-FULL CODE ADMISSION STATUS-patient will be admitted to inpatient status, expect at least a 2 night hospital stay for evaluation and management of problems as outlined above. At the time of this admission I do not reasonably expected evaluation and management of this problem will require more than a 96 hour hospital stay. DISPOSITION-anticipate discharge to home after the hospital stay. PRIMARY CARE PROVIDER-
[2020-06-04] MEDS: Enoxaparin 40 MG/0.4 ML Syringe SUBCUT SCH (13:03)
[2020-06-04] MEDS: traZODone 50 MG Tab PO SCH (21:04)
[2020-06-05] MEDS: Acetaminophen/HYDROcodone 325-5 MG Tab PO PRN ×4 (01:00→13:13)
[2020-06-05] MEDS ORDERED: Pantoprazole 40 MG Tab.CR PO SCH (07:30)
[2020-06-05] MEDS: Aspirin 81 MG Tab.EC PO SCH (08:06)
[2020-06-05] MEDS: busPIRone 10 MG Tab PO SCH (08:06)
[2020-06-05] MEDS: FLUoxetine 20 MG Cap PO SCH (08:06)
[2020-06-05] MEDS: ALPRAZolam 0.5 MG Tab PO PRN (08:06)
[2020-06-05] MEDS: Magnesium Oxide 400 MG Tab PO SCH (08:07)
[2020-06-05 10:54] VITALS: BP 96/52; PULSE 70
[2020-06-05] MEDS ORDERED: Dexamethasone 4 MG Tab PO ONE (10:57)
--- NOTE | 2020-06-05 11:06 | PCM.DCSUM1 ---
Discharge Summary - Hospital Course Brief History: Ms. Mcbride is a 70-year-old woman who was admitted through the emergency department with abdominal pain, nausea, vomiting, secondary to pancreatitis. - Discharge Data Discharge Date: 06/05/20 Discharge Disposition: Home, Self-Care 01 Condition: Good - Referral to Home Health Primary Care Physician: PCP None - Discharge Diagnosis/Problem(s) (1) Acute pancreatitis SNOMED Code(s): 526211943 ICD Code: K85.90 - ACUTE PANCREATITIS WITHOUT NECROSIS OR INFECTION, UNSP Status: Acute Current Visit: Yes Qualifiers: Pancreatitis type: unspecified pancreatitis type Acute pancreatitis complication: unspecified Qualified Code(s): K85.90 - Acute pancreatitis without necrosis or infection, unspecified (2) Mild dehydration SNOMED Code(s): 7029826892486 ICD Code: E86.0 - DEHYDRATION Status: Acute Current Visit: Yes (3) Depression SNOMED Code(s): 34438709 ICD Code: F32.9 - MAJOR DEPRESSIVE DISORDER, SINGLE EPISODE, UNSPECIFIED Status: Acute Current Visit: No - Patient Summary/Data Hospital Course: Ms. Mcbride is a 70-year-old woman who was admitted through the emergency department with abdominal pain, nausea, and vomiting, secondary to pancreatitis. She has not felt well over the past few weeks with mild symptoms of pain and nausea. Over the last 2 days has had increased pain in the supraumbilical region which radiates to the back and described as an intense ache. This has been associated with nausea and vomiting and very poor oral intake. On evaluation in the emergency department CT scan of the abdomen pelvis shows no obvious abnormalities. Lipase level is elevated at 900. Vital signs have been stable and she has been afebrile. On admission she was given medication for pain and nausea as needed. She was kept n.p.o. and given IV fluids for hydration. By the following morning pain had improved but not totally resolved with improvement in lipase level. She was started on a clear liquid diet which was advanced to a soft diet by the time of discharge. By the time of discharge abdominal pain had almost totally resolved, she continued to have a mild elevation in lipase level. She did develop increased lower back and right leg pain during hospitalization. This was felt to be secondary to her chronic low back problems. She will be discharged with a very small amount of hydrocodone for ongoing management and will placed on a 4-day course of Decadron 4 mg daily. Activity will be as tolerated and she will resume her usual diet. Follow-up appointment will be scheduled with her primary care provider within 1 week. - Patient Instructions Diet: Usual Diet as Tolerated, No Alcoholic Beverages Activity: As Tolerated Other/Special Instructions: Please schedule follow-up appointment with primary care provider within 1 week. - Discharge Plan *PRESCRIPTION DRUG MONITORING PROGRAM REVIEWED*: No *COPY OF PRESCRIPTION DRUG MONITORING REPORT IN PATIENT JUSTYNA: No Prescriptions/Med Rec: dexAMETHasone [Dexamethasone] 4 mg PO DAILY #3 tablet Acetaminophen/HYDROcodone [[place] 325-5 MG] 1 tab PO Q4H PRN #8 tablet PRN Reason: Pain Home Medications: Home Meds Aspirin [Halfprin] 81 mg PO DAILY 09/01/13 [History] Calcium Carbonate/Vitamin D3 [Calcarb 600 with Vit D] 1 tab PO BID 09/01/13 [History] Lidocaine 5% [Lidoderm 5%] 3 patch TOP DAILY 09/01/13 [History] Multivitamin [Multi-Vitamin Daily] 1 tab PO DAILY 09/01/13 [History] Vit B Cmplx 3/Fa/Vit C/Biotin [Christa-Dion Rx Tablet] 1 tab PO DAILY 09/01/13 [History] traZODone HCl [Trazodone HCl] 100 mg PO BEDTIME 09/01/13 [History] Albuterol Sulfate [Proair Respiclick] 2 puff IH Q4HR PRN 09/27/18 [History] Cyanocobalamin (Vitamin B12) [Vitamin B12] 1,000 mcg PO DAILY 09/27/18 [History] Iron,Carbonyl/Ascorbic Acid [Iron 100-Vitamin C Tablet] 1 tab PO BID 09/27/18 [History] Acetaminophen [Tylenol] 325 mg PO Q4H PRN tablet 12/26/18 [Rx] ALPRAZolam [Alprazolam] 1 tab PO DAILY PRN 06/02/20 [History] Cholecalciferol (Vitamin D3) [Vitamin D3] 2 tab PO BID 06/02/20 [History] Diclofenac Sodium [Voltaren] 75 mg PO BIDMEALS 06/02/20 [History] FLUoxetine HCl [Fluoxetine HCl] 2 tab PO DAILY 06/02/20 [History] Naltrexone 50 mg PO ASDIRECTED 06/02/20 [History] Naltrexone Microspheres [Vivitrol] 380 mg IM Q28D 06/02/20 [History] Omeprazole 1 tab PO DAILY 06/02/20 [History] busPIRone [Buspar] 1 tab PO BID 06/02/20 [History] hydrOXYzine HCL [hydrOXYzine] 1 tab PO Q6H PRN 06/02/20 [History] Acetaminophen/HYDROcodone [[place] 325-5 MG] 1 tab PO Q4H PRN #8 tablet 06/05/20 [Rx] dexAMETHasone [Dexamethasone] 4 mg PO DAILY #3 tablet 06/05/20 [Rx] Referrals: Karen Nagy PA [Advanced RN Practitioner] - - Discharge Summary/Plan Comment DC Time >30 min.: No - Patient Data Vitals - Most Recent: Last Vital Signs Temp 96.7 F L 06/05/20 10:42 Pulse 70 06/05/20 10:42 Resp 16 06/05/20 10:42 BP 96/52 L 06/05/20 10:42 Pulse Ox 96 06/05/20 10:42 Weight - Most Recent: 127 lb 9.6 oz I&O - Last 24 hours: Intake & Output 06/04/20 06/05/20 06/05/20 22:59 06:59 14:59 Intake Total 120 240 240 Balance 120 240 240 Lab Results - Last 24 hrs: Laboratory Results - last 24 hr 06/05/20 Range/Units 05:50 Lipase 677 H (73-393) U/L Med Orders - Current: Current Medications Acetaminophen (Tylenol) 650 mg PO Q4H PRN PRN Reason: Pain (Mild 1-3)/fever Hydrocodone Bitart/Acetaminophen ([place] 325-5 Mg) 1 tab PO Q4H PRN PRN Reason: Pain Last Admin: 06/05/20 08:58 Dose: 1 tab Documented by: Albuterol (Proventil Neb Soln) 2.5 mg NEB Q4H PRN PRN Reason: Shortness Of Breath/wheezing Albuterol (Ventolin Hfa) 0 gm INH Q4H PRN PRN Reason: Shortness of Breath Alprazolam (Xanax) 0.5 mg PO DAILY PRN PRN Reason: Anxiety Last Admin: 06/05/20 08:06 Dose: 0.5 mg Documented by: Aspirin (Halfprin) 81 mg PO DAILY [facility] Last Admin: 06/05/20 08:06 Dose: 81 mg Documented by: Buspirone HCl (Buspar) 10 mg PO BID [facility] Last Admin: 06/05/20 08:06 Dose: 10 mg Documented by: Dexamethasone (Dexamethasone) 4 mg PO ONETIME ONE Stop: 06/05/20 10:58 Enoxaparin Sodium (Lovenox) 40 mg SUBCUT Q24H [facility] Last Admin: 06/04/20 13:03 Dose: 40 mg Documented by: Fluoxetine HCl (Prozac) 80 mg PO DAILY [facility] Last Admin: 06/05/20 08:06 Dose: 80 mg Documented by: Hydromorphone HCl (Dilaudid) 0.5 mg IVPUSH Q2H PRN PRN Reason: Pain Last Admin: 06/02/20 13:57 Dose: 0.5 mg Documented by: Magnesium Oxide (Magnesium Oxide) 400 mg PO BID [facility] Last Admin: 06/05/20 08:07 Dose: 400 mg Documented by: Ondansetron HCl (Zofran) 4 mg IV Q4H PRN PRN Reason: Nausea/Vomiting Last Admin: 06/02/20 16:00 Dose: 4 mg Documented by: Pantoprazole Sodium (Protonix) 40 mg PO DAILY@0730 [facility] Last Admin: 06/05/20 08:05 Dose: 40 mg Documented by: Polyethylene Glycol (Miralax) 17 gm PO DAILY PRN PRN Reason: Constipation Sodium Chloride (Saline Flush) 10 ml FLUSH ASDIRECTED PRN PRN Reason: Keep Vein Open Trazodone HCl (Trazodone) 100 mg PO BEDTIME [facility] Last Admin: 06/04/20 21:04 Dose: 100 mg Documented by: Discontinued Medications Hydrocodone Bitart/Acetaminophen ([place] 325-5 Mg) 2 tab PO Q4H PRN PRN Reason: Pain Last Admin: 06/04/20 07:54 Dose: 2 tab Documented by: Albuterol (Ventolin Hfa) 2 gm INH Q4H PRN PRN Reason: Shortness of Breath Diazepam (Valium) 5 mg IVPUSH ONETIME ONE Stop: 06/02/20 06:11 Last Admin: 06/02/20 06:23 Dose: 5 mg Documented by: Enoxaparin Sodium (Lovenox) 40 mg SUBCUT DAILY [facility] Last Admin: 06/02/20 13:34 Dose: Not Given Documented by: Fentanyl (Sublimaze) 100 mcg IVPUSH ONETIME ONE Stop: 06/02/20 09:49 Last Admin: 06/02/20 09:53 Dose: 100 mcg Documented by: Hydromorphone HCl (Dilaudid) 0.5 mg IVPUSH ONETIME ONE Stop: 06/02/20 06:11 Last Admin: 06/02/20 06:23 Dose: 0.5 mg Documented by: Hydromorphone HCl (Dilaudid) 0.5 mg IVPUSH ONETIME ONE Stop: 06/02/20 07:51 Last Admin: 06/02/20 08:09 Dose: 0.5 mg Documented by: Hydromorphone HCl (Dilaudid) 0.5 mg IVPUSH ONETIME ONE Stop: 06/02/20 08:33 Last Admin: 06/02/20 08:38 Dose: 0.5 mg Documented by: Hydroxyzine HCl (Vistaril) 50 mg IM ONETIME ONE Stop: 06/02/20 08:21 Last Admin: 06/02/20 08:27 Dose: 50 mg Documented by: Sodium Chloride (Normal Saline) 1,000 mls @ 500 mls/hr IV ASDIRECTED [facility] Last Admin: 06/02/20 06:23 Dose: 500 mls/hr Documented by: Sodium Chloride (Normal Saline) 70 mls @ 3 mls/sec IV ASDIRECTED [facility] Stop: 06/02/20 10:00 Last Admin: 06/02/20 07:41 Dose: 3 mls/sec Documented by: Sodium Chloride (Normal Saline) 1,000 mls @ 500 mls/hr IV ASDIRECTED [facility] Last Admin: 06/02/20 09:55 Dose: 500 mls/hr Documented by: Sodium Chloride (Normal Saline) 1,000 mls @ 125 mls/hr IV ASDIRECTED [facility] Last Admin: 06/03/20 07:34 Dose: 125 mls/hr Documented by: Magnesium Sulfate 2 gm/ Premix 50 mls @ 25 mls/hr IV ONETIME ONE Stop: 06/03/20 10:59 Last Admin: 06/03/20 09:29 Dose: 25 mls/hr Documented by: Iopamidol (Isovue-300 (61%)) 81 ml IV ONETIME ONE Stop: 06/02/20 07:20 Last Admin: 06/02/20 07:41 Dose: 81 ml Documented by: Lidocaine (Lidoderm 5%) 2,100 mg TOP DAILY [facility] Last Admin: 06/03/20 08:40 Dose: Not Given Documented by: Miscellaneous Information (Remove Patch) 1 ea TRDERM BEDTIME [facility] Last Admin: 06/03/20 21:03 Dose: Not Given Documented by: Pantoprazole Sodium (Protonix Iv) 40 mg IVPUSH Q24H [facility] Last Admin: 06/03/20 10:31 Dose: 40 mg Documented by: Sodium Chloride (Saline Flush) 10 ml FLUSH ONETIME PRN PRN Reason: per radiology protocol Last Admin: 06/02/20 07:38 Dose: 10 ml Documented by: - Exam General: Reports: Alert, Oriented, Cooperative, Mild Distress Lungs: Reports: Clear to Auscultation, Normal Respiratory Effort Cardiovascular: Reports: Regular Rate, Regular Rhythm, No Murmurs GI/Abdominal Exam: Soft, Non-Tender, No Organomegaly, No Distention Extremities: Other (Pain lower back and into the right lower extremity)
== END 2020-06-05 13:28 | disposition home or self-care (01) | DRG 440 ==
LOC: JP.ED 05:18 → JP.MS 09:32
PROVIDERS: ADMIT Hospitalist; ATTEND Hospitalist
DX: R11.0 Nausea (principal); K85.90 Acute pancreatitis without necrosis or infection, unspecified; E86.0 Dehydration; F32.9 Major depressive disorder, single episode, unspecified; G89.29 Other chronic pain; M54.5 Low back pain; H54.7 Unspecified visual loss; K21.9 Gastro-esophageal reflux disease without esophagitis; M41.9 Scoliosis, unspecified; M19.90 Unspecified osteoarthritis, unspecified site; F41.9 Anxiety disorder, unspecified; E53.8 Deficiency of other specified B group vitamins; E55.9 Vitamin D deficiency, unspecified; D64.9 Anemia, unspecified; Z98.84 Bariatric surgery status; F17.210 Nicotine dependence, cigarettes, uncomplicated; Z79.82 Long term (current) use of aspirin; F17.200 Nicotine dependence, unspecified, uncomplicated; Z88.6 Allergy status to analgesic agent; Z79.899 Other long term (current) drug therapy; Z88.5 Allergy status to narcotic agent; Z87.11 Personal history of peptic ulcer disease; Z87.440 Personal history of urinary (tract) infections; Z90.49 Acquired absence of other specified parts of digestive tract; Z90.710 Acquired absence of both cervix and uterus; Z98.890 Other specified postprocedural states
CPT/HCPCS: 36415; 74177; 80053; 80305; 80307; 81001; 83605; 83690; 84484; 85027; 85610; 93005; 96361; 96372; 96374; 96375; 96376; 99285; J1170 ×3; J3360; J3410; J7030; J7050; Q9967; 80048; 83735; 85025; 93010; A9270-GY; C9113; J1650; J2405; J3010; J3475; J8540

== ENCOUNTER 2020-10-07 13:41 | Emergency (ER) | payer MEDICARE ==
[2020-10-07 13:56] VITALS: BP 140/89; PULSE 81
[2020-10-07] MEDS ORDERED: ALPRAZolam 0.25 MG Tab PO ONE (14:24)
--- NOTE | 2020-10-07 14:26 | EDM.PDOC ---
ED HPI GENERAL MEDICAL PROBLEM - General Chief Complaint: Genitourinary Problem Stated Complaint: UTI Time Seen by Provider: 10/07/20 14:21 Source of Information: Reports: Patient, RN Notes Reviewed History Limitations: Reports: No Limitations - History of Present Illness INITIAL COMMENTS - FREE TEXT/NARRATIVE: 70-year-old female presents emergency department today complaint of dysuria, states been going on for about 24 hours no fevers no back pain - Related Data Allergies Allergy/AdvReac Type Severity Reaction Status Date / Time morphine Allergy Edema Verified 06/02/20 05:26 Home Meds: Home Meds Aspirin [Halfprin] 81 mg PO DAILY 09/01/13 [History] Calcium Carbonate/Vitamin D3 [Calcarb 600 with Vit D] 1 tab PO BID 09/01/13 [History] Lidocaine 5% [Lidoderm 5%] 3 patch TOP DAILY 09/01/13 [History] Multivitamin [Multi-Vitamin Daily] 1 tab PO DAILY 09/01/13 [History] Vit B Cmplx 3/Fa/Vit C/Biotin [Christa-Dion Rx Tablet] 1 tab PO DAILY 09/01/13 [History] traZODone HCl [Trazodone HCl] 100 mg PO BEDTIME 09/01/13 [History] Albuterol Sulfate [Proair Respiclick] 2 puff IH Q4HR PRN 09/27/18 [History] Cyanocobalamin (Vitamin B12) [Vitamin B12] 1,000 mcg PO DAILY 09/27/18 [History] Iron,Carbonyl/Ascorbic Acid [Iron 100-Vitamin C Tablet] 1 tab PO BID 09/27/18 [History] Acetaminophen [Tylenol] 325 mg PO Q4H PRN tablet 12/26/18 [Rx] ALPRAZolam [Alprazolam] 1 tab PO DAILY PRN 06/02/20 [History] Cholecalciferol (Vitamin D3) [Vitamin D3] 2 tab PO BID 06/02/20 [History] Diclofenac Sodium [Voltaren] 75 mg PO BIDMEALS 06/02/20 [History] FLUoxetine HCl [Fluoxetine HCl] 2 tab PO DAILY 06/02/20 [History] Naltrexone 50 mg PO ASDIRECTED 06/02/20 [History] Naltrexone Microspheres [Vivitrol] 380 mg IM Q28D 06/02/20 [History] Omeprazole 1 tab PO DAILY 06/02/20 [History] busPIRone [Buspar] 1 tab PO BID 06/02/20 [History] hydrOXYzine HCL [hydrOXYzine] 1 tab PO Q6H PRN 06/02/20 [History] dexAMETHasone [Dexamethasone] 4 mg PO DAILY #3 tablet 06/05/20 [Rx] Past Medical History HEENT History: Reports: Impaired Vision Other HEENT History: wears glasses Gastrointestinal History: Reports: GERD, PUD Genitourinary History: Reports: UTI, Recurrent ROUNDER HAND History: Reports: , Spontaneous Other ROUNDER HAND History: ovarian cyst removed Musculoskeletal History: Reports: Arthritis, Other (See Below) Other Musculoskeletal History: scoliosis Psychiatric History: Reports: Addiction, Anxiety, Depression, Panic Attack, Psych Hospitalization(s), Suicidal Ideation Endocrine/Metabolic History: Reports: Vitamin D Deficiency Hematologic History: Reports: Anemia, B12 Deficiency, Blood Transfusion(s), Folic Acid, Iron Deficiency - Infectious Disease History Infectious Disease History: Reports: Chicken Pox - Past Surgical History Head Surgeries/Procedures: Reports: None HEENT Surgical History: Reports: None GI Surgical History: Reports: Appendectomy, Bariatric Procedure, Cholecy stectomy, Colonoscopy, EGD, Esophageal Dilatation, Hernia Repair/Other Female Surgical History: Reports: Section, Cystectomy, Hysterectomy Endocrine Surgical History: Reports: None Musculoskeletal Surgical History: Reports: Shoulder Surgery Other Musculoskeletal Surgeries/Procedures:: right rotator cuff repair Social & Family History - Family History Family Medical History: No Pertinent Family History - Tobacco Use Tobacco Use Status *Q: Never Tobacco User - Caffeine Use Caffeine Use: Reports: Coffee Caffeine Use Comment: daily use - Living Situation & Occupation Living situation: Reports: , with Spouse (lives with in [facility]. 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 had 13 children from age 48 yr to 28 yrs. 115 Grandchildren. One of her Daughters is a RN on [address] [place] [address].) Occupation: Student ED ROS GENERAL - Review of Systems Review Of Systems: See Below Constitutional: Reports: No Symptoms : Reports: Dysuria ED EXAM, RENAL/ - Physical Exam Exam: See Below Exam Limited By: No Limitations General Appearance: Alert, WD/WN, No Apparent Distress Respiratory/Chest: No Respiratory Distress GI/Abdominal: Soft, Non-Tender Back Exam: No: CVA Tenderness (R), CVA Tenderness (L) Course - Vital Signs Last Recorded V/S: Last Vital Signs Temp 96.8 F L 10/07/20 13:55 Pulse 81 10/07/20 13:55 Resp 16 10/07/20 13:55 BP 140/89 10/07/20 13:55 Pulse Ox 97 10/07/20 13:55 - Orders/Labs/Meds Orders: Active Orders 24 hr Category Date Time Status CULTURE URINE [RM] Stat Lab 10/07/20 14:00 Received CULTURE URINE [RM] Urgent Lab 10/07/20 14:20 Ordered ALPRAZolam [Xanax] Med 10/07/20 14:24 Once 0.5 mg PO ONETIME ONE Labs: Laboratory Tests 10/07/20 Range/Units 14:00 Urine Color Yellow (YELLOW) Urine Appearance Cloudy A (CLEAR) Urine pH 6.0 (5.0-8.0) Ur Specific [place] >= 1.030 (1.008-1.030) Urine Protein 100 H (NEGATIVE) mg/dL Urine Glucose (UA) 100 H (NEGATIVE) mg/dL Urine Ketones Trace H (NEGATIVE) mg/dL Urine Occult Blood Moderate H (NEGATIVE) Urine Nitrite Positive H (NEGATIVE) Urine Bilirubin Negative (NEGATIVE) Urine Urobilinogen 0.2 (0.2-1.0) EU/dL Ur Leukocyte Esterase Small H (NEGATIVE) Urine RBC Semi-packed H (0-5) Urine WBC >100 H (0-5) Ur Epithelial Cells Few Amorphous Sediment Not seen Urine Bacteria Many Urine Mucus Not seen Departure - Departure Time of Disposition: 14:26 Disposition: Home, Self-Care 01 Condition: Fair Clinical Impression: UTI, Urinary tract infectious disease - Discharge Information Instructions: Urinary Tract Infection, Adult, [id number] Referrals: Karen Nagy PA [Primary Care Provider] - Additional Instructions: Take full course of antibiotics please followup with your primary care provider in 3-5 days if not better, please call return to the emergency department with worsening of symptoms., Sepsis Event Note (ED) - Evaluation Sepsis Screening Result: No Definite Risk - Focused Exam Vital Signs: Vital Signs Temp Pulse Resp BP Pulse Ox 10/07/20 13:55 96.8 F L 81 16 140/89 97 - My Orders Last 24 Hours: My Active Orders 10/07/20 14:00 CULTURE URINE [RM] Stat 10/07/20 14:20 CULTURE URINE [RM] Urgent 10/07/20 14:24 ALPRAZolam [Xanax] 0.5 mg PO ONETIME ONE - Assessment/Plan Last 24 Hours: My Active Orders 10/07/20 14:00 CULTURE URINE [RM] Stat 10/07/20 14:20 CULTURE URINE [RM] Urgent 10/07/20 14:24 ALPRAZolam [Xanax] 0.5 mg PO ONETIME ONE Plan: Assessment Acuity = acute Site and laterality = urinary tract infection Etiology = probable bacterial cause Manifestations = dysuria Location of injury = Home Lab values = greater than 100 WBCs consistent with pyuria nitrates are positive cultures pending Plan Like to treat empirically Bactrim DS 1 tab p.o. twice daily x3 days follow-up primary care in 3 to 5 days if not better culture report should be available about that time This note was dictated using [employer] voice recognition software please call with any questions on syntax or grammar.
== END 2020-10-07 14:36 | disposition home or self-care (01) ==
LOC: JP.ED 13:41
DX: N39.0 Urinary tract infection, site not specified (principal); K21.9 Gastro-esophageal reflux disease without esophagitis; F41.9 Anxiety disorder, unspecified; F32.9 Major depressive disorder, single episode, unspecified; M19.90 Unspecified osteoarthritis, unspecified site; M41.9 Scoliosis, unspecified; Z79.82 Long term (current) use of aspirin; Z79.899 Other long term (current) drug therapy
CPT/HCPCS: 81001; 87086; 87088; 87186; 99283

== ENCOUNTER 2021-02-22 11:10 | Emergency (ER) | payer MEDICARE ==
[2021-02-22 11:33] VITALS: BP 103/48; PULSE 60
[2021-02-22] MEDS ORDERED: Bacitracin Oint 1 GM U/D Packet TOP ONE (11:47)
[2021-02-22] MEDS ORDERED: Lidocaine 1% with EPINEPHrine 1:100,000 50 ML MDV INFILT ONE (11:48)
[2021-02-22] MEDS ORDERED: LORazepam 1 MG Tab PO ONE (11:54)
[2021-02-22] MEDS ORDERED: Diphtheria,Pertussis(Acell),Tetanus Vaccine 0.5 ML Syringe IM ONE (12:45)
--- NOTE | 2021-02-22 12:46 | EDM.PDOC ---
ED HPI GENERAL MEDICAL PROBLEM - General Chief Complaint: Laceration Stated Complaint: FELL AND LACERATED FOREHEAD Time Seen by Provider: 02/22/21 11:40 Source of Information: Reports: Patient History Limitations: Reports: No Limitations - History of Present Illness INITIAL COMMENTS - FREE TEXT/NARRATIVE: 70-year-old female felt some nausea and urgency to go to the bathroom and felt lightheaded. She stood to go into the bathroom but then fainted when she got into the bathroom. A few minutes later she woke up with lacerations on her forehead, posterior scalp and right lateral eyebrow. No significant headache. She was developing some mild neck and back stiffness but no focal pain. She also had some superficial abrasions on the dorsal knuckles of the left hand. Main concern was the lacerations. She is not on anticoagulants. She has significant anxiety and is hoping to get something to help her calm down prior to laceration repair. Onset: Sudden Duration: Hour(s): (1) Location: Reports: Head Associated Symptoms: Reports: Syncope. Denies: Confusion, Chest Pain, Cough, Nausea/Vomiting, Shortness of Breath Headache Pain Score (Numeric/FACES): 10 - Related Data Allergies Allergy/AdvReac Type Severity Reaction Status Date / Time morphine Allergy Edema Verified 02/22/21 11:33 Home Meds: Home Meds Aspirin [Halfprin] 81 mg PO DAILY 09/01/13 [History] Calcium Carbonate/Vitamin D3 [Calcarb 600 with Vit D] 1 tab PO BID 09/01/13 [History] Multivitamin [Multi-Vitamin Daily] 1 tab PO DAILY 09/01/13 [History] Vit B Cmplx 3/Fa/Vit C/Biotin [Christa-Dion Rx Tablet] 1 tab PO DAILY 09/01/13 [History] traZODone HCl [Trazodone HCl] 100 mg PO BEDTIME 09/01/13 [History] Albuterol Sulfate [Proair Respiclick] 2 puff IH Q4HR PRN 09/27/18 [History] Cyanocobalamin (Vitamin B12) [Vitamin B12] 1,000 mcg PO DAILY 09/27/18 [History] Iron,Carbonyl/Ascorbic Acid [Iron 100-Vitamin C Tablet] 1 tab PO BID 09/27/18 [History] Acetaminophen [Tylenol] 325 mg PO Q4H PRN tablet 02/14/19 [Rx] ALPRAZolam [Alprazolam] 1 tab PO DAILY PRN 06/02/20 [History] Cholecalciferol (Vitamin D3) [Vitamin D3] 2 tab PO BID 06/02/20 [History] FLUoxetine HCl [Fluoxetine HCl] 2 tab PO DAILY 06/02/20 [History] Naltrexone 50 mg PO ASDIRECTED 06/02/20 [History] Naltrexone Microspheres [Vivitrol] 380 mg IM Q28D 06/02/20 [History] Omeprazole 1 tab PO DAILY 06/02/20 [History] busPIRone [Buspar] 1 tab PO BID 06/02/20 [History] hydrOXYzine HCL [hydrOXYzine] 1 tab PO Q6H PRN 06/02/20 [History] Past Medical History HEENT History: Reports: Impaired Vision Other HEENT History: wears glasses Gastrointestinal History: Reports: GERD, PUD Genitourinary History: Reports: UTI, Recurrent DERMATOLOGY NURSE History: Reports: , Spontaneous Other DERMATOLOGY NURSE History: ovarian cyst removed Musculoskeletal History: Reports: Arthritis, Other (See Below) Other Musculoskeletal History: scoliosis Psychiatric History: Reports: Addiction, Anxiety, Depression, Panic Attack, Psych Hospitalization(s), Suicidal Ideation Endocrine/Metabolic History: Reports: Vitamin D Deficiency Hematologic History: Reports: Anemia, B12 Deficiency, Blood Transfusion(s), Folic Acid, Iron Deficiency - Infectious Disease History Infectious Disease History: Reports: Chicken Pox - Past Surgical History Head Surgeries/Procedures: Reports: None HEENT Surgical History: Reports: None GI Surgical History: Reports: Appendectomy, Bariatric Procedure, Cholecystectomy, Colonoscopy, EGD, Esophageal Dilatation, Hernia Repair/Other Female Surgical History: Reports: Section, Cystectomy, Hysterectomy Endocrine Surgical History: Reports: None Musculoskeletal Surgical History: Reports: Shoulder Surgery Other Musculoskeletal Surgeries/Procedures:: right rotator cuff repair Social & Family History - Family History Family Medical History: No Pertinent Family History - Tobacco Use Tobacco Use Status *Q: Never Tobacco User - Caffeine Use Caffeine Use: Reports: Coffee Caffeine Use Comment: daily use - Recreational Drug Use Recreational Drug Use: No - Living Situation & Occupation Living situation: Reports: , with Spouse (lives with in [facility]. 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 115 Grandchildren. One of her Daughters is a RN on [address] [place] [address].) Occupation: Student ED ROS GENERAL - Review of Systems Review Of Systems: See Below Constitutional: Denies: Fever, Chills HEENT: Denies: Vision Change Respiratory: Denies: Shortness of Breath Cardiovascular: Denies: Chest Pain GI/Abdominal: Denies: Nausea, Vomiting Musculoskeletal: Reports: Other (Left hand is sore, some neck stiffness developing) Neurological: Reports: Syncope. Denies: Headache Psychiatric: Reports: Anxiety ED EXAM, SKIN/RASH Exam: See Below Exam Limited By: No Limitations General Appearance: Alert, Anxious Eye Exam: Bilateral Eye: EOMI, PERRL Head: Other (Patient has a 3 cm transverse laceration on the occipital scalp, all 4 cm transverse laceration on the right forehead, and irregular laceration, 3 cm, just lateral to the right eyebrow.) Neck: Non-Tender Respiratory/Chest: No Respiratory Distress Extremities: Other (Superficial abrasions are present on the ring and middle finger of the left hand, dorsal aspect of the DIP joints. No bony tenderness with movement. No deformity.) Neurological: Alert, Oriented Psychiatric: Anxious Course - Vital Signs Last Recorded V/S: Last Vital Signs Temp 97.1 F 02/22/21 11:41 Pulse 60 02/22/21 11:41 Resp 16 02/22/21 11:41 BP 103/48 L 02/22/21 11:41 Pulse Ox 100 02/22/21 11:41 - Orders/Labs/Meds Meds: Medications Discontinued Medications Generic Name Dose Route Start Last Admin Trade Name Peterq PRN Reason Stop Dose Admin Bacitracin 1 dose 02/22/21 11:47 02/22/21 11:55 Bacitracin Oint 1 Gm U/D Packet TOP 02/22/21 11:48 1 dose ONETIME ONE Administration Diphtheria/Tetanus/Acell Pertussis 0.5 ml 02/22/21 12:45 02/22/21 12:56 Diphtheria,Pertussis(Acell),Tetanus Vaccine 0.5 Ml Syringe IM 02/22/21 12:46 0.5 ml .ONCE ONE Administration Lidocaine/Epinephrine 30 ml 02/22/21 11:48 02/22/21 11:55 Lidocaine 1% With Epinephrine 1:100,000 50 Ml Mdv INFILT 02/22/21 11:49 30 ml ONETIME ONE Administration Lorazepam 1 mg 02/22/21 11:54 02/22/21 11:56 Lorazepam 1 Mg Tab PO 02/22/21 11:55 1 mg ONETIME ONE Administration - Re-Assessments/Exams Free Text/Narrative Re-Assessment/Exam: 02/22/21 14:55 The wounds were cleaned thoroughly with lidocaine after anesthetization with 1% lidocaine with epinephrine. Clots were removed. 4 miguel were used to close the scalp laceration, 7 running sutures of 5-0 Ethilon were used to close the forehead laceration, and 4 separate 5-0 Ethilon sutures were used to close the eyebrow laceration. Patient remained stable. She was given it Tdap booster, topical bacitracin and dressings were applied to the wounds. Miguel and sutures can be removed in 6 days. She was given 10 Ativan and 10 hydrocodone for extra pain and anxiety control while healing. Departure - Departure Time of Disposition: 13:08 Disposition: Home, Self-Care 01 Clinical Impression: Occipital scalp laceration Qualifiers: Encounter type: initial encounter Qualified Code(s): S01.01XA - Laceration without foreign body of scalp, initial encounter Facial laceration Qualifiers: Encounter type: initial encounter Qualified Code(s): S01.81XA - Laceration without foreign body of other part of head, initial encounter - Discharge Information Instructions: Laceration Care, Adult, [id number] Referrals: Karen Nagy PA [Primary Care Provider] - Forms: ED Department Discharge Care Plan Goals: Sutures and miguel can be removed next Sunday, in 6 days. Ice to any sore areas may be helpful, increase activity as tolerated. Use Ativan for anxiety and hydrocodone for pain as needed. Return anytime if worsening or concerns, or if you feel you are developing infections or not healing satisfactorily. Sepsis Event Note (ED) - Evaluation Sepsis Screening Result: No Definite Risk - Focused Exam Vital Signs: Vital Signs Temp Pulse Resp BP Pulse Ox 02/22/21 11:41 97.1 F 60 16 103/48 L 100 02/22/21 11:32 97.1 F 60 16 103/48 L 100
== END 2021-02-22 13:09 | disposition home or self-care (01) ==
LOC: JP.ED 11:10
DX: S01.01XA Laceration without foreign body of scalp, initial encounter (principal); S01.81XA Laceration without foreign body of other part of head, initial encounter; K21.9 Gastro-esophageal reflux disease without esophagitis; M19.90 Unspecified osteoarthritis, unspecified site; M41.9 Scoliosis, unspecified; Z88.5 Allergy status to narcotic agent; Z79.82 Long term (current) use of aspirin; Z79.899 Other long term (current) drug therapy; Z23 Encounter for immunization; W22.8XXA Striking against or struck by other objects, initial encounter
CPT/HCPCS: 12002; 12014; 90471; 90715; 99282; A9270; 12001; 99283

== ENCOUNTER 2021-04-09 05:45 | Observation (INO) | payer MEDICARE ==
[2021-04-09] MEDS ORDERED: Sodium Chloride 0.9% 10 ML Syringe FLUSH PRN ×2 (05:54→11:11)
--- NOTE | 2021-04-09 06:08 | EDM.PDOC ---
<Julius Dove - Last Filed: 04/09/21 06:58> ED HPI GENERAL MEDICAL PROBLEM - General Chief Complaint: Abdominal Pain Stated Complaint: WEAK Time Seen by Provider: 04/09/21 05:54 Source of Information: Reports: Patient History Limitations: Reports: No Limitations - History of Present Illness INITIAL COMMENTS - FREE TEXT/NARRATIVE: Josie is a 71-year-old female presenting to the ED for evaluation of 3 days of epigastric pain, nausea, and dry heaving. The first thing the patient asked me is if I would order some Xanax for her as it was surely help her symptoms. The patient does have a history of alcohol abuse, benzodiazepine abuse, narcotic abuse, pancreatitis, small bowel obstruction, and gastric bypass. She is normally seen at the [facility]. She denies any fever or chills. She states that she has had some loose stools. She states that she has been unable to keep anything down for the last couple of days. Abdomen Pain Score (Numeric/FACES): 3 - Related Data Allergies Allergy/AdvReac Type Severity Reaction Status Date / Time morphine Allergy Edema Verified 04/09/21 06:00 Home Meds: Home Meds Aspirin [Halfprin] 81 mg PO DAILY 09/01/13 [History] Calcium Carbonate/Vitamin D3 [Calcarb 600 with Vit D] 1 tab PO BID 09/01/13 [History] Multivitamin [Multi-Vitamin Daily] 1 tab PO DAILY 09/01/13 [History] Vit B Cmplx 3/Fa/Vit C/Biotin [Christa-Dion Rx Tablet] 1 tab PO DAILY 09/01/13 [History] traZODone HCl [Trazodone HCl] 100 mg PO BEDTIME 09/01/13 [History] Albuterol Sulfate [Proair Respiclick] 2 puff IH Q4HR PRN 09/27/18 [History] Cyanocobalamin (Vitamin B12) [Vitamin B12] 1,000 mcg PO DAILY 09/27/18 [History] Iron,Carbonyl/Ascorbic Acid [Iron 100-Vitamin C Tablet] 1 tab PO BID 09/27/18 [History] Acetaminophen [Tylenol] 325 mg PO Q4H PRN tablet 12/26/18 [Rx] Cholecalciferol (Vitamin D3) [Vitamin D3] 2 tab PO BID 06/02/20 [History] FLUoxetine HCl [Fluoxetine HCl] 2 tab PO DAILY 06/02/20 [History] Naltrexone 50 mg PO ASDIRECTED PRN 06/02/20 [History] Naltrexone Microspheres [Vivitrol] 380 mg IM Q28D 06/02/20 [History] Omeprazole 1 tab PO DAILY 06/02/20 [History] busPIRone [Buspar] 1 tab PO BID 06/02/20 [History] hydrOXYzine HCL [hydrOXYzine] 1 tab PO Q6H PRN 06/02/20 [History] Past Medical History HEENT History: Reports: Impaired Vision Other HEENT History: wears glasses Gastrointestinal History: Reports: GERD, PUD Genitourinary History: Reports: UTI, Recurrent 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: Reports: , Spontaneous Other 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: ovarian cyst removed Musculoskeletal History: Reports: Arthritis, Other (See Below) Other Musculoskeletal History: scoliosis Psychiatric History: Reports: Addiction, Anxiety, Depression, Panic Attack, Psych Hospitalization(s), Suicidal Ideation Endocrine/Metabolic History: Reports: Vitamin D Deficiency Hematologic History: Reports: Anemia, B12 Deficiency, Blood Transfusion(s), Folic Acid, Iron Deficiency - Infectious Disease History Infectious Disease History: Reports: Chicken Pox - Past Surgical History Head Surgeries/Procedures: Reports: None HEENT Surgical History: Reports: None GI Surgical History: Reports: Appendectomy, Bariatric Procedure, Cholecystectomy, Colonoscopy, EGD, Esophageal Dilatation, Hernia Repair/Other Female Surgical History: Reports: Section, Cystectomy, Hysterectomy Endocrine Surgical History: Reports: None Musculoskeletal Surgical History: Reports: Shoulder Surgery Other Musculoskeletal Surgeries/Procedures:: right rotator cuff repair Social & Family History - Family History Family Medical History: No Pertinent Family History - Caffeine Use Caffeine Use: Reports: Coffee Caffeine Use Comment: daily use - Living Situation & Occupation Living situation: Reports: , with Spouse (lives with in [facility]. 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 had 13 children from age 48 yr to 28 yrs. 115 Grandchildren. One of her Daughters is a RN on [address] [place] [address].) Occupation: Student ED ROS GENERAL - Review of Systems Review Of Systems: See Below Constitutional: Reports: Malaise, Weakness, Decreased Appetite HEENT: Reports: No Symptoms Respiratory: Reports: No Symptoms Cardiovascular: Reports: No Symptoms Endocrine: Reports: No Symptoms GI/Abdominal: Reports: Abdominal Pain (Epigastric), Diarrhea (Several episodes of loose stools), Decreased Appetite, Distension, Flatus, Nausea, Vomiting (Mostly dry heaving) : Reports: No Symptoms Musculoskeletal: Reports: No Symptoms Skin: Reports: No Symptoms Neurological: Reports: No Symptoms Psychiatric: Reports: Anxiety Hematologic/Lymphatic: Reports: No Symptoms Immunologic: Reports: No Symptoms ED EXAM, GI/ABD - Physical Exam Exam: See Below Exam Limited By: No Limitations General Appearance: Alert, Mild Distress Eyes: Bilateral: EOMI Throat/Mouth: Normal Lips, Normal Oropharynx, Normal Voice, No Airway Compromise, Other (Mildly dry mucous membranes) Head: Atraumatic, Normocephalic Neck: Normal Inspection, Supple, Non-Tender, Full Range of Motion. No: Carotid Bruit, Lymphadenopathy (R), Lymphadenopathy (L) Respiratory/Chest: No Respiratory Distress, Lungs Clear, Normal Breath Sounds Cardiovascular: Normal Peripheral Pulses, Regular Rate, Rhythm, No Murmur. No: Tachycardia GI/Abdominal Exam: Normal Bowel Sounds, Soft, Distended (Mildly distended with tympany to percussion over the distribution of the a sending and transverse colon), Tender (Mild epigastric tenderness to palpation). No: Guarding, Rebound Extremities: Normal Inspection, Normal Range of Motion Neurological: Alert, Oriented, Normal Cognition, No Motor/Sensory Deficits Psychiatric: Normal Affect, Normal Mood Skin Exam: Warm, Dry, Intact, Normal Color Lymphatic: No Adenopathy Course - Re-Assessments/Exams Free Text/Narrative Re-Assessment/Exam: 04/09/21 06:18 reviewed the patient's [facility] chart and find that she has had numerous stents for addiction issues related to alcoholism, benzodiazepine abuse, and narcotic abuse. She is currently receiving Vivitrol monthly infusions for her alcoholism. Her first question to me was if I would prescribe her Xanax for her anxiety which I declined but I do think that we could do hydroxyzine 25 mg IM. She is complaining of epigastric pain similar to when she had pancreatitis in the past. We will check labs including a CBC, comprehensive metabolic panel, CRP, and lipase. She is afebrile, normotensive, and not tachycardic so it is unlikely that she is septic therefore I did not check a lactic acid. I reviewed the patient's labs showing a normal CBC and comprehensive metabolic panel except for a bicarbonate of 17.9 with a widened anion gap of 14.1. The lipase is normal at 269. Her creatinine is normal at 0.88. We will get a CT of the abdomen and pelvis to evaluate for possible small bowel obstruction or other intra-abdominal process. This certainly does not appear to be an acute pancreatitis at this time. Again the patient inquired about getting a benzodiazepine for her anxiety which I declined. 04/09/21 06:45 Care of the patient will be turned over to the oncoming physician, Dr. Dawson at 0700 hrs. while awaiting for the completion of her work-up. Departure - Departure Disposition: Admitted As Inpatient 67 Clinical Impression: Abdominal pain Qualifiers: Abdominal location: epigastric Qualified Code(s): R10.13 - Epigastric pain - Discharge Information <David Tam - Last Filed: 04/09/21 12:21> Course - Vital Signs Last Recorded V/S: Last Vital Signs Temp 98.9 F 04/09/21 11:14 Pulse 70 04/09/21 11:14 Resp 16 04/09/21 11:14 BP 121/64 04/09/21 11:14 Pulse Ox 98 04/09/21 11:14 - Orders/Labs/Meds Orders: Medication Orders Acetaminophen (Acetaminophen 325 Mg Tab) 650 mg PO Q4H PRN PRN Reason: Pain (Mild 1-3)/fever Hydrocodone Bitart/Acetaminophen (Acetaminophen/Hydrocodone 325-5 Mg Tab) 1 tab PO Q4H PRN PRN Reason: Pain (moderate 4-6) Last Admin: 04/09/21 11:28 Dose: 1 tab Documented by: [id number] Albuterol (Albuterol 8 Gm Inhaler) 0 gm INH Q4H PRN PRN Reason: Shortness of Breath Aspirin (Aspirin 81 Mg Tab.Ec) 81 mg PO DAILY ASHWIN Buspirone HCl (Buspirone 10 Mg Tab) 10 mg PO BID ASHWIN Enoxaparin Sodium (Enoxaparin 40 Mg/0.4 Ml Syringe) 40 mg SUBCUT DAILY ASHWIN Fluoxetine HCl (Fluoxetine 20 Mg Cap) 80 mg PO DAILY ASHWIN Sodium Chloride (Normal Saline) 1,000 mls @ 125 mls/hr IV ASDIRECTED ASHWIN Lorazepam (Lorazepam 0.5 Mg Tab) 0.5 mg PO Q4H PRN PRN Reason: Anxiety Last Admin: 04/09/21 11:29 Dose: 0.5 mg Documented by: BARBARA Ondansetron HCl (Ondansetron 4 Mg/2 Ml Sdv) 4 mg IV Q4H PRN PRN Reason: Nausea/Vomiting Pantoprazole Sodium (Pantoprazole 40 Mg Vial) 40 mg IVPUSH Q12H ASHWIN Last Admin: 04/09/21 09:06 Dose: 40 mg Documented by: ALEJANDRO Polyethylene Glycol (Polyethylene Glycol 3350 Powder 17 Gm Packet) 17 gm PO DAILY PRN PRN Reason: Constipation Sodium Chloride (Sodium Chloride 0.9% 10 Ml Syringe) 10 ml FLUSH ASDIRECTED PRN PRN Reason: Keep Vein Open Trazodone HCl (Trazodone 50 Mg Tab) 100 mg PO BEDTIME ASHWIN Labs: Laboratory Tests 04/09/21 04/09/21 04/09/21 Range/Units 06:20 06:20 06:58 WBC 4.9 (4.5-11.0) K/uL RBC 3.23 L (3.30-5.50) M/uL Hgb 11.5 L D (12.0-15.0) g/dL Hct 33.9 L (36.0-48.0) % MCV 105 H (80-98) fL MCH 36 H (27-31) pg MCHC 34 (32-36) % Plt Count 350 (150-400) K/uL Neut % (Auto) 61.3 (36-66) % Lymph % (Auto) 21.9 L (24-44) % Crosby % (Auto) 10.7 H (2-6) % Eos % (Auto) 5.7 H (2-4) % Baso % (Auto) 0.4 (0-1) % Sodium 136 L (140-148) mmol/L Potassium 4.6 (3.6-5.2) mmol/L Chloride 104 (100-108) mmol/L Carbon Dioxide 18 L (21-32) mmol/L Anion Gap 18.6 H (5.0-14.0) mmol/L BUN 18 D (7-18) mg/dL Creatinine 0.9 (0.6-1.0) mg/dL Est Cr Clr Drug Dosing 48.48 mL/min Estimated GFR (MDRD) > 60 (>60) Glucose 89 (74-106) mg/dL Calcium 8.4 L (8.5-10.1) mg/dL Total Bilirubin 0.3 (0.2-1.0) mg/dL AST 21 (15-37) U/L ALT 25 D (12-78) U/L Alkaline Phosphatase 110 (46-116) U/L C-Reactive Protein < 0.05 (0.0-0.3) mg/dL Total Protein 7.8 (6.4-8.2) g/dL Albumin 4.0 (3.4-5.0) g/dL Globulin 3.8 H (2.3-3.5) g/dL Albumin/Globulin Ratio 1.1 L (1.2-2.2) Lipase 268 (73-393) U/L Urine Color Yellow (YELLOW) Urine Appearance Clear (CLEAR) Urine pH 5.5 (5.0-8.0) Ur Specific Clark 1.025 (1.008-1.030) Urine Protein Trace H (NEGATIVE) mg/dL Urine Glucose (UA) Negative (NEGATIVE) mg/dL Urine Ketones 15 H (NEGATIVE) mg/dL Urine Occult Blood Negative (NEGATIVE) Urine Nitrite Negative (NEGATIVE) Urine Bilirubin Small H (NEGATIVE) Urine Urobilinogen 0.2 (0.2-1.0) EU/dL Ur Leukocyte Esterase Negative (NEGATIVE) Urine RBC 0-5 (0-5) Urine WBC 0-5 (0-5) Ur Epithelial Cells Few Amorphous Sediment Few Urine Bacteria Few Urine Mucus Few Urine Other See note Meds: Medications Generic Name Dose Route Start Last Admin Trade Name Jelly PRN Reason Stop Dose Admin Acetaminophen 650 mg 04/09/21 11:11 Acetaminophen 325 Mg Tab PO Q4H PRN Pain (Mild 1-3)/fever Hydrocodone Bitart/Acetaminophen 1 tab 04/09/21 11:11 04/09/21 11:28 Acetaminophen/Hydrocodone 325-5 Mg Tab PO 1 tab Q4H PRN Administration Pain (moderate 4-6) Albuterol 0 gm 04/09/21 11:20 Albuterol 8 Gm Inhaler INH Q4H PRN Shortness of Breath Aspirin 81 mg 04/09/21 11:11 Aspirin 81 Mg Tab.Ec PO DAILY ASHWIN Buspirone HCl 10 mg 04/09/21 11:11 Buspirone 10 Mg Tab PO BID ASHWIN Enoxaparin Sodium 40 mg 04/09/21 11:11 Enoxaparin 40 Mg/0.4 Ml Syringe SUBCUT DAILY ASHWIN Fluoxetine HCl 80 mg 04/09/21 11:11 Fluoxetine 20 Mg Cap PO DAILY ASHWIN Sodium Chloride 1,000 mls @ 125 mls/hr 04/10/21 00:01 Normal Saline IV ASDIRECTED ASHWIN Lorazepam 0.5 mg 04/09/21 11:11 04/09/21 11:29 Lorazepam 0.5 Mg Tab PO 0.5 mg Q4H PRN Administration Anxiety Ondansetron HCl 4 mg 04/09/21 11:11 Ondansetron 4 Mg/2 Ml Sdv IV Q4H PRN Nausea/Vomiting Pantoprazole Sodium 40 mg 04/09/21 09:00 04/09/21 09:06 Pantoprazole 40 Mg Vial IVPUSH 40 mg Q12H ASHWIN Administration Polyethylene Glycol 17 gm 04/09/21 11:11 Polyethylene Glycol 3350 Powder 17 Gm Packet PO DAILY PRN Constipation Sodium Chloride 10 ml 04/09/21 11:11 Sodium Chloride 0.9% 10 Ml Syringe FLUSH ASDIRECTED PRN Keep Vein Open Trazodone HCl 100 mg 04/09/21 21:00 Trazodone 50 Mg Tab PO BEDTIME ASHWIN Discontinued Medications Generic Name Dose Route Start Last Admin Trade Name Freq PRN Reason Stop Dose Admin Hydroxyzine HCl 25 mg 04/09/21 06:17 04/09/21 06:29 Hydroxyzine Hcl 100 Mg/2 Ml Sdv IM 04/09/21 06:18 25 mg ONETIME ONE Administration Sodium Chloride 74 mls @ 3 mls/sec 04/09/21 07:15 04/09/21 07:19 Normal Saline IV 3 mls/sec ASDIRECTED ASHWIN Administration Lactated Ringer's 1,000 mls @ 500 mls/hr 04/09/21 08:45 04/09/21 09:06 Ringers, Lactated IV 500 mls/hr ASDIRECTED ASHWIN Administration Iopamidol 100 ml 04/09/21 07:02 04/09/21 07:19 Iopamidol 612 Mg/Ml 100 Ml Bottle IV 04/09/21 07:03 80 ml . DIRECTED ONE Administration Lorazepam 0.5 mg 04/09/21 07:35 04/09/21 07:45 Lorazepam 2 Mg/Ml Sdv IVPUSH 04/09/21 07:36 0.5 mg ONETIME ONE Administration Ondansetron HCl 4 mg 04/09/21 06:11 04/09/21 06:27 Ondansetron 4 Mg/2 Ml Sdv IVPUSH 04/09/21 06:12 4 mg ONETIME ONE Administration Sodium Chloride 10 ml 04/09/21 05:54 04/09/21 06:30 Sodium Chloride 0.9% 10 Ml Syringe FLUSH 10 ml ASDIRECTED PRN Administration Keep Vein Open - Re-Assessments/Exams Free Text/Narrative Re-Assessment/Exam: 04/09/21 08:34 Patient care accepted from Dr. Dove pending CT report. CT shows possible pancreatitis around the head of the pancreas, however her lipase is normal. She continued to be pretty uncomfortable in the epigastric region. She was given 0.5 mg of IV Ativan which helped somewhat but she was still uncomfortable. Discussed her condition with Dr. Mccallum, concerning a possible EGD and it was agreed that admission, hydration, following lipase levels and eventual EGD tomorrow morning would be a good course of treatment. Dr. Calix was consulted and will see the patient for admission. 04/09/21 08:38 Due to the possibility of pancreatitis, lactated Ringers was started at 500 cc an hour. Departure - Departure Time of Disposition: 11:28 Sepsis Event Note (ED) - Focused Exam Vital Signs: Vital Signs Temp Pulse Resp BP Pulse Ox 04/09/21 07:45 69 12 122/67 97 04/09/21 05:59 95.2 F L 71 16 127/70 99
[2021-04-09] MEDS ORDERED: Ondansetron 4 MG/2 ML SDV IVPUSH ONE (06:11)
[2021-04-09] MEDS ORDERED: hydrOXYzine HCL 100 MG/2 ML SDV IM ONE (06:17)
[2021-04-09] MEDS ORDERED: Iopamidol 612 MG/ML 100 ML Bottle IV ONE (07:02)
[2021-04-09] MEDS ORDERED: LORazepam 2 MG/ML SDV IVPUSH ONE (07:35)
--- NOTE | 2021-04-09 08:03 | CRLCT ---
INDICATION: Epigastric pain and vomiting. TECHNIQUE: Volumetric helical scanning of the abdomen and pelvis was performed with 80 cc of Isovue 300 contrast material IV. Coronal and sagittal reconstructions were obtained. COMPARISON: Abdomen/pelvis CT of 06/02/2020. FINDINGS: Extensive intestinal postop changes are again demonstrated. There is no clear evidence of bowel obstruction or inflammation. No free fluid or free air is apparent. A hiatal hernia of moderate size is again demonstrated. On images 30-37 of series 2, there appears to been a change in the uncinate process of the pancreas. On image 34 a new 12 x 9 mm cystic structure in the uncinate is demonstrated and there is new increased attenuation in the adjacent fat situated between the superior mesenteric artery and abdominal aorta. Question acute pancreatitis involving the uncinate. The pancreas is otherwise unchanged and unremarkable. The liver is unremarkable. Postop changes of cholecystectomy are again demonstrated. The bile ducts appear somewhat larger than on the previous examination. The spleen, adrenal glands and pancreas are negative. No lymphadenopathy is apparent. Postop changes of hysterectomy are again demonstrated. Neither ovary is visualized. The ovaries may been removed as well. The lung bases are clear, and the heart size is normal. IMPRESSION: 1. Question acute pancreatitis involving the uncinate. Pancreas otherwise unremarkable. 2. Extensive intestinal postop changes, as before. No obvious bowel obstruction or inflammation. 3. Post cholecystectomy and bilat somewhat more prominent than on the previous examination. Correlate with liver function tests. 4. Post hysterectomy. Please note that all CT scans at this facility use dose modulation, iterative reconstruction, and/or weight-based dosing when appropriate to reduce radiation dose to as low as reasonably achievable. Dictated by Rafita Cr MD @ 04/09/2021 8:02:[address] Rafita Cr @ Apr 09 2021 8:02AM
--- NOTE | 2021-04-09 08:39 | PCM.HP.2 ---
H&P History of Present Illness - General Date of Service: 04/09/21 Admit Problem/Dx: Admission Diagnosis/Problem Admission Diagnosis/Problem Abdominal pain Source of Information: Patient, Family, Old Records, Provider, RN Notes Reviewed History Limitations: Reports: No Limitations - History of Present Illness Initial Comments - Free Text/Narative: Ms. Mcbride is a 71-year-old woman who was admitted to observation status through the emergency department with a 3-day history of abdominal pain and nausea. She does have a previous history of several abdominal surgeries as well as one episode of fairly mild pancreatitis. Her symptoms began 3 days ago and she describes her abdominal pain is an ache that occurs across the mid abdomen, worse on the left. Pain does not seem to be affected by eating but her appetite has been very poor over the past 3 days. She denies fever, chills, sweats, diarrhea or constipation. On evaluation in the emergency department CT scan of the abdomen shows possible inflammation in the pancreas, lipase level is within normal range. Urinalysis is clear, white blood cell count within normal range and rest of labs are fairly unremarkable other than mild metabolic acidosis likely related to dehydration. Abdomen Pain Score (Numeric/FACES): 3 - Related Data Allergies/Adverse Reactions: Allergies Allergy/AdvReac Type Severity Reaction Status Date / Time morphine Allergy Edema Verified 04/09/21 06:00 Home Medications: Home Meds Aspirin [Halfprin] 81 mg PO DAILY 09/01/13 [History] Calcium Carbonate/Vitamin D3 [Calcarb 600 with Vit D] 1 tab PO BID 09/01/13 [History] Multivitamin [Multi-Vitamin Daily] 1 tab PO DAILY 09/01/13 [History] Vit B Cmplx 3/Fa/Vit C/Biotin [Christa-Dion Rx Tablet] 1 tab PO DAILY 09/01/13 [History] traZODone HCl [Trazodone HCl] 100 mg PO BEDTIME 09/01/13 [History] Albuterol Sulfate [Proair Respiclick] 2 puff IH Q4HR PRN 09/27/18 [History] Cyanocobalamin (Vitamin B12) [Vitamin B12] 1,000 mcg PO DAILY 09/27/18 [History] Iron,Carbonyl/Ascorbic Acid [Iron 100-Vitamin C Tablet] 1 tab PO BID 09/27/18 [History] Acetaminophen [Tylenol] 325 mg PO Q4H PRN tablet 12/26/18 [Rx] Cholecalciferol (Vitamin D3) [Vitamin D3] 2 tab PO BID 06/02/20 [History] FLUoxetine HCl [Fluoxetine HCl] 2 tab PO DAILY 06/02/20 [History] Naltrexone 50 mg PO ASDIRECTED PRN 06/02/20 [History] Naltrexone Microspheres [Vivitrol] 380 mg IM Q28D 06/02/20 [History] Omeprazole 1 tab PO DAILY 06/02/20 [History] busPIRone [Buspar] 1 tab PO BID 06/02/20 [History] hydrOXYzine HCL [hydrOXYzine] 1 tab PO Q6H PRN 06/02/20 [History] Past Medical History HEENT History: Reports: Impaired Vision Other HEENT History: wears glasses Gastrointestinal History: Reports: GERD, PUD Genitourinary History: Reports: UTI, Recurrent [employer] History: Reports: , Spontaneous Other OB/BYN History: ovarian cyst removed Musculoskeletal History: Reports: Arthritis, Other (See Below) Other Musculoskeletal History: scoliosis Neurological History: Reports: Concussion, Head Trauma Psychiatric History: Reports: Addiction, Anxiety, Depression, Panic Attack, Psych Hospitalization(s), Suicidal Ideation Endocrine/Metabolic History: Reports: Vitamin D Deficiency Hematologic History: Reports: Anemia, B12 Deficiency, Blood Transfusion(s), Folic Acid, Iron Deficiency - Infectious Disease History Infectious Disease History: Reports: Chicken Pox - Past Surgical History Head Surgeries/Procedures: Reports: None HEENT Surgical History: Reports: None GI Surgical History: Reports: Appendectomy, Bariatric Procedure, Cholecystectomy, Colonoscopy, EGD, Esophageal Dilatation, Hernia Repair/Other Female Surgical History: Reports: Section, Cystectomy, Hysterectomy Endocrine Surgical History: Reports: None Musculoskeletal Surgical History: Reports: Shoulder Surgery Other Musculoskeletal Surgeries/Procedures:: right rotator cuff repair Social & Family History - Family History Family Medical History: No Pertinent Family History - Tobacco Use Tobacco Use Status *Q: Never Tobacco User - Caffeine Use Caffeine Use: Reports: Coffee Caffeine Use Comment: daily use - Recreational Drug Use Recreational Drug Use: No - Living Situation & Occupation Living situation: Reports: , with Spouse (lives with in [facility]. 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 had 13 children from age 48 yr to 28 yrs. 115 Grandchildren. One of her Daughters is a RN on [address] [place] [address].) Occupation: Student H&P Review of Systems - Review of Systems: Review Of Systems: See Below General: Reports: Malaise, Weakness, Fatigue, Decreased Appetite HEENT: Reports: No Symptoms Pulmonary: Reports: No Symptoms Cardiovascular: Reports: No Symptoms Gastrointestinal: Reports: Abdominal Pain, Decreased Appetite, Nausea. Denies: Constipation, Diarrhea, Difficulty Swallowing, Distension, Hematemesis, Hematochezia, Melena, Vomiting Genitourinary: Reports: No Symptoms Musculoskeletal: Reports: No Symptoms Skin: Reports: No Symptoms Psychiatric: Reports: No Symptoms Neurological: Reports: No Symptoms Hematologic/Lymphatic: Reports: No Symptoms Immunologic: Reports: No Symptoms Exam - Exam Exam: See Below - Vital Signs Vital Signs: Last Vital Signs Temp 95.2 F L 04/09/21 05:59 Pulse 69 04/09/21 07:45 Resp 12 04/09/21 07:45 BP 122/67 04/09/21 07:45 Pulse Ox 97 04/09/21 07:45 Weight: 116 lb 6.465 oz - Exam Quality Assessment: DVT Prophylaxis General: Alert, Oriented, Cooperative, Mild Distress HEENT: Conjunctiva Clear, Hearing Intact, Normal Nasal Septum, Posterior Pharynx Clear, Pupils Equal. No: Mucosa Moist & [place] Neck: Supple, Trachea Midline, +2 Carotid Pulse wo Bruit Lungs: Clear to Auscultation, Normal Respiratory Effort Cardiovascular: Regular Rate, Regular Rhythm, Normal S1, Normal S2. No: Systolic Murmur, Diastolic Murmur GI/Abdominal Exam: Soft, No Organomegaly, Tender. No: Distended, Guarding, Rigid, Rebound Back Exam: Normal Inspection, Full Range of Motion Extremities: Non-Tender, No Pedal Edema Skin: Warm, Dry, Intact Neurological: Cranial Nerves Intact, Strength Equal Bilateral, Normal Speech, Normal Tone, Sensation Intact. No: Focal Deficit Neuro Extensive - Mental Status: Alert, Oriented x3, Normal Mood/Affect, Normal Cognition, Memory Intact - Patient Data Lab Results Last 24 hrs: Laboratory Results - last 24 hr 04/09/21 04/09/21 04/09/21 Range/Units 06:20 06:20 06:58 WBC 4.9 (4.5-11.0) K/uL RBC 3.23 L (3.30-5.50) M/uL Hgb 11.5 L D (12.0-15.0) g/dL Hct 33.9 L (36.0-48.0) % MCV 105 H (80-98) fL MCH 36 H (27-31) pg MCHC 34 (32-36) % Plt Count 350 (150-400) K/uL Neut % (Auto) 61.3 (36-66) % Lymph % (Auto) 21.9 L (24-44) % [place] % (Auto) 10.7 H (2-6) % Eos % (Auto) 5.7 H (2-4) % Baso % (Auto) 0.4 (0-1) % Sodium 136 L (140-148) mmol/L Potassium 4.6 (3.6-5.2) mmol/L Chloride 104 (100-108) mmol/L Carbon Dioxide 18 L (21-32) mmol/L Anion Gap 18.6 H (5.0-14.0) mmol/L BUN 18 D (7-18) mg/dL Creatinine 0.9 (0.6-1.0) mg/dL Est Cr Clr Drug Dosing 48.48 mL/min Estimated GFR (MDRD) > 60 (>60) Glucose 89 (74-106) mg/dL Calcium 8.4 L (8.5-10.1) mg/dL Total Bilirubin 0.3 (0.2-1.0) mg/dL AST 21 (15-37) U/L ALT 25 D (12-78) U/L Alkaline Phosphatase 110 (46-116) U/L C-Reactive Protein < 0.05 (0.0-0.3) mg/dL Total Protein 7.8 (6.4-8.2) g/dL Albumin 4.0 (3.4-5.0) g/dL Globulin 3.8 H (2.3-3.5) g/dL Albumin/Globulin Ratio 1.1 L (1.2-2.2) Lipase 268 (73-393) U/L Urine Color Yellow (YELLOW) Urine Appearance Clear (CLEAR) Urine pH 5.5 (5.0-8.0) Ur Specific [place] 1.025 (1.008-1.030) Urine Protein Trace H (NEGATIVE) mg/dL Urine Glucose (UA) Negative (NEGATIVE) mg/dL Urine Ketones 15 H (NEGATIVE) mg/dL Urine Occult Blood Negative (NEGATIVE) Urine Nitrite Negative (NEGATIVE) Urine Bilirubin Small H (NEGATIVE) Urine Urobilinogen 0.2 (0.2-1.0) EU/dL Ur Leukocyte Esterase Negative (NEGATIVE) Urine RBC 0-5 (0-5) Urine WBC 0-5 (0-5) Ur Epithelial Cells Few Amorphous Sediment Few Urine Bacteria Few Urine Mucus Few Urine Other See note Result Diagrams: 04/09/21 06:20 04/09/21 06:20 Sepsis Event Note - Evaluation Sepsis Screening Result: No Definite Risk - Focused Exam Vital Signs: Vital Signs Temp Pulse Resp BP Pulse Ox 04/09/21 07:45 69 12 122/67 97 04/09/21 05:59 95.2 F L 71 16 127/70 99 *Q Meaningful Use (ADM) - VTE Risk Assess *Q Each Risk Factor Represents 1 Point: None Total Score 1 Point Risk Factors: 0 Each Risk Factor Represents 2 Points: Age 60 - 74 Years Total Score 2 Point Risk Factors: 2 Each Risk Factor Represents 3 Points: None Total Score 3 Point Risk Factors: 0 Each Risk Factor Represents 5 Points: None Total Score 5 Point Risk Factors: 0 Venous Thromboembolism Risk Factor Score *Q: 2 Problem List Initiated/Reviewed/Updated: Yes Orders Last 24hrs: Active Orders 24 hr Category Date Time Status Patient Status Manage Transfer [TRANSFER] Routine ADT 04/09/21 08:30 Active Lactated Ringers [Ringers, Lactated] 1,000 ml Med 04/09/21 08:45 Active IV ASDIRECTED Sodium Chloride 0.9% [Normal Saline] 74 ml Med 04/09/21 07:15 Active IV ASDIRECTED Sodium Chloride 0.9% [Saline Flush] Med 04/09/21 05:54 Active 10 ml FLUSH ASDIRECTED PRN Saline Lock Insert [OM.PC] Routine Oth 04/09/21 05:54 Ordered Resuscitation Status Routine Resus Stat 04/09/21 08:33 Ordered Medication Orders Sodium Chloride (Normal Saline) 74 mls @ 3 mls/sec IV ASDIRECTED ASHWIN Last Admin: 04/09/21 07:19 Dose: 3 mls/sec Documented by: DECRMIC Lactated Ringer's (Ringers, Lactated) 1,000 mls @ 500 mls/hr IV ASDIRECTED ASHWIN Sodium Chloride (Sodium Chloride 0.9% 10 Ml Syringe) 10 ml FLUSH ASDIRECTED PRN PRN Reason: Keep Vein Open Last Admin: 04/09/21 06:30 Dose: 10 ml Documented by: LILLI Assessment/Plan Comment:: ASSESSMENT AND PLAN ABDOMINAL PAIN WITH NAUSEA-history of several abdominal surgical procedures and previous episode of pancreatitis. CT scan shows possible pancreatic inflammation, lipase level is within normal range. Pain present for the past 3 days and associated with nausea. -Clear liquid diet, n.p.o. after midnight -Follow-up lipase level in a.m. -Protonix 40 mg IV every 12 hours -IV fluids given in the emergency department, resume IV fluids at midnight -Consult Dr. Mccallum for EGD in a.m. -Nausea and pain medications as needed MAINTENANCE ISSUES -DVT prophylaxis; Lovenox 40 mg subcu daily -GI prophylaxis; Protonix as above -[place] catheter; not indicated -Nutrition; clear liquid diet, n.p.o. after midnight -Nicotine dependence; not required CODE STATUS-FULL CODE ADMISSION STATUS-this patient will be admitted to observation status, expect no more than a one night hospital stay for evaluation and management of problems as outlined above. DISPOSITION-anticipate discharge to home after the hospital stay. PRIMARY CARE PROVIDER-Mary Anne Nagy - Mortality Measure Prognosis:: Good
[2021-04-09] MEDS ORDERED: Lactated Ringers 1,000 ML IV SCH (08:45)
[2021-04-09] MEDS: Pantoprazole 40 MG Vial IVPUSH SCH ×2 (09:06→22:00)
[2021-04-09] MEDS ORDERED: Polyethylene Glycol 3350 Powder 17 GM Packet PO PRN (11:11)
[2021-04-09] MEDS ORDERED: Ondansetron 4 MG/2 ML SDV IV PRN (11:11)
[2021-04-09] MEDS ORDERED: FLUoxetine 20 MG Cap PO SCH ×2 (11:11)
[2021-04-09] MEDS ORDERED: Albuterol 8 GM Inhaler INH PRN (11:20)
[2021-04-09] MEDS: Acetaminophen/HYDROcodone 325-5 MG Tab PO PRN ×2 (11:28→19:29)
[2021-04-09] MEDS: LORazepam 0.5 MG Tab PO PRN ×3 (11:29→22:07)
[2021-04-09 12:30] LABS: CORONAVIRUS COVID-19 NAA NEGATIVE (NEGATIVE)
[2021-04-09] MEDS: Aspirin 81 MG Tab.EC PO SCH (12:39)
[2021-04-09] MEDS: busPIRone 10 MG Tab PO SCH ×2 (12:39→22:14)
[2021-04-09] MEDS: Enoxaparin 40 MG/0.4 ML Syringe SUBCUT SCH (12:39)
[2021-04-09] MEDS ORDERED: traZODone 50 MG Tab PO SCH (21:00)
[2021-04-09] MEDS: Sodium Chloride 0.9% 1,000 ML IV SCH (23:00)
[2021-04-10] MEDS ORDERED: fentaNYL 100 MCG/2 ML SDV ONE (07:07)
[2021-04-10] MEDS ORDERED: Propofol 200 MG/20 ML SDV ONE (07:07)
[2021-04-10] MEDS ORDERED: Midazolam 1 MG/ML 2 ML SDV ONE (07:07)
[2021-04-10] MEDS: Sodium Chloride 0.9% 1,000 ML IV SCH (07:51)
[2021-04-10] MEDS ORDERED: BUSPIRONE 10 MG PO SCH (09:00)
[2021-04-10] MEDS: Acetaminophen/HYDROcodone 325-5 MG Tab PO PRN ×3 (09:38→22:36)
[2021-04-10] MEDS: LORazepam 0.5 MG Tab PO PRN ×2 (09:38→18:14)
[2021-04-10] MEDS: BUSPIRONE 10 MG PO SCH ×3 (09:41→22:37)
[2021-04-10] MEDS: Aspirin 81 MG Tab.EC PO SCH (09:42)
[2021-04-10] MEDS: Enoxaparin 40 MG/0.4 ML Syringe SUBCUT SCH (09:42)
[2021-04-10] MEDS: Pantoprazole 40 MG Vial IVPUSH SCH (09:42)
[2021-04-10] MEDS: FLUOXETINE 40MG **PTOM PO SCH (09:43)
--- NOTE | 2021-04-10 09:53 | PCM.PN ---
- General Info Date of Service: 04/10/21 Subjective Update: Ms. Mcbride has been stable since admission yesterday morning. Vital signs have been good and she has remained afebrile. Abdominal pain and nausea significantl y improved. EGD was performed this morning by Dr. Mccallum and showed evidence of a small area of ulceration, no active bleeding. Functional Status: Reports: Ambulating, Urinating - Review of Systems General: Reports: Weakness, Fatigue. Denies: Fever, Chills Pulmonary: Reports: No Symptoms Cardiovascular: Reports: No Symptoms Gastrointestinal: Reports: Abdominal Pain, Nausea. Denies: Difficulty Swallowing, Hematochezia, Melena, Vomiting Genitourinary: Reports: No Symptoms - Patient Data Vitals - Most Recent: Last Vital Signs Temp 98.0 F 04/10/21 09:38 Pulse 61 04/10/21 09:38 Resp 16 04/10/21 09:38 BP 116/76 04/10/21 09:38 Pulse Ox 100 04/10/21 09:38 Weight - Most Recent: 117 lb I&O - Last 24 Hours: Intake & Output 04/09/21 04/10/21 04/10/21 22:59 06:59 14:59 Intake Total 1836 75 Balance 1836 75 Lab Results Last 24 Hours: Laboratory Results - last 24 hr 04/09/21 04/10/21 04/10/21 Range/Units 11:53 04:10 04:10 WBC 3.8 L (4.5-11.0) K/uL RBC 2.85 L (3.30-5.50) M/uL Hgb 10.1 L (12.0-15.0) g/dL Hct 30.1 L (36.0-48.0) % MCV 106 H (80-98) fL MCH 35 H (27-31) pg MCHC 34 (32-36) % Plt Count 290 (150-400) K/uL Neut % (Auto) 37.7 (36-66) % Lymph % (Auto) 42.3 (24-44) % [place] % (Auto) 11.3 H (2-6) % Eos % (Auto) 8.4 H (2-4) % Baso % (Auto) 0.3 (0-1) % Sodium (140-148) mmol/L Potassium (3.6-5.2) mmol/L Chloride (100-108) mmol/L Carbon Dioxide (21-32) mmol/L Anion Gap (5.0-14.0) mmol/L BUN (7-18) mg/dL Creatinine (0.6-1.0) mg/dL Est Cr Clr Drug Dosing mL/min Estimated GFR (MDRD) (>60) Glucose (74-106) mg/dL Calcium (8.5-10.1) mg/dL Magnesium (1.8-2.4) mg/dL Lipase 222 (73-393) U/L Influenza Type A RNA Negative (NEGATIVE) RSV RNA (INAAT) Negative (NEGATIVE) Influenza Type B RNA Negative (NEGATIVE) SARS-CoV-2 RNA (NORMA) Negative (NEGATIVE) 04/10/21 Range/Units 04:10 WBC (4.5-11.0) K/uL RBC (3.30-5.50) M/uL Hgb (12.0-15.0) g/dL Hct (36.0-48.0) % MCV (80-98) fL MCH (27-31) pg MCHC (32-36) % Plt Count (150-400) K/uL Neut % (Auto) (36-66) % Lymph % (Auto) (24-44) % [place] % (Auto) (2-6) % Eos % (Auto) (2-4) % Baso % (Auto) (0-1) % Sodium 143 (140-148) mmol/L Potassium 4.4 (3.6-5.2) mmol/L Chloride 112 H (100-108) mmol/L Carbon Dioxide 19 L (21-32) mmol/L Anion Gap 16.4 H (5.0-14.0) mmol/L BUN 9 (7-18) mg/dL Creatinine 0.8 (0.6-1.0) mg/dL Est Cr Clr Drug Dosing 54.82 mL/min Estimated GFR (MDRD) > 60 (>60) Glucose 81 (74-106) mg/dL Calcium 8.0 L (8.5-10.1) mg/dL Magnesium 2.1 (1.8-2.4) mg/dL Lipase (73-393) U/L Influenza Type A RNA (NEGATIVE) RSV RNA (INAAT) (NEGATIVE) Influenza Type B RNA (NEGATIVE) SARS-CoV-2 RNA (NORMA) (NEGATIVE) Med Orders - Current: Current Medications Acetaminophen (Acetaminophen 325 Mg Tab) 650 mg PO Q4H PRN PRN Reason: Pain (Mild 1-3)/fever Hydrocodone Bitart/Acetaminophen (Acetaminophen/Hydrocodone 325-5 Mg Tab) 1 tab PO Q6H PRN PRN Reason: Pain (moderate 4-6) Albuterol (Albuterol 8 Gm Inhaler) 0 gm INH Q4H PRN PRN Reason: Shortness of Breath Aspirin (Aspirin 81 Mg Tab.Ec) 81 mg PO DAILY [facility] Last Admin: 04/10/21 09:42 Dose: 81 mg Documented by: Buspirone HCl (Buspirone 10 Mg Ptom) 20 mg PO TID [facility] Last Admin: 04/10/21 09:41 Dose: 20 mg Documented by: Enoxaparin Sodium (Enoxaparin 40 Mg/0.4 Ml Syringe) 40 mg SUBCUT DAILY [facility] Last Admin: 04/10/21 09:42 Dose: 40 mg Documented by: Lorazepam (Lorazepam 0.5 Mg Tab) 0.5 mg PO Q8H PRN PRN Reason: Anxiety Ondansetron HCl (Ondansetron 4 Mg/2 Ml Sdv) 4 mg IV Q4H PRN PRN Reason: Nausea/Vomiting Pantoprazole Sodium (Pantoprazole 40 Mg Tab.Cr) 40 mg PO BIDAC [facility] Fluoxetine 40mg (Ptom) 0 each PO DAILY [facility] Last Admin: 04/10/21 09:43 Dose: 1 each Documented by: Polyethylene Glycol (Polyethylene Glycol 3350 Powder 17 Gm Packet) 17 gm PO DAILY PRN PRN Reason: Constipation Sodium Chloride (Sodium Chloride 0.9% 10 Ml Syringe) 10 ml FLUSH ASDIRECTED PRN PRN Reason: Keep Vein Open Trazodone HCl (Trazodone 50 Mg TabPt Own Med) 100 mg PO BEDTIME [facility] Discontinued Medications Hydrocodone Bitart/Acetaminophen (Acetaminophen/Hydrocodone 325-5 Mg Tab) 1 tab PO Q4H PRN PRN Reason: Pain (moderate 4-6) Last Admin: 04/10/21 09:38 Dose: 1 tab Documented by: Buspirone HCl (Buspirone 10 Mg Tab) 10 mg PO BID [facility] Last Admin: 04/09/21 22:14 Dose: 10 mg Documented by: Buspirone HCl (Buspirone 10 Mg Pt Own Med) 10 mg PO BID [facility] Last Admin: 04/10/21 09:41 Dose: Not Given Documented by: Fentanyl (Fentanyl 100 Mcg/2 Ml Sdv) Confirm Administered Dose 100 mcg .ROUTE .STK-MED ONE Stop: 04/10/21 07:08 Fluoxetine HCl (Fluoxetine 20 Mg Cap) 80 mg PO DAILY [facility] Last Admin: 04/09/21 12:39 Dose: 80 mg Documented by: Hydroxyzine HCl (Hydroxyzine Hcl 100 Mg/2 Ml Sdv) 25 mg IM ONETIME ONE Stop: 04/09/21 06:18 Last Admin: 04/09/21 06:29 Dose: 25 mg Documented by: Sodium Chloride (Normal Saline) 74 mls @ 3 mls/sec IV ASDIRECTED [facility] Last Admin: 04/09/21 07:19 Dose: 3 mls/sec Documented by: Lactated Ringer's (Ringers, Lactated) 1,000 mls @ 500 mls/hr IV ASDIRECTED [facility] Last Admin: 04/09/21 09:06 Dose: 500 mls/hr Documented by: Sodium Chloride (Normal Saline) 1,000 mls @ 125 mls/hr IV ASDIRECTED [facility] Last Admin: 04/10/21 07:51 Dose: 125 mls/hr Documented by: Iopamidol (Iopamidol 612 Mg/Ml 100 Ml Bottle) 100 ml IV . DIRECTED ONE Stop: 04/09/21 07:03 Last Admin: 04/09/21 07:19 Dose: 80 ml Documented by: Lorazepam (Lorazepam 2 Mg/Ml Sdv) 0.5 mg IVPUSH ONETIME ONE Stop: 04/09/21 07:36 Last Admin: 04/09/21 07:45 Dose: 0.5 mg Documented by: Lorazepam (Lorazepam 0.5 Mg Tab) 0.5 mg PO Q4H PRN PRN Reason: Anxiety Last Admin: 04/10/21 09:38 Dose: 0.5 mg Documented by: Midazolam HCl (Midazolam 1 Mg/Ml 2 Ml Sdv) Confirm Administered Dose 2 mg .ROUTE .STK-MED ONE Stop: 04/10/21 07:08 Ondansetron HCl (Ondansetron 4 Mg/2 Ml Sdv) 4 mg IVPUSH ONETIME ONE Stop: 04/09/21 06:12 Last Admin: 04/09/21 06:27 Dose: 4 mg Documented by: Pantoprazole Sodium (Pantoprazole 40 Mg Vial) 40 mg IVPUSH Q12H [facility] Last Admin: 04/10/21 09:42 Dose: 40 mg Documented by: Propofol (Propofol 200 Mg/20 Ml Sdv) Confirm Administered Dose 200 mg .ROUTE .STK-MED ONE Stop: 04/10/21 07:08 Sodium Chloride (Sodium Chloride 0.9% 10 Ml Syringe) 10 ml FLUSH ASDIRECTED PRN PRN Reason: Keep Vein Open Last Admin: 04/09/21 06:30 Dose: 10 ml Documented by: Trazodone HCl (Trazodone 50 Mg Tab) 100 mg PO BEDTIME [facility] Last Admin: 04/09/21 22:14 Dose: 100 mg Documented by: - Exam General: Alert, Oriented, Cooperative, Mild Distress Lungs: Clear to Auscultation, Normal Respiratory Effort Cardiovascular: Regular Rate, Regular Rhythm, No Murmurs GI/Abdominal Exam: Soft, No Organomegaly, Tender. No: Distended, Guarding, Rigid, Rebound Extremities: Non-Tender, No Pedal Edema - Patient Data Lab Results Last 24 hrs: Laboratory Results - last 24 hr 04/09/21 04/10/21 04/10/21 Range/Units 11:53 04:10 04:10 WBC 3.8 L (4.5-11.0) K/uL RBC 2.85 L (3.30-5.50) M/uL Hgb 10.1 L (12.0-15.0) g/dL Hct 30.1 L (36.0-48.0) % MCV 106 H (80-98) fL MCH 35 H (27-31) pg MCHC 34 (32-36) % Plt Count 290 (150-400) K/uL Neut % (Auto) 37.7 (36-66) % Lymph % (Auto) 42.3 (24-44) % [place] % (Auto) 11.3 H (2-6) % Eos % (Auto) 8.4 H (2-4) % Baso % (Auto) 0.3 (0-1) % Sodium (140-148) mmol/L Potassium (3.6-5.2) mmol/L Chloride (100-108) mmol/L Carbon Dioxide (21-32) mmol/L Anion Gap (5.0-14.0) mmol/L BUN (7-18) mg/dL Creatinine (0.6-1.0) mg/dL Est Cr Clr Drug Dosing mL/min Estimated GFR (MDRD) (>60) Glucose (74-106) mg/dL Calcium (8.5-10.1) mg/dL Magnesium (1.8-2.4) mg/dL Lipase 222 (73-393) U/L Influenza Type A RNA Negative (NEGATIVE) RSV RNA (INAAT) Negative (NEGATIVE) Influenza Type B RNA Negative (NEGATIVE) SARS-CoV-2 RNA ([facility]) Negative (NEGATIVE) 04/10/21 Range/Units 04:10 WBC (4.5-11.0) K/uL RBC (3.30-5.50) M/uL Hgb (12.0-15.0) g/dL Hct (36.0-48.0) % MCV (80-98) fL MCH (27-31) pg MCHC (32-36) % Plt Count (150-400) K/uL Neut % (Auto) (36-66) % Lymph % (Auto) (24-44) % [place] % (Auto) (2-6) % Eos % (Auto) (2-4) % Baso % (Auto) (0-1) % Sodium 143 (140-148) mmol/L Potassium 4.4 (3.6-5.2) mmol/L Chloride 112 H (100-108) mmol/L Carbon Dioxide 19 L (21-32) mmol/L Anion Gap 16.4 H (5.0-14.0) mmol/L BUN 9 (7-18) mg/dL Creatinine 0.8 (0.6-1.0) mg/dL Est Cr Clr Drug Dosing 54.82 mL/min Estimated GFR (MDRD) > 60 (>60) Glucose 81 (74-106) mg/dL Calcium 8.0 L (8.5-10.1) mg/dL Magnesium 2.1 (1.8-2.4) mg/dL Lipase (73-393) U/L Influenza Type A RNA (NEGATIVE) RSV RNA (INAAT) (NEGATIVE) Influenza Type B RNA (NEGATIVE) SARS-CoV-2 RNA ([facility]MA) (NEGATIVE) Result Diagrams: 04/10/21 04:10 04/10/21 04:10 Sepsis Event Note - Evaluation Sepsis Screening Result: No Definite Risk - Focused Exam Vital Signs: Vital Signs Temp Temp Pulse Resp BP Pulse Ox 04/10/21 09:38 98.0 F 61 16 116/76 100 04/10/21 09:18 97.9 F 63 16 110/69 94 L 04/10/21 09:05 97.5 F 66 16 92/55 L 98 04/10/21 09:00 66 16 96/55 L 99 04/10/21 08:55 62 16 100/49 L 99 04/10/21 08:50 60 16 96/47 L 99 04/10/21 08:45 96.8 F L 96.8 F L 61 16 95/47 L 99 04/10/21 03:50 97.3 F 69 16 112/75 96 04/10/21 00:00 98.5 F 70 16 105/55 L 97 - Problem List Review Problem List Initiated/Reviewed/Updated: Yes - My Orders Last 24 Hours: My Active Orders 04/09/21 11:11 Acetaminophen [TylenoL] 650 mg PO Q4H PRN Aspirin [Halfprin] 81 mg PO DAILY Enoxaparin [Lovenox] 40 mg SUBCUT DAILY Ondansetron [Zofran] 4 mg IV Q4H PRN Sodium Chloride 0.9% [Saline Flush] 10 ml FLUSH ASDIRECTED PRN polyethylene glycoL 3350 [MiraLAX] 17 gm PO DAILY PRN 04/09/21 11:11 Patient Status [ADT] Routine Ambulate [RC] QID Height and Weight [RC] DAILY Intake and Output [RC] QSHIFT Notify Provider Consults [RC] ASDIRECTED Notify Provider Vital Signs [RC] ASDIRECTED Oxygen Therapy [RC] PRN Peripheral IV Care [RC] . DIRECTED Up With Assistance [RC] ASDIRECTED Up to Chair [RC] QID VTE/DVT Education [RC] Per Unit Routine Consult to Physician [CONS] Routine Peripheral IV Insertion Adult [OM.PC] Routine 04/09/21 11:20 Albuterol [Ventolin HFA] 0 gm INH Q4H PRN 04/10/21 Breakfast Nothing per Oral After Midnight Diet [DIET] 04/10/21 09:00 Patient's Own Medication [Ptom] 0 each PO DAILY 04/10/21 09:21 busPIRone [Buspar] 20 mg PO TID 04/10/21 09:42 Convert IV to Saline Lock [OM.PC] Routine 04/10/21 09:42 Acetaminophen/HYDROcodone [[place] 325-5 MG] 1 tab PO Q6H PRN 04/10/21 09:42 LORazepam [Ativan] 0.5 mg PO Q8H PRN 04/10/21 16:30 Pantoprazole [ProTONIX] 40 mg PO BIDAC 04/10/21 21:00 traZODone 100 mg PO BEDTIME - Plan Plan:: ASSESSMENT AND PLAN GASTRIC ULCER SECONDARY TO RETAINED SUTURE-she is felt significantly improved with current management, ulcer noted at the time of EGD today. -Gastric bypass diet -Protonix 40 mg po bid -Saline lock IV -Surgical follow-up per Dr. Mccallum -Nausea and pain medications as needed MAINTENANCE ISSUES -DVT prophylaxis; Lovenox 40 mg subcu daily -GI prophylaxis; Protonix as above -[place] catheter; not indicated -Nutrition; clear liquid diet, n.p.o. after midnight -Nicotine dependence; not required CODE STATUS-FULL CODE ADMISSION STATUS-this patient will be admitted to observation status, expect no more than a one night hospital stay for evaluation and management of problems as outlined above. DISPOSITION-anticipate discharge to home after the hospital stay. PRIMARY CARE PROVIDER-Mary Anne Nagy
[2021-04-10] MEDS: Acetaminophen 325 MG Tab PO PRN (14:12)
[2021-04-10] MEDS: Pantoprazole 40 MG Tab.CR PO SCH (16:29)
[2021-04-10] MEDS ORDERED: TRAZODONE 50 MG PO SCH (21:00)
[2021-04-11] MEDS: LORazepam 0.5 MG Tab PO PRN (02:43)
[2021-04-11] MEDS: Acetaminophen/HYDROcodone 325-5 MG Tab PO PRN (05:48)
[2021-04-11 07:12] VITALS: BP 126/73; PULSE 71
[2021-04-11] MEDS: Pantoprazole 40 MG Tab.CR PO SCH (07:16)
[2021-04-11] MEDS: Acetaminophen 325 MG Tab PO PRN (07:16)
[2021-04-11] MEDS: Aspirin 81 MG Tab.EC PO SCH (08:37)
[2021-04-11] MEDS: BUSPIRONE 10 MG PO SCH (08:38)
[2021-04-11] MEDS: FLUOXETINE 40MG **PTOM PO SCH (08:38)
[2021-04-11] MEDS: Enoxaparin 40 MG/0.4 ML Syringe SUBCUT SCH (08:39)
--- NOTE | 2021-04-11 11:05 | PCM.DCSUM1 ---
Discharge Summary - Hospital Course Brief History: 71-year-old female with history of gastric bypass surgery and generalized anxiety disorder who presented with abdominal pain. She was admitted for observation with symptom management and expedited work-up. Diagnosis: Stroke: No - Discharge Data Discharge Date: 04/11/21 Discharge Disposition: Home, Self-Care 01 Condition: Good - Referral to Home Health Primary Care Physician: PINEDA Hallman - Discharge Diagnosis/Problem(s) (1) Gastric ulcer SNOMED Code(s): 422645648 ICD Code: K25.9 - GASTRIC ULCER, UNSP ACUTE OR CHRONIC, W/O HEMOR OR PERF Status: Acute Qualifiers: Gastric ulcer chronicity: acute Gastric ulcer complication status: without hemorrhage or perforation Qualified Code(s): K25.3 - Acute gastric ulcer without hemorrhage or perforation (2) Abdominal pain SNOMED Code(s): 26519846 ICD Code: R10.9 - UNSPECIFIED ABDOMINAL PAIN Status: Acute Qualifiers: Abdominal location: epigastric Qualified Code(s): R10.13 - Epigastric pain (3) Bariatric surgery status SNOMED Code(s): 846972854, 432793518, 889949408 ICD Code: Z98.84 - BARIATRIC SURGERY STATUS Status: Chronic Priority: Low (4) Generalized anxiety disorder SNOMED Code(s): 62300193 ICD Code: F41.1 - GENERALIZED ANXIETY DISORDER Status: Chronic - Patient Summary/Data Consults: Consultations 04/09/21 11:11 Consult to Physician [CONS] Routine Consulting Provider: Gene Mccallum Courtesy Call Completed to Consulting Physician: Yes Reason for Consult: EGD in a.m. Hospital Course: Fernanda presented to the emergency room with 3 days of abdominal pain and nausea. Work-up in the emergency room revealed reassuring laboratory studies. A CT scan suggested some mild inflammation around the pancreas. She was admitted for symptomatic management and expedited work-up. Repeat lipase testing after admission and continued to be in the normal range. Dr. Mccallum was consulted and he did perform an EGD the morning after admission. This revealed a small area of ulceration in her stomach with an underlying suture that appeared to be eroding through from her previous gastric surgeries. The suture was removed. She has done well since then with the use of a twice daily proton pump inhibitor. We have been able to advance her diet. Her appetite has improved and her pain has improved but not quite resolved. She is doing much better on the morning of discharge. She has minimal pain at this time. She has not had any nausea and has tolerated her diet. She feels well enough to go home at this time. The plan is for her to stay on her proton pump inhibitor for 3 months. She has follow-up scheduled in 2 days time. - Patient Instructions Diet: Regular Diet as Tolerated (soft, bland and boring foods x1 week ) Activity: As Tolerated Driving: Do Not Drive (if taking pain pills ) Notify Provider of: Fever, Increased Pain Other/Special Instructions: 1. You were in the hospital for evaluation and management of abdominal pain that we suspect was caused by an ulcer in your stomach. The ulcer resulted from an old suture that had eroded through the stomach lining. The suture has been removed. I do recommend that you take pantoprazole to help the ulcerated area heal up. Please take 40 mg by mouth in the morning and evening for 30 days and then once daily in the morning for 2 months. You should eat a soft, bland diet for the next week or so and then you may resume your usual diet. 2. Follow up with Ruth Santillan as scheduled this week. - Discharge Plan *PRESCRIPTION DRUG MONITORING PROGRAM REVIEWED*: Not Applicable *COPY OF PRESCRIPTION DRUG MONITORING REPORT IN PATIENT JUSTYNA: Not Applicable Prescriptions/Med Rec: LORazepam [Ativan] 0.5 mg PO Q8H PRN #5 tablet PRN Reason: Anxiety Hydrocodone/Acetaminophen [Hydrocodon-Acetaminophen 5-325] 1 each PO Q6H PRN #5 tablet PRN Reason: Abdominal Pain Pantoprazole [ProTONIX] 40 mg PO BIDAC #60 tab.cr Home Medications: Home Meds Aspirin [Halfprin] 81 mg PO DAILY 09/01/13 [History] Calcium Carbonate/Vitamin D3 [Calcarb 600 with Vit D] 1 tab PO BID 09/01/13 [History] Multivitamin [Multi-Vitamin Daily] 1 tab PO DAILY 09/01/13 [History] Vit B Cmplx 3/Fa/Vit C/Biotin [Christa-Dion Rx Tablet] 1 tab PO DAILY 09/01/13 [History] traZODone HCl [Trazodone HCl] 100 mg PO BEDTIME 09/01/13 [History] Albuterol Sulfate [Proair Respiclick] 2 puff IH Q4HR PRN 09/27/18 [History] Cyanocobalamin (Vitamin B12) [Vitamin B12] 1,000 mcg PO DAILY 09/27/18 [History] Iron,Carbonyl/Ascorbic Acid [Iron 100-Vitamin C Tablet] 1 tab PO BID 09/27/18 [History] Acetaminophen [Tylenol] 325 mg PO Q4H PRN tablet 12/26/18 [Rx] Cholecalciferol (Vitamin D3) [Vitamin D3] 2 tab PO BID 06/02/20 [History] FLUoxetine HCl [Fluoxetine HCl] 2 tab PO DAILY 06/02/20 [History] Naltrexone 50 mg PO ASDIRECTED PRN 06/02/20 [History] Naltrexone Microspheres [Vivitrol] 380 mg IM Q28D 06/02/20 [History] Omeprazole 1 tab PO DAILY 06/02/20 [History] busPIRone [Buspar] 2 tab PO TID 06/02/20 [History] hydrOXYzine HCL [hydrOXYzine] 1 tab PO Q6H PRN 06/02/20 [History] Hydrocodone/Acetaminophen [Hydrocodon-Acetaminophen 5-325] 1 each PO Q6H PRN #5 tablet 04/11/21 [Rx] LORazepam [Ativan] 0.5 mg PO Q8H PRN #5 tablet 04/11/21 [Rx] Pantoprazole [ProTONIX] 40 mg PO BIDAC #60 tab.cr 04/11/21 [Rx] Oxygen Therapy Mode: Room Air Patient Handouts: Peptic Ulcer, Pantoprazole tablets Referrals: Karen Nagy PA [Primary Care Provider] - (f/u as needed if symptoms do not continue to get better ) - Discharge Summary/Plan Comment DC Time >30 min.: No - Patient Data Vitals - Most Recent: Last Vital Signs Temp 36.6 C 04/11/21 07:12 Pulse 71 04/11/21 07:12 Resp 16 04/11/21 07:12 BP 126/73 04/11/21 07:12 Pulse Ox 96 04/11/21 07:12 Weight - Most Recent: 56.155 kg I&O - Last 24 hours: Intake & Output 04/10/21 04/11/21 04/11/21 22:59 06:59 14:59 Intake Total 3629 300 780 Balance 3624 300 780 Med Orders - Current: Current Medications Acetaminophen (Acetaminophen 325 Mg Tab) 650 mg PO Q4H PRN PRN Reason: Pain (Mild 1-3)/fever Last Admin: 04/11/21 07:16 Dose: 650 mg Documented by: Hydrocodone Bitart/Acetaminophen (Acetaminophen/Hydrocodone 325-5 Mg Tab) 1 tab PO Q6H PRN PRN Reason: Pain (moderate 4-6) Last Admin: 04/11/21 05:48 Dose: 1 tab Documented by: Albuterol (Albuterol 8 Gm Inhaler) 0 gm INH Q4H PRN PRN Reason: Shortness of Breath Aspirin (Aspirin 81 Mg Tab.Ec) 81 mg PO DAILY [facility] Last Admin: 04/11/21 08:37 Dose: 81 mg Documented by: Buspirone HCl (Buspirone 10 Mg Ptom) 20 mg PO TID [facility] Last Admin: 04/11/21 08:38 Dose: 20 mg Documented by: Enoxaparin Sodium (Enoxaparin 40 Mg/0.4 Ml Syringe) 40 mg SUBCUT DAILY [facility] Last Admin: 04/11/21 08:39 Dose: Not Given Documented by: Lorazepam (Lorazepam 0.5 Mg Tab) 0.5 mg PO Q8H PRN PRN Reason: Anxiety Last Admin: 04/11/21 02:43 Dose: 0.5 mg Documented by: Ondansetron HCl (Ondansetron 4 Mg/2 Ml Sdv) 4 mg IV Q4H PRN PRN Reason: Nausea/Vomiting Pantoprazole Sodium (Pantoprazole 40 Mg Tab.Cr) 40 mg PO BIDAC [facility] Last Admin: 04/11/21 07:16 Dose: 40 mg Documented by: Fluoxetine 40mg (Ptom) 0 each PO DAILY [facility] Last Admin: 04/11/21 08:38 Dose: 1 each Documented by: Polyethylene Glycol (Polyethylene Glycol 3350 Powder 17 Gm Packet) 17 gm PO DAILY PRN PRN Reason: Constipation Sodium Chloride (Sodium Chloride 0.9% 10 Ml Syringe) 10 ml FLUSH ASDIRECTED PRN PRN Reason: Keep Vein Open Trazodone HCl (Trazodone 50 Mg TabPt Own Med) 100 mg PO BEDTIME [facility] Last Admin: 04/10/21 22:37 Dose: 100 mg Documented by: Discontinued Medications Hydrocodone Bitart/Acetaminophen (Acetaminophen/Hydrocodone 325-5 Mg Tab) 1 tab PO Q4H PRN PRN Reason: Pain (moderate 4-6) Last Admin: 04/10/21 09:38 Dose: 1 tab Documented by: Buspirone HCl (Buspirone 10 Mg Tab) 10 mg PO BID [facility] Last Admin: 04/09/21 22:14 Dose: 10 mg Documented by: Buspirone HCl (Buspirone 10 Mg Pt Own Med) 10 mg PO BID [facility] Last Admin: 04/10/21 09:41 Dose: Not Given Documented by: Fentanyl (Fentanyl 100 Mcg/2 Ml Sdv) Confirm Administered Dose 100 mcg .ROUTE .STK-MED ONE Stop: 04/10/21 07:08 Fluoxetine HCl (Fluoxetine 20 Mg Cap) 80 mg PO DAILY [facility] Last Admin: 04/09/21 12:39 Dose: 80 mg Documented by: Hydroxyzine HCl (Hydroxyzine Hcl 100 Mg/2 Ml Sdv) 25 mg IM ONETIME ONE Stop: 04/09/21 06:18 Last Admin: 04/09/21 06:29 Dose: 25 mg Documented by: Sodium Chloride (Normal Saline) 74 mls @ 3 mls/sec IV ASDIRECTED [facility] Last Admin: 04/09/21 07:19 Dose: 3 mls/sec Documented by: Lactated Ringer's (Ringers, Lactated) 1,000 mls @ 500 mls/hr IV ASDIRECTED [facility] Last Admin: 04/09/21 09:06 Dose: 500 mls/hr Documented by: Sodium Chloride (Normal Saline) 1,000 mls @ 125 mls/hr IV ASDIRECTED [facility] Last Admin: 04/10/21 07:51 Dose: 125 mls/hr Documented by: Iopamidol (Iopamidol 612 Mg/Ml 100 Ml Bottle) 100 ml IV . DIRECTED ONE Stop: 04/09/21 07:03 Last Admin: 04/09/21 07:19 Dose: 80 ml Documented by: Lorazepam (Lorazepam 2 Mg/Ml Sdv) 0.5 mg IVPUSH ONETIME ONE Stop: 04/09/21 07:36 Last Admin: 04/09/21 07:45 Dose: 0.5 mg Documented by: Lorazepam (Lorazepam 0.5 Mg Tab) 0.5 mg PO Q4H PRN PRN Reason: Anxiety Last Admin: 04/10/21 09:38 Dose: 0.5 mg Documented by: Midazolam HCl (Midazolam 1 Mg/Ml 2 Ml Sdv) Confirm Administered Dose 2 mg .ROUTE .STK-MED ONE Stop: 04/10/21 07:08 Ondansetron HCl (Ondansetron 4 Mg/2 Ml Sdv) 4 mg IVPUSH ONETIME ONE Stop: 04/09/21 06:12 Last Admin: 04/09/21 06:27 Dose: 4 mg Documented by: Pantoprazole Sodium (Pantoprazole 40 Mg Vial) 40 mg IVPUSH Q12H [facility] Last Admin: 04/10/21 09:42 Dose: 40 mg Documented by: Propofol (Propofol 200 Mg/20 Ml Sdv) Confirm Administered Dose 200 mg .ROUTE .STK-MED ONE Stop: 04/10/21 07:08 Sodium Chloride (Sodium Chloride 0.9% 10 Ml Syringe) 10 ml FLUSH ASDIRECTED PRN PRN Reason: Keep Vein Open Last Admin: 04/09/21 06:30 Dose: 10 ml Documented by: Trazodone HCl (Trazodone 50 Mg Tab) 100 mg PO BEDTIME [facility] Last Admin: 04/09/21 22:14 Dose: 100 mg Documented by:
--- NOTE | 2021-04-12 12:56 | OR ---
DATE OF PROCEDURE: 04/10/2021 SURGEON: Gene Mccallum MD PREOPERATIVE DIAGNOSIS: Epigastric pain. POSTOPERATIVE DIAGNOSIS: Epigastric pain associated with a small ulcer at gastrojejunostomy associated with eroded suture. PROCEDURE PERFORMED: Upper gastrointestinal endoscopy with removal of foreign body (eroded suture) (17932). ANESTHESIA: IV sedation. INDICATIONS FOR PROCEDURE: This is a 71-year-old presenting with some epigastric discomfort. She was admitted overnight. There is some possibility of limited pancreatitis in the uncinate process per CT scan. Otherwise, the patient is to undergo an upper GI endoscopy with biopsies as indicated. Potential risks including bleeding and perforation were discussed, and the patient wishes to proceed. DETAILS OF PROCEDURE: The patient was taken to the operating room and placed in a left lateral decubitus position. IV sedation was administered after which the upper GI endoscope was passed orally through the length of the esophagus into the gastric pouch, and from there, through the gastrojejunostomy roughly 20 cm into the Donald limb. The findings included a very tiny ulcer where a suture had eroded at the gastrojejunostomy. The suture was cut, and this was removed. At that point, no further problems were noted. Otherwise, the patient had no significant ongoing inflammation within the pouch or in the general vicinity of the gastrojejunostomy. After removal of the suture, the patient was taken to the recovery room in satisfactory condition. There were no evident complications. Gene Mccallum MD /[id number]
== END 2021-04-11 12:00 | disposition home or self-care (01) ==
LOC: JP.ED 05:45 → JP.MS 08:30
PROVIDERS: ADMIT Hospitalist; ATTEND Internal Medicine
DX: K91.89 Other postprocedural complications and disorders of digestive system (principal); T85.692A Other mechanical complication of permanent sutures, initial encounter; K25.9 Gastric ulcer, unspecified as acute or chronic, without hemorrhage or perforation; F17.200 Nicotine dependence, unspecified, uncomplicated; Z98.84 Bariatric surgery status; Z79.82 Long term (current) use of aspirin; Z79.899 Other long term (current) drug therapy; Z88.5 Allergy status to narcotic agent; Z01.812 Encounter for preprocedural laboratory examination; Z20.822 Contact with and (suspected) exposure to COVID-19
CPT/HCPCS: 0241U; 36415; 43237; 74177; 80048; 80053; 81001; 83690; 83735; 85025; 86140; 96372; 96374; 96375; 99217; 99219; 99225; 99284; 99285; A9270; C9113; J1650; J2060; J2250; J2405; J2704; J3010; J3410; J7030; J7120; Q9967

== ENCOUNTER 2021-04-21 07:31 | Emergency (ER) | payer MEDICARE ==
[2021-04-21 07:48] VITALS: BP 94/60; PULSE 97
[2021-04-21] MEDS ORDERED: Alum Hydrox/Mag Hydrox/Simeth 15 ML, Lidocaine 2% 15 ML PO ONE ×2 (08:07)
--- NOTE | 2021-04-21 08:17 | EDM.PDOC ---
ED HPI GENERAL MEDICAL PROBLEM - General Chief Complaint: Abdominal Pain Stated Complaint: stomach pain weak Time Seen by Provider: 04/21/21 07:55 Source of Information: Reports: Patient, Family History Limitations: Reports: No Limitations - History of Present Illness INITIAL COMMENTS - FREE TEXT/NARRATIVE: 71-year-old female with chronic anxiety, chronic recurring abdominal pain, status post gastric bypass years ago who was hospitalized 10 days ago with abdominal pain. There was slight changes on the CT scan indicating possible pancreatitis and she also had an EGD that showed a small ulceration with a penetrating old suture. This was removed, she did well post procedure and was discharged with 5 hydrocodone and 5 Ativan. She had a recheck in the clinic yesterday and was "doing fine" but last night started developing pain again, this morning she has upper abdominal pain and is very anxious and shaky and feels miserable. No nausea or vomiting. No fevers or chills. Duration: Hour(s): (Symptoms for about 10 hours) Location: Reports: Abdomen (Especially upper abdomen) Improves with: Reports: None Worsens with: Reports: None Associated Symptoms: Reports: Other (Significant anxiety). Denies: Chest Pain, Diaphoresis, Fever/Chills, Headaches, Nausea/Vomiting, Shortness of Breath Abdominal Pain Score (Numeric/FACES): 10 - Related Data Allergies Allergy/AdvReac Type Severity Reaction Status Date / Time morphine Allergy Edema Verified 04/21/21 07:46 Home Meds: Home Meds Aspirin [Halfprin] 81 mg PO DAILY 09/01/13 [History] Calcium Carbonate/Vitamin D3 [Calcarb 600 with Vit D] 1 tab PO BID 09/01/13 [History] Multivitamin [Multi-Vitamin Daily] 1 tab PO DAILY 09/01/13 [History] Vit B Cmplx 3/Fa/Vit C/Biotin [Christa-Dion Rx Tablet] 1 tab PO DAILY 09/01/13 [History] traZODone HCl [Trazodone HCl] 100 mg PO BEDTIME 09/01/13 [History] Albuterol Sulfate [Proair Respiclick] 2 puff IH Q4HR PRN 09/27/18 [History] Cyanocobalamin (Vitamin B12) [Vitamin B12] 1,000 mcg PO DAILY 09/27/18 [History] Iron,Carbonyl/Ascorbic Acid [Iron 100-Vitamin C Tablet] 1 tab PO BID 09/27/18 [History] Acetaminophen [Tylenol] 325 mg PO Q4H PRN tablet 12/26/18 [Rx] Cholecalciferol (Vitamin D3) [Vitamin D3] 2 tab PO BID 06/02/20 [History] FLUoxetine HCl [Fluoxetine HCl] 2 tab PO DAILY 06/02/20 [History] Naltrexone 50 mg PO ASDIRECTED PRN 06/02/20 [History] Naltrexone Microspheres [Vivitrol] 380 mg IM Q28D 06/02/20 [History] busPIRone [Buspar] 2 tab PO TID 06/02/20 [History] hydrOXYzine HCL [hydrOXYzine] 1 tab PO Q6H PRN 06/02/20 [History] LORazepam [Ativan] 0.5 mg PO Q8H PRN #5 tablet 04/11/21 [Rx] Pantoprazole [ProTONIX] 40 mg PO BIDAC #60 tab.cr 04/11/21 [Rx] Past Medical History HEENT History: Reports: Impaired Vision Other HEENT History: wears glasses Gastrointestinal History: Reports: GERD, PUD Genitourinary History: Reports: UTI, Recurrent 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: , Spontaneous Other SPEEDBOAT OPERATOR History: ovarian cyst removed Musculoskeletal History: Reports: Arthritis, Other (See Below) Other Musculoskeletal History: scoliosis Neurological History: Reports: Concussion, Head Trauma Psychiatric History: Reports: Addiction, Anxiety, Depression, Panic Attack, Psych Hospitalization(s), Suicidal Ideation Endocrine/Metabolic History: Reports: Vitamin D Deficiency Hematologic History: Reports: Anemia, B12 Deficiency, Blood Transfusion(s), Folic Acid, Iron Deficiency - Infectious Disease History Infectious Disease History: Reports: Chicken Pox - Past Surgical History Head Surgeries/Procedures: Reports: None HEENT Surgical History: Reports: None GI Surgical History: Reports: Appendectomy, Bariatric Procedure, Cholecystectomy, Colonoscopy, EGD, Esophageal Dilatation, Hernia Repair/Other Female Surgical History: Reports: Section, Cystectomy, Hysterectomy Endocrine Surgical History: Reports: None Neurological Surgical History: Reports: None Musculoskeletal Surgical History: Reports: Shoulder Surgery Other Musculoskeletal Surgeries/Procedures:: right rotator cuff repair Dermatological Surgical History: Reports: None Social & Family History - Family History Family Medical History: No Pertinent Family History - Tobacco Use Tobacco Use Status *Q: Never Tobacco User Second Hand Smoke Exposure: No - Caffeine Use Caffeine Use: Reports: Coffee Caffeine Use Comment: daily use - Recreational Drug Use Recreational Drug Use: No - Living Situation & Occupation Living situation: Reports: , with Spouse (lives with in [facility]. 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 had 13 children from age 48 yr to 28 yrs. 115 Grandchildren. One of her Daughters is a RN on [address] [place] [address].) Occupation: Student ED ROS GENERAL - Review of Systems Review Of Systems: See Below Constitutional: Denies: Fever, Chills Respiratory: Denies: Shortness of Breath Cardiovascular: Denies: Chest Pain GI/Abdominal: Reports: Abdominal Pain. Denies: Vomiting : Reports: No Symptoms Skin: Reports: No Symptoms Psychiatric: Reports: Anxiety ED EXAM, GI/ABD - Physical Exam Exam: See Below Exam Limited By: No Limitations General Appearance: Alert, Anxious, Other (Looks uncomfortable but not distressed) Eyes: Bilateral: Normal Appearance (Well-hydrated, no jaundice) Head: Atraumatic Respiratory/Chest: No Respiratory Distress, Lungs Clear Cardiovascular: Regular Rate, Rhythm. No: Tachycardia GI/Abdominal Exam: Soft, Tender (Reacts with tenderness to palpation of the upper abdomen but no focal guarding and no rebound tenderness) Extremities: No: Pedal Edema Neurological: Alert, Oriented Course - Vital Signs Last Recorded V/S: Last Vital Signs Temp 98.2 F 04/21/21 07:52 Pulse 97 04/21/21 07:52 Resp 16 04/21/21 07:52 BP 94/60 04/21/21 07:52 Pulse Ox 100 04/21/21 07:52 - Orders/Labs/Meds Labs: Laboratory Tests 04/21/21 04/21/21 04/21/21 Range/Units 08:22 08:22 08:22 WBC 3.7 L (4.5-11.0) K/uL RBC 3.36 (3.30-5.50) M/uL Hgb 12.0 (12.0-15.0) g/dL Hct 35.1 L (36.0-48.0) % MCV 105 H (80-98) fL MCH 36 H (27-31) pg MCHC 34 (32-36) % Plt Count 225 (150-400) K/uL Neut % (Auto) 64.4 (36-66) % Lymph % (Auto) 21.4 L (24-44) % [place] % (Auto) 10.5 H (2-6) % Eos % (Auto) 3.2 (2-4) % Baso % (Auto) 0.5 (0-1) % Sodium 138 L (140-148) mmol/L Potassium 4.3 (3.6-5.2) mmol/L Chloride 107 (100-108) mmol/L Carbon Dioxide 15 L (21-32) mmol/L Anion Gap 20.3 H (5.0-14.0) mmol/L BUN 20 H D (7-18) mg/dL Creatinine 0.9 (0.6-1.0) mg/dL Est Cr Clr Drug Dosing 47.48 mL/min Estimated GFR (MDRD) > 60 (>60) Glucose 105 (74-106) mg/dL Calcium 9.2 (8.5-10.1) mg/dL Lipase 403 H (73-393) U/L Ethyl Alcohol 5 mg/dL Meds: Medications Discontinued Medications Generic Name Dose Route Start Last Admin Trade Name Peterq PRN Reason Stop Dose Admin Al Hydroxide/Mg Hydroxide 15 0 ml 04/21/21 08:07 04/21/21 08:12 ml/ Lidocaine HCl 15 ml PO 04/21/21 08:08 15 ml ONETIME ONE Administration Lorazepam 1 mg 04/21/21 09:04 04/21/21 09:16 Lorazepam 1 Mg Tab PO 04/21/21 09:05 1 mg ONETIME ONE Administration - Re-Assessments/Exams Free Text/Narrative Re-Assessment/Exam: 04/21/21 08:17 Patient was given a GI cocktail, CBC BMP lipase and EtOH were drawn. Reviewed her hospital records from her discharge 9 days ago, she apparently was doing very well at that time. I asked her how she felt when she was discharged from the hospital when she admitted she felt "real good" so I asked her why she is out of her hydrocodone and Ativan if she did not need it. She she said she needed to take it to keep "on top of the pain so it would not come back". 04/21/21 09:27 Lipase was minimally elevated at 403, she had fairly good relief from the GI cocktail. The rest of her labs were reassuring. I had a long discussion about her treatment possibilities with medications with her primary provider and with the patient. She had 0.005 level of EtOH, but she denied any recent intake. She was given 1 mg of oral Ativan, and a prescription for 5 additional doses along with 100 cc of viscous lidocaine to use with liquid antacid and will recheck with her primary early next week. She can return if worsening despite treatment. 04/21/21 09:31 Patient looks much more comfortable at discharge, she did ask for "hydrocodone" which was denied. Departure - Departure Time of Disposition: 09:35 Disposition: Home, Self-Care 01 Clinical Impression: Gastritis Qualifiers: Gastritis type: unspecified gastritis Chronicity: unspecified Gastritis bleeding: without bleeding Qualified Code(s): K29.70 - Gastritis, unspecified, without bleeding - Discharge Information Instructions: Gastritis, Adult, [id number] Referrals: Karen Nagy PA [Primary Care Provider] - Forms: ED Department Discharge Care Plan Goals: Continue your current medications, consider taking Prilosec twice daily instead of once daily for the next several days, and avoid any spicy foods over the next several days. Recheck with Mary Anne Nagy next week. Return sooner if worsening or concerns. Mix viscous lidocaine with liquid antacid as needed every 4 hours for persistent pain. Concentrate on staying hydrated. Sepsis Event Note (ED) - Evaluation Sepsis Screening Result: No Definite Risk - Focused Exam Vital Signs: Vital Signs Temp Pulse Resp BP Pulse Ox 04/21/21 07:52 98.2 F 97 16 94/60 100 04/21/21 07:44 98.2 F 97 16 94/60 100
[2021-04-21] MEDS ORDERED: LORazepam 1 MG Tab PO ONE (09:04)
== END 2021-04-21 09:35 | disposition home or self-care (01) ==
LOC: JP.ED 07:31
DX: K29.70 Gastritis, unspecified, without bleeding (principal); K21.9 Gastro-esophageal reflux disease without esophagitis; Z79.82 Long term (current) use of aspirin; Z79.899 Other long term (current) drug therapy; Z88.6 Allergy status to analgesic agent
CPT/HCPCS: 80048; 80307; 83690; 85025; 99284; A9270; 36415

== ENCOUNTER 2021-05-04 05:46 | Observation (INO) | payer MEDICARE ==
[2021-05-04] MEDS ORDERED: Sodium Chloride 0.9% 1,000 ML IV SCH ×2 (06:45→07:15)
[2021-05-04] MEDS ORDERED: Ondansetron 4 MG/2 ML SDV IVPUSH ONE (06:45)
[2021-05-04] MEDS ORDERED: HYDROmorphone 0.5 MG/0.5 ML Syringe IVPUSH ONE (06:46)
--- NOTE | 2021-05-04 06:46 | EDM.PDOC ---
ED HPI GENERAL MEDICAL PROBLEM - General Chief Complaint: Abdominal Pain Stated Complaint: ABD PAIN Time Seen by Provider: 05/04/21 06:46 Source of Information: Reports: Patient History Limitations: Reports: No Limitations - History of Present Illness INITIAL COMMENTS - FREE TEXT/NARRATIVE: pt arrived with upper abdomanal pain. She has not been vomiting. . She did eat normally yesterday. Her weight is down some at this time. Onset: Gradual Duration: Hour(s):, Getting Worse Location: Reports: Abdomen Associated Symptoms: Reports: No Other Symptoms Middle Abdomen Pain Score (Numeric/FACES): 10 - Related Data Allergies Allergy/AdvReac Type Severity Reaction Status Date / Time morphine Allergy Edema Verified 05/04/21 06:05 Home Meds: Home Meds Aspirin [Halfprin] 81 mg PO DAILY 09/01/13 [History] Calcium Carbonate/Vitamin D3 [Calcarb 600 with Vit D] 1 tab PO BID 09/01/13 [History] Multivitamin [Multi-Vitamin Daily] 1 tab PO DAILY 09/01/13 [History] Vit B Cmplx 3/Fa/Vit C/Biotin [Christa-Dion Rx Tablet] 1 tab PO DAILY 09/01/13 [History] traZODone HCl [Trazodone HCl] 100 mg PO BEDTIME 09/01/13 [History] Albuterol Sulfate [Proair Respiclick] 2 puff IH Q4HR PRN 09/27/18 [History] Cyanocobalamin (Vitamin B12) [Vitamin B12] 1,000 mcg PO DAILY 09/27/18 [History] Iron,Carbonyl/Ascorbic Acid [Iron 100-Vitamin C Tablet] 1 tab PO BID 09/27/18 [History] Acetaminophen [Tylenol] 325 mg PO Q4H PRN tablet 12/26/18 [Rx] Cholecalciferol (Vitamin D3) [Vitamin D3] 2 tab PO BID 06/02/20 [History] FLUoxetine HCl [Fluoxetine HCl] 2 tab PO DAILY 06/02/20 [History] Naltrexone 50 mg PO ASDIRECTED PRN 06/02/20 [History] Naltrexone Microspheres [Vivitrol] 380 mg IM Q28D 06/02/20 [History] busPIRone [Buspar] 20 mg PO TID 06/02/20 [History] hydrOXYzine HCL [hydrOXYzine] 25 mg PO Q6H PRN 06/02/20 [History] Pantoprazole [ProTONIX] 40 mg PO BIDAC #60 tab.cr 04/11/21 [Rx] Past Medical History HEENT History: Reports: Impaired Vision Other HEENT History: wears glasses Gastrointestinal History: Reports: GERD, PUD Genitourinary History: Reports: UTI, Recurrent TRAUMA SURGEON History: Reports: , Spontaneous Other TRAUMA SURGEON History: ovarian cyst removed Musculoskeletal History: Reports: Arthritis, Other (See Below) Other Musculoskeletal History: scoliosis Neurological History: Reports: Concussion, Head Trauma Psychiatric History: Reports: Addiction, Anxiety, Depression, Panic Attack, Psych Hospitalization(s), Suicidal Ideation Endocrine/Metabolic History: Reports: Vitamin D Deficiency Hematologic History: Reports: Anemia, B12 Deficiency, Blood Transfusion(s), Folic Acid, Iron Deficiency - Infectious Disease History Infectious Disease History: Reports: Chicken Pox - Past Surgical History Head Surgeries/Procedures: Reports: None HEENT Surgical History: Reports: None GI Surgical History: Reports: Appendectomy, Bariatric Procedure, Cholecystectomy, Colonoscopy, EGD, Esophageal Dilatation, Hernia Repair/Other Female Surgical History: Reports: Section, Cystectomy, Hysterectomy Endocrine Surgical History: Reports: None Neurological Surgical History: Reports: None Musculoskeletal Surgical History: Reports: Shoulder Surgery Other Musculoskeletal Surgeries/Procedures:: right rotator cuff repair Dermatological Surgical History: Reports: None Social & Family History - Family History Family Medical History: No Pertinent Family History - Tobacco Use Tobacco Use Status *Q: Never Tobacco User - Caffeine Use Caffeine Use: Reports: Coffee Caffeine Use Comment: daily use - Recreational Drug Use Recreational Drug Use: No - Living Situation & Occupation Living situation: Reports: , with Spouse (lives with in [facility]. 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 had 13 children from age 48 yr to 27 yrs. 115 Grandchildren. One of her Daughters is a RN on [address] [place] [address].) Occupation: Student ED ROS GENERAL - Review of Systems Review Of Systems: See Below Constitutional: Reports: No Symptoms HEENT: Reports: No Symptoms Respiratory: Reports: No Symptoms Cardiovascular: Reports: No Symptoms Endocrine: Reports: No Symptoms GI/Abdominal: Reports: Abdominal Pain Musculoskeletal: Reports: No Symptoms Skin: Reports: No Symptoms Neurological: Reports: No Symptoms Psychiatric: Reports: Depression ED EXAM, GI/ABD - Physical Exam Exam: See Below Text/Narrative:: pt arrived with pain in the upper abdoman. She is very uncomfortable. Exam Limited By: No Limitations General Appearance: Alert, Anxious, Severe Distress Ears: Normal TMs Nose: Normal Inspection Throat/Mouth: Normal Inspection Head: Atraumatic Neck: Normal Inspection Respiratory/Chest: No Respiratory Distress Cardiovascular: Regular Rate, Rhythm GI/Abdominal Exam: Soft, Other ( tender in the upper abdoman. ) (Female) Exam: Deferred Rectal (Female) Exam: Deferred Back Exam: Normal Inspection Extremities: Normal Inspection Neurological: Alert, Oriented, Normal Cognition Course - Vital Signs Last Recorded V/S: Last Vital Signs Temp 35.2 C L 05/06/21 07:53 Pulse 80 05/06/21 07:53 Resp 16 05/06/21 07:53 BP 107/66 05/06/21 07:53 Pulse Ox 97 05/06/21 07:53 - Orders/Labs/Meds Labs: Laboratory Tests 05/04/21 05/04/21 05/04/21 Range/Units 06:39 06:39 06:39 WBC 11.2 H (4.5-11.0) K/uL RBC 2.88 L (3.30-5.50) M/uL Hgb 10.5 L (12.0-15.0) g/dL Hct 30.2 L (36.0-48.0) % MCV 105 H (80-98) fL MCH 37 H (27-31) pg MCHC 35 (32-36) % Plt Count 302 (150-400) K/uL Neut % (Auto) 80.5 H (36-66) % Lymph % (Auto) 11.4 L (24-44) % [place] % (Auto) 5.8 (2-6) % Eos % (Auto) 2.1 (2-4) % Baso % (Auto) 0.2 (0-1) % Sodium 140 (140-148) mmol/L Potassium 3.9 (3.6-5.2) mmol/L Chloride 108 (100-108) mmol/L Carbon Dioxide 10 L (21-32) mmol/L Anion Gap 25.9 H (5.0-14.0) mmol/L BUN 19 H (7-18) mg/dL Creatinine 0.9 (0.6-1.0) mg/dL Est Cr Clr Drug Dosing 46.65 mL/min Estimated GFR (MDRD) > 60 (>60) Glucose 96 (74-106) mg/dL Calcium 8.9 (8.5-10.1) mg/dL Total Bilirubin 0.3 (0.2-1.0) mg/dL AST 23 (15-37) U/L ALT 24 (12-78) U/L Alkaline Phosphatase 98 (46-116) U/L Total Protein 7.1 (6.4-8.2) g/dL Albumin 3.7 (3.4-5.0) g/dL Globulin 3.4 (2.3-3.5) g/dL Albumin/Globulin Ratio 1.1 L (1.2-2.2) Triglycerides 143 (15-150) mg/dL Amylase (25-115) U/L Lipase 3614 H (73-393) U/L Urine Color (YELLOW) Urine Appearance (CLEAR) Urine pH (5.0-8.0) Ur Specific [place] (1.008-1.030) Urine Protein (NEGATIVE) mg/dL Urine Glucose (UA) (NEGATIVE) mg/dL Urine Ketones (NEGATIVE) mg/dL Urine Occult Blood (NEGATIVE) Urine Nitrite (NEGATIVE) Urine Bilirubin (NEGATIVE) Urine Urobilinogen (0.2-1.0) EU/dL Ur Leukocyte Esterase (NEGATIVE) Urine RBC (0-5) Urine WBC (0-5) Ur Epithelial Cells Amorphous Sediment Urine Bacteria Urine Mucus Ethyl Alcohol mg/dL 05/04/21 05/04/21 05/04/21 Range/Units 06:40 07:06 07:12 WBC (4.5-11.0) K/uL RBC (3.30-5.50) M/uL Hgb (12.0-15.0) g/dL Hct (36.0-48.0) % MCV (80-98) fL MCH (27-31) pg MCHC (32-36) % Plt Count (150-400) K/uL Neut % (Auto) (36-66) % Lymph % (Auto) (24-44) % [place] % (Auto) (2-6) % Eos % (Auto) (2-4) % Baso % (Auto) (0-1) % Sodium (140-148) mmol/L Potassium (3.6-5.2) mmol/L Chloride (100-108) mmol/L Carbon Dioxide (21-32) mmol/L Anion Gap (5.0-14.0) mmol/L BUN (7-18) mg/dL Creatinine (0.6-1.0) mg/dL Est Cr Clr Drug Dosing mL/min Estimated GFR (MDRD) (>60) Glucose (74-106) mg/dL Calcium (8.5-10.1) mg/dL Total Bilirubin (0.2-1.0) mg/dL AST (15-37) U/L ALT (12-78) U/L Alkaline Phosphatase (46-116) U/L Total Protein (6.4-8.2) g/dL Albumin (3.4-5.0) g/dL Globulin (2.3-3.5) g/dL Albumin/Globulin Ratio (1.2-2.2) Triglycerides (15-150) mg/dL Amylase 389 H D (25-115) U/L Lipase (73-393) U/L Urine Color Yellow (YELLOW) Urine Appearance Slightly cloudy A (CLEAR) Urine pH 5.0 (5.0-8.0) Ur Specific [place] 1.025 (1.008-1.030) Urine Protein 30 H (NEGATIVE) mg/dL Urine Glucose (UA) Negative (NEGATIVE) mg/dL Urine Ketones 15 H (NEGATIVE) mg/dL Urine Occult Blood Negative (NEGATIVE) Urine Nitrite Negative (NEGATIVE) Urine Bilirubin Negative (NEGATIVE) Urine Urobilinogen 0.2 (0.2-1.0) EU/dL Ur Leukocyte Esterase Trace H (NEGATIVE) Urine RBC 0-5 (0-5) Urine WBC 0-5 (0-5) Ur Epithelial Cells Few Amorphous Sediment Not seen Urine Bacteria Moderate Urine Mucus Not seen Ethyl Alcohol < 3 mg/dL Meds: Medications Discontinued Medications Generic Name Dose Route Start Last Admin Trade Name Freq PRN Reason Stop Dose Admin Acetaminophen 650 mg 05/04/21 08:35 05/05/21 16:59 Acetaminophen 325 Mg Tab PO 650 mg Q4H PRN Administration analgesia/fever Hydrocodone Bitart/Acetaminophen 1 tab 05/04/21 10:08 05/06/21 10:42 Acetaminophen/Hydrocodone 325-5 Mg Tab PO 1 tab Q4H PRN Administration Pain (moderate 4-6) Albuterol 0 gm 06/23/21 16:02 Albuterol 8 Gm Inhaler INH Q4H PRN Shortness of Breath Aspirin 81 mg 05/05/21 09:00 05/06/21 10:39 Aspirin 81 Mg Tab.Ec PO 81 mg DAILY ASHWIN Administration Bisacodyl 10 mg 05/04/21 21:53 05/04/21 22:03 Bisacodyl 10 Mg Supp RECTAL 10 mg DAILY PRN Administration Constipation Buspirone HCl 20 mg 05/04/21 21:00 05/06/21 10:39 Buspirone 10 Mg Tab (Ptom) PO 20 mg TID ASHWIN Administration Calcium Carbonate 1 tab 05/04/21 21:00 05/06/21 10:39 Calcium Carbonate/Vitamin D3 1500 Mg-400 Units Tab PO 1 tab BID ASHWIN Administration Cholecalciferol 50 mcg 05/04/21 21:00 05/06/21 10:40 Cholecalciferol (Vitamin D3) 25 Mcg Tab (Ptom) PO 50 mcg BID ASHWIN Administration Cyanocobalamin 1,000 mcg 05/05/21 09:00 05/06/21 10:39 Cyanocobalamin (Vitamin B12) 1,000 Mcg Tab PO 1,000 mcg DAILY ASHWIN Administration Hydromorphone HCl 0.5 mg 05/04/21 06:46 05/04/21 07:04 Hydromorphone 0.5 Mg/0.5 Ml Syringe IVPUSH 05/04/21 06:47 0.5 mg ONETIME ONE Administration Hydromorphone HCl 0.5 mg 05/04/21 10:05 Hydromorphone 0.5 Mg/0.5 Ml Syringe IVPUSH Q4H PRN Pain (severe 7-10) Hydroxyzine HCl 25 mg 05/04/21 13:25 05/05/21 16:04 Hydroxyzine Hcl 25 Mg Tab (Ptom) PO 25 mg Q6H PRN Administration Anxiety Sodium Chloride 1,000 mls @ 999 mls/hr 05/04/21 06:45 05/04/21 06:58 Normal Saline IV 999 mls/hr ASDIRECTED ASHWIN Administration Sodium Chloride 1,000 mls @ 999 mls/hr 05/04/21 07:15 05/04/21 08:01 Normal Saline IV 999 mls/hr ASDIRECTED ASHWIN Administration Iron/Vitamin C 1 tab 06/23/21 21:00 05/06/21 10:40 Ferrous Fumarate/Vitamin C 200-125 Mg Tab PO 1 tab BID ASHWIN Administration Lorazepam 0.5 mg 05/04/21 13:39 05/06/21 01:00 Lorazepam 0.5 Mg Tab PO 0.5 mg Q8H PRN Administration Anxiety Multivitamins/Minerals 1 tab 05/05/21 09:00 05/06/21 10:39 Multivitamins With Iron/Calcium/Folic Acid/Minerals Tab PO 1 tab DAILY ASHWIN Administration Ondansetron HCl 4 mg 05/04/21 06:45 05/04/21 07:01 Ondansetron 4 Mg/2 Ml Sdv IVPUSH 05/04/21 06:46 4 mg ONETIME ONE Administration Pantoprazole Sodium 40 mg 05/04/21 16:30 05/06/21 10:39 Pantoprazole 40 Mg Tab.Cr (Ptom) PO 40 mg BIDAC ASHWIN Administration Fluoxetine 40mg Cap 0 each 05/05/21 09:00 05/06/21 10:39 (Ptom) PO 1 each DAILY ASHWIN Administration Trazodone HCl 100 mg 05/04/21 21:00 05/05/21 21:26 Trazodone 50 Mg Tab (Ptom) PO 100 mg BEDTIME ASHWIN Administration Vitamin B Complex 1 each 05/05/21 09:00 05/06/21 10:39 Vitamin B Complex Tab PO 1 each DAILY ASHWIN Administration - Re-Assessments/Exams Free Text/Narrative Re-Assessment/Exam: 05/04/21 07:03 pt has a markedly elevated lipase. She is being given fluids and pain meds. Departure - Departure Time of Disposition: 07:00 Disposition: Admitted As Inpatient 67 Condition: Fair Clinical Impression: Pancreatitis Acute pancreatitis Qualifiers: Pancreatitis type: unspecified pancreatitis type Acute pancreatitis complication: unspecified Qualified Code(s): K85.90 - Acute pancreatitis without necrosis or infection, unspecified - Discharge Information Sepsis Event Note (ED) - Evaluation Sepsis Screening Result: No Definite Risk
[2021-05-04] MEDS: Acetaminophen 325 MG Tab PO PRN (09:03)
[2021-05-04] MEDS ORDERED: HYDROmorphone 0.5 MG/0.5 ML Syringe IVPUSH PRN (10:05)
[2021-05-04] MEDS ORDERED: Acetaminophen 325 MG Tab PO PRN (10:11)
[2021-05-04] MEDS: Acetaminophen/HYDROcodone 325-5 MG Tab PO PRN ×4 (11:16→23:36)
[2021-05-04] MEDS ORDERED: Non-Formulary Medication 1 Each (Acetaminophen [Tylenol] 325 MG Tablet) PO PRN (13:15)
[2021-05-04] MEDS ORDERED: LORAZEPAM 0.5 MG PO PRN (13:15)
[2021-05-04] MEDS ORDERED: Non-Formulary Medication 1 Each (Hydroxyzine Hcl [Hydroxyzine] 25 MG Tablet) PO PRN (13:15)
[2021-05-04] MEDS ORDERED: Non-Formulary Medication 1 Each (Albuterol Sulfate [Proair Respiclick] 90 MCG Aer.Pow.Ba) IH PRN (13:15)
[2021-05-04] MEDS ORDERED: HYDROXYZINE HCL 25 MG PO PRN (13:25)
[2021-05-04] MEDS ORDERED: Non-Formulary Medication 1 Each (Buspirone [Buspar] 10 MG Tablet) PO SCH (14:00)
[2021-05-04] MEDS: LORazepam 0.5 MG Tab PO PRN ×2 (14:32→22:35)
[2021-05-04] MEDS ORDERED: Albuterol 8 GM Inhaler INH PRN (16:02)
--- NOTE | 2021-05-04 16:30 | PCM.HP.2 ---
H&P History of Present Illness - General Date of Service: 05/04/21 Admit Problem/Dx: Admission Diagnosis/Problem Admission Diagnosis/Problem Pancreatitis Source of Information: Patient History Limitations: Reports: No Limitations - History of Present Illness Initial Comments - Free Text/Narative: Ms. Mcbride is a 71-year-old white female who presented for abdominal pain that began at 3 AM and worsened until arrival at the emergency department. Her pain was described as an 8 out of 10 and increasing located in the upper abdomen including the right and left upper quadrants most significant in the epigastric region. She states that she had nausea, belching, and dry heaving associated. She also complains of headache, dizziness, and weakness. She denies change in vision, change in hearing, change in taste or smell, difficulty breathing, chest pain, and palpitations. She states that she did have a bowel movement last night and this morning and they were normal to her. The last thing she ate before the symptoms began was dinner and she had a taco salad. She states that she has had this problem in the past and was told that it was due to pancreatitis. She states that at that time she had tested positive for alcohol in the blood but denies alcohol use. Her daughter has stated that she does drink alcohol but denies doing such. She was admitted 04/09/2021 to 04/11/2021 for abdominal pain and found to have a small bowel obstruction secondary to the Donald-en-Y mesh. During that visit, she had an EGD done during that stay which showed an ulcer at the gastrojejunostomy site with a problematic suture that was removed. She states that she has never been told that she has high cholesterol or high triglycerides. She has had a cholecystectomy, Donald-en-Y, and appendectomy in the past. During my initial encounter with she seemed comfortable and did not show typical signs of pain when palpating lightly and deeply of the upper abdominal area. She did show signs of pain when I palpated the right lower quadrant. She repeatedly asked for Demerol for pain despite having received Dilaudid within the hour. In the ED she had labs drawn with markedly elevated amylase and lipase levels. Last month she had several abdominal imaging exams therefore these were not repeated. She was started on IV fluids and pain control. She had a triglyceride and calcium level drawn that were normal. You will be admitted for pain control for acute pancreatitis. Onset of Symptoms: Reports: Today, Sudden Location: Reports: Abdomen Severity: Severe Middle Abdomen Pain Score (Numeric/FACES): 4 - Related Data Allergies/Adverse Reactions: Allergies Allergy/AdvReac Type Severity Reaction Status Date / Time morphine Allergy Edema Verified 05/04/21 06:05 Home Medications: Home Meds Aspirin [Halfprin] 81 mg PO DAILY 09/01/13 [History] Calcium Carbonate/Vitamin D3 [Calcarb 600 with Vit D] 1 tab PO BID 09/01/13 [History] Multivitamin [Multi-Vitamin Daily] 1 tab PO DAILY 09/01/13 [History] Vit B Cmplx 3/Fa/Vit C/Biotin [Christa-Dion Rx Tablet] 1 tab PO DAILY 09/01/13 [History] traZODone HCl [Trazodone HCl] 100 mg PO BEDTIME 09/01/13 [History] Albuterol Sulfate [Proair Respiclick] 2 puff IH Q4HR PRN 09/27/18 [History] Cyanocobalamin (Vitamin B12) [Vitamin B12] 1,000 mcg PO DAILY 09/27/18 [History] Iron,Carbonyl/Ascorbic Acid [Iron 100-Vitamin C Tablet] 1 tab PO BID 09/27/18 [History] Acetaminophen [Tylenol] 325 mg PO Q4H PRN tablet 12/26/18 [Rx] Cholecalciferol (Vitamin D3) [Vitamin D3] 2 tab PO BID 06/02/20 [History] FLUoxetine HCl [Fluoxetine HCl] 2 tab PO DAILY 06/02/20 [History] Naltrexone 50 mg PO ASDIRECTED PRN 06/02/20 [History] Naltrexone Microspheres [Vivitrol] 380 mg IM Q28D 06/02/20 [History] busPIRone [Buspar] 20 mg PO TID 06/02/20 [History] hydrOXYzine HCL [hydrOXYzine] 25 mg PO Q6H PRN 06/02/20 [History] LORazepam [Ativan] 0.5 mg PO Q8H PRN #5 tablet 04/11/21 [Rx] Pantoprazole [ProTONIX] 40 mg PO BIDAC #60 tab.cr 04/11/21 [Rx] Past Medical History HEENT History: Reports: Impaired Vision Other HEENT History: wears glasses Gastrointestinal History: Reports: GERD, PUD Genitourinary History: Reports: UTI, Recurrent [employer] History: Reports: , Spontaneous Other OB/BYN History: ovarian cyst removed Musculoskeletal History: Reports: Arthritis, Other (See Below) Other Musculoskeletal History: scoliosis Neurological History: Reports: Concussion, Head Trauma Psychiatric History: Reports: Addiction, Anxiety, Depression, Panic Attack, Psych Hospitalization(s), Suicidal Ideation Endocrine/Metabolic History: Reports: Vitamin D Deficiency Hematologic History: Reports: Anemia, B12 Deficiency, Blood Transfusion(s), Folic Acid, Iron Deficiency - Infectious Disease History Infectious Disease History: Reports: Chicken Pox - Past Surgical History Head Surgeries/Procedures: Reports: None HEENT Surgical History: Reports: None GI Surgical History: Reports: Appendectomy, Bariatric Procedure, Cholecystectomy, Colonoscopy, EGD, Esophageal Dilatation, Hernia Repair/Other Female Surgical History: Reports: Section, Cystectomy, Hysterectomy Endocrine Surgical History: Reports: None Neurological Surgical History: Reports: None Musculoskeletal Surgical History: Reports: Shoulder Surgery Other Musculoskeletal Surgeries/Procedures:: right rotator cuff repair Dermatological Surgical History: Reports: None Social & Family History - Family History Family Medical History: No Pertinent Family History - Tobacco Use Tobacco Use Status *Q: Never Tobacco User Second Hand Smoke Exposure: No - Caffeine Use Caffeine Use: Reports: Coffee Caffeine Use Comment: daily use - Recreational Drug Use Recreational Drug Use: No - Living Situation & Occupation Living situation: Reports: , with Spouse (lives with in [facility]. 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 had 13 children from age 48 yr to 28 yrs. 115 Grandchildren. One of her Daughters is a RN on [address] [place] [address].) Occupation: Student H&P Review of Systems - Review of Systems: Review Of Systems: See Below General: Denies: Fever, Chills, Decreased Appetite HEENT: Reports: Headaches. Denies: Hearing Changes, Visual Changes Pulmonary: Denies: Shortness of Breath, Cough Cardiovascular: Denies: Chest Pain, Palpitations Gastrointestinal: Reports: Abdominal Pain, Nausea, Vomiting ("dry heaving") Genitourinary: Denies: Dysuria, Frequency, Urgency Musculoskeletal: Reports: No Symptoms Skin: Reports: No Symptoms Neurological: Reports: Dizziness, Headache, Weakness Exam - Exam Exam: See Below - Vital Signs Vital Signs: Last Vital Signs Temp 97.1 F 05/04/21 09:17 Pulse 78 05/04/21 09:17 Resp 16 05/04/21 09:17 BP 114/36 L 05/04/21 09:17 Pulse Ox 99 05/04/21 09:17 Weight: 113 lb 0.002 oz - Exam General: Alert, Oriented, Cooperative HEENT: Conjunctiva Clear, EOMI, Hearing Intact, Mucosa Moist & [place]key[place], Other (poor dentition) Lungs: Clear to Auscultation, Normal Respiratory Effort Cardiovascular: Regular Rate, Regular Rhythm GI/Abdominal Exam: Normal Bowel Sounds, Soft, No Distention, Tender (RLQ) Extremities: Normal Inspection, Other (no leg hair growth). No: Pedal Edema Skin: Warm, Dry, Intact Neuro Extensive - Mental Status: Alert, Oriented x3, Normal Mood/Affect Psychiatric: Alert, Normal Affect, Normal Mood - Patient Data Lab Results Last 24 hrs: Laboratory Results - last 24 hr 05/04/21 05/04/21 05/04/21 Range/Units 06:39 06:39 06:39 WBC 11.2 H (4.5-11.0) K/uL RBC 2.88 L (3.30-5.50) M/uL Hgb 10.5 L (12.0-15.0) g/dL Hct 30.2 L (36.0-48.0) % MCV 105 H (80-98) fL MCH 37 H (27-31) pg MCHC 35 (32-36) % Plt Count 302 (150-400) K/uL Neut % (Auto) 80.5 H (36-66) % Lymph % (Auto) 11.4 L (24-44) % [place] % (Auto) 5.8 (2-6) % Eos % (Auto) 2.1 (2-4) % Baso % (Auto) 0.2 (0-1) % Sodium 140 (140-148) mmol/L Potassium 3.9 (3.6-5.2) mmol/L Chloride 108 (100-108) mmol/L Carbon Dioxide 10 L (21-32) mmol/L Anion Gap 25.9 H (5.0-14.0) mmol/L BUN 19 H (7-18) mg/dL Creatinine 0.9 (0.6-1.0) mg/dL Est Cr Clr Drug Dosing 46.65 mL/min Estimated GFR (MDRD) > 60 (>60) Glucose 96 (74-106) mg/dL Calcium 8.9 (8.5-10.1) mg/dL Total Bilirubin 0.3 (0.2-1.0) mg/dL AST 23 (15-37) U/L ALT 24 (12-78) U/L Alkaline Phosphatase 98 (46-116) U/L Total Protein 7.1 (6.4-8.2) g/dL Albumin 3.7 (3.4-5.0) g/dL Globulin 3.4 (2.3-3.5) g/dL Albumin/Globulin Ratio 1.1 L (1.2-2.2) Triglycerides 143 (15-150) mg/dL Amylase (25-115) U/L Lipase 3614 H (73-393) U/L Urine Color (YELLOW) Urine Appearance (CLEAR) Urine pH (5.0-8.0) Ur Specific [place] (1.008-1.030) Urine Protein (NEGATIVE) mg/dL Urine Glucose (UA) (NEGATIVE) mg/dL Urine Ketones (NEGATIVE) mg/dL Urine Occult Blood (NEGATIVE) Urine Nitrite (NEGATIVE) Urine Bilirubin (NEGATIVE) Urine Urobilinogen (0.2-1.0) EU/dL Ur Leukocyte Esterase (NEGATIVE) Urine RBC (0-5) Urine WBC (0-5) Ur Epithelial Cells Amorphous Sediment Urine Bacteria Urine Mucus Ethyl Alcohol mg/dL 05/04/21 05/04/21 05/04/21 Range/Units 06:40 07:06 07:12 WBC (4.5-11.0) K/uL RBC (3.30-5.50) M/uL Hgb (12.0-15.0) g/dL Hct (36.0-48.0) % MCV (80-98) fL MCH (27-31) pg MCHC (32-36) % Plt Count (150-400) K/uL Neut % (Auto) (36-66) % Lymph % (Auto) (24-44) % [place] % (Auto) (2-6) % Eos % (Auto) (2-4) % Baso % (Auto) (0-1) % Sodium (140-148) mmol/L Potassium (3.6-5.2) mmol/L Chloride (100-108) mmol/L Carbon Dioxide (21-32) mmol/L Anion Gap (5.0-14.0) mmol/L BUN (7-18) mg/dL Creatinine (0.6-1.0) mg/dL Est Cr Clr Drug Dosing mL/min Estimated GFR (MDRD) (>60) Glucose (74-106) mg/dL Calcium (8.5-10.1) mg/dL Total Bilirubin (0.2-1.0) mg/dL AST (15-37) U/L ALT (12-78) U/L Alkaline Phosphatase (46-116) U/L Total Protein (6.4-8.2) g/dL Albumin (3.4-5.0) g/dL Globulin (2.3-3.5) g/dL Albumin/Globulin Ratio (1.2-2.2) Triglycerides (15-150) mg/dL Amylase 389 H D (25-115) U/L Lipase (73-393) U/L Urine Color Yellow (YELLOW) Urine Appearance Slightly cloudy A (CLEAR) Urine pH 5.0 (5.0-8.0) Ur Specific Cop[place] 1.025 (1.008-1.030) Urine Protein 30 H (NEGATIVE) mg/dL Urine Glucose (UA) Negative (NEGATIVE) mg/dL Urine Ketones 15 H (NEGATIVE) mg/dL Urine Occult Blood Negative (NEGATIVE) Urine Nitrite Negative (NEGATIVE) Urine Bilirubin Negative (NEGATIVE) Urine Urobilinogen 0.2 (0.2-1.0) EU/dL Ur Leukocyte Esterase Trace H (NEGATIVE) Urine RBC 0-5 (0-5) Urine WBC 0-5 (0-5) Ur Epithelial Cells Few Amorphous Sediment Not seen Urine Bacteria Moderate Urine Mucus Not seen Ethyl Alcohol < 3 mg/dL Result Diagrams: 05/04/21 06:39 05/04/21 06:39 Sepsis Event Note - Evaluation Sepsis Screening Result: No Definite Risk - Focused Exam Vital Signs: Vital Signs Temp Pulse Resp BP Pulse Ox 05/04/21 09:17 97.1 F 78 16 114/36 L 99 05/04/21 08:08 105/53 L 05/04/21 07:13 70 14 93/42 L 05/04/21 06:23 97.1 F 05/04/21 06:05 68 18 85/38 L 99 - Problem List (1) Acute pancreatitis SNOMED Code(s): 439097862 ICD Code: K85.90 - ACUTE PANCREATITIS WITHOUT NECROSIS OR INFECTION, UNSP Status: Acute Current Visit: Yes Qualifiers: Pancreatitis type: unspecified pancreatitis type Acute pancreatitis complication: unspecified Qualified Code(s): K85.90 - Acute pancreatitis without necrosis or infection, unspecified (2) Abdominal pain SNOMED Code(s): 55924801 ICD Code: R10.9 - UNSPECIFIED ABDOMINAL PAIN Status: Acute Current Visit: No Qualifiers: Abdominal location: epigastric Qualified Code(s): R10.13 - Epigastric pain (3) Anxiety disorder SNOMED Code(s): 177714166 ICD Code: F41.9 - ANXIETY DISORDER, UNSPECIFIED Status: Acute Current Visit: Yes Problem List Initiated/Reviewed/Updated: Yes Orders Last 24hrs: Active Orders 24 hr Category Date Time Status Patient Status [ADT] Routine ADT 05/04/21 08:36 Active Ambulate [RC] PER UNIT ROUTINE Care 05/04/21 08:35 Active Antiembolic Devices [RC] .Routine Care 05/04/21 08:40 Active Bedrest Bathroom Privileges [RC] ASDIRECTED Care 05/04/21 08:35 Active Height and Weight [RC] UPON Care 05/04/21 08:35 Active Oxygen Therapy [RC] PRN Care 05/04/21 08:36 Active VTE/DVT Education [RC] Click to Edit Care 05/04/21 08:40 Active Vital Signs [RC] Q4H Care 05/04/21 08:36 Active Full Liquid Diet [DIET] Diet 05/04/21 Dinner Ordered Nothing per Oral Now Diet [DIET] Diet 05/04/21 Lunch Active Regular Diet [DIET] Diet 05/05/21 Breakfast Active Acetaminophen [TylenoL] Med 05/04/21 08:35 Active 650 mg PO Q4H PRN Acetaminophen/HYDROcodone [[place] 325-5 MG] Med 05/04/21 10:08 Active 1 tab PO Q4H PRN Albuterol [Ventolin HFA] Med 05/04/21 16:02 Active 0 gm INH Q4H PRN Aspirin [Halfprin] Med 05/05/21 09:00 Active 81 mg PO DAILY Calcium Carbonate/Vitamin D3 [Caltrate 600+D 1500 MG- Med 05/04/21 21:00 Active 400 Units] 1 tab PO BID Cholecalciferol (Vitamin D3) [Vitamin D3] Med 05/04/21 21:00 Active 50 mcg PO BID Cyanocobalamin (Vitamin B12) [Vitamin B12] Med 05/05/21 09:00 Active 1,000 mcg PO DAILY Ferrous Fumarate/Vitamin C [Vitron-C] Med 05/04/21 21:00 Active 1 tab PO BID HYDROmorphone [Dilaudid] Med 05/04/21 10:05 Active 0.5 mg IVPUSH Q4H PRN LORazepam [Ativan] Med 05/04/21 13:39 Active 0.5 mg PO Q8H PRN Multivitamins w-Iron/Ca/FA/Min [Thera M Plus] Med 05/05/21 09:00 Active 1 tab PO DAILY Pantoprazole [ProTONIX] Med 05/04/21 16:30 Active 40 mg PO BIDAC Patient's Own Medication [Ptom] Med 05/05/21 09:00 Active 0 each PO DAILY Vitamin B Complex Med 05/05/21 09:00 Active 1 each PO DAILY busPIRone [Buspar] Med 05/04/21 21:00 Active 20 mg PO TID hydrOXYzine HCL [Atarax] Med 05/04/21 13:25 Active 25 mg PO Q6H PRN traZODone Med 05/04/21 21:00 Active 100 mg PO BEDTIME DVT/VTE Prophylaxis Reflex [OM.PC] Per Unit Routine Oth 05/04/21 08:39 Ordered Medication Orders Acetaminophen (Acetaminophen 325 Mg Tab) 650 mg PO Q4H PRN PRN Reason: analgesia/fever Last Admin: 05/04/21 09:03 Dose: 650 mg Documented by: LM Hydrocodone Bitart/Acetaminophen (Acetaminophen/Hydrocodone 325-5 Mg Tab) 1 tab PO Q4H PRN PRN Reason: Pain (moderate 4-6) Last Admin: 05/04/21 15:23 Dose: 1 tab Documented by: Admin: 05/04/21 11:16 Dose: 1 tab Documented by: SAPNA Albuterol (Albuterol 8 Gm Inhaler) 0 gm INH Q4H PRN PRN Reason: Shortness of Breath Aspirin (Aspirin 81 Mg Tab.Ec) 81 mg PO DAILY ASHWIN Buspirone HCl (Buspirone 10 Mg Tab (Ptom)) 20 mg PO TID ASHWIN Calcium Carbonate (Calcium Carbonate/Vitamin D3 1500 Mg-400 Units Tab) 1 tab PO BID ASHWIN Cholecalciferol (Cholecalciferol (Vitamin D3) 25 Mcg Tab (Ptom)) 50 mcg PO BID ASHWIN Cyanocobalamin (Cyanocobalamin (Vitamin B12) 1,000 Mcg Tab) 1,000 mcg PO DAILY ASHWIN Hydromorphone HCl (Hydromorphone 0.5 Mg/0.5 Ml Syringe) 0.5 mg IVPUSH Q4H PRN PRN Reason: Pain (severe 7-10) Hydroxyzine HCl (Hydroxyzine Hcl 25 Mg Tab (Ptom)) 25 mg PO Q6H PRN PRN Reason: Anxiety Iron/Vitamin C (Ferrous Fumarate/Vitamin C 200-125 Mg Tab) 1 tab PO BID ASHWIN Lorazepam (Lorazepam 0.5 Mg Tab) 0.5 mg PO Q8H PRN PRN Reason: Anxiety Last Admin: 05/04/21 14:32 Dose: 0.5 mg Documented by: TERESA Multivitamins/Minerals (Multivitamins With Iron/Calcium/Folic Acid/Minerals Tab) 1 tab PO DAILY ASHWIN Pantoprazole Sodium (Pantoprazole 40 Mg Tab.Cr (Ptom)) 40 mg PO BIDAC ASHWIN Fluoxetine 40mg Cap ((Ptom)) 0 each PO DAILY ASHWIN Trazodone HCl (Trazodone 50 Mg Tab (Ptom)) 100 mg PO BEDTIME ASHWIN Vitamin B Complex (Vitamin B Complex Tab) 1 each PO DAILY ASHWIN Assessment/Plan Comment:: Acute pancreatitis possibly secondary to alcohol use -Patient denies alcohol use however her daughter has stated that she does drink and will deny it -Patient does not have a gallbladder, her triglycerides are within normal limits and she has no history of hypertriglyceridemia or hyperlipidemia, she does not have a rash, her calcium level is normal -She is currently on IV fluids -Pain control: treat severe with Dilaudid, moderate with hydrocodone, and mild with Tylenol, will de-escalate as quickly as possible due to drug-seeking behaviors -She is on a full liquid diet now, will escalate to a soft diet at dinner, and solids for breakfast Anxiety disorder -to take home medications including trazodone 100 mg, lorazepam 0.5 every 8 hours, hydroxyzine 25 mg every 6 hours, and buspirone 20 mg 3 times daily GERD -to take home Protonix Status-Post Bariatric surgery -To take home supplementation including calcium vitamin D3, cyanocobalamin, B complex, and iron CODE STATUS: Full code VTE prophylaxis: SCDs GI prophylaxis: Not indicated however patient is on Protonix as home medication and it was restarted Diet: Full liquid escalating to soft then to solids Plan: The goal is to get her pain under control and to get her eating a solid diet. We will taper the pain meds quickly to avoid issues related to drug- seeking behaviors while adequately managing her pain. If she tolerates solid foods in the morning and is no longer in pain then we can plan to discharge her tomorrow. Disposition: Patient will be discharged home to her observational stay. Tona Herrmann, DO - Mortality Measure Prognosis:: Good
[2021-05-04] MEDS: Pantoprazole 40 MG Tab.CR (PTOM) PO SCH (16:53)
[2021-05-04] MEDS ORDERED: [UNRECOGNIZED DRUG - OTHER] PO SCH (21:00)
[2021-05-04] MEDS ORDERED: VITAMIN D3 PO SCH (21:00)
[2021-05-04] MEDS ORDERED: TRAZODONE HCL 50 MG PO SCH (21:00)
[2021-05-04] MEDS ORDERED: CALCIUM CARBONATE PO SCH (21:00)
[2021-05-04] MEDS ORDERED: IRON CARBONYL PO SCH (21:00)
[2021-05-04] MEDS ORDERED: [UNRECOGNIZED DRUG - OTHER] PO SCH (21:00)
[2021-05-04] MEDS ORDERED: ASCORBIC ACID PO SCH (21:00)
[2021-05-04] MEDS ORDERED: Non-Formulary Medication 1 Each (Cholecalciferol (Vitamin D3) [Vitamin D3] 1,000 UNIT Caps PO SCH (21:00)
[2021-05-04] MEDS ORDERED: Bisacodyl 10 MG Supp RECTAL PRN (21:53)
[2021-05-04] MEDS: BUSPIRONE 10 MG PO SCH (22:04)
[2021-05-04] MEDS: traZODone 50 MG Tab (PTOM) PO SCH (22:04)
[2021-05-04] MEDS: Cholecalciferol (Vitamin D3) 25 MCG Tab (PTOM) PO SCH (22:04)
[2021-05-04] MEDS: Ferrous Fumarate/Vitamin C 200-125 MG Tab PO SCH (22:05)
[2021-05-04] MEDS: Calcium Carbonate/Vitamin D3 1500 MG-400 Units Tab PO SCH (22:05)
[2021-05-05] MEDS: Acetaminophen/HYDROcodone 325-5 MG Tab PO PRN ×5 (03:43→23:44)
[2021-05-05] MEDS: Pantoprazole 40 MG Tab.CR (PTOM) PO SCH ×2 (07:44→16:43)
[2021-05-05] MEDS: FLUOXETINE 40 MG PO SCH (08:46)
[2021-05-05] MEDS: BUSPIRONE 10 MG PO SCH ×3 (08:46→21:26)
[2021-05-05] MEDS: Cholecalciferol (Vitamin D3) 25 MCG Tab (PTOM) PO SCH ×2 (08:46→21:25)
[2021-05-05] MEDS: Aspirin 81 MG Tab.EC PO SCH (08:47)
[2021-05-05] MEDS: Cyanocobalamin (Vitamin B12) 1,000 MCG Tab PO SCH (08:50)
[2021-05-05] MEDS: Ferrous Fumarate/Vitamin C 200-125 MG Tab PO SCH ×2 (08:50→21:26)
[2021-05-05] MEDS: Multivitamins with Iron/Calcium/Folic Acid/Minerals Tab PO SCH (08:50)
[2021-05-05] MEDS: Vitamin B Complex Tab PO SCH (08:50)
[2021-05-05] MEDS: LORazepam 0.5 MG Tab PO PRN ×2 (08:53→16:43)
[2021-05-05] MEDS ORDERED: BIOTIN PO SCH (09:00)
[2021-05-05] MEDS ORDERED: Non-Formulary Medication 1 Each (Multivitamin [Multi-Vitamin Daily] 1 EACH Tablet) PO SCH (09:00)
[2021-05-05] MEDS ORDERED: [UNRECOGNIZED DRUG - OTHER] PO SCH (09:00)
[2021-05-05] MEDS ORDERED: Non-Formulary Medication 1 Each (Cyanocobalamin (Vitamin B12) [Vitamin B12] 1,000 MCG Tabl PO SCH (09:00)
[2021-05-05] MEDS ORDERED: FLUOXETINE HCL PO SCH (09:00)
[2021-05-05] MEDS ORDERED: VIT B CMPLX PO SCH (09:00)
[2021-05-05] MEDS ORDERED: Non-Formulary Medication 1 Each (Aspirin [Halfprin] 81 MG Tab.Ec) PO SCH (09:00)
[2021-05-05] MEDS: Calcium Carbonate/Vitamin D3 1500 MG-400 Units Tab PO SCH ×2 (09:10→21:26)
[2021-05-05] MEDS: Acetaminophen 325 MG Tab PO PRN ×2 (11:25→16:59)
--- NOTE | 2021-05-05 19:00 | PCM.PN ---
- General Info Date of Service: 05/05/21 Admission Dx/Problem (Free Text): Admission Diagnosis/Problem Admission Diagnosis/Problem Pancreatitis Subjective Update: Ms. Mcbride is a 71-year-old white female who presented with signs and symptoms and lab values related to pancreatitis. She had no acute events overnight and states that she is feeling significantly better today. However, she is not back to her baseline and would like to wait to go home until tomorrow. She understands that her abdominal pain will decrease slowly over time as she heals. She is no longer having nausea, vomiting, or severe abdominal pain. She was able to eat without issue today. He was visited by nutrition and was given recommendations. Functional Status: Reports: Pain Controlled, Tolerating Diet, Ambulating, Urinating - Review of Systems General: Reports: No Symptoms, Appetite. Denies: Fever, Weakness, Fatigue HEENT: Reports: No Symptoms. Denies: Headaches, Visual Changes Pulmonary: Reports: No Symptoms. Denies: Shortness of Breath, Cough Cardiovascular: Reports: No Symptoms. Denies: Chest Pain, Palpitations, Edema Gastrointestinal: Reports: Abdominal Pain (mild occasional). Denies: Diarrhea, Nausea, Vomiting Genitourinary: Reports: No Symptoms. Denies: Dysuria, Frequency, Urgency Musculoskeletal: Reports: No Symptoms Skin: Reports: No Symptoms Neurological: Reports: No Symptoms, Confusion. Denies: Dizziness, Headache - Patient Data Vitals - Most Recent: Last Vital Signs Temp 97.1 F 05/05/21 15:15 Pulse 73 05/05/21 15:15 Resp 16 05/05/21 15:15 BP 124/79 05/05/21 15:15 Pulse Ox 99 05/05/21 15:15 Weight - Most Recent: 113 lb 0.002 oz I&O - Last 24 Hours: Intake & Output 05/05/21 05/05/21 05/05/21 06:59 14:59 22:59 Intake Total 300 700 500 Balance 300 700 500 Lab Results Last 24 Hours: Laboratory Results - last 24 hr 05/05/21 05/05/21 Range/Units 04:46 04:46 WBC 13.2 H (4.5-11.0) K/uL RBC 2.74 L (3.30-5.50) M/uL Hgb 10.0 L (12.0-15.0) g/dL Hct 28.2 L (36.0-48.0) % MCV 103 H (80-98) fL MCH 37 H (27-31) pg MCHC 36 (32-36) % Plt Count 335 (150-400) K/uL Sodium 135 L (140-148) mmol/L Potassium 3.8 (3.6-5.2) mmol/L Chloride 103 (100-108) mmol/L Carbon Dioxide 16 L (21-32) mmol/L Anion Gap 19.8 H (5.0-14.0) mmol/L BUN 14 (7-18) mg/dL Creatinine 0.7 (0.6-1.0) mg/dL Est Cr Clr Drug Dosing 60.51 mL/min Estimated GFR (MDRD) > 60 (>60) Glucose 88 (74-106) mg/dL Calcium 8.7 (8.5-10.1) mg/dL Med Orders - Current: Current Medications Acetaminophen (Acetaminophen 325 Mg Tab) 650 mg PO Q4H PRN PRN Reason: analgesia/fever Last Admin: 05/05/21 16:59 Dose: 650 mg Documented by: Hydrocodone Bitart/Acetaminophen (Acetaminophen/Hydrocodone 325-5 Mg Tab) 1 tab PO Q4H PRN PRN Reason: Pain (moderate 4-6) Last Admin: 05/05/21 14:10 Dose: 1 tab Documented by: Albuterol (Albuterol 8 Gm Inhaler) 0 gm INH Q4H PRN PRN Reason: Shortness of Breath Aspirin (Aspirin 81 Mg Tab.Ec) 81 mg PO DAILY [facility] Last Admin: 05/05/21 08:47 Dose: 81 mg Documented by: Bisacodyl (Bisacodyl 10 Mg Supp) 10 mg RECTAL DAILY PRN PRN Reason: Constipation Last Admin: 05/04/21 22:03 Dose: 10 mg Documented by: Buspirone HCl (Buspirone 10 Mg Tab (Ptom)) 20 mg PO TID [facility] Last Admin: 05/05/21 14:10 Dose: 20 mg Documented by: Calcium Carbonate (Calcium Carbonate/Vitamin D3 1500 Mg-400 Units Tab) 1 tab PO BID [facility] Last Admin: 05/05/21 09:10 Dose: Not Given Documented by: Cholecalciferol (Cholecalciferol (Vitamin D3) 25 Mcg Tab (Ptom)) 50 mcg PO BID [facility] Last Admin: 05/05/21 08:46 Dose: 50 mcg Documented by: Cyanocobalamin (Cyanocobalamin (Vitamin B12) 1,000 Mcg Tab) 1,000 mcg PO DAILY [facility] Last Admin: 05/05/21 08:50 Dose: Not Given Documented by: Hydroxyzine HCl (Hydroxyzine Hcl 25 Mg Tab (Ptom)) 25 mg PO Q6H PRN PRN Reason: Anxiety Last Admin: 05/05/21 16:04 Dose: 25 mg Documented by: Iron/Vitamin C (Ferrous Fumarate/Vitamin C 200-125 Mg Tab) 1 tab PO BID [facility] Last Admin: 05/05/21 08:50 Dose: Not Given Documented by: Lorazepam (Lorazepam 0.5 Mg Tab) 0.5 mg PO Q8H PRN PRN Reason: Anxiety Last Admin: 05/05/21 16:43 Dose: 0.5 mg Documented by: Multivitamins/Minerals (Multivitamins With Iron/Calcium/Folic Acid/Minerals Tab) 1 tab PO DAILY [facility] Last Admin: 05/05/21 08:50 Dose: Not Given Documented by: Pantoprazole Sodium (Pantoprazole 40 Mg Tab.Cr (Ptom)) 40 mg PO BIDAC [facility] Last Admin: 05/05/21 16:43 Dose: 40 mg Documented by: Fluoxetine 40mg Cap ((Ptom)) 0 each PO DAILY [facility] Last Admin: 05/05/21 08:46 Dose: 1 each Documented by: Trazodone HCl (Trazodone 50 Mg Tab (Ptom)) 100 mg PO BEDTIME [facility] Last Admin: 05/04/21 22:04 Dose: 100 mg Documented by: Vitamin B Complex (Vitamin B Complex Tab) 1 each PO DAILY [facility] Last Admin: 05/05/21 08:50 Dose: Not Given Documented by: Discontinued Medications Hydromorphone HCl (Hydromorphone 0.5 Mg/0.5 Ml Syringe) 0.5 mg IVPUSH ONETIME ONE Stop: 05/04/21 06:47 Last Admin: 05/04/21 07:04 Dose: 0.5 mg Documented by: Hydromorphone HCl (Hydromorphone 0.5 Mg/0.5 Ml Syringe) 0.5 mg IVPUSH Q4H PRN PRN Reason: Pain (severe 7-10) Sodium Chloride (Normal Saline) 1,000 mls @ 999 mls/hr IV ASDIRECTED [facility] Last Admin: 05/04/21 06:58 Dose: 999 mls/hr Documented by: Sodium Chloride (Normal Saline) 1,000 mls @ 999 mls/hr IV ASDIRECTED [facility] Last Admin: 05/04/21 08:01 Dose: 999 mls/hr Documented by: Ondansetron HCl (Ondansetron 4 Mg/2 Ml Sdv) 4 mg IVPUSH ONETIME ONE Stop: 05/04/21 06:46 Last Admin: 05/04/21 07:01 Dose: 4 mg Documented by: - Exam Quality Assessment: DVT Prophylaxis (scds). No: Supplemental Oxygen, Central Line/PICC, Urine Catheter General: Alert, Oriented, Cooperative, No Acute Distress HEENT: Pupils Equal, EOMI, Mucous Membr. Moist/[place] Lungs: Clear to Auscultation, Normal Respiratory Effort Cardiovascular: Regular Rate, Regular Rhythm GI/Abdominal Exam: Normal Bowel Sounds, Soft, Non-Tender, No Distention Back Exam: Normal Inspection Extremities: Normal Inspection, No Pedal Edema Skin: Warm, Dry, Intact Neurological: No New Focal Deficit Psy/Mental Status: Alert, Normal Affect, Normal Mood - Patient Data Lab Results Last 24 hrs: Laboratory Results - last 24 hr 05/05/21 05/05/21 Range/Units 04:46 04:46 WBC 13.2 H (4.5-11.0) K/uL RBC 2.74 L (3.30-5.50) M/uL Hgb 10.0 L (12.0-15.0) g/dL Hct 28.2 L (36.0-48.0) % MCV 103 H (80-98) fL MCH 37 H (27-31) pg MCHC 36 (32-36) % Plt Count 335 (150-400) K/uL Sodium 135 L (140-148) mmol/L Potassium 3.8 (3.6-5.2) mmol/L Chloride 103 (100-108) mmol/L Carbon Dioxide 16 L (21-32) mmol/L Anion Gap 19.8 H (5.0-14.0) mmol/L BUN 14 (7-18) mg/dL Creatinine 0.7 (0.6-1.0) mg/dL Est Cr Clr Drug Dosing 60.51 mL/min Estimated GFR (MDRD) > 60 (>60) Glucose 88 (74-106) mg/dL Calcium 8.7 (8.5-10.1) mg/dL Result Diagrams: 05/05/21 04:46 05/05/21 04:46 Sepsis Event Note - Evaluation Sepsis Screening Result: No Definite Risk - Focused Exam Vital Signs: Vital Signs Temp Pulse Resp BP Pulse Ox 05/05/21 15:15 97.1 F 73 16 124/79 99 05/05/21 09:55 96.0 F L 75 16 150/80 H 96 - Problem List & Annotations (1) Acute pancreatitis SNOMED Code(s): 864864708 Code(s): K85.90 - ACUTE PANCREATITIS WITHOUT NECROSIS OR INFECTION, UNSP Status: Acute Current Visit: Yes Qualifiers: Pancreatitis type: unspecified pancreatitis type Acute pancreatitis complication: unspecified Qualified Code(s): K85.90 - Acute pancreatitis without necrosis or infection, unspecified (2) Abdominal pain SNOMED Code(s): 74962910 Code(s): R10.9 - UNSPECIFIED ABDOMINAL PAIN Status: Acute Current Visit: No Qualifiers: Abdominal location: epigastric Qualified Code(s): R10.13 - Epigastric pain (3) Anxiety disorder SNOMED Code(s): 614672378 Code(s): F41.9 - ANXIETY DISORDER, UNSPECIFIED Status: Acute Current Visit: Yes - Problem List Review Problem List Initiated/Reviewed/Updated: Yes - My Orders Last 24 Hours: My Active Orders 05/04/21 21:00 Calcium Carbonate/Vitamin D3 [Caltrate 600+D 1500 MG-400 Units] 1 tab PO BID Cholecalciferol (Vitamin D3) [Vitamin D3] 50 mcg PO BID Ferrous Fumarate/Vitamin C [Vitron-C] 1 tab PO BID busPIRone [Buspar] 20 mg PO TID traZODone 100 mg PO BEDTIME 05/05/21 Breakfast Regular Diet [DIET] 05/05/21 09:00 Aspirin [Halfprin] 81 mg PO DAILY Cyanocobalamin (Vitamin B12) [Vitamin B12] 1,000 mcg PO DAILY Multivitamins w-Iron/Ca/FA/Min [Thera M Plus] 1 tab PO DAILY Patient's Own Medication [Ptom] 0 each PO DAILY Vitamin B Complex 1 each PO DAILY 05/05/21 09:04 Consult to Proof Tester [CONS] Routine - Plan Plan:: Acute pancreatitis possibly secondary to alcohol use -Patient denies alcohol use however her daughter has stated that she does drink and will deny it -Patient does not have a gallbladder, her triglycerides are within normal limits and she has no history of hypertriglyceridemia or hyperlipidemia, she does not have a rash, her calcium level is normal -She is currently on IV fluids -Pain control: Adequately treated with Tylenol -She is on a full liquid diet now, will escalate to a soft diet at dinner, and solids for breakfast Anxiety disorder -to take home medications including trazodone 100 mg, lorazepam 0.5 every 8 hours, hydroxyzine 25 mg every 6 hours, and buspirone 20 mg 3 times daily GERD -to take home Protonix Status-Post Bariatric surgery -To take home supplementation including calcium vitamin D3, cyanocobalamin, B complex, and iron CODE STATUS: Full code VTE prophylaxis: SCDs GI prophylaxis: Not indicated however patient is on Protonix as home medication and it was restarted Diet: Full liquid escalating to soft then to solids Plan: Her pain is controlled and her symptoms have decreased significantly however she would feel more comfortable waiting to go home until tomorrow, so we will do that. Was counseled by nutrition today. Disposition: Patient will be discharged home to her observational stay. Tona Herrmann DO
[2021-05-05] MEDS: traZODone 50 MG Tab (PTOM) PO SCH (21:26)
[2021-05-06] MEDS: LORazepam 0.5 MG Tab PO PRN (01:00)
[2021-05-06] MEDS: Acetaminophen/HYDROcodone 325-5 MG Tab PO PRN ×2 (05:59→10:42)
[2021-05-06 07:55] VITALS: BP 107/66; PULSE 80
[2021-05-06] MEDS: FLUOXETINE 40 MG PO SCH (10:39)
[2021-05-06] MEDS: Calcium Carbonate/Vitamin D3 1500 MG-400 Units Tab PO SCH (10:39)
[2021-05-06] MEDS: Pantoprazole 40 MG Tab.CR (PTOM) PO SCH (10:39)
[2021-05-06] MEDS: BUSPIRONE 10 MG PO SCH (10:39)
[2021-05-06] MEDS: Aspirin 81 MG Tab.EC PO SCH (10:39)
[2021-05-06] MEDS: Multivitamins with Iron/Calcium/Folic Acid/Minerals Tab PO SCH (10:39)
[2021-05-06] MEDS: Vitamin B Complex Tab PO SCH (10:39)
[2021-05-06] MEDS: Cyanocobalamin (Vitamin B12) 1,000 MCG Tab PO SCH (10:39)
[2021-05-06] MEDS: Ferrous Fumarate/Vitamin C 200-125 MG Tab PO SCH (10:40)
[2021-05-06] MEDS: Cholecalciferol (Vitamin D3) 25 MCG Tab (PTOM) PO SCH (10:40)
--- NOTE | 2021-05-07 17:43 | PCM.DCSUM1 ---
Discharge Summary - Hospital Course Free Text/Narrative:: Ms. Mcbride is a 71-year-old white female with past medical history of generalized anxiety disorder who presented on the with complaints of upper abdominal pain mainly in the epigastric region with associated nausea, dry heaving, headache, and dizziness. It was determined that she had pancreatitis based on her lipase levels. She has recently had several imaging studies of the abdomen so these were not repeated. She was admitted for pain control and for escalation of her diet. Her pain was adequately controlled and she was able to eat solid foods therefore she was good to be discharged. During her stay she did exhibit drug-seeking behaviors for opiate and benzo medications. Upon discharge she did want prescriptions for these however they were not clinically indicated. Diagnosis: Stroke: No Modified [place] Scale: No Symptoms at All Modified [place] Scale Score: 0 - Discharge Data Discharge Date: 05/06/21 Discharge Disposition: Home, Self-Care 01 Condition: Good - Referral to Home Health Primary Care Physician: PCP None - Discharge Diagnosis/Problem(s) (1) Acute pancreatitis SNOMED Code(s): 105368994 ICD Code: K85.90 - ACUTE PANCREATITIS WITHOUT NECROSIS OR INFECTION, UNSP Status: Acute Qualifiers: Pancreatitis type: unspecified pancreatitis type Acute pancreatitis compli cation: unspecified Qualified Code(s): K85.90 - Acute pancreatitis without necrosis or infection, unspecified (2) Anxiety disorder SNOMED Code(s): 683969407 ICD Code: F41.9 - ANXIETY DISORDER, UNSPECIFIED Status: Acute Qualifiers: Anxiety disorder type: generalized anxiety disorder Qualified Code(s): F41.1 - Generalized anxiety disorder (3) Generalized anxiety disorder SNOMED Code(s): 36141162 ICD Code: F41.1 - GENERALIZED ANXIETY DISORDER Status: Acute - Patient Summary/Data Consults: Consultations 05/05/21 09:04 Consult to Television Schedule Coordinator [CONS] Routine Comment: Physician Instructions: Quantity: 1 Reason for Consult: pancreatitis Special Instructions: diet to follow for pancratitis - Discharge Plan Home Medications: Home Meds Aspirin [Halfprin] 81 mg PO DAILY 09/01/13 [History] Calcium Carbonate/Vitamin D3 [Calcarb 600 with Vit D] 1 tab PO BID 09/01/13 [History] Multivitamin [Multi-Vitamin Daily] 1 tab PO DAILY 09/01/13 [History] Vit B Cmplx 3/Fa/Vit C/Biotin [Christa-Dion Rx Tablet] 1 tab PO DAILY 09/01/13 [History] traZODone HCl [Trazodone HCl] 100 mg PO BEDTIME 09/01/13 [History] Albuterol Sulfate [Proair Respiclick] 2 puff IH Q4HR PRN 09/27/18 [History] Cyanocobalamin (Vitamin B12) [Vitamin B12] 1,000 mcg PO DAILY 09/27/18 [History] Iron,Carbonyl/Ascorbic Acid [Iron 100-Vitamin C Tablet] 1 tab PO BID 09/27/18 [History] Acetaminophen [Tylenol] 325 mg PO Q4H PRN tablet 12/26/18 [Rx] Cholecalciferol (Vitamin D3) [Vitamin D3] 2 tab PO BID 06/02/20 [History] FLUoxetine HCl [Fluoxetine HCl] 2 tab PO DAILY 06/02/20 [History] Naltrexone 50 mg PO ASDIRECTED PRN 06/02/20 [History] Naltrexone Microspheres [Vivitrol] 380 mg IM Q28D 06/02/20 [History] busPIRone [Buspar] 20 mg PO TID 06/02/20 [History] hydrOXYzine HCL [hydrOXYzine] 25 mg PO Q6H PRN 06/02/20 [History] Pantoprazole [ProTONIX] 40 mg PO BIDAC #60 tab.cr 04/11/21 [Rx] Patient Handouts: Acute Pancreatitis, [id number] Forms: ED Department Discharge Referrals: Karen Nagy PA [Advanced RN Practitioner] - 05/11/21 1:30 pm - Discharge Summary/Plan Comment DC Time >30 min.: Yes - General Info Date of Service: 05/06/21 Admission Dx/Problem (Free Text: Admission Diagnosis/Problem Admission Diagnosis/Problem Pancreatitis, Generalized anxiety disorder Subjective Update: She was having very mild upper abdominal pain which is to be expected after pancreatitis. I did explain to her that this would go away over time as she heals. Functional Status: Reports: Pain Controlled, Tolerating Diet, Ambulating, Urinating - Review of Systems General: Reports: No Symptoms. Denies: Fever, Weakness, Fatigue, Night Sweats HEENT: Reports: No Symptoms. Denies: Headaches, Visual Changes Pulmonary: Reports: No Symptoms. Denies: Shortness of Breath, Cough, Sputum, Wheezing Cardiovascular: Reports: No Symptoms. Denies: Chest Pain, Palpitations Gastrointestinal: Reports: Abdominal Pain (Mild and epigastric significantly improved). Denies: Constipation, Diarrhea, Nausea, Vomiting Genitourinary: Reports: No Symptoms. Denies: Dysuria, Frequency, Urgency Musculoskeletal: Reports: No Symptoms Skin: Reports: No Symptoms Neurological: Reports: No Symptoms. Denies: Confusion, Dizziness - Patient Data Vitals - Most Recent: Last Vital Signs Temp 95.4 F L 05/06/21 07:53 Pulse 80 05/06/21 07:53 Resp 16 05/06/21 07:53 BP 107/66 05/06/21 07:53 Pulse Ox 97 05/06/21 07:53 Weight - Most Recent: 113 lb 0.002 oz Med Orders - Current: Current Medications Discontinued Medications Acetaminophen (Acetaminophen 325 Mg Tab) 650 mg PO Q4H PRN PRN Reason: analgesia/fever Last Admin: 05/05/21 16:59 Dose: 650 mg Documented by: Hydrocodone Bitart/Acetaminophen (Acetaminophen/Hydrocodone 325-5 Mg Tab) 1 tab PO Q4H PRN PRN Reason: Pain (moderate 4-6) Last Admin: 05/06/21 10:42 Dose: 1 tab Documented by: Albuterol (Albuterol 8 Gm Inhaler) 0 gm INH Q4H PRN PRN Reason: Shortness of Breath Aspirin (Aspirin 81 Mg Tab.Ec) 81 mg PO DAILY [facility] Last Admin: 05/06/21 10:39 Dose: 81 mg Documented by: Bisacodyl (Bisacodyl 10 Mg Supp) 10 mg RECTAL DAILY PRN PRN Reason: Constipation Last Admin: 05/04/21 22:03 Dose: 10 mg Documented by: Buspirone HCl (Buspirone 10 Mg Tab (Ptom)) 20 mg PO TID [facility] Last Admin: 05/06/21 10:39 Dose: 20 mg Documented by: Calcium Carbonate (Calcium Carbonate/Vitamin D3 1500 Mg-400 Units Tab) 1 tab PO BID [facility] Last Admin: 05/06/21 10:39 Dose: 1 tab Documented by: Cholecalciferol (Cholecalciferol (Vitamin D3) 25 Mcg Tab (Ptom)) 50 mcg PO BID [facility]CLUD[facility] Last Admin: 05/06/21 10:40 Dose: 50 mcg Documented by: Cyanocobalamin (Cyanocobalamin (Vitamin B12) 1,000 Mcg Tab) 1,000 mcg PO DAILY [facility]CLUD[facility] Last Admin: 05/06/21 10:39 Dose: 1,000 mcg Documented by: Hydromorphone HCl (Hydromorphone 0.5 Mg/0.5 Ml Syringe) 0.5 mg IVPUSH ONETIME ONE Stop: 05/04/21 06:47 Last Admin: 05/04/21 07:04 Dose: 0.5 mg Documented by: Hydromorphone HCl (Hydromorphone 0.5 Mg/0.5 Ml Syringe) 0.5 mg IVPUSH Q4H PRN PRN Reason: Pain (severe 7-10) Hydroxyzine HCl (Hydroxyzine Hcl 25 Mg Tab (Ptom)) 25 mg PO Q6H PRN PRN Reason: Anxiety Last Admin: 05/05/21 16:04 Dose: 25 mg Documented by: Sodium Chloride (Normal Saline) 1,000 mls @ 999 mls/hr IV ASDIRECTED COUNT INCLUDES [facility] Last Admin: 05/04/21 06:58 Dose: 999 mls/hr Documented by: Sodium Chloride (Normal Saline) 1,000 mls @ 999 mls/hr IV ASDIRECTED COUNT INCLUDES [facility] Last Admin: 05/04/21 08:01 Dose: 999 mls/hr Documented by: Iron/Vitamin C (Ferrous Fumarate/Vitamin C 200-125 Mg Tab) 1 tab PO BID [facility]CLUD[facility] Last Admin: 05/06/21 10:40 Dose: 1 tab Documented by: Lorazepam (Lorazepam 0.5 Mg Tab) 0.5 mg PO Q8H PRN PRN Reason: Anxiety Last Admin: 05/06/21 01:00 Dose: 0.5 mg Documented by: Multivitamins/Minerals (Multivitamins With Iron/Calcium/Folic Acid/Minerals Tab) 1 tab PO DAILY [facility]CLUDES [facility] Last Admin: 05/06/21 10:39 Dose: 1 tab Documented by: Ondansetron HCl (Ondansetron 4 Mg/2 Ml Sdv) 4 mg IVPUSH ONETIME ONE Stop: 05/04/21 06:46 Last Admin: 05/04/21 07:01 Dose: 4 mg Documented by: Pantoprazole Sodium (Pantoprazole 40 Mg Tab.Cr (Ptom)) 40 mg PO BIDAC COUNT INCLUDES [facility] Last Admin: 05/06/21 10:39 Dose: 40 mg Documented by: Fluoxetine 40mg Cap ((Ptom)) 0 each PO DAILY [facility]CLUDES [facility] Last Admin: 05/06/21 10:39 Dose: 1 each Documented by: Trazodone HCl (Trazodone 50 Mg Tab (Ptom)) 100 mg PO BEDTIME COUNT INCLUDES [facility] Last Admin: 05/05/21 21:26 Dose: 100 mg Documented by: Vitamin B Complex (Vitamin B Complex Tab) 1 each PO DAILY COUNT [facility]CLUDES [facility] Last Admin: 05/06/21 10:39 Dose: 1 each Documented by: - Exam General: Reports: Alert, Oriented, No Acute Distress HEENT: Reports: Pupils Equal, EOMI, Mucous Membr. Moist/[place] Lungs: Reports: Clear to Auscultation, Normal Respiratory Effort Cardiovascular: Reports: Regular Rate, Regular Rhythm GI/Abdominal Exam: Normal Bowel Sounds, Soft, Non-Tender, No Distention Back Exam: Reports: Normal Inspection Extremities: Normal Inspection, No Pedal Edema Skin: Reports: Warm, Dry, Intact Neurological: Reports: No New Focal Deficit Psy/Mental Status: Reports: Alert, Normal Affect, Normal Mood
== END 2021-05-06 11:15 | disposition home or self-care (01) ==
LOC: JP.ED 05:46 → JP.MS 08:33
PROVIDERS: ADMIT Internal Medicine; ATTEND Internal Medicine
DX: K85.90 Acute pancreatitis without necrosis or infection, unspecified (principal); K56.609 Unspecified intestinal obstruction, unspecified as to partial versus complete obstruction; K21.9 Gastro-esophageal reflux disease without esophagitis; F41.1 Generalized anxiety disorder; Z98.84 Bariatric surgery status; Z90.49 Acquired absence of other specified parts of digestive tract; Z88.5 Allergy status to narcotic agent; Z79.82 Long term (current) use of aspirin; Z79.899 Other long term (current) drug therapy
CPT/HCPCS: 36415; 80048; 80053; 80307; 81001; 82150; 83690; 84478; 85025; 85027; 96374; 96375; 99284-25; 99285; A9270-GY; J1170; J2405; J7030

== ENCOUNTER 2021-05-10 03:51 | Emergency (ER) | payer MEDICARE ==
--- NOTE | 2021-05-10 04:25 | EDM.PDOC ---
ED HPI GENERAL MEDICAL PROBLEM - General Chief Complaint: ENT Problem Stated Complaint: SORE THROAT Time Seen by Provider: 05/10/21 04:08 Source of Information: Reports: Patient, Old Records, RN Notes Reviewed History Limitations: Reports: No Limitations - History of Present Illness INITIAL COMMENTS - FREE TEXT/NARRATIVE: 8-year-old female presents emergency department day complaint of sore throat, she states has had sore throat for about 2days no fevers difficulty swallowing no nausea vomiting shortness of breath or chest pain. Has had exposure with her grandkids. Has not had Covid vaccination Throat Pain Score (Numeric/FACES): 10 - Related Data Allergies Allergy/AdvReac Type Severity Reaction Status Date / Time morphine Allergy Edema Verified 05/10/21 03:58 Home Meds: Home Meds Aspirin [Halfprin] 81 mg PO DAILY 09/01/13 [History] Calcium Carbonate/Vitamin D3 [Calcarb 600 with Vit D] 1 tab PO BID 09/01/13 [History] Multivitamin [Multi-Vitamin Daily] 1 tab PO DAILY 09/01/13 [History] Vit B Cmplx 3/Fa/Vit C/Biotin [Christa-Dion Rx Tablet] 1 tab PO DAILY 09/01/13 [History] traZODone HCl [Trazodone HCl] 100 mg PO BEDTIME 09/01/13 [History] Albuterol Sulfate [Proair Respiclick] 2 puff IH Q4HR PRN 09/27/18 [History] Cyanocobalamin (Vitamin B12) [Vitamin B12] 1,000 mcg PO DAILY 09/27/18 [History] Iron,Carbonyl/Ascorbic Acid [Iron 100-Vitamin C Tablet] 1 tab PO BID 09/27/18 [History] Acetaminophen [Tylenol] 325 mg PO Q4H PRN tablet 12/26/18 [Rx] Cholecalciferol (Vitamin D3) [Vitamin D3] 2 tab PO BID 06/02/20 [History] FLUoxetine HCl [Fluoxetine HCl] 2 tab PO DAILY 06/02/20 [History] Naltrexone 50 mg PO ASDIRECTED PRN 06/02/20 [History] Naltrexone Microspheres [Vivitrol] 380 mg IM Q28D 06/02/20 [History] busPIRone [Buspar] 20 mg PO TID 06/02/20 [History] hydrOXYzine HCL [hydrOXYzine] 25 mg PO Q6H PRN 06/02/20 [History] Pantoprazole [ProTONIX] 40 mg PO BIDAC #60 tab.cr 04/11/21 [Rx] Past Medical History HEENT History: Reports: Impaired Vision Other HEENT History: wears glasses Gastrointestinal History: Reports: GERD, PUD Genitourinary History: Reports: UTI, Recurrent HOME HEALTH SPECIALIST History: Reports: , Spontaneous Other HOME HEALTH SPECIALIST History: ovarian cyst removed Musculoskeletal History: Reports: Arthritis, Other (See Below) Other Musculoskeletal History: scoliosis Neurological History: Reports: Concussion, Head Trauma Psychiatric History: Reports: Addiction, Anxiety, Depression, Panic Attack, Psych Hospitalization(s), Suicidal Ideation Endocrine/Metabolic History: Reports: Vitamin D Deficiency Hematologic History: Reports: Anemia, B12 Deficiency, Blood Transfusion(s), Folic Acid, Iron Deficiency - Infectious Disease History Infectious Disease History: Reports: Chicken Pox - Past Surgical History Head Surgeries/Procedures: Reports: None HEENT Surgical History: Reports: None GI Surgical History: Reports: Appendectomy, Bariatric Procedure, Cholecystectomy, Colonoscopy, EGD, Esophageal Dilatation, Hernia Repair/Other Female Surgical History: Reports: Section, Cystectomy, Hysterectomy Endocrine Surgical History: Reports: None Neurological Surgical History: Reports: None Musculoskeletal Surgical History: Reports: Shoulder Surgery Other Musculoskeletal Surgeries/Procedures:: right rotator cuff repair Dermatological Surgical History: Reports: None Social & Family History - Family History Family Medical History: No Pertinent Family History - Tobacco Use Tobacco Use Status *Q: Current Every Day Tobacco User Years of Tobacco use: 40 Packs/Tins Daily: 0.5 - Caffeine Use Caffeine Use: Reports: Coffee Caffeine Use Comment: daily use - Recreational Drug Use Recreational Drug Use: No - Living Situation & Occupation Living situation: Reports: , with Spouse (lives with in [facility]. 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 had 13 children from age 48 yr to 28 yrs. 115 Grandchildren. One of her Daughters yLnda is a RN on [address] [place] [address].) Occupation: Student ED ROS ENT - Review of Systems Review Of Systems: See Below Constitutional: Denies: Fever, Chills HEENT: Reports: Throat Pain, Throat Swelling Respiratory: Reports: No Symptoms Cardiovascular: Reports: No Symptoms GI/Abdominal: Reports: No Symptoms ED EXAM, ENT - Physical Exam Exam: See Below Exam Limited By: No Limitations General Appearance: Alert, WD/WN, No Apparent Distress Eye Exam: Bilateral Eye: Normal Inspection Ears: Normal External Exam, Normal Canal, Hearing Grossly Normal, Normal TMs Nose: Normal Inspection, Normal Mucousa, No Blood Mouth/Throat: Normal Inspection, Normal Gums, Normal Lips, Normal Oropharynx, Normal Teeth Head: Atraumatic, Normocephalic Neck: Normal Inspection, Supple, Non-Tender, Full Range of Motion Respiratory/Chest: No Respiratory Distress, Lungs Clear, Normal Breath Sounds, No Accessory Muscle Use Cardiovascular: Regular Rate, Rhythm, No Murmur GI/Abdominal: Soft, Non-Tender Course - Vital Signs Last Recorded V/S: Last Vital Signs Temp 96.3 F L 05/10/21 04:02 Pulse 96 05/10/21 04:02 Resp 16 05/10/21 04:02 BP 134/71 05/10/21 04:02 Pulse Ox 98 05/10/21 04:02 - Orders/Labs/Meds Orders: Active Orders 24 hr Category Date Time Status CULTURE STREP A CONFIRMATION [RM] Stat Lab 05/10/21 04:33 Results STREP SCRN A RAPID W CULT CONF [RM] Stat Lab 05/10/21 04:33 Results Labs: Laboratory Tests 05/10/21 05/10/21 05/10/21 Range/Units 04:45 04:45 04:45 WBC 8.0 (4.5-11.0) K/uL RBC 2.95 L (3.30-5.50) M/uL Hgb 10.8 L (12.0-15.0) g/dL Hct 30.5 L (36.0-48.0) % MCV 103 H (80-98) fL MCH 37 H (27-31) pg MCHC 35 (32-36) % Plt Count 423 H (150-400) K/uL Neut % (Auto) 79.5 H (36-66) % Lymph % (Auto) 8.5 L (24-44) % [place] % (Auto) 11.3 H (2-6) % Eos % (Auto) 0.4 L (2-4) % Baso % (Auto) 0.3 (0-1) % Sodium 139 L (140-148) mmol/L Potassium 3.9 (3.6-5.2) mmol/L Chloride 105 (100-108) mmol/L Carbon Dioxide 11 L (21-32) mmol/L Anion Gap 26.9 H (5.0-14.0) mmol/L BUN 20 H (7-18) mg/dL Creatinine 1.0 D (0.6-1.0) mg/dL Est Cr Clr Drug Dosing 44.98 mL/min Estimated GFR (MDRD) 55 L (>60) Glucose 92 (74-106) mg/dL Calcium 8.7 (8.5-10.1) mg/dL Total Bilirubin 0.6 D (0.2-1.0) mg/dL AST 1227 H (15-37) U/L ALT 676 H (12-78) U/L Alkaline Phosphatase 164 H (46-116) U/L Total Protein 7.1 (6.4-8.2) g/dL Albumin 3.2 L (3.4-5.0) g/dL Globulin 3.9 H (2.3-3.5) g/dL Albumin/Globulin Ratio 0.8 L (1.2-2.2) TSH, Ultra Sensitive 1.157 (0.358-3.740) uIU/mL SARS CoV-2 RNA Rapid NORMA Negative Meds: Medications Discontinued Medications Generic Name Dose Route Start Last Admin Trade Name Freq PRN Reason Stop Dose Admin Al Hydroxide/Mg Hydroxide 15 0 ml 05/10/21 04:22 05/10/21 04:31 ml/ Lidocaine HCl 15 ml PO 05/10/21 04:23 30 ml ONETIME ONE Administration Ketorolac Tromethamine 30 mg 05/10/21 04:22 05/10/21 04:31 Ketorolac 30 Mg/Ml Sdv IM 05/10/21 04:23 30 mg ONETIME ONE Administration Departure - Departure Time of Disposition: 05:29 Disposition: Home, Self-Care 01 Condition: Fair Clinical Impression: Macrocytic anemia, Elevated liver enzymes Pharyngitis Qualifiers: Pharyngitis/tonsillitis etiology: unspecified etiology Qualified Code(s): J02.9 - Acute pharyngitis, unspecified - Discharge Information Instructions: Pharyngitis, [id number] Referrals: PCP,None [Primary Care Provider] - Forms: ED Department Discharge Additional Instructions: Please follow-up with your primary care provider for further evaluation of your elevated liver enzymes, call return to the emergency department worsening of symptoms Sepsis Event Note (ED) - Evaluation Sepsis Screening Result: No Definite Risk - Focused Exam Vital Signs: Vital Signs Temp Pulse Resp BP Pulse Ox 05/10/21 04:02 96.3 F L 96 16 134/71 98 - My Orders Last 24 Hours: My Active Orders 05/10/21 04:33 CULTURE STREP A CONFIRMATION [RM] Stat STREP SCRN A RAPID W CULT CONF [RM] Stat - Assessment/Plan Last 24 Hours: My Active Orders 05/10/21 04:33 CULTURE STREP A CONFIRMATION [RM] Stat STREP SCRN A RAPID W CULT CONF [RM] Stat Plan: Assessment Acuity = acute Site and laterality = pharyngitis Etiology = unknown Manifestations = none Location of injury = Home Lab values = CBC reveals a hemoglobin 10.8 consistent microchromic anemia similar to prior anemias in the past, AST markedly elevated 1227 ALT elevated 676 this is a new finding elevated liver enzymes unclear etiology TSH normal 1.17 Plan I did review lab work with her true elevated liver enzymes talked about alcohol use which she denies of asked her to follow-up with her primary care for further evaluation of elevated liver enzymes. She was provided Toradol and a GI cocktail which provided good relief in the emergency department for sore throat, also granted Ativan 1 mg 1 tab p.o. 3 times daily as needed total #10 This note was dictated using [email or web address] voice recognition software please call with any questions on syntax or grammar.
[2021-05-10] MEDS: Alum Hydrox/Mag Hydrox/Simeth 15 ML, Lidocaine 2% 15 ML PO ONE ×2 (04:31)
[2021-05-10] MEDS: Ketorolac 30 MG/ML SDV IM ONE (04:31)
[2021-05-10 05:37] VITALS: BP 122/64; PULSE 86
== END 2021-05-10 05:37 | disposition home or self-care (01) ==
LOC: JP.ED 03:51
DX: J02.9 Acute pharyngitis, unspecified (principal); R74.8 Abnormal levels of other serum enzymes; D53.9 Nutritional anemia, unspecified; K21.9 Gastro-esophageal reflux disease without esophagitis; M19.90 Unspecified osteoarthritis, unspecified site; Z72.0 Tobacco use; Z88.5 Allergy status to narcotic agent; Z79.82 Long term (current) use of aspirin; Z79.899 Other long term (current) drug therapy; Z20.822 Contact with and (suspected) exposure to COVID-19
CPT/HCPCS: 36415; 80053; 84443; 85025; 87081; 87880-QW; 96372; 99283; A9270-GY; J1885; U0002

== ENCOUNTER 2021-05-10 19:11 | Emergency (ER) | payer MEDICARE ==
[2021-05-10] MEDS ORDERED: Lactated Ringers 500 ML IV ONE (20:16)
[2021-05-10] MEDS ORDERED: Sodium Chloride 0.9% 10 ML Syringe FLUSH PRN (20:16)
--- NOTE | 2021-05-10 20:21 | EDM.PDOC ---
ED HPI GENERAL MEDICAL PROBLEM - General Chief Complaint: General Stated Complaint: STOMACH PAIN- Time Seen by Provider: 05/10/21 20:07 Source of Information: Reports: Patient, Family, Old Records, RN Notes Reviewed History Limitations: Reports: Intoxication - History of Present Illness INITIAL COMMENTS - FREE TEXT/NARRATIVE: 71-year-old female presents emergency department today sent in by her primary care for elevated liver enzymes I did have the opportunity see her early this morning discovery of her elevated liver enzymes. At that time she was complaining of sore throat was fully coherent and cooperative I did provide her 10 tablets of 1 mg Ativan. At this time she now seems intoxicated she drifts off in between sentences she does appear comfortable and not complaining of any pain. Difficult to obtain review of systems due to her change in mental status - Related Data Allergies Allergy/AdvReac Type Severity Reaction Status Date / Time morphine Allergy Edema Verified 05/10/21 19:40 Home Meds: Home Meds Aspirin [Halfprin] 81 mg PO DAILY 09/01/13 [History] Calcium Carbonate/Vitamin D3 [Calcarb 600 with Vit D] 1 tab PO BID 09/01/13 [History] Multivitamin [Multi-Vitamin Daily] 1 tab PO DAILY 09/01/13 [History] Vit B Cmplx 3/Fa/Vit C/Biotin [Christa-Dion Rx Tablet] 1 tab PO DAILY 09/01/13 [History] traZODone HCl [Trazodone HCl] 100 mg PO BEDTIME 09/01/13 [History] Albuterol Sulfate [Proair Respiclick] 2 puff IH Q4HR PRN 09/27/18 [History] Cyanocobalamin (Vitamin B12) [Vitamin B12] 1,000 mcg PO DAILY 09/27/18 [History] Iron,Carbonyl/Ascorbic Acid [Iron 100-Vitamin C Tablet] 1 tab PO BID 09/27/18 [History] Acetaminophen [Tylenol] 325 mg PO Q4H PRN tablet 12/26/18 [Rx] Cholecalciferol (Vitamin D3) [Vitamin D3] 2 tab PO BID 06/02/20 [History] FLUoxetine HCl [Fluoxetine HCl] 2 tab PO DAILY 06/02/20 [History] Naltrexone 50 mg PO ASDIRECTED PRN 06/02/20 [History] Naltrexone Microspheres [Vivitrol] 380 mg IM Q28D 06/02/20 [History] busPIRone [Buspar] 20 mg PO TID 06/02/20 [History] hydrOXYzine HCL [hydrOXYzine] 25 mg PO Q6H PRN 06/02/20 [History] Pantoprazole [ProTONIX] 40 mg PO BIDAC #60 tab.cr 04/11/21 [Rx] Past Medical History HEENT History: Reports: Impaired Vision Other HEENT History: wears glasses Gastrointestinal History: Reports: GERD, PUD Genitourinary History: Reports: UTI, Recurrent 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: , Spontaneous Other UNDERGROUND DISTRIBUTION ENGINEER History: ovarian cyst removed Musculoskeletal History: Reports: Arthritis, Other (See Below) Other Musculoskeletal History: scoliosis Neurological History: Reports: Concussion, Head Trauma Psychiatric History: Reports: Addiction, Anxiety, Depression, Panic Attack, Psych Hospitalization(s), Suicidal Ideation Endocrine/Metabolic History: Reports: Vitamin D Deficiency Hematologic History: Reports: Anemia, B12 Deficiency, Blood Transfusion(s), Folic Acid, Iron Deficiency - Infectious Disease History Infectious Disease History: Reports: Chicken Pox - Past Surgical History Head Surgeries/Procedures: Reports: None HEENT Surgical History: Reports: None GI Surgical History: Reports: Appendectomy, Bariatric Procedure, Cholecystectomy, Colonoscopy, EGD, Esophageal Dilatation, Hernia Repair/Other Female Surgical History: Reports: Section, Cystectomy, Hysterectomy Endocrine Surgical History: Reports: None Neurological Surgical History: Reports: None Musculoskeletal Surgical History: Reports: Shoulder Surgery Other Musculoskeletal Surgeries/Procedures:: right rotator cuff repair Dermatological Surgical History: Reports: None Social & Family History - Family History Family Medical History: No Pertinent Family History - Tobacco Use Tobacco Use Status *Q: Current Every Day Tobacco User Years of Tobacco use: 50 Packs/Tins Daily: 1 - Caffeine Use Caffeine Use: Reports: Coffee Caffeine Use Comment: daily use - Recreational Drug Use Recreational Drug Use: Yes - Living Situation & Occupation Living situation: Reports: , with Spouse (lives with in [facility]. 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 had 13 children from age 48 yr to 28 yrs. 115 Grandchildren. One of her Daughters is a RN on [address] [place] [address].) Occupation: Student ED ROS GENERAL - Review of Systems Review Of Systems: Unable To Obtain Reason Not Obtained: Lethargic ED EXAM, GENERAL - Physical Exam Exam: See Below Exam Limited By: Intoxication General Appearance: Lethargic Eye Exam: Bilateral Eye: Normal Inspection Respiratory/Chest: No Respiratory Distress, Lungs Clear, Normal Breath Sounds, No Accessory Muscle Use, Chest Non-Tender Cardiovascular: Regular Rate, Rhythm, No Murmur GI/Abdominal: Soft, Non-Tender Course - Vital Signs Last Recorded V/S: Last Vital Signs Temp 98.2 F 05/10/21 19:43 Pulse 71 05/10/21 23:21 Resp 14 05/10/21 22:09 BP 97/54 L 05/10/21 23:21 Pulse Ox 97 05/10/21 22:09 - Orders/Labs/Meds Orders: Active Orders 24 hr Category Date Time Status Peripheral IV Care [RC] . DIRECTED Care 05/10/21 20:17 Active CULTURE BLOOD [BC] Urgent Lab 05/10/21 23:21 Ordered CULTURE BLOOD [BC] Urgent Lab 05/10/21 23:21 Ordered CULTURE URINE [RM] Urgent Lab 05/10/21 22:15 Received Iopamidol [Isovue-300 (61%)] Med 05/10/21 20:45 Active 75 ml IV . DIRECTED PRN Sodium Chloride 0.9% [Normal Saline] 1,000 ml Med 05/10/21 23:30 Ordered IV ASDIRECTED Sodium Chloride 0.9% [Normal Saline] 70 ml Med 05/10/21 20:45 Active IV ASDIRECTED Sodium Chloride 0.9% [Saline Flush] Med 05/10/21 20:16 Active 10 ml FLUSH ASDIRECTED PRN cefTRIAXone [Rocephin] 2 gm Med 05/10/21 23:20 Ordered Sodium Chloride 0.9% [Normal Saline] 50 ml IV ONETIME Blood Culture x2 Reflex Set [OM.PC] Urgent Oth 05/10/21 23:21 Ordered Peripheral IV Insertion Adult [OM.PC] Stat Oth 05/10/21 20:16 Ordered Medication Orders Sodium Chloride (Normal Saline) 70 mls @ 3 mls/sec IV ASDIRECTED ASHWIN Last Admin: 05/10/21 22:06 Dose: 3 mls/sec Documented by: MICHEAL Ceftriaxone Sodium 2 gm/ (Sodium Chloride) 50 mls @ 100 mls/hr IV ONETIME ONE Stop: 05/10/21 23:49 Sodium Chloride (Normal Saline) 1,000 mls @ 999 mls/hr IV ASDIRECTED ASHWIN Iopamidol (Iopamidol 612 Mg/Ml 100 Ml Bottle) 75 ml IV . DIRECTED PRN PRN Reason: RADIOLOGY EXAM Stop: 05/11/21 20:46 Last Admin: 05/10/21 22:05 Dose: 75 ml Documented by: MICHEAL Sodium Chloride (Sodium Chloride 0.9% 10 Ml Syringe) 10 ml FLUSH ASDIRECTED PRN PRN Reason: Keep Vein Open Last Admin: 05/10/21 22:06 Dose: 10 ml Documented by: MICHEAL Labs: Laboratory Tests 05/10/21 05/10/21 05/10/21 Range/Units 20:16 20:53 20:53 WBC 7.7 (4.5-11.0) K/uL RBC 2.64 L (3.30-5.50) M/uL Hgb 9.6 L (12.0-15.0) g/dL Hct 27.2 L (36.0-48.0) % MCV 103 H (80-98) fL MCH 36 H (27-31) pg MCHC 35 (32-36) % Plt Count 341 (150-400) K/uL Neut % (Auto) 80.0 H (36-66) % Lymph % (Auto) 10.5 L (24-44) % Grady % (Auto) 6.1 H (2-6) % Eos % (Auto) 3.1 (2-4) % Baso % (Auto) 0.3 (0-1) % PT 17.4 H (9.5-12.0) sec INR 1.61 H (0.80-1.20) APTT 33.6 (27.0-36.0) sec Sodium (140-148) mmol/L Potassium (3.6-5.2) mmol/L Chloride (100-108) mmol/L Carbon Dioxide (21-32) mmol/L Anion Gap (5.0-14.0) mmol/L BUN (7-18) mg/dL Creatinine (0.6-1.0) mg/dL Est Cr Clr Drug Dosing mL/min Estimated GFR (MDRD) (>60) BUN/Creatinine Ratio Glucose (74-106) mg/dL Lactic Acid (0.4-2.0) mmol/L Calcium (8.5-10.1) mg/dL Total Bilirubin (0.2-1.0) mg/dL AST (15-37) U/L ALT (12-78) U/L Alkaline Phosphatase (46-116) U/L Ammonia (11-32) umol/L Lactate Dehydrogenase (82-234) U/L Troponin I (0.000-0.056) ng/mL Total Protein (6.4-8.2) g/dL Albumin (3.4-5.0) g/dL Globulin (2.3-3.5) g/dL Albumin/Globulin Ratio (1.2-2.2) Lipase (73-393) U/L Procalcitonin ng/mL Urine Color Urine Appearance Urine pH Ur Specific [place] Urine Protein Urine Glucose (UA) Urine Ketones Urine Occult Blood Urine Nitrite Urine Bilirubin Urine Urobilinogen Ur Leukocyte Esterase Urine RBC Urine WBC Ur Epithelial Cells Amorphous Sediment Urine Bacteria Urine Mucus Urine Other Urinalysis Comment Salicylates (2.0-20.0) mg/dL Urine Opiates Screen Cancelled Ur Oxycodone Screen Cancelled Urine Methadone Screen Cancelled Ur Propoxyphene Screen Cancelled Acetaminophen (10.0-30.0) ug/mL Ur Barbiturates Screen Cancelled Ur Tricyclics Screen Cancelled Ur Phencyclidine Scrn Cancelled Ur Amphetamine Screen Cancelled U Methamphetamines Scrn Cancelled Urine MDMA Screen Cancelled U Benzodiazepines Scrn Cancelled U Cocaine Metab Screen Cancelled U Marijuana (THC) Screen Cancelled Ethyl Alcohol mg/dL 05/10/21 05/10/21 05/10/21 Range/Units 20:53 20:53 20:53 WBC (4.5-11.0) K/uL RBC (3.30-5.50) M/uL Hgb (12.0-15.0) g/dL Hct (36.0-48.0) % MCV (80-98) fL MCH (27-31) pg MCHC (32-36) % Plt Count (150-400) K/uL Neut % (Auto) (36-66) % Lymph % (Auto) (24-44) % Grady % (Auto) (2-6) % Eos % (Auto) (2-4) % Baso % (Auto) (0-1) % PT (9.5-12.0) sec INR (0.80-1.20) APTT (27.0-36.0) sec Sodium 138 L (140-148) mmol/L Potassium 4.5 (3.6-5.2) mmol/L Chloride 108 (100-108) mmol/L Carbon Dioxide 13 L (21-32) mmol/L Anion Gap 21.5 H (5.0-14.0) mmol/L BUN 26 H (7-18) mg/dL Creatinine 1.0 (0.6-1.0) mg/dL Est Cr Clr Drug Dosing 41.65 mL/min Estimated GFR (MDRD) 55 L (>60) BUN/Creatinine Ratio Not Reportable Glucose 94 (74-106) mg/dL Lactic Acid 1.4 (0.4-2.0) mmol/L Calcium 8.2 L (8.5-10.1) mg/dL Total Bilirubin 0.5 (0.2-1.0) mg/dL AST 1211 H (15-37) U/L ALT 963 H (12-78) U/L Alkaline Phosphatase 169 H (46-116) U/L Ammonia 65 H (11-32) umol/L Lactate Dehydrogenase (82-234) U/L Troponin I < 0.017 (0.000-0.056) ng/mL Total Protein 6.2 L (6.4-8.2) g/dL Albumin 2.9 L (3.4-5.0) g/dL Globulin 3.3 (2.3-3.5) g/dL Albumin/Globulin Ratio 0.9 L (1.2-2.2) Lipase 1501 H (73-393) U/L Procalcitonin ng/mL Urine Color Urine Appearance Urine pH Ur Specific [place] Urine Protein Urine Glucose (UA) Urine Ketones Urine Occult Blood Urine Nitrite Urine Bilirubin Urine Urobilinogen Ur Leukocyte Esterase Urine RBC Urine WBC Ur Epithelial Cells Amorphous Sediment Urine Bacteria Urine Mucus Urine Other Urinalysis Comment Salicylates (2.0-20.0) mg/dL Urine Opiates Screen Ur Oxycodone Screen Urine Methadone Screen Ur Propoxyphene Screen Acetaminophen 20.7 (10.0-30.0) ug/mL Ur Barbiturates Screen Ur Tricyclics Screen Ur Phencyclidine Scrn Ur Amphetamine Screen U Methamphetamines Scrn Urine MDMA Screen U Benzodiazepines Scrn U Cocaine Metab Screen U Marijuana (THC) Screen Ethyl Alcohol mg/dL 05/10/21 05/10/21 05/10/21 Range/Units 20:53 20:53 20:53 WBC (4.5-11.0) K/uL RBC (3.30-5.50) M/uL Hgb (12.0-15.0) g/dL Hct (36.0-48.0) % MCV (80-98) fL MCH (27-31) pg MCHC (32-36) % Plt Count (150-400) K/uL Neut % (Auto) (36-66) % Lymph % (Auto) (24-44) % Grady % (Auto) (2-6) % Eos % (Auto) (2-4) % Baso % (Auto) (0-1) % PT (9.5-12.0) sec INR (0.80-1.20) APTT (27.0-36.0) sec Sodium (140-148) mmol/L Potassium (3.6-5.2) mmol/L Chloride (100-108) mmol/L Carbon Dioxide (21-32) mmol/L Anion Gap (5.0-14.0) mmol/L BUN (7-18) mg/dL Creatinine (0.6-1.0) mg/dL Est Cr Clr Drug Dosing mL/min Estimated GFR (MDRD) (>60) BUN/Creatinine Ratio Glucose (74-106) mg/dL Lactic Acid (0.4-2.0) mmol/L Calcium (8.5-10.1) mg/dL Total Bilirubin (0.2-1.0) mg/dL AST (15-37) U/L ALT (12-78) U/L Alkaline Phosphatase (46-116) U/L Ammonia (11-32) umol/L Lactate Dehydrogenase 714 H (82-234) U/L Troponin I (0.000-0.056) ng/mL Total Protein (6.4-8.2) g/dL Albumin (3.4-5.0) g/dL Globulin (2.3-3.5) g/dL Albumin/Globulin Ratio (1.2-2.2) Lipase (73-393) U/L Procalcitonin ng/mL Urine Color Urine Appearance Urine pH Ur Specific [place] Urine Protein Urine Glucose (UA) Urine Ketones Urine Occult Blood Urine Nitrite Urine Bilirubin Urine Urobilinogen Ur Leukocyte Esterase Urine RBC Urine WBC Ur Epithelial Cells Amorphous Sediment Urine Bacteria Urine Mucus Urine Other Urinalysis Comment Salicylates 1.8 L (2.0-20.0) mg/dL Urine Opiates Screen Ur Oxycodone Screen Urine Methadone Screen Ur Propoxyphene Screen Acetaminophen (10.0-30.0) ug/mL Ur Barbiturates Screen Ur Tricyclics Screen Ur Phencyclidine Scrn Ur Amphetamine Screen U Methamphetamines Scrn Urine MDMA Screen U Benzodiazepines Scrn U Cocaine Metab Screen U Marijuana (THC) Screen Ethyl Alcohol < 3 mg/dL 05/10/21 05/10/21 05/10/21 Range/Units 20:53 21:20 22:05 WBC (4.5-11.0) K/uL RBC (3.30-5.50) M/uL Hgb (12.0-15.0) g/dL Hct (36.0-48.0) % MCV (80-98) fL MCH (27-31) pg MCHC (32-36) % Plt Count (150-400) K/uL Neut % (Auto) (36-66) % Lymph % (Auto) (24-44) % Grady % (Auto) (2-6) % Eos % (Auto) (2-4) % Baso % (Auto) (0-1) % PT (9.5-12.0) sec INR (0.80-1.20) APTT (27.0-36.0) sec Sodium (140-148) mmol/L Potassium (3.6-5.2) mmol/L Chloride (100-108) mmol/L Carbon Dioxide (21-32) mmol/L Anion Gap (5.0-14.0) mmol/L BUN (7-18) mg/dL Creatinine (0.6-1.0) mg/dL Est Cr Clr Drug Dosing mL/min Estimated GFR (MDRD) (>60) BUN/Creatinine Ratio Glucose (74-106) mg/dL Lactic Acid (0.4-2.0) mmol/L Calcium (8.5-10.1) mg/dL Total Bilirubin (0.2-1.0) mg/dL AST (15-37) U/L ALT (12-78) U/L Alkaline Phosphatase (46-116) U/L Ammonia (11-32) umol/L Lactate Dehydrogenase (82-234) U/L Troponin I (0.000-0.056) ng/mL Total Protein (6.4-8.2) g/dL Albumin (3.4-5.0) g/dL Globulin (2.3-3.5) g/dL Albumin/Globulin Ratio (1.2-2.2) Lipase (73-393) U/L Procalcitonin > 200.00 H* ng/mL Urine Color Cancelled Yellow Urine Appearance Cancelled Cloudy A Urine pH Cancelled 6.0 Ur Specific [place] Cancelled 1.025 Urine Protein Cancelled 100 H Urine Glucose (UA) Cancelled Negative Urine Ketones Cancelled 15 H Urine Occult Blood Cancelled Negative Urine Nitrite Cancelled Positive H Urine Bilirubin Cancelled Small H Urine Urobilinogen Cancelled 0.2 Ur Leukocyte Esterase Cancelled Trace H Urine RBC Cancelled 0-5 Urine WBC Cancelled 10-20 H Ur Epithelial Cells Cancelled Rare Amorphous Sediment Cancelled Not seen Urine Bacteria Cancelled Many Urine Mucus Cancelled Not seen Urine Other Cancelled Urinalysis Comment Cancelled Salicylates (2.0-20.0) mg/dL Urine Opiates Screen Ur Oxycodone Screen Urine Methadone Screen Ur Propoxyphene Screen Acetaminophen (10.0-30.0) ug/mL Ur Barbiturates Screen Ur Tricyclics Screen Ur Phencyclidine Scrn Ur Amphetamine Screen U Methamphetamines Scrn Urine MDMA Screen U Benzodiazepines Scrn U Cocaine Metab Screen U Marijuana (THC) Screen Ethyl Alcohol mg/dL 05/10/21 Range/Units 22:05 WBC (4.5-11.0) K/uL RBC (3.30-5.50) M/uL Hgb (12.0-15.0) g/dL Hct (36.0-48.0) % MCV (80-98) fL MCH (27-31) pg MCHC (32-36) % Plt Count (150-400) K/uL Neut % (Auto) (36-66) % Lymph % (Auto) (24-44) % [place]ady % (Auto) (2-6) % Eos % (Auto) (2-4) % Baso % (Auto) (0-1) % PT (9.5-12.0) sec INR (0.80-1.20) APTT (27.0-36.0) sec Sodium (140-148) mmol/L Potassium (3.6-5.2) mmol/L Chloride (100-108) mmol/L Carbon Dioxide (21-32) mmol/L Anion Gap (5.0-14.0) mmol/L BUN (7-18) mg/dL Creatinine (0.6-1.0) mg/dL Est Cr Clr Drug Dosing mL/min Estimated GFR (MDRD) (>60) BUN/Creatinine Ratio Glucose (74-106) mg/dL Lactic Acid (0.4-2.0) mmol/L Calcium (8.5-10.1) mg/dL Total Bilirubin (0.2-1.0) mg/dL AST (15-37) U/L ALT (12-78) U/L Alkaline Phosphatase (46-116) U/L Ammonia (11-32) umol/L Lactate Dehydrogenase (82-234) U/L Troponin I (0.000-0.056) ng/mL Total Protein (6.4-8.2) g/dL Albumin (3.4-5.0) g/dL Globulin (2.3-3.5) g/dL Albumin/Globulin Ratio (1.2-2.2) Lipase (73-393) U/L Procalcitonin ng/mL Urine Color Urine Appearance Urine pH Ur Specific [place] Urine Protein Urine Glucose (UA) Urine Ketones Urine Occult Blood Urine Nitrite Urine Bilirubin Urine Urobilinogen Ur Leukocyte Esterase Urine RBC Urine WBC Ur Epithelial Cells Amorphous Sediment Urine Bacteria Urine Mucus Urine Other Urinalysis Comment Salicylates (2.0-20.0) mg/dL Urine Opiates Screen Negative Ur Oxycodone Screen Negative Urine Methadone Screen Negative Ur Propoxyphene Screen Negative Acetaminophen (10.0-30.0) ug/mL Ur Barbiturates Screen Negative Ur Tricyclics Screen Negative Ur Phencyclidine Scrn Negative Ur Amphetamine Screen Negative U Methamphetamines Scrn Negative Urine MDMA Screen Negative U Benzodiazepines Scrn Presumptive positive H U Cocaine Metab Screen Negative U Marijuana (THC) Screen Negative Ethyl Alcohol mg/dL Meds: Medications Generic Name Dose Route Start Last Admin Trade Name Jelly PRN Reason Stop Dose Admin Sodium Chloride 70 mls @ 3 mls/sec 05/10/21 20:45 05/10/21 22:06 Normal Saline IV 3 mls/sec ASDIRECTED ASHWIN Administration Ceftriaxone Sodium 2 gm/ 50 mls @ 100 mls/hr 05/10/21 23:20 Sodium Chloride IV 05/10/21 23:49 ONETIME ONE Sodium Chloride 1,000 mls @ 999 mls/hr 05/10/21 23:30 Normal Saline IV ASDIRECTED ASHWIN Iopamidol 75 ml 05/10/21 20:45 05/10/21 22:05 Iopamidol 612 Mg/Ml 100 Ml Bottle IV 05/11/21 20:46 75 ml . DIRECTED PRN Administration RADIOLOGY EXAM Sodium Chloride 10 ml 05/10/21 20:16 05/10/21 22:06 Sodium Chloride 0.9% 10 Ml Syringe FLUSH 10 ml ASDIRECTED PRN Administration Keep Vein Open Discontinued Medications Generic Name Dose Route Start Last Admin Trade Name Jelly PRN Reason Stop Dose Admin Lactated Ringer's 500 mls @ 999 mls/hr 05/10/21 20:16 05/10/21 22:10 Ringers, Lactated IV 05/10/21 20:46 999 mls/hr .BOLUS ONE Administration Lactated Ringer's 1,000 mls @ 999 mls/hr 05/10/21 23:20 Ringers, Lactated IV 05/11/21 00:20 BOLUS ONE Lactulose 60 gm 05/10/21 23:10 Lactulose Soln 10 Gm/15 Ml 15 Ml Ud Cup PO 05/10/21 23:11 ONETIME ONE Sodium Chloride 10 ml 05/10/21 20:45 05/10/21 22:12 Sodium Chloride 0.9% 10 Ml Sdv FLUSH 05/10/21 20:46 10 ml ONETIME ONE Administration Departure - Departure Time of Disposition: 23:35 Disposition: DC/Tfer to Acute Hospital 02 Condition: Fair Clinical Impression: Hepatic encephalopathy - Discharge Information Instructions: Hepatic Encephalopathy Referrals: Karen Nagy PA [Primary Care Provider] - Forms: ED Department Discharge Sepsis Event Note (ED) - Evaluation Sepsis Screening Result: No Definite Risk - Focused Exam Vital Signs: Vital Signs Temp Pulse Resp BP Pulse Ox 05/10/21 23:21 71 97/54 L 05/10/21 22:09 85 14 119/84 97 05/10/21 20:11 85 109/61 05/10/21 20:06 78 80/44 L 99 05/10/21 19:43 98.2 F 85 14 98/53 L 97 05/10/21 19:37 98.2 F 85 14 98/53 L 97 - My Orders Last 24 Hours: My Active Orders 05/10/21 20:16 Sodium Chloride 0.9% [Saline Flush] 10 ml FLUSH ASDIRECTED PRN Peripheral IV Insertion Adult [OM.PC] Stat 05/10/21 20:17 Peripheral IV Care [RC] . DIRECTED 05/10/21 20:45 Iopamidol [Isovue-300 (61%)] 75 ml IV . DIRECTED PRN Sodium Chloride 0.9% [Normal Saline] 70 ml IV ASDIRECTED 05/10/21 22:15 CULTURE URINE [RM] Urgent 05/10/21 23:20 cefTRIAXone [Rocephin] 2 gm Sodium Chloride 0.9% [Normal Saline] 50 ml IV ONETIME 05/10/21 23:21 CULTURE BLOOD [BC] Urgent CULTURE BLOOD [BC] Urgent Blood Culture x2 Reflex Set [OM.PC] Urgent 05/10/21 23:30 Sodium Chloride 0.9% [Normal Saline] 1,000 ml IV ASDIRECTED - Assessment/Plan Last 24 Hours: My Active Orders 05/10/21 20:16 Sodium Chloride 0.9% [Saline Flush] 10 ml FLUSH ASDIRECTED PRN Peripheral IV Insertion Adult [OM.PC] Stat 05/10/21 20:17 Peripheral IV Care [RC] . DIRECTED 05/10/21 20:45 Iopamidol [Isovue-300 (61%)] 75 ml IV . DIRECTED PRN Sodium Chloride 0.9% [Normal Saline] 70 ml IV ASDIRECTED 05/10/21 22:15 CULTURE URINE [RM] Urgent 05/10/21 23:20 cefTRIAXone [Rocephin] 2 gm Sodium Chloride 0.9% [Normal Saline] 50 ml IV ONETIME 05/10/21 23:21 CULTURE BLOOD [BC] Urgent CULTURE BLOOD [BC] Urgent Blood Culture x2 Reflex Set [OM.PC] Urgent 05/10/21 23:30 Sodium Chloride 0.9% [Normal Saline] 1,000 ml IV ASDIRECTED Plan: Assessment Acuity = acute Site and laterality = hepatic encephalopathy Etiology = unknown Manifestations = lethargic Location of injury = Home Lab values = hemoglobin low 9.6 consistent with microchromic anemia INR elevated 1.61 lactic acid normal 1.4 calcium low at 8.2 consistent with hypocalcemia AST elevated 1211 ALT elevated 963 ammonia elevated at 65 LDH elevated 714 troponin was negative lipase elevated 1500 procalcitonin greater than 200 urinalysis positive for nitrates 10-20 WBCs consistent with pyuria salicylic acid normal acetaminophen within normal range 20.7 urine drug screen positive for benzodiazepines alcohol was negative CT scan shows fatty liver disease blood cultures urine cultures pending Plan Call discussed case with Dr. Arenas at 2320 can accept the patient in transport will be transported via EMS ground she was given 2 g Rocephin IV as well as 2 L of fluid lactulose initiated p.o. in the emergency department This note was dictated using [employer] & other things you bake voice recognition software please call with any questions on syntax or grammar.
[2021-05-10] MEDS ORDERED: Sodium Chloride 0.9% 10 ML SDV FLUSH ONE (20:45)
[2021-05-10] MEDS ORDERED: Iopamidol 612 MG/ML 100 ML Bottle IV PRN (20:45)
[2021-05-10 21:27] LABS: ACETAMINOPHEN 20.7 ug/mL (10.0-30.0)
--- NOTE | 2021-05-10 22:54 | CRLCT ---
For Patients: As a result of the Century Cures Act, medical imaging exams and procedure reports are released immediately into your electronic medical record. You may view this report before your referring provider. If you have questions, please contact your health care provider. INDICATION: Elevated liver enzymes. TECHNIQUE: CT abdomen and pelvis acquired with 75 mL Omnipaque 350 contrast. COMPARISON: Prior CT abdomen/pelvis dated 04/09/2021, 06/02/2020. FINDINGS: It is noted that no evidence of IV contrast is present within this study. Lower chest: No focal consolidation. Liver: Diffuse hepatic steatosis. No suspicious focal hepatic lesion. Gallbladder and bile ducts: Postcholecystectomy. Pancreas: Unremarkable unenhanced appearance. Limited evaluation of the pancreatic head secondary to motion artifact. Spleen: Unremarkable. Adrenal glands: Unremarkable. Kidneys: No hydronephrosis bilaterally. Retroperitoneum: No lymphadenopathy. Bowel and mesentery: The bowel is nonobstructed. Evaluation of the colon is limited secondary to multiple prior colonic resections. No significant ascites. Bladder: Unremarkable for degree of distension. Reproductive organs: Uterus appears surgically absent. No abnormal adnexal mass identified. Pelvic lymph nodes: No lymphadenopathy. Vessels: Unremarkable for unenhanced phase. Abdominal wall: No acute abdominal wall abnormality. Bones: Multilevel degenerative changes of the spine. No suspicious/aggressive focal osseous lesion. Bones are severely osteopenic. IMPRESSION: 1. Diffuse hepatic steatosis. 2. Please note, no evidence of IV contrast is present within the study. This raises possibility of IV infiltration at the injection site, please correlate clinically. 3. Limited evaluation due to lack of IV contrast, as well as significant motion artifact. Please note that all CT scans at this facility use dose modulation, iterative reconstruction, and/or weight-based dosing when appropriate to reduce radiation dose to as low as reasonably achievable. Dictated by Nain Das MD @ 05/10/2021 10:52:[address] Nain Das @ May 10 2021 10:52PM
[2021-05-10] MEDS ORDERED: Lactulose Soln 10 GM/15 ML 15 ML UD Cup PO ONE (23:10)
[2021-05-10] MEDS ORDERED: cefTRIAXone 2 GM in Sodium Chloride 0.9% 50 ML IV ONE (23:20)
[2021-05-10] MEDS ORDERED: Lactated Ringers 1,000 ML IV ONE (23:20)
[2021-05-10] MEDS ORDERED: Sodium Chloride 0.9% 1,000 ML IV SCH (23:30)
[2021-05-10] MEDS ORDERED: Lactulose Soln 10 GM/15 ML 15 ML UD Cup ONE ×2 (23:34→23:36)
[2021-05-10 23:40] VITALS: BP 112/55; PULSE 76
== END 2021-05-11 00:10 ==
LOC: JP.ED 19:11
DX: K72.90 Hepatic failure, unspecified without coma (principal); K21.9 Gastro-esophageal reflux disease without esophagitis; Z88.6 Allergy status to analgesic agent; Z79.82 Long term (current) use of aspirin; Z79.899 Other long term (current) drug therapy; Z90.49 Acquired absence of other specified parts of digestive tract
CPT/HCPCS: 36415; 74177; 80053; 80143; 80179; 80305; 80307; 81001; 82140; 83605; 83615; 83690; 84145; 84484; 85025; 85610; 85730; 87040; 87086; 87088; 87186; 96365; 99285; A9270; J0696; J7030; J7120; Q9967

== ENCOUNTER 2021-09-03 11:34 | Emergency (ER) | payer MEDICARE ==
[2021-09-03 11:58] VITALS: BP 120/75; PULSE 94
[2021-09-03] MEDS ORDERED: LORazepam 1 MG Tab PO ONE (12:16)
[2021-09-03] MEDS ORDERED: LORazepam 2 MG/ML SDV IM PRN (12:20)
--- NOTE | 2021-09-03 12:26 | EDM.PDOCBH ---
ED HPI GENERAL MEDICAL PROBLEM - General Chief Complaint: Behavioral/Psych Stated Complaint: anxiety Time Seen by Provider: 09/03/21 12:10 Source of Information: Reports: Patient History Limitations: Reports: No Limitations - History of Present Illness INITIAL COMMENTS - FREE TEXT/NARRATIVE: 71-year-old female with chronic anxiety, has been doing very good for the past 4 months but she woke up this morning at 3 AM and felt anxious. She walked around the house for the next hour working herself up, sensing palpitations and nervousness. She took a hydroxyzine but it did not help. She has not repeated her hydroxyzine, she is still taking BuSpar as directed. Now she feels tremulous, anxious, even mildly short of breath although her vital signs are normal. This is very typical for her breakthrough anxiety episodes. Onset: Sudden (Woke with symptoms at 3 AM) Duration: Other (Anxiety for the past 10 hours) Associated Symptoms: Reports: Malaise, Shortness of Breath. Denies: Confusion, Chest Pain, Cough, Fever/Chills, Nausea/Vomiting, Weakness - Related Data Allergies Allergy/AdvReac Type Severity Reaction Status Date / Time morphine Allergy Edema Verified 09/03/21 12:02 Home Meds: Home Meds Aspirin [Halfprin] 81 mg PO DAILY 09/01/13 [History] Calcium Carbonate/Vitamin D3 [Calcarb 600 with Vit D] 1 tab PO BID 09/01/13 [History] Multivitamin [Multi-Vitamin Daily] 1 tab PO DAILY 09/01/13 [History] Vit B Cmplx 3/Fa/Vit C/Biotin [Christa-Dion Rx Tablet] 1 tab PO DAILY 09/01/13 [History] traZODone HCl [Trazodone HCl] 100 mg PO BEDTIME 09/01/13 [History] Albuterol Sulfate [Proair Respiclick] 2 puff IH Q4HR PRN 09/27/18 [History] Cyanocobalamin (Vitamin B12) [Vitamin B12] 1,000 mcg PO DAILY 09/27/18 [History] Iron,Carbonyl/Ascorbic Acid [Iron 100-Vitamin C Tablet] 1 tab PO BID 09/27/18 [History] Acetaminophen [Tylenol] 325 mg PO Q4H PRN tablet 12/26/18 [Rx] Cholecalciferol (Vitamin D3) [Vitamin D3] 2 tab PO BID 06/02/20 [History] FLUoxetine HCl [Fluoxetine HCl] 2 tab PO DAILY 06/02/20 [History] Naltrexone 50 mg PO ASDIRECTED PRN 06/02/20 [History] Naltrexone Microspheres [Vivitrol] 380 mg IM Q28D 06/02/20 [History] busPIRone [Buspar] 20 mg PO TID 06/02/20 [History] hydrOXYzine HCL [hydrOXYzine] 25 mg PO Q6H PRN 06/02/20 [History] Pantoprazole [ProTONIX] 40 mg PO BIDAC #60 tab.cr 04/11/21 [Rx] Past Medical History HEENT History: Reports: Impaired Vision Other HEENT History: wears glasses Gastrointestinal History: Reports: GERD, PUD Genitourinary History: Reports: UTI, Recurrent WOODS BOSS History: Reports: , Spontaneous Other WOODS BOSS History: ovarian cyst removed Musculoskeletal History: Reports: Arthritis, Other (See Below) Other Musculoskeletal History: scoliosis Neurological History: Reports: Concussion, Head Trauma Psychiatric History: Reports: Addiction, Anxiety, Depression, Panic Attack, Psych Hospitalization(s), Suicidal Ideation Endocrine/Metabolic History: Reports: Vitamin D Deficiency Hematologic History: Reports: Anemia, B12 Deficiency, Blood Transfusion(s), Folic Acid, Iron Deficiency - Infectious Disease History Infectious Disease History: Reports: Chicken Pox - Past Surgical History Head Surgeries/Procedures: Reports: None HEENT Surgical History: Reports: None GI Surgical History: Reports: Appendectomy, Bariatric Procedure, Cholecystectomy, Colonoscopy, EGD, Esophageal Dilatation, Hernia Repair/Other Female Surgical History: Reports: Section, Cystectomy, Hysterectomy Endocrine Surgical History: Reports: None Neurological Surgical History: Reports: None Musculoskeletal Surgical History: Reports: Shoulder Surgery Other Musculoskeletal Surgeries/Procedures:: right rotator cuff repair Dermatological Surgical History: Reports: None Social & Family History - Family History Family Medical History: No Pertinent Family History - Caffeine Use Caffeine Use: Reports: Coffee Caffeine Use Comment: daily use - Recreational Drug Use Recreational Drug Use: No - Living Situation & Occupation Living situation: Reports: , with Spouse (lives with in [facility]. 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 had 13 children from age 48 yr to 28 yrs. 115 Grandchildren. One of her Daughters is a RN on [address] [place] [address].) Occupation: Student ED ROS GENERAL - Review of Systems Review Of Systems: See Below Constitutional: Reports: Malaise. Denies: Fever, Chills HEENT: Reports: No Symptoms Respiratory: Reports: Shortness of Breath Cardiovascular: Reports: Palpitations. Denies: Chest Pain GI/Abdominal: Reports: No Symptoms Skin: Reports: No Symptoms Neurological: Reports: Tremors, Weakness Psychiatric: Reports: Anxiety ED EXAM, BEHAVIORAL HEALTH - Physical Exam Exam: See Below Exam Limited By: No Limitations General Appearance: Alert, Anxious Eye Exam: Bilateral Eye: Normal Inspection Head: Atraumatic Respiratory/Chest: Lungs Clear Cardiovascular: Regular Rate, Rhythm. No: Tachycardia Extremities: No: Pedal Edema Neurological: Alert, Oriented x 3 Psychiatric: Alert, Restless Skin Exam: Warm, Dry COURSE, BEHAVIORAL HEALTH COMP - Course Vital Signs: Last Vital Signs Temp 97.2 F 09/03/21 12:01 Pulse 94 09/03/21 12:01 Resp 16 09/03/21 12:01 BP 120/75 09/03/21 12:01 Pulse Ox 97 09/03/21 12:01 Orders, Labs, Meds: Medications Discontinued Medications Generic Name Dose Route Start Last Admin Trade Name Freq PRN Reason Stop Dose Admin Lorazepam 1 mg 09/03/21 12:16 09/03/21 12:30 Lorazepam 1 Mg Tab PO 09/03/21 12:17 1 mg ONETIME ONE Administration Lorazepam 1 mg 09/03/21 12:20 09/03/21 12:29 Lorazepam 2 Mg/Ml Sdv IM 1 mg ONETIME PRN Administration Anxiety Re-Assessment/Re-Exam: Patient was given 1 mg of IM Ativan, and 1 mg of oral Ativan to be repeated in 3 or 4 hours if she remains symptomatic. She was hoping for more oral doses but I do not feel comfortable with that at this time, she is on a contract and this has been an issue in the past. She can contact her regular provider tomorrow if still having problems. A [employer] search was done and the patient has not had any Ativan prescriptions for over 3 months. Departure - Departure Time of Disposition: 12:44 Disposition: Home, Self-Care 01 Clinical Impression: Anxiety - Discharge Information Instructions: Managing Anxiety, Adult Referrals: Karen Nagy PA [Primary Care Provider] - Forms: ED Department Discharge Care Plan Goals: Repeat Ativan in the next 3 or 4 hours if still having significant symptoms. Contact your regular provider tomorrow if not improving satisfactorily. Sepsis Event Note (ED) - Evaluation Sepsis Screening Result: No Definite Risk - Focused Exam Vital Signs: Vital Signs Temp Pulse Resp BP Pulse Ox 09/03/21 12:01 97.2 F 94 16 120/75 97 09/03/21 11:53 97.2 F 94 16 120/75 97
== END 2021-09-03 12:44 | disposition home or self-care (01) ==
LOC: JP.ED 11:34
DX: F41.9 Anxiety disorder, unspecified (principal); K21.9 Gastro-esophageal reflux disease without esophagitis; M19.90 Unspecified osteoarthritis, unspecified site; D50.9 Iron deficiency anemia, unspecified; Z88.5 Allergy status to narcotic agent; Z79.82 Long term (current) use of aspirin; Z79.899 Other long term (current) drug therapy
CPT/HCPCS: 96372; 99283; A9270; J2060

== ENCOUNTER 2021-09-04 14:49 | Emergency (ER) | payer MEDICARE ==
[2021-09-04 15:13] VITALS: BP 118/76; PULSE 85
--- NOTE | 2021-09-04 15:16 | EDM.PDOC ---
ED HPI GENERAL MEDICAL PROBLEM - General Chief Complaint: Behavioral/Psych Stated Complaint: ANXIETY Time Seen by Provider: 09/04/21 15:15 Source of Information: Reports: Patient, RN Notes Reviewed History Limitations: Reports: No Limitations - History of Present Illness INITIAL COMMENTS - FREE TEXT/NARRATIVE: Josie presents today with complaints of uncontrolled anxiety since 0900 today. She states she was here yesterday and was given ativan which helped. She would like some more to help. She states she is in between homes with renovations being done on a recently purchased home. She states there has been a in the extended family from [place] and she is having anxiety. Use of hydroxyzine 50mg twice a day and buspar three times a day is not helping. She denies any use of breathing techniques, meditation or yoga. She denies seeing a therapist, counselor or other medical professional for anxiety. She denies fever, chills, nausea, vomiting, change in bowel/bladder or other concerns. - Related Data Allergies Allergy/AdvReac Type Severity Reaction Status Date / Time morphine Allergy Edema Verified 09/04/21 15:02 Home Meds: Home Meds Aspirin [Halfprin] 81 mg PO DAILY 09/01/13 [History] Calcium Carbonate/Vitamin D3 [Calcarb 600 with Vit D] 1 tab PO BID 09/01/13 [History] Multivitamin [Multi-Vitamin Daily] 1 tab PO DAILY 09/01/13 [History] Vit B Cmplx 3/Fa/Vit C/Biotin [Christa-Dion Rx Tablet] 1 tab PO DAILY 09/01/13 [History] traZODone HCl [Trazodone HCl] 100 mg PO BEDTIME 09/01/13 [History] Albuterol Sulfate [Proair Respiclick] 2 puff IH Q4HR PRN 09/27/18 [History] Cyanocobalamin (Vitamin B12) [Vitamin B12] 1,000 mcg PO DAILY 09/27/18 [History] Iron,Carbonyl/Ascorbic Acid [Iron 100-Vitamin C Tablet] 1 tab PO BID 09/27/18 [History] Acetaminophen [Tylenol] 325 mg PO Q4H PRN tablet 12/26/18 [Rx] Cholecalciferol (Vitamin D3) [Vitamin D3] 2 tab PO BID 06/02/20 [History] FLUoxetine HCl [Fluoxetine HCl] 2 tab PO DAILY 06/02/20 [History] Naltrexone 50 mg PO ASDIRECTED PRN 06/02/20 [History] Naltrexone Microspheres [Vivitrol] 380 mg IM Q28D 06/02/20 [History] busPIRone [Buspar] 20 mg PO TID 06/02/20 [History] hydrOXYzine HCL [hydrOXYzine] 25 mg PO Q6H PRN 06/02/20 [History] Pantoprazole [ProTONIX] 40 mg PO BIDAC #60 tab.cr 04/11/21 [Rx] Past Medical History HEENT History: Reports: Impaired Vision Other HEENT History: wears glasses Gastrointestinal History: Reports: GERD, PUD Genitourinary History: Reports: UTI, Recurrent LOGISTICS INTERN History: Reports: , Spontaneous Other LOGISTICS INTERN History: ovarian cyst removed Musculoskeletal History: Reports: Arthritis, Other (See Below) Other Musculoskeletal History: scoliosis Neurological History: Reports: Concussion, Head Trauma Psychiatric History: Reports: Addiction, Anxiety, Depression, Panic Attack, Psych Hospitalization(s), Suicidal Ideation Endocrine/Metabolic History: Reports: Vitamin D Deficiency Hematologic History: Reports: Anemia, B12 Deficiency, Blood Transfusion(s), Folic Acid, Iron Deficiency - Infectious Disease History Infectious Disease History: Reports: Chicken Pox - Past Surgical History Head Surgeries/Procedures: Reports: None HEENT Surgical History: Reports: None GI Surgical History: Reports: Appendectomy, Bariatric Procedure, Cholecy stectomy, Colonoscopy, EGD, Esophageal Dilatation, Hernia Repair/Other Female Surgical History: Reports: Section, Cystectomy, Hysterectomy Endocrine Surgical History: Reports: None Neurological Surgical History: Reports: None Musculoskeletal Surgical History: Reports: Shoulder Surgery Other Musculoskeletal Surgeries/Procedures:: right rotator cuff repair Dermatological Surgical History: Reports: None Social & Family History - Family History Family Medical History: No Pertinent Family History - Caffeine Use Caffeine Use: Reports: Coffee Caffeine Use Comment: daily use - Recreational Drug Use Recreational Drug Use: No - Living Situation & Occupation Living situation: Reports: , with Spouse (lives with in [facility]. 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 115 Grandchildren. One of her Daughters is a RN on [address] [place] [address].) Occupation: Student ED ROS GENERAL - Review of Systems Review Of Systems: See Below Constitutional: Reports: No Symptoms HEENT: Reports: No Symptoms Respiratory: Reports: No Symptoms Cardiovascular: Reports: No Symptoms Endocrine: Reports: No Symptoms GI/Abdominal: Reports: No Symptoms : Reports: No Symptoms Musculoskeletal: Reports: No Symptoms Skin: Reports: No Symptoms Neurological: Reports: No Symptoms Psychiatric: Reports: Agitation, Anxiety, Mood Lability. Denies: Confusion, Cravings, Depression, Hallucinations, Homicidal Ideation, Suicidal Ideation Hematologic/Lymphatic: Reports: No Symptoms Immunologic: Reports: No Symptoms ED EXAM, GENERAL - Physical Exam Exam: See Below Exam Limited By: No Limitations General Appearance: Alert, WD/WN, No Apparent Distress, Anxious Eye Exam: Bilateral Eye: PERRL Ears: Normal External Exam, Normal Canal, Hearing Grossly Normal, Normal TMs Throat/Mouth: Normal Inspection, Normal Lips, Normal Teeth (partial to upper), Normal Gums, Normal Oropharynx, Normal Voice, No Airway Compromise Head: Atraumatic, Normocephalic Neck: Normal Inspection, Supple, Non-Tender, Full Range of Motion Respiratory/Chest: No Respiratory Distress, Lungs Clear, Normal Breath Sounds, No Accessory Muscle Use, Chest Non-Tender. No: Crackles, Rales, Rhonchi, Wheezing, Stridor Cardiovascular: Normal Peripheral Pulses, Regular Rate, Rhythm, No Edema, No Gallop, No Murmur, No Rub Peripheral Pulses: 4+: Radial (L), Radial (R) Back Exam: Normal Inspection, Full Range of Motion. No: CVA Tenderness (R), CVA Tenderness (L) Extremities: Normal Inspection, Normal Range of Motion, Non-Tender, No Pedal Edema, Normal Capillary Refill Neurological: Alert, Oriented, CN II-XII Intact, Normal Cognition, Normal Gait, Normal Reflexes, No Motor/Sensory Deficits Psychiatric: Anxious, Tearful Skin Exam: Warm, Dry, Intact, Normal Color, No Rash Lymphatic: No Adenopathy Course - Vital Signs Last Recorded V/S: Last Vital Signs Temp 36.6 C 09/04/21 15:12 Pulse 85 09/04/21 15:12 Resp 16 09/04/21 15:12 BP 118/76 09/04/21 15:12 Pulse Ox 98 09/04/21 15:12 - Orders/Labs/Meds Meds: Medications Discontinued Medications Generic Name Dose Route Start Last Admin Trade Name Freq PRN Reason Stop Dose Admin Clonazepam 0.5 mg 09/04/21 15:43 09/04/21 16:06 Clonazepam 0.5 Mg Tab PO 09/04/21 15:44 0.5 mg ONETIME ONE Administration - Re-Assessments/Exams Free Text/Narrative Re-Assessment/Exam: 09/04/21 15:45 Discussion on use of benzodiazepines for anxiety, review of patient's [place] 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 She is advised and counseled on importance of current medication use, other methods to help anxiety of exercise, breathing exercises, medication and yoga. She requested to be able to take clonazepam home. she was advised that she would not be provided any controlled substances to take home. We will provide clonazepam 0.5mg PO in ER. discharge to home: Hydroxyzine 25mg by mouth every 6 hours and buspar 20mg by mouth three times a day as needed for anxiety. Follow up with your primary tomorrow. Follow up with counseling or psychologist for ongoing anxiety. Review and find yoga/meditation and/or breathing exercises to help with anxiety. Patient verbalized understanding. Departure - Departure Time of Disposition: 16:06 Disposition: Home, Self-Care 01 Condition: Good Clinical Impression: Anxiety - Discharge Information *PRESCRIPTION DRUG MONITORING PROGRAM REVIEWED*: Yes *COPY OF PRESCRIPTION DRUG MONITORING REPORT IN PATIENT JUSTYNA: Yes Instructions: Managing Anxiety, Adult Referrals: PCP,None [Primary Care Provider] - Forms: ED Department Discharge Additional Instructions: You have been evaluated and treated for anxiety. Current use of hydroxyzine 50mg by mouth am and PM with buspar 20mg by mouth three times a day is not working well. Clonazepam 0.5mg tablet provided in emergency room today. Lorazepam provided in emergency room on 09/03/2021. These are both controlled substances. Additional not sent home as it would be best to work with your primary provider for ongoing issues in order to prevent addiction/adverse outcomes. You are advised to take: Hydroxyzine 25mg by mouth every 6 hours and buspar 20mg by mouth three times a day as needed for anxiety. Follow up with your primary tomorrow. Follow up with counseling or psychologist for ongoing anxiety. Review and find yoga/meditation and/or breathing exercises to help with anxiety. Use of controlled substances are not recommended for intermission coordinator management of anxiety. [place] [employer] reviewed, noted fills of lorazepam 05/24/21, 05/14/21, 05/11/21, 04/21/21, 04/11/21, 02/23/21 Alprazolam filled on 12/14/20, 11/30/20, 11/22/20, 10/19/21, 09/07/21. Return for any emergent needs. Sepsis Event Note (ED) - Evaluation Sepsis Screening Result: No Definite Risk - Focused Exam Vital Signs: Vital Signs Temp Pulse Resp BP Pulse Ox 09/04/21 15:12 36.6 C 85 16 118/76 98 - Assessment/Plan Assessment:: Anxiety Plan: Patient evaluated and treated for anxiety. Current use of hydroxyzine 50mg by mouth am and PM with buspar 20mg by mouth three times a day is not working well. Clonazepam 0.5mg tablet provided in emergency room today. Lorazepam provided in emergency room on 09/03/2021. Additional not sent home as it would be best to work with primary provider for ongoing issues in order to prevent addiction/adverse outcomes. Patient advised to take: Hydroxyzine 25mg by mouth every 6 hours and buspar 20mg by mouth three times a day as needed for anxiety. Follow up with primary tomorrow. Follow up with counseling or psychologist for ongoing anxiety. Review and find yoga/meditation and/or breathing exercises to help with anxiety. Use of controlled substances are not recommended for intermission coordinator management of anxiety. [place] [employer]AR[employer] reviewed, noted fills of lorazepam 05/24/21, 05/14/21, 05/11/21, 04/21/21, 04/11/21, 02/23/21 Alprazolam filled on 12/14/20, 11/30/20, 11/22/20, 10/19/21, 09/07/21. History of alcoholism, abuse of narcotics. Status post gastric bypass. Return for any emergent needs.
[2021-09-04] MEDS ORDERED: ClonazePAM 0.5 MG Tab PO ONE (15:43)
== END 2021-09-04 16:17 | disposition home or self-care (01) ==
LOC: JP.ED 14:49
DX: F41.9 Anxiety disorder, unspecified (principal); Z88.5 Allergy status to narcotic agent; Z79.82 Long term (current) use of aspirin; Z79.899 Other long term (current) drug therapy
CPT/HCPCS: 99283; A9270

== ENCOUNTER 2021-10-15 10:39 | Emergency (ER) | payer MEDICARE ==
[2021-10-15 11:02] VITALS: BP 116/58; PULSE 72
[2021-10-15] MEDS ORDERED: Ibuprofen 400 MG Tab PO ONE (11:20)
[2021-10-15] MEDS ORDERED: Acetaminophen/HYDROcodone 325-5 MG Tab PO ONE (11:20)
--- NOTE | 2021-10-15 11:27 | EDM.PDOC ---
ED HPI GENERAL MEDICAL PROBLEM - General Chief Complaint: Syncope Stated Complaint: FELL THIS MORNING AND KNOCKED A COUPLE TEETH OUT Time Seen by Provider: 10/15/21 11:10 Source of Information: Reports: Patient, Old Records, RN History Limitations: Reports: No Limitations - History of Present Illness INITIAL COMMENTS - FREE TEXT/NARRATIVE: 71 yo female arrives today for eval after passing out on her way to the bathroom this AM. She was sitting on the couch and felt quite a bit of nausea so decided to make a run for the bathroom. Just as she entered the bathroom she fainted and hit her R ant/lower chest, chin, and mouth on the floor. She partially broke off 2 of her upper central incisors. She does have a dentist that she can follow up with next week. Onset: Today, Sudden Onset Date: 10/15/21 Duration: Minutes: Location: Reports: Face, Chest Quality: Reports: Ache Severity: Moderate Improves with: Reports: None Worsens with: Reports: Other (presssing on rib area) Context: Reports: Trauma Associated Symptoms: Reports: No Other Symptoms. Denies: Nausea/Vomiting (now gone) Treatments ICE CARVER: Reports: Other (see below) (none) face and abdomen Pain Score (Numeric/FACES): 9 - Related Data Allergies Allergy/AdvReac Type Severity Reaction Status Date / Time morphine Allergy Edema Verified 09/04/21 15:02 Home Meds: Home Meds Aspirin [Halfprin] 81 mg PO DAILY 09/01/13 [History] Calcium Carbonate/Vitamin D3 [Calcarb 600 with Vit D] 1 tab PO BID 09/01/13 [History] Multivitamin [Multi-Vitamin Daily] 1 tab PO DAILY 09/01/13 [History] Vit B Cmplx 3/Fa/Vit C/Biotin [Christa-Dion Rx Tablet] 1 tab PO DAILY 09/01/13 [History] traZODone HCl [Trazodone HCl] 100 mg PO BEDTIME 09/01/13 [History] Albuterol Sulfate [Proair Respiclick] 2 puff IH Q4HR PRN 09/27/18 [History] Cyanocobalamin (Vitamin B12) [Vitamin B12] 1,000 mcg PO DAILY 09/27/18 [History] Iron,Carbonyl/Ascorbic Acid [Iron-Vitamin C 100-250 mg Tab] 1 tab PO BID 09/27/18 [History] Acetaminophen [Tylenol] 325 mg PO Q4H PRN tablet 12/26/18 [Rx] Cholecalciferol (Vitamin D3) [Vitamin D3] 2 tab PO BID 06/02/20 [History] FLUoxetine HCl [Fluoxetine HCl] 2 tab PO DAILY 06/02/20 [History] Naltrexone 50 mg PO ASDIRECTED PRN 06/02/20 [History] Naltrexone Microspheres [Vivitrol] 380 mg IM Q28D 06/02/20 [History] busPIRone [Buspar] 20 mg PO TID 06/02/20 [History] hydrOXYzine HCL [hydrOXYzine] 25 mg PO Q6H PRN 06/02/20 [History] Pantoprazole [ProTONIX] 40 mg PO BIDAC #60 tab.cr 04/11/21 [Rx] Acetaminophen/HYDROcodone [HYDROcodone-Acetaminophen 5-325 MG *] 1 tab PO Q4H PRN #12 each 10/15/21 [Rx] busPIRone [Buspar] 10 - 20 mg PO TID PRN #16 tab 10/15/21 [Rx] Past Medical History HEENT History: Reports: Impaired Vision Other HEENT History: wears glasses Gastrointestinal History: Reports: GERD, PUD Genitourinary History: Reports: UTI, Recurrent 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 TESTS SUPERVISOR History: Reports: , Spontaneous Other ELECTRICAL TESTS SUPERVISOR History: ovarian cyst removed Musculoskeletal History: Reports: Arthritis, Other (See Below) Other Musculoskeletal History: scoliosis Neurological History: Reports: Concussion, Head Trauma Psychiatric History: Reports: Addiction, Anxiety, Depression, Panic Attack, Psych Hospitalization(s), Suicidal Ideation Endocrine/Metabolic History: Reports: Vitamin D Deficiency Hematologic History: Reports: Anemia, B12 Deficiency, Blood Transfusion(s), Folic Acid, Iron Deficiency - Infectious Disease History Infectious Disease History: Reports: Chicken Pox - Past Surgical History Head Surgeries/Procedures: Reports: None HEENT Surgical History: Reports: None GI Surgical History: Reports: Appendectomy, Bariatric Procedure, Cholecystectomy, Colonoscopy, EGD, Esophageal Dilatation, Hernia Repair/Other Female Surgical History: Reports: Section, Cystectomy, Hysterectomy Endocrine Surgical History: Reports: None Neurological Surgical History: Reports: None Musculoskeletal Surgical History: Reports: Shoulder Surgery Other Musculoskeletal Surgeries/Procedures:: right rotator cuff repair Dermatological Surgical History: Reports: None Social & Family History - Family History Family Medical History: No Pertinent Family History - Caffeine Use Caffeine Use: Reports: Coffee Caffeine Use Comment: daily use - Recreational Drug Use Recreational Drug Use: No - Living Situation & Occupation Living situation: Reports: , with Spouse (lives with in [facility]. 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 had 13 children from age 48 yr to 28 yrs. 115 Grandchildren. One of her Daughters is a RN on [address] [place] [address].) Occupation: Student ED ROS GENERAL - Review of Systems Review Of Systems: See Below Constitutional: Reports: No Symptoms HEENT: Reports: Other (dental injury) Respiratory: Reports: No Symptoms Cardiovascular: Reports: No Symptoms GI/Abdominal: Reports: No Symptoms : Reports: No Symptoms Musculoskeletal: Reports: Other (rib pain R ant/lower) Skin: Reports: Bruising (chin) Neurological: Reports: No Symptoms Psychiatric: Reports: No Symptoms - Physical Exam Exam: See Below Exam Limited By: No Limitations General Appearance: Alert, WD/WN, No Apparent Distress Eye Exam: Bilateral Eye: Normal Inspection, PERRL Ears: Normal External Exam, Normal Canal, Hearing Grossly Normal, Normal TMs Nose: Normal Inspection, No Blood Throat/Mouth: Normal Inspection, Normal Lips, Normal Oropharynx, Normal Voice, No Airway Compromise. No: Normal Teeth (L central and lateral upper incisors both broken off) Head Exam: Other (chin abrasion) Neck: Normal Inspection Respiratory/Chest: No Respiratory Distress, Lungs Clear, Normal Breath Sounds, No Accessory Muscle Use. No: Chest Non-Tender (tenderness without crepitus to lower anterior R ribs) Cardiovascular: Regular Rate, Rhythm GI/Abdominal: Normal Bowel Sounds, Soft, Non-Tender, No Distention Neuro Exam (Abbreviated): Alert, Oriented, CN II-XII Intact, Normal Cognition, No Motor/Sensory Deficits Back Exam: Normal Inspection. No: CVA Tenderness (R), CVA Tenderness (L) Extremities: Normal Inspection, Normal Range of Motion, Non-Tender, No Pedal Edema Psychiatric: Normal Affect, Normal Mood Skin Exam: Warm, Dry, Intact, No Rash, Ecchymosis (chin only) Course - Vital Signs Text/Narrative:: Dental paste placed over broken teeth for protection(temporary). Last Recorded V/S: Last Vital Signs Temp 36.4 C 10/15/21 11:05 Pulse 72 10/15/21 11:05 Resp 16 10/15/21 11:05 BP 116/58 L 10/15/21 11:05 Pulse Ox 97 10/15/21 11:05 Orthostatic Blood Pressure [ 115/74 Standing] Orthostatic Blood Pressure [ 109/7 Sitting] Orthostatic Blood Pressure [ 102/61 Supine] - Orders/Labs/Meds Orders: Active Orders 24 hr Category Date Time Status Ribs 3V wo Chest Rt [CR] Stat Exams 10/15/21 11:20 Taken Meds: Medications Discontinued Medications Generic Name Dose Route Start Last Admin Trade Name Freq PRN Reason Stop Dose Admin Hydrocodone Bitart/Acetaminophen 1 tab 10/15/21 11:20 10/15/21 11:26 Acetaminophen/Hydrocodone 325-5 Mg Tab PO 10/15/21 11:21 1 tab ONETIME ONE Administration Alprazolam 0.25 mg 10/15/21 11:40 10/15/21 11:46 Alprazolam 0.25 Mg Tab PO 10/15/21 11:41 0.25 mg NOW ONE Administration Denture Adhesive 1 applic 10/15/21 12:12 10/15/21 12:30 Dental Adhesive 1 Tube DENT 10/15/21 12:13 1 applic ONETIME ONE Administration Ibuprofen 400 mg 10/15/21 11:20 10/15/21 11:26 Ibuprofen 400 Mg Tab PO 10/15/21 11:21 400 mg ONETIME ONE Administration - Radiology Interpretation Free Text/Narrative:: R ribs x-rays-no fx identified Departure - Departure Time of Disposition: 12:50 Disposition: Home, Self-Care 01 Condition: Fair Clinical Impression: Rib pain on right side Broken teeth Qualifiers: Encounter type: initial encounter Fracture type: open Qualified Code(s): S02.5XXB - Fracture of tooth (traumatic), initial encounter for open fracture - Discharge Information *PRESCRIPTION DRUG MONITORING PROGRAM REVIEWED*: Yes *COPY OF PRESCRIPTION DRUG MONITORING REPORT IN PATIENT JUSTYNA: Yes Instructions: Chest Wall Pain, [id number] Referrals: Karen Nagy PA [Primary Care Provider] - Forms: ED Department Discharge Additional Instructions: For pain take ibuprofen 400 mg every 6 hrs with food. For added relief use either acetaminophen per package instructions OR [place] per directions on bottle. Avoid eating or drinking anything for 2 hrs, then after that avoid eating anything that requires chewing until you see your dentist. See your dentist for tooth repair DOUGLAS. If your temporary fillings fall off you can replace like we did today. [facility] should sell additional material if you run out. Your hydrocodone and Buspar prescriptions were sent to [facility]. Sepsis Event Note (ED) - Evaluation Sepsis Screening Result: No Definite Risk - Focused Exam Vital Signs: Vital Signs Temp Pulse Resp BP Pulse Ox 10/15/21 11:05 36.4 C 72 16 116/58 L 97 10/15/21 11:01 36.4 C 72 16 116/58 L 97 - My Orders Last 24 Hours: My Active Orders 10/15/21 11:20 Ribs 3V wo Chest Rt [CR] Stat - Assessment/Plan Last 24 Hours: My Active Orders 10/15/21 11:20 Ribs 3V wo Chest Rt [CR] Stat
[2021-10-15] MEDS ORDERED: ALPRAZolam 0.25 MG Tab PO ONE (11:40)
[2021-10-15] MEDS ORDERED: Dental Adhesive 1 Tube DENT ONE (12:12)
--- NOTE | 2021-10-17 10:30 | CR ---
Ribs 3V wo Chest Rt CLINICAL HISTORY: Fall, pain FINDINGS: There is no acute fracture within the ribs. No destructive changes are seen. There is no focal pleural thickening or obvious effusion. IMPRESSION: Negative right ribs. If clinical symptomatology persists or worsens a repeat exam is recommended.
== END 2021-10-15 12:51 | disposition home or self-care (01) ==
LOC: JP.ED 10:39
DX: S02.5XXB Fracture of tooth (traumatic), initial encounter for open fracture (principal); R07.81 Pleurodynia; K21.9 Gastro-esophageal reflux disease without esophagitis; Z88.5 Allergy status to narcotic agent; Z79.82 Long term (current) use of aspirin; Z79.899 Other long term (current) drug therapy; W22.01XA Walked into wall, initial encounter; Y92.002 Bathroom of unspecified non-institutional (private) residence as the place of occurrence of the external cause
CPT/HCPCS: 71101; 99283; A9270

== ENCOUNTER 2021-10-26 14:05 | Emergency (ER) | payer MEDICARE ==
[2021-10-26 16:07] VITALS: BP 128/69; PULSE 64
[2021-10-26] MEDS ORDERED: LORazepam 0.5 MG Tab PO ONE (16:24)
[2021-10-26] MEDS ORDERED: Magnesium Citrate Solution 296 ML Bottle PO ONE (16:24)
[2021-10-26] MEDS ORDERED: Bisacodyl 10 MG Supp RECTAL ONE (16:24)
[2021-10-26] MEDS ORDERED: Acetaminophen 500 MG Tab PO ONE (16:24)
--- NOTE | 2021-10-26 16:28 | EDM.PDOC ---
ED HPI GENERAL MEDICAL PROBLEM - General Chief Complaint: Abdominal Pain Stated Complaint: STOMACH PAIN X 1 1/2 WEEKS Time Seen by Provider: 10/26/21 16:15 Source of Information: Reports: Patient, Old Records History Limitations: Reports: No Limitations - History of Present Illness INITIAL COMMENTS - FREE TEXT/NARRATIVE: 71 yo frequent visitor to the ER presents with low abdominal pain that gets worse at times. Was seen in the clinic twice over the past 10+ days for this and was advised to use Miralax twice daily which she says she has been doing. No vomiting. Having only occasional small stools. Wants something for pain and anxiety. Had an X-ray in the clinic that showed she was "backed up". Onset: Gradual Duration: Week(s): (1.5), Getting Worse Location: Reports: Abdomen Quality: Reports: Ache, Pressure Severity: Moderate Improves with: Reports: None Worsens with: Reports: Other (time) Context: Reports: Other (see HPI) Associated Symptoms: Reports: No Other Symptoms. Denies: Fever/Chills, Nausea/Vomiting Treatments CRYPTOLOGIC SUPERVISOR: Reports: Other (see below) (Miralax) Upper Abdominal Pain Score (Numeric/FACES): 10 - Related Data Allergies Allergy/AdvReac Type Severity Reaction Status Date / Time morphine Allergy Edema Verified 09/04/21 15:02 Home Meds: Home Meds Aspirin [Halfprin] 81 mg PO DAILY 09/01/13 [History] Calcium Carbonate/Vitamin D3 [Calcarb 600 with Vit D] 1 tab PO BID 09/01/13 [History] Multivitamin [Multi-Vitamin Daily] 1 tab PO DAILY 09/01/13 [History] Vit B Cmplx 3/Fa/Vit C/Biotin [Christa-Dion Rx Tablet] 1 tab PO DAILY 09/01/13 [History] traZODone HCl [Trazodone HCl] 100 mg PO BEDTIME 09/01/13 [History] Albuterol Sulfate [Proair Respiclick] 2 puff IH Q4HR PRN 09/27/18 [History] Cyanocobalamin (Vitamin B12) [Vitamin B12] 1,000 mcg PO DAILY 09/27/18 [History] Iron,Carbonyl/Ascorbic Acid [Iron-Vitamin C 100-250 mg Tab] 1 tab PO BID 09/27/18 [History] Acetaminophen [Tylenol] 325 mg PO Q4H PRN tablet 12/26/18 [Rx] Cholecalciferol (Vitamin D3) [Vitamin D3] 2 tab PO BID 06/02/20 [History] FLUoxetine HCl [Fluoxetine HCl] 2 tab PO DAILY 06/02/20 [History] Naltrexone Microspheres [Vivitrol] 380 mg IM Q28D 06/02/20 [History] Pantoprazole [ProTONIX] 40 mg PO BIDAC #60 tab.cr 04/11/21 [Rx] busPIRone [Buspar] 10 - 20 mg PO TID PRN #16 tab 10/15/21 [Rx] Past Medical History HEENT History: Reports: Impaired Vision Other HEENT History: wears glasses Gastrointestinal History: Reports: GERD, PUD Genitourinary History: Reports: UTI, Recurrent PLASTER HELPER History: Reports: , Spontaneous Other PLASTER HELPER History: ovarian cyst removed Musculoskeletal History: Reports: Arthritis, Other (See Below) Other Musculoskeletal History: scoliosis Neurological History: Reports: Concussion, Head Trauma Psychiatric History: Reports: Addiction, Anxiety, Depression, Panic Attack, Psych Hospitalization(s), Suicidal Ideation Endocrine/Metabolic History: Reports: Vitamin D Deficiency Hematologic History: Reports: Anemia, B12 Deficiency, Blood Transfusion(s), Folic Acid, Iron Deficiency - Infectious Disease History Infectious Disease History: Reports: Chicken Pox - Past Surgical History Head Surgeries/Procedures: Reports: None HEENT Surgical History: Reports: None GI Surgical History: Reports: Appendectomy, Bariatric Procedure, Cholecystectomy, Colonoscopy, EGD, Esophageal Dilatation, Hernia Repair/Other Female Surgical History: Reports: Section, Cystectomy, Hysterectomy Endocrine Surgical History: Reports: None Neurological Surgical History: Reports: None Musculoskeletal Surgical History: Reports: Shoulder Surgery Other Musculoskeletal Surgeries/Procedures:: right rotator cuff repair Dermatological Surgical History: Reports: None Social & Family History - Family History Family Medical History: No Pertinent Family History - Tobacco Use Tobacco Use Status *Q: Current Every Day Tobacco User Years of Tobacco use: 5 Packs/Tins Daily: 0.2 - Caffeine Use Caffeine Use: Reports: Coffee Caffeine Use Comment: daily use - Recreational Drug Use Recreational Drug Use: No - Living Situation & Occupation Living situation: Reports: , with Spouse (lives with in [facility]. 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 115 Grandchildren. One of her Daughters is a RN on [address] [place] [address].) Occupation: Student ED ROS GENERAL - Review of Systems Review Of Systems: See Below Constitutional: Reports: No Symptoms HEENT: Reports: No Symptoms Respiratory: Reports: No Symptoms Cardiovascular: Reports: No Symptoms GI/Abdominal: Reports: Abdominal Pain, Constipation. Denies: Black Stool, Bloody Stool, Diarrhea, Hematemesis, Hematochezia, Melena, Nausea, Vomiting : Reports: No Symptoms Musculoskeletal: Reports: No Symptoms Skin: Reports: No Symptoms Neurological: Reports: No Symptoms Psychiatric: Reports: Anxiety ED EXAM, GI/ABD - Physical Exam Exam: See Below Exam Limited By: No Limitations General Appearance: Alert, WD/WN, No Apparent Distress Eyes: Bilateral: Normal Appearance Ears: Normal External Exam, Normal Canal, Hearing Grossly Normal, Normal TMs Nose: Normal Inspection, No Blood Throat/Mouth: Normal Inspection, Normal Lips, Normal Oropharynx, Normal Voice, No Airway Compromise Head: Atraumatic, Normocephalic Neck: Normal Inspection Respiratory/Chest: No Respiratory Distress, Lungs Clear, Normal Breath Sounds, No Accessory Muscle Use Cardiovascular: Regular Rate, Rhythm, No Edema GI/Abdominal Exam: Normal Bowel Sounds, Soft, Non-Tender, No Distention. No: Distended, Guarding, Rigid, Rebound Back Exam: Normal Inspection Extremities: Normal Inspection, Normal Range of Motion, Non-Tender, No Pedal Edema Neurological: Alert, Oriented, CN II-XII Intact, Normal Cognition, No Motor/Sensory Deficits Psychiatric: Normal Affect, Normal Mood Skin Exam: Warm, Dry, Intact, Normal Color, No Rash Course - Vital Signs Last Recorded V/S: Last Vital Signs Temp 36.2 C 10/26/21 16:21 Pulse 64 10/26/21 16:21 Resp 16 10/26/21 16:21 BP 128/69 10/26/21 16:21 Pulse Ox 98 10/26/21 16:21 - Orders/Labs/Meds Orders: Active Orders 24 hr Category Date Time Status UA W/MICROSCOPIC [URIN] Stat Lab 10/26/21 17:09 Results Labs: Laboratory Tests 10/26/21 Range/Units 17:09 Urine Color Yellow (YELLOW) Urine Appearance Clear (CLEAR) Urine pH 5.0 (5.0-8.0) Ur Specific [place] >= 1.030 (1.008-1.030) Urine Protein Negative (NEGATIVE) mg/dL Urine Glucose (UA) Negative (NEGATIVE) mg/dL Urine Ketones 15 H (NEGATIVE) mg/dL Urine Occult Blood Negative (NEGATIVE) Urine Nitrite Negative (NEGATIVE) Urine Bilirubin Negative (NEGATIVE) Urine Urobilinogen 0.2 (0.2-1.0) EU/dL Ur Leukocyte Esterase Negative (NEGATIVE) Meds: Medications Discontinued Medications Generic Name Dose Route Start Last Admin Trade Name Jelly PRN Reason Stop Dose Admin Acetaminophen 1,000 mg 10/26/21 16:24 10/26/21 16:37 Acetaminophen 500 Mg Tab PO 10/26/21 16:25 1,000 mg ONETIME ONE Administration Bisacodyl 10 mg 10/26/21 16:24 10/26/21 16:42 Bisacodyl 10 Mg Supp RECTAL 10/26/21 16:25 10 mg ONETIME ONE Administration Lorazepam 0.5 mg 10/26/21 16:24 10/26/21 16:36 Lorazepam 0.5 Mg Tab PO 10/26/21 16:25 0.5 mg ONETIME ONE Administration Magnesium Citrate 296 ml 10/26/21 16:24 10/26/21 16:38 Magnesium Citrate Solution 296 Ml Bottle PO 10/26/21 16:25 296 ml ONETIME ONE Administration - Re-Assessments/Exams Free Text/Narrative Re-Assessment/Exam: 10/26/21 17:24 Good results with our treatment. Abdominal pain is gone. Departure - Departure Time of Disposition: 17:35 Disposition: Home, Self-Care 01 Condition: Good Clinical Impression: Constipation Qualifiers: Constipation type: slow transit constipation Qualified Code(s): K59.01 - Slow transit constipation - Discharge Information *PRESCRIPTION DRUG MONITORING PROGRAM REVIEWED*: Not Applicable *COPY OF PRESCRIPTION DRUG MONITORING REPORT IN PATIENT JUSTYNA: Not Applicable Instructions: Constipation, Adult, [id number] Referrals: Karen Nagy PA [Primary Care Provider] - Forms: ED Department Discharge Additional Instructions: Continue the Miralax at least once a day. Recheck with your provider as needed. Sepsis Event Note (ED) - Evaluation Sepsis Screening Result: No Definite Risk - Focused Exam Vital Signs: Vital Signs Temp Pulse Resp BP Pulse Ox 10/26/21 16:21 36.2 C 64 16 128/69 98 10/26/21 16:06 36.2 C 64 16 128/69 98 - My Orders Last 24 Hours: My Active Orders 10/26/21 17:09 UA W/MICROSCOPIC [URIN] Stat - Assessment/Plan Last 24 Hours: My Active Orders 10/26/21 17:09 UA W/MICROSCOPIC [URIN] Stat
== END 2021-10-26 17:50 | disposition home or self-care (01) ==
LOC: JP.ED 14:05
DX: K59.01 Slow transit constipation (principal); K21.9 Gastro-esophageal reflux disease without esophagitis; Z88.5 Allergy status to narcotic agent; Z79.82 Long term (current) use of aspirin; Z79.899 Other long term (current) drug therapy; Z72.0 Tobacco use
CPT/HCPCS: 81001; 99284; A9270

== ENCOUNTER 2021-12-26 14:01 | Inpatient (IN) | payer MEDICARE ==
[2021-12-26] MEDS ORDERED: Ondansetron 4 MG/2 ML SDV IVPUSH ONE (15:03)
[2021-12-26] MEDS ORDERED: LORazepam 2 MG/ML SDV IVPUSH ONE (15:08)
[2021-12-26] MEDS ORDERED: Iopamidol 612 MG/ML 500 ML Multipack Bottle IV ONE (15:13)
[2021-12-26] MEDS ORDERED: Lactated Ringers 1,000 ML IV SCH (15:15)
[2021-12-26] MEDS: Sodium Chloride 0.9% 10 ML Syringe FLUSH PRN ×2 (15:35→16:01)
[2021-12-26] MEDS: fentaNYL 100 MCG/2 ML SDV IVPUSH ONE ×3 (15:36→19:55)
[2021-12-26] MEDS ORDERED: Lactated Ringers 1,000 ML IV ONE (17:32)
[2021-12-26] MEDS ORDERED: fentaNYL 100 MCG/2 ML SDV IVPUSH ONE (17:43)
[2021-12-26] MEDS ORDERED: Ondansetron 4 MG/2 ML SDV IV PRN (18:21)
[2021-12-26] MEDS ORDERED: Acetaminophen 325 MG Tab PO PRN (18:21)
[2021-12-26] MEDS ORDERED: fentaNYL 100 MCG/2 ML SDV IVPUSH PRN (18:21)
[2021-12-26] MEDS ORDERED: Polyethylene Glycol 3350 Powder 17 GM Packet PO PRN (18:21)
[2021-12-26] MEDS ORDERED: Enoxaparin 40 MG/0.4 ML Syringe SUBCUT SCH (18:21)
[2021-12-26] MEDS ORDERED: Sodium Chloride 0.9% 10 ML Syringe FLUSH PRN (18:21)
[2021-12-26] MEDS ORDERED: FLUoxetine 20 MG Cap PO PRN (18:28)
[2021-12-26 19:18] LABS: CORONAVIRUS COVID-19 NAA NEGATIVE (NEGATIVE)
[2021-12-26] MEDS: LORazepam 0.5 MG Tab PO PRN ×2 (19:34→23:48)
[2021-12-26] MEDS: Pantoprazole 40 MG Vial IVPUSH SCH (19:35)
[2021-12-26] MEDS: traZODone 50 MG Tab PO SCH (21:35)
[2021-12-26] MEDS: Sodium Chloride 0.9% 1,000 ML IV SCH (21:36)
[2021-12-26] MEDS: fentaNYL 100 MCG/2 ML SDV IVPUSH PRN (22:17)
[2021-12-27] MEDS: fentaNYL 100 MCG/2 ML SDV IVPUSH PRN ×2 (03:35→09:47)
[2021-12-27] MEDS: Sodium Chloride 0.9% 1,000 ML IV SCH (05:37)
[2021-12-27] MEDS: LORazepam 0.5 MG Tab PO PRN ×4 (05:53→21:37)
[2021-12-27] MEDS: Aspirin 81 MG Tab.EC PO SCH (09:47)
[2021-12-27] MEDS: oxyCODONE 5 MG Tab PO PRN ×3 (12:37→21:37)
[2021-12-27] MEDS ORDERED: Enoxaparin 40 MG/0.4 ML Syringe SUBCUT SCH (17:00)
[2021-12-27] MEDS: Pantoprazole 40 MG Vial IVPUSH SCH (18:17)
[2021-12-27] MEDS: traZODone 50 MG Tab PO SCH (20:06)
[2021-12-28] MEDS: oxyCODONE 5 MG Tab PO PRN ×3 (02:26→12:35)
[2021-12-28] MEDS: LORazepam 0.5 MG Tab PO PRN ×3 (02:27→12:35)
[2021-12-28] MEDS: Aspirin 81 MG Tab.EC PO SCH (08:53)
[2021-12-28 11:11] VITALS: BP 98/57; PULSE 78
== END 2021-12-28 13:19 | disposition home or self-care (01) | DRG 439 ==
LOC: JP.ED 14:01 → JP.MS 17:47
PROVIDERS: ADMIT Hospitalist; ATTEND Hospitalist
DX: K85.90 Acute pancreatitis without necrosis or infection, unspecified (principal); K86.3 Pseudocyst of pancreas; L02.31 Cutaneous abscess of buttock; Z87.11 Personal history of peptic ulcer disease; F15.23 Other stimulant dependence with withdrawal; M41.9 Scoliosis, unspecified; E86.0 Dehydration; F41.1 Generalized anxiety disorder; F41.9 Anxiety disorder, unspecified; D64.9 Anemia, unspecified; H54.7 Unspecified visual loss; Z20.822 Contact with and (suspected) exposure to COVID-19; K21.9 Gastro-esophageal reflux disease without esophagitis; Z88.8 Allergy status to other drugs, medicaments and biological substances; M19.90 Unspecified osteoarthritis, unspecified site; F32.A Depression, unspecified; E55.9 Vitamin D deficiency, unspecified; E61.1 Iron deficiency; E53.8 Deficiency of other specified B group vitamins; Z88.5 Allergy status to narcotic agent; Z79.82 Long term (current) use of aspirin; Z79.899 Other long term (current) drug therapy; Z90.49 Acquired absence of other specified parts of digestive tract; Z90.710 Acquired absence of both cervix and uterus; Z98.84 Bariatric surgery status
CPT/HCPCS: 0241U; 36415; 74177; 76881; 80048; 80053; 81001; 83605; 83690; 83735; 84484; 85025; 96374; 96375; 96376; 99285-25; A9270-GY; C9113; J1650; J2060; J2405; J3010; J7030; J7120; Q9967

== ENCOUNTER 2022-02-24 13:12 | Emergency (ER) | payer MEDICARE ==
[2022-02-24] MEDS ORDERED: LORazepam 2 MG/ML SDV IVPUSH ONE (13:50)
[2022-02-24] MEDS ORDERED: HYDROmorphone 0.5 MG/0.5 ML Syringe IVPUSH ONE (13:50)
[2022-02-24 15:08] VITALS: BP 109/56; PULSE 66
== END 2022-02-24 15:49 | disposition home or self-care (01) ==
LOC: JP.ED 13:12
DX: K52.9 Noninfective gastroenteritis and colitis, unspecified (principal); K44.9 Diaphragmatic hernia without obstruction or gangrene; F41.9 Anxiety disorder, unspecified; K21.9 Gastro-esophageal reflux disease without esophagitis; Z88.5 Allergy status to narcotic agent; Z79.82 Long term (current) use of aspirin; Z79.899 Other long term (current) drug therapy; Z72.0 Tobacco use
CPT/HCPCS: 36415; 74176; 80053; 83605; 83690; 85027; 86140; 96374; 96375; 99284; J1170; J2060; 99283

== ENCOUNTER 2022-06-04 06:54 | Inpatient (IN) | payer MEDICARE ==
[2022-06-04] MEDS ORDERED: fentaNYL 50 MCG/ML SDV IVPUSH ONE ×2 (07:33→08:45)
[2022-06-04] MEDS ORDERED: Sodium Chloride 0.9% 1,000 ML IV SCH (07:45)
[2022-06-04 08:19] LABS: ESTIMATED GFR 60 mL/min (>60)
[2022-06-04] MEDS ORDERED: LORazepam 2 MG/ML SDV IVPUSH ONE (10:19)
[2022-06-04] MEDS ORDERED: Lactated Ringers 1,000 ML IV SCH (11:00)
[2022-06-04] MEDS ORDERED: Ondansetron 4 MG Tab.DIS PO PRN (11:25)
[2022-06-04] MEDS ORDERED: Zolpidem 5 MG Tab PO PRN (11:25)
[2022-06-04] MEDS ORDERED: LORazepam 2 MG/ML SDV IVPUSH PRN (11:25)
[2022-06-04] MEDS ORDERED: Magnesium Hydroxide 400 MG/5 ML Susp 30 ML Cup PO PRN (11:25)
[2022-06-04] MEDS: HYDROmorphone 1 MG/ML Syringe IVPUSH PRN ×5 (12:06→22:12)
[2022-06-04] MEDS: Ondansetron 4 MG/2 ML SDV IV PRN (12:15)
[2022-06-04] MEDS ORDERED: Acetaminophen 325 MG Tab PO PRN (13:24)
[2022-06-04] MEDS: Pantoprazole 40 MG Tab.CR PO SCH (15:50)
[2022-06-04] MEDS: LORazepam 0.5 MG Tab PO PRN ×2 (16:27→23:39)
[2022-06-04] MEDS: Sodium Chloride 0.9% 1,000 ML IV SCH (17:27)
[2022-06-04] MEDS: Acetaminophen 325 MG Tab PO PRN (19:43)
[2022-06-04] MEDS: traZODone 50 MG Tab PO SCH (21:36)
[2022-06-05] MEDS: Acetaminophen 325 MG Tab PO PRN (01:30)
[2022-06-05] MEDS: HYDROmorphone 1 MG/ML Syringe IVPUSH PRN ×8 (01:33→22:41)
[2022-06-05] MEDS: Sodium Chloride 0.9% 1,000 ML IV SCH ×2 (03:41→14:16)
[2022-06-05] MEDS: LORazepam 0.5 MG Tab PO PRN ×4 (04:14→23:30)
[2022-06-05 05:01] LABS: ESTIMATED GFR 92 mL/min (>60)
[2022-06-05] MEDS: Aspirin 81 MG Tab.EC PO SCH (08:05)
[2022-06-05] MEDS: Pantoprazole 40 MG Tab.CR PO SCH ×2 (08:05→16:43)
[2022-06-05] MEDS: Cyanocobalamin (Vitamin B12) 1,000 MCG Tab PO SCH (08:05)
[2022-06-05] MEDS: Ondansetron 4 MG/2 ML SDV IV PRN (19:37)
[2022-06-05] MEDS: traZODone 50 MG Tab PO SCH (21:53)
[2022-06-06] MEDS: HYDROmorphone 1 MG/ML Syringe IVPUSH PRN (03:01)
[2022-06-06] MEDS: Sodium Chloride 0.9% 1,000 ML IV SCH ×2 (03:03→11:58)
[2022-06-06 05:14] LABS: ESTIMATED GFR 92 mL/min (>60)
[2022-06-06] MEDS: Cyanocobalamin (Vitamin B12) 1,000 MCG Tab PO SCH (08:09)
[2022-06-06] MEDS: Pantoprazole 40 MG Tab.CR PO SCH ×2 (08:10→15:57)
[2022-06-06] MEDS: Acetaminophen 325 MG Tab PO PRN (08:10)
[2022-06-06] MEDS: Aspirin 81 MG Tab.EC PO SCH (08:10)
[2022-06-06] MEDS: LORazepam 0.5 MG Tab PO PRN ×3 (08:19→21:12)
[2022-06-06] MEDS ORDERED: Bisacodyl 10 MG Supp RECTAL PRN (11:59)
[2022-06-06] MEDS: HYDROmorphone 2 MG Tab PO PRN ×3 (12:10→21:11)
[2022-06-06] MEDS: busPIRone 10 MG Tab PO PRN (12:29)
[2022-06-06] MEDS: traZODone 50 MG Tab PO SCH (21:12)
[2022-06-07] MEDS: HYDROmorphone 2 MG Tab PO PRN ×3 (01:14→09:05)
[2022-06-07] MEDS: LORazepam 0.5 MG Tab PO PRN ×5 (01:15→21:57)
[2022-06-07 05:26] LABS: ESTIMATED GFR 92 mL/min (>60)
[2022-06-07] MEDS: Pantoprazole 40 MG Tab.CR PO SCH ×2 (07:15→16:32)
[2022-06-07] MEDS: Cyanocobalamin (Vitamin B12) 1,000 MCG Tab PO SCH (08:13)
[2022-06-07] MEDS: Aspirin 81 MG Tab.EC PO SCH (08:13)
[2022-06-07] MEDS: Dextrose 5%-Lactated Ringers 1,000 ML IV SCH (10:13)
[2022-06-07] MEDS: HYDROmorphone 1 MG/ML Syringe IVPUSH PRN ×5 (11:38→21:57)
[2022-06-07] MEDS: busPIRone 10 MG Tab PO PRN (17:58)
[2022-06-07] MEDS: traZODone 50 MG Tab PO SCH (21:56)
[2022-06-08] MEDS: HYDROmorphone 1 MG/ML Syringe IVPUSH PRN ×2 (03:40→07:52)
[2022-06-08] MEDS: LORazepam 0.5 MG Tab PO PRN ×5 (03:40→23:44)
[2022-06-08] MEDS: Dextrose 5%-Lactated Ringers 1,000 ML IV SCH (06:42)
[2022-06-08] MEDS: Pantoprazole 40 MG Tab.CR PO SCH ×2 (07:52→17:13)
[2022-06-08] MEDS: Cyanocobalamin (Vitamin B12) 1,000 MCG Tab PO SCH (08:54)
[2022-06-08] MEDS: Aspirin 81 MG Tab.EC PO SCH (08:54)
[2022-06-08] MEDS: Potassium Chloride 20 MEQ, Lidocaine 1% 2 ML in Sodium Chloride 0.9% 100 ML IV SCH ×2 (08:54→11:19)
[2022-06-08] MEDS: HYDROmorphone 2 MG Tab PO PRN ×4 (12:51→23:44)
[2022-06-08] MEDS: traZODone 50 MG Tab PO SCH (20:29)
[2022-06-09] MEDS: HYDROmorphone 2 MG Tab PO PRN ×2 (03:52→08:04)
[2022-06-09] MEDS: LORazepam 0.5 MG Tab PO PRN ×2 (03:52→08:04)
[2022-06-09] MEDS: Aspirin 81 MG Tab.EC PO SCH (08:04)
[2022-06-09] MEDS: Pantoprazole 40 MG Tab.CR PO SCH (08:04)
[2022-06-09] MEDS: Cyanocobalamin (Vitamin B12) 1,000 MCG Tab PO SCH (08:04)
[2022-06-09 09:00] VITALS: BP 115/73; PULSE 73
== END 2022-06-09 11:00 | disposition home or self-care (01) | DRG 440 ==
LOC: JP.ED 06:54 → JP.MS 10:02
PROVIDERS: ADMIT Hospitalist; ATTEND Internal Medicine
DX: K85.30 Drug induced acute pancreatitis without necrosis or infection (principal); E87.6 Hypokalemia; F17.200 Nicotine dependence, unspecified, uncomplicated; F41.1 Generalized anxiety disorder; T36.8X5A Adverse effect of other systemic antibiotics, initial encounter; H54.7 Unspecified visual loss; K85.90 Acute pancreatitis without necrosis or infection, unspecified; R10.84 Generalized abdominal pain; E55.9 Vitamin D deficiency, unspecified; F17.210 Nicotine dependence, cigarettes, uncomplicated; D50.9 Iron deficiency anemia, unspecified; Z88.5 Allergy status to narcotic agent; K21.9 Gastro-esophageal reflux disease without esophagitis; Z90.710 Acquired absence of both cervix and uterus; Z90.49 Acquired absence of other specified parts of digestive tract; Z71.6 Tobacco abuse counseling; Z87.11 Personal history of peptic ulcer disease; Z87.440 Personal history of urinary (tract) infections; M19.90 Unspecified osteoarthritis, unspecified site; F32.A Depression, unspecified; F41.9 Anxiety disorder, unspecified; Z98.84 Bariatric surgery status; Z88.8 Allergy status to other drugs, medicaments and biological substances; Z79.82 Long term (current) use of aspirin; Z79.899 Other long term (current) drug therapy; Z20.822 Contact with and (suspected) exposure to COVID-19
CPT/HCPCS: 36415; 74176; 80053; 80307; 83690; 85025; 86140; 96361; 96374; 96375; 96376; 99284; 99285; J1790; J3010 ×2; J7030; 76705; 76705-26; 80048; 83735; 85027; 99222; 99232; 99238; A9270-GY; J1170; J2060; J2405; J3480; J3490; J7120; J7121; U0002

== ENCOUNTER 2022-11-27 12:40 | Emergency (ER) | payer MEDICARE ==
[2022-11-27] MEDS ORDERED: Sodium Chloride 0.9% 10 ML Syringe FLUSH PRN (13:26)
[2022-11-27] MEDS ORDERED: Pantoprazole 80 MG in Sodium Chloride 0.9% 100 ML IV ONE (13:28)
[2022-11-27] MEDS ORDERED: Sodium Chloride 0.9% 1,000 ML IV SCH (13:30)
[2022-11-27] MEDS ORDERED: LORazepam 0.5 MG Tab PO ONE ×2 (13:52→18:49)
[2022-11-27 14:30] LABS: ESTIMATED GFR 92 mL/min (>60)
[2022-11-27] MEDS ORDERED: Acetaminophen 325 MG Tab PO ONE (16:58)
[2022-11-27 19:23] VITALS: BP 141/66; PULSE 88
== END 2022-11-27 19:33 | disposition home or self-care (01) ==
LOC: JP.ED 12:40
DX: K85.90 Acute pancreatitis without necrosis or infection, unspecified (principal); D50.0 Iron deficiency anemia secondary to blood loss (chronic); K29.70 Gastritis, unspecified, without bleeding; E87.1 Hypo-osmolality and hyponatremia; F41.1 Generalized anxiety disorder; F17.210 Nicotine dependence, cigarettes, uncomplicated; Z88.6 Allergy status to analgesic agent; Z88.2 Allergy status to sulfonamides; Z79.82 Long term (current) use of aspirin; Z79.899 Other long term (current) drug therapy; Z90.49 Acquired absence of other specified parts of digestive tract; Z90.710 Acquired absence of both cervix and uterus
CPT/HCPCS: 36415; 36430; 80053; 83690; 85610; 85730; 86850; 86900; 86901; 86920; 86922; 96361; 96365; 99284; A9270; C9113; J3490; J7030; P9016

== ENCOUNTER 2022-12-04 08:40 | Day surgery (SDC) | payer MEDICARE ==
[~2022-12-04 08:40] MED LIST: Propofol 200 MG/20 ML SDV ONE; fentaNYL 50 MCG/ML SDV ONE
[2022-12-04] MEDS ORDERED: Dextrose 5%-Lactated Ringers 1,000 ML IV SCH (09:15)
[2022-12-04 12:06] VITALS: PULSE 68
[2022-12-04 12:21] VITALS: BP 123/58
== END 2022-12-04 12:21 | disposition home or self-care (01) ==
LOC: JP.SDS 08:40
PROVIDERS: ATTEND Surgery
DX: R10.13 Epigastric pain (principal); K21.9 Gastro-esophageal reflux disease without esophagitis; R94.5 Abnormal results of liver function studies; Z98.84 Bariatric surgery status; Z88.2 Allergy status to sulfonamides; Z88.6 Allergy status to analgesic agent
CPT/HCPCS: 87081; J2704; J3010; J7121

== ENCOUNTER 2022-12-18 08:30 | Emergency (ER) | payer MEDICARE ==
[2022-12-18] MEDS ORDERED: LORazepam 2 MG/ML SDV IVPUSH ONE (11:01)
[2022-12-18] MEDS ORDERED: LORazepam 1 MG Tab PO ONE (11:01)
[2022-12-18 15:43] VITALS: BP 109/62; PULSE 72
== END 2022-12-18 16:16 | disposition home or self-care (01) ==
LOC: JP.ED 08:30
DX: R06.02 Shortness of breath (principal); D50.0 Iron deficiency anemia secondary to blood loss (chronic); F17.210 Nicotine dependence, cigarettes, uncomplicated; F41.9 Anxiety disorder, unspecified; F32.A Depression, unspecified; K21.9 Gastro-esophageal reflux disease without esophagitis; M19.90 Unspecified osteoarthritis, unspecified site; Z79.82 Long term (current) use of aspirin; Z79.899 Other long term (current) drug therapy; Z88.2 Allergy status to sulfonamides; Z88.5 Allergy status to narcotic agent
CPT/HCPCS: 36415; 36430; 80048; 82150; 83690; 85025; 86850; 86900; 86901; 86920; 86922; 96374; 99284; A9270; J2060; P9016

== ENCOUNTER 2022-12-19 20:12 | Inpatient (IN) | payer MEDICARE ==
[2022-12-19] MEDS ORDERED: LORazepam 2 MG/ML SDV IVPUSH ONE (22:27)
[2022-12-19] MEDS ORDERED: Ondansetron 4 MG/2 ML SDV IVPUSH ONE (22:29)
[2022-12-19] MEDS ORDERED: Sodium Chloride 0.9% 1,000 ML IV SCH (22:30)
[2022-12-19] MEDS ORDERED: Sodium Chloride 0.9% 75 ML IV SCH (23:00)
[2022-12-19] MEDS ORDERED: Iopamidol 755 Mg/ML 100 ML Bottle IV SCH (23:00)
[2022-12-19 23:01] LABS: ESTIMATED GFR 92 mL/min (>60)
[2022-12-19] MEDS ORDERED: Pantoprazole 80 MG in Sodium Chloride 0.9% 100 ML IV SCH (23:15)
[2022-12-20 00:04] LABS: CORONAVIRUS COVID-19 NAA NEGATIVE (NEGATIVE)
[2022-12-20] MEDS ORDERED: Albuterol/Ipratropium 3.0-0.5 MG/3 ML Neb Soln NEB PRN (00:19)
[2022-12-20] MEDS ORDERED: hydrOXYzine HCl 25 MG Tab PO PRN (00:19)
[2022-12-20] MEDS ORDERED: LORazepam 2 MG/ML SDV IV PRN (00:19)
[2022-12-20] MEDS ORDERED: Albuterol 0.083% 2.5 MG/3 ML Neb Soln NEB PRN (00:19)
[2022-12-20] MEDS: traZODone 50 MG Tab PO SCH ×2 (01:07→20:18)
[2022-12-20] MEDS: oxyCODONE 5 MG Tab PO PRN ×4 (01:07→20:18)
[2022-12-20] MEDS: Sodium Chloride 0.9% 1,000 ML IV SCH ×2 (02:54→08:33)
[2022-12-20] MEDS: HYDROmorphone 1 MG/ML Syringe IVPUSH PRN (03:40)
[2022-12-20] MEDS: Ondansetron 4 MG/2 ML SDV IV PRN ×2 (08:45→16:18)
[2022-12-20] MEDS: Cholecalciferol (Vitamin D3) 25 MCG Tab PO SCH (08:50)
[2022-12-20] MEDS: Calcium Carbonate/Vitamin D3 1500 MG-400 Units Tab PO SCH ×2 (08:50→20:18)
[2022-12-20] MEDS: busPIRone 10 MG Tab PO SCH ×3 (08:50→20:17)
[2022-12-20] MEDS: Multivitamins with Iron/Calcium/Folic Acid/Minerals Tab PO SCH (08:50)
[2022-12-20] MEDS: Magnesium Oxide 400 MG Tab PO SCH ×2 (08:50→16:01)
[2022-12-20] MEDS: Nicotine 14 MG/24 Hr Patch TRDERM SCH (08:51)
[2022-12-20] MEDS ORDERED: Non-Formulary Medication 1 Each (Fluoxetine [Prozac] 10 MG Tablet) PO SCH (09:00)
[2022-12-20] MEDS ORDERED: Pantoprazole 40 MG Vial IV SCH (09:00)
[2022-12-20] MEDS ORDERED: Bisacodyl 5 MG Tab PO ONE ×2 (09:00→20:00)
[2022-12-20] MEDS ORDERED: Cyanocobalamin (Vitamin B12) 1,000 MCG Tab PO SCH (09:00)
[2022-12-20] MEDS: Acetaminophen 325 MG Tab PO PRN ×3 (10:35→23:33)
[2022-12-20] MEDS: Citalopram 20 MG Tab PO SCH (10:54)
[2022-12-20] MEDS ORDERED: LORazepam 1 MG Tab PO ONE (11:00)
[2022-12-20] MEDS: hydrOXYzine HCl 25 MG Tab PO PRN ×3 (13:38→23:33)
[2022-12-20] MEDS: Pantoprazole 40 MG Tab.CR PO SCH (16:01)
[2022-12-20] MEDS ORDERED: Polyethylene Glycol 3350 Powder 238 GM Bot PO ONE (17:00)
[2022-12-20] MEDS ORDERED: traZODone 50 MG Tab PO SCH (21:00)
[2022-12-21 06:01] LABS: ESTIMATED GFR 96 mL/min (>60)
[2022-12-21] MEDS: Nicotine 14 MG/24 Hr Patch TRDERM SCH (08:55)
[2022-12-21] MEDS: Pantoprazole 40 MG Tab.CR PO SCH ×2 (08:56→16:14)
[2022-12-21] MEDS: Cholecalciferol (Vitamin D3) 25 MCG Tab PO SCH (08:56)
[2022-12-21] MEDS: Citalopram 20 MG Tab PO SCH (08:56)
[2022-12-21] MEDS: Multivitamins with Iron/Calcium/Folic Acid/Minerals Tab PO SCH (08:56)
[2022-12-21] MEDS: busPIRone 10 MG Tab PO SCH ×3 (08:56→22:13)
[2022-12-21] MEDS: Magnesium Oxide 400 MG Tab PO SCH ×2 (08:56→16:14)
[2022-12-21] MEDS: Calcium Carbonate/Vitamin D3 1500 MG-400 Units Tab PO SCH ×2 (08:56→22:13)
[2022-12-21] MEDS ORDERED: Bisacodyl 5 MG Tab PO ONE ×2 (09:00→20:00)
[2022-12-21] MEDS ORDERED: Ondansetron 4 MG Tab.DIS PO PRN (09:46)
[2022-12-21] MEDS ORDERED: Polyethylene Glycol 3350 Powder 238 GM Bot PO ONE (10:00)
[2022-12-21] MEDS: oxyCODONE 5 MG Tab PO PRN ×4 (10:04→22:13)
[2022-12-21] MEDS: traZODone 50 MG Tab PO SCH (22:13)
[2022-12-22] MEDS: oxyCODONE 5 MG Tab PO PRN ×4 (04:10→20:24)
[2022-12-22] MEDS: Calcium Carbonate/Vitamin D3 1500 MG-400 Units Tab PO SCH ×2 (10:14→20:24)
[2022-12-22] MEDS: Magnesium Oxide 400 MG Tab PO SCH ×2 (10:14→16:14)
[2022-12-22] MEDS: Nicotine 14 MG/24 Hr Patch TRDERM SCH (10:15)
[2022-12-22] MEDS: Multivitamins with Iron/Calcium/Folic Acid/Minerals Tab PO SCH (10:15)
[2022-12-22] MEDS: Cholecalciferol (Vitamin D3) 25 MCG Tab PO SCH (10:15)
[2022-12-22] MEDS: busPIRone 10 MG Tab PO SCH ×3 (10:15→20:24)
[2022-12-22] MEDS: Citalopram 20 MG Tab PO SCH (10:15)
[2022-12-22] MEDS: Pantoprazole 40 MG Tab.CR PO SCH ×2 (10:16→16:14)
[2022-12-22] MEDS: HYDROmorphone 1 MG/ML Syringe IVPUSH PRN (11:06)
[2022-12-22] MEDS: traZODone 50 MG Tab PO SCH (20:28)
[2022-12-23] MEDS: oxyCODONE 5 MG Tab PO PRN ×2 (04:45→09:54)
[2022-12-23 05:41] LABS: ESTIMATED GFR 92 mL/min (>60)
[2022-12-23 07:46] VITALS: BP 109/61; PULSE 63
[2022-12-23] MEDS: Pantoprazole 40 MG Tab.CR PO SCH (07:46)
[2022-12-23] MEDS: Magnesium Oxide 400 MG Tab PO SCH (07:46)
[2022-12-23] MEDS: Nicotine 14 MG/24 Hr Patch TRDERM SCH (09:05)
[2022-12-23] MEDS: Citalopram 20 MG Tab PO SCH (09:05)
[2022-12-23] MEDS: busPIRone 10 MG Tab PO SCH (09:05)
[2022-12-23] MEDS: Cholecalciferol (Vitamin D3) 25 MCG Tab PO SCH (09:05)
[2022-12-23] MEDS: Multivitamins with Iron/Calcium/Folic Acid/Minerals Tab PO SCH (09:05)
[2022-12-23] MEDS: Calcium Carbonate/Vitamin D3 1500 MG-400 Units Tab PO SCH (09:05)
== END 2022-12-23 10:31 | disposition home or self-care (01) | DRG 377 ==
LOC: JP.ED 20:12 → JP.MS 23:21
PROVIDERS: ADMIT Internal Medicine; ATTEND Surgery
PROC: 30233N1 Transfusion of Nonautologous Red Blood Cells into Peripheral Vein, Percutaneous Approach (ICD-10-PCS; 2022-12-20)
PROC: 0DJ08ZZ Inspection of Upper Intestinal Tract, Via Natural or Artificial Opening Endoscopic (ICD-10-PCS; principal; 2022-12-22)
PROC: 0DJD8ZZ Inspection of Lower Intestinal Tract, Via Natural or Artificial Opening Endoscopic (ICD-10-PCS; 2022-12-22)
DX: K92.2 Gastrointestinal hemorrhage, unspecified (principal); K85.80 Other acute pancreatitis without necrosis or infection; D62 Acute posthemorrhagic anemia; K86.3 Pseudocyst of pancreas; F41.1 Generalized anxiety disorder; K21.9 Gastro-esophageal reflux disease without esophagitis; Z20.822 Contact with and (suspected) exposure to COVID-19; E55.9 Vitamin D deficiency, unspecified; F34.1 Dysthymic disorder; F17.210 Nicotine dependence, cigarettes, uncomplicated; Z79.82 Long term (current) use of aspirin; Z88.5 Allergy status to narcotic agent; Z88.2 Allergy status to sulfonamides; Z79.899 Other long term (current) drug therapy; Z90.49 Acquired absence of other specified parts of digestive tract; Z90.710 Acquired absence of both cervix and uterus; Z98.84 Bariatric surgery status
CPT/HCPCS: 0241U; 36415; 36430; 74177; 74181; 74181-26; 80048; 80053; 82150; 82270; 82272; 82728; 83690; 83735; 83880; 84100; 85014; 85018; 85025; 86850; 86900; 86901; 86920; 86922; 96361; 96365; 96375; 99222; 99232; 99239; 99285-25; A9270-GY; C9113; J1170; J2060; J2405; J3490; J7030; P9016; Q9967

== ENCOUNTER 2022-12-29 18:34 | Emergency (ER) | payer MEDICARE | END 2022-12-29 19:20 | disposition left against medical advice (07) | LOC: JP.ED 18:34 | DX: Z53.21 Procedure and treatment not carried out due to patient leaving prior to being seen by health care provider (principal) ==

== ENCOUNTER 2022-12-30 05:42 | Emergency (ER) | payer MEDICARE ==
[2022-12-30] MEDS ORDERED: Lactated Ringers 1,000 ML IV SCH (06:30)
[2022-12-30] MEDS ORDERED: LORazepam 2 MG/ML SDV IVPUSH ONE (06:33)
[2022-12-30] MEDS ORDERED: fentaNYL 50 MCG/ML SDV IVPUSH ONE ×3 (06:33→09:18)
[2022-12-30 07:20] LABS: ESTIMATED GFR 92 mL/min (>60)
[2022-12-30 09:01] VITALS: BP 134/77; PULSE 72
== END 2022-12-30 09:45 ==
LOC: JP.ED 05:42
DX: K92.2 Gastrointestinal hemorrhage, unspecified (principal); F41.1 Generalized anxiety disorder; D50.0 Iron deficiency anemia secondary to blood loss (chronic); F17.200 Nicotine dependence, unspecified, uncomplicated; K21.9 Gastro-esophageal reflux disease without esophagitis; M19.90 Unspecified osteoarthritis, unspecified site; Z88.5 Allergy status to narcotic agent; Z88.2 Allergy status to sulfonamides; Z79.899 Other long term (current) drug therapy; Z98.84 Bariatric surgery status; Z20.822 Contact with and (suspected) exposure to COVID-19
CPT/HCPCS: 36415; 80053; 82150; 82272; 83605; 83690; 85025; 96361; 96374; 96375; 96376; 99285; J2060; J3010; J7120; U0002

== ENCOUNTER 2023-04-22 10:46 | Emergency (ER) | payer MEDICARE ==
[2023-04-22 11:05] VITALS: PULSE 75
[2023-04-22 11:16] VITALS: BP 125/68
== END 2023-04-22 11:40 | disposition home or self-care (01) ==
LOC: JP.ED 10:46
DX: K08.89 Other specified disorders of teeth and supporting structures (principal); F17.210 Nicotine dependence, cigarettes, uncomplicated; Z88.5 Allergy status to narcotic agent; Z88.2 Allergy status to sulfonamides
CPT/HCPCS: 99282

== ENCOUNTER 2023-06-05 14:43 | Inpatient (IN) | payer MEDICARE ==
[2023-06-05] MEDS ORDERED: Sodium Chloride 0.9% 1,000 ML IV SCH (15:30)
[2023-06-05 15:51] LABS: HEMATOCRIT 20.9 % (34.3-46.0); MEAN CORPUSCULAR HEMOGLOBIN 33.3 pg (31.6-35.5); MEAN CORPUSCULAR HGB CONC 31.6 g/dL (31.6-35.5); MEAN CORPUSCULAR VOLUME 105.6 fL (81.4-99.0); RED BLOOD CELL COUNT 1.98 M/uL (3.77-5.24); WHITE BLOOD CELL COUNT,WBC 6.3 K/uL (3.2-11.0)
[2023-06-05 15:52] LABS: HEMOGLOBIN 6.6 g/dL (11.2-15.5)
[2023-06-05 16:08] LABS: PROTHROMBIN TIME 10.3 sec (9.2-10.6)
[2023-06-05 16:18] LABS: ALANINE AMINOTRANSFERASE,ALT 12 U/L (12-78); ALBUMIN 3.3 g/dL (3.4-5.0); ALKALINE PHOSPHATASE 96 U/L (46-116); ASPARTATE AMNIOTRANSFERASE,AST 21 U/L (15-37); BILIRUBIN TOTAL 0.2 mg/dL (0.2-1.0); BLOOD UREA NITROGEN,BUN 23 mg/dL (7-18); CALCIUM 8.2 mg/dL (8.5-10.1); CARBON DIOXIDE,CO2 18 mmol/L (21-32); CHLORIDE,CL 108 mmol/L (100-108); CREATININE 0.7 mg/dL (0.6-1.0); EST CRCL DRUG DOSING (CG) 62.73 mL/min; ESTIMATED GFR 92 mL/min (>60); GLUCOSE RANDOM 98 mg/dL (74-106); PRO B-TYPE NATRIUR PEPT,BNPPRO 352 pg/mL (5-125); PROTEIN TOTAL,TP 6.6 g/dL (6.4-8.2); SODIUM,NA 137 mmol/L (140-148)
[2023-06-05] MEDS ORDERED: LORazepam 2 MG/ML SDV IVPUSH ONE (16:25)
[2023-06-05] MEDS ORDERED: Ondansetron 4 MG Tab.DIS PO PRN (19:09)
[2023-06-05] MEDS ORDERED: Sennosides/Docusate Sodium 50-8.6 MG Tab PO PRN (19:09)
[2023-06-05] MEDS ORDERED: Naloxone 0.4 MG/ML SDV IVPUSH PRN (19:09)
[2023-06-05] MEDS ORDERED: Magnesium Hydroxide 400 MG/5 ML Susp 30 ML Cup PO PRN (19:09)
[2023-06-05] MEDS ORDERED: HYDROmorphone 0.5 MG/0.5 ML Syringe IVPUSH PRN (19:09)
[2023-06-05] MEDS ORDERED: Ondansetron 4 MG/2 ML SDV IV PRN (19:09)
[2023-06-05] MEDS ORDERED: Acetaminophen 325 MG Tab PO PRN (19:09)
[2023-06-05] MEDS ORDERED: oxyCODONE 5 MG Tab PO PRN (19:09)
[2023-06-05] MEDS ORDERED: Melatonin 3 MG Tab PO PRN (19:09)
[2023-06-05 19:23] LABS: IRON,FE 16 ug/dL (50-170); PERCENT FE SATURATION 4 % (20-55); TOTAL IRON BINDING CAPACITY 441 ug/dl (250-450)
[2023-06-05] MEDS: busPIRone 10 MG Tab PO SCH (21:58)
[2023-06-05] MEDS: traZODone 50 MG Tab PO SCH (21:58)
[2023-06-05] MEDS: Pantoprazole 40 MG Vial IV SCH (21:58)
[2023-06-05] MEDS: Sodium Chloride 0.9% 1,000 ML IV SCH (22:03)
[2023-06-05] MEDS: hydrOXYzine HCl 25 MG Tab PO PRN (22:06)
[2023-06-06 05:06] LABS: HEMATOCRIT 23.7 % (34.3-46.0); HEMOGLOBIN 7.9 g/dL (11.2-15.5); MEAN CORPUSCULAR HEMOGLOBIN 32.5 pg (31.6-35.5); MEAN CORPUSCULAR HGB CONC 33.3 g/dL (31.6-35.5); MEAN CORPUSCULAR VOLUME 97.5 fL (81.4-99.0); RED BLOOD CELL COUNT 2.43 M/uL (3.77-5.24); WHITE BLOOD CELL COUNT,WBC 4.7 K/uL (3.2-11.0)
[2023-06-06 05:20] LABS: CALCIUM 7.6 mg/dL (8.5-10.1); CREATININE 0.6 mg/dL (0.6-1.0); EST CRCL DRUG DOSING (CG) 73.19 mL/min; MAGNESIUM 1.8 mg/dL (1.8-2.4); POTASSIUM,K 3.9 mmol/L (3.6-5.2)
[2023-06-06 05:24] LABS: ANION GAP 14.9 mmol/L (5.0-14.0)
[2023-06-06] MEDS ORDERED: Propofol 200 MG/20 ML SDV ONE (06:46)
[2023-06-06] MEDS ORDERED: fentaNYL 50 MCG/ML SDV ONE (06:47)
[2023-06-06] MEDS: Sodium Chloride 0.9% 1,000 ML IV SCH (09:09)
[2023-06-06] MEDS: Pantoprazole 40 MG Vial IV SCH ×2 (09:12→20:33)
[2023-06-06] MEDS: hydrOXYzine HCl 25 MG Tab PO PRN (09:13)
[2023-06-06] MEDS: busPIRone 10 MG Tab PO SCH ×3 (09:13→23:08)
[2023-06-06] MEDS: Citalopram 20 MG Tab PO SCH (09:13)
[2023-06-06] MEDS: LORazepam 0.5 MG Tab PO PRN ×4 (10:31→23:10)
[2023-06-06 15:21] LABS: HEMATOCRIT 32.7 % (34.3-46.0); HEMOGLOBIN 10.7 g/dL (11.2-15.5); MEAN CORPUSCULAR HGB CONC 32.7 g/dL (31.6-35.5); MEAN CORPUSCULAR VOLUME 94.8 fL (81.4-99.0); RED BLOOD CELL COUNT 3.45 M/uL (3.77-5.24); WHITE BLOOD CELL COUNT,WBC 4.9 K/uL (3.2-11.0)
[2023-06-06] MEDS: traZODone 50 MG Tab PO SCH (23:08)
[2023-06-07 04:40] LABS: HEMATOCRIT 29.3 % (34.3-46.0); HEMOGLOBIN 9.9 g/dL (11.2-15.5); MEAN CORPUSCULAR HGB CONC 33.8 g/dL (31.6-35.5); MEAN CORPUSCULAR VOLUME 91.8 fL (81.4-99.0); RED BLOOD CELL COUNT 3.19 M/uL (3.77-5.24); WHITE BLOOD CELL COUNT,WBC 4.4 K/uL (3.2-11.0)
[2023-06-07 05:19] LABS: ALANINE AMINOTRANSFERASE,ALT 20 U/L (12-78); ALBUMIN 2.6 g/dL (3.4-5.0); ALKALINE PHOSPHATASE 81 U/L (46-116); ASPARTATE AMNIOTRANSFERASE,AST 19 U/L (15-37); BILIRUBIN TOTAL 0.3 mg/dL (0.2-1.0); BLOOD UREA NITROGEN,BUN 11 mg/dL (7-18); CALCIUM 7.5 mg/dL (8.5-10.1); CARBON DIOXIDE,CO2 20 mmol/L (21-32); CHLORIDE,CL 111 mmol/L (100-108); CREATININE 0.6 mg/dL (0.6-1.0); EST CRCL DRUG DOSING (CG) 73.72 mL/min; ESTIMATED GFR 95 mL/min (>60); FERRITIN 18 ng/ml (8-388); GLUCOSE RANDOM 97 mg/dL (74-106); MAGNESIUM 1.9 mg/dL (1.8-2.4); POTASSIUM,K 3.6 mmol/L (3.6-5.2); PROTEIN TOTAL,TP 5.3 g/dL (6.4-8.2); SODIUM,NA 143 mmol/L (140-148)
[2023-06-07 05:24] LABS: ANION GAP 15.6 mmol/L (5.0-14.0)
[2023-06-07] MEDS: LORazepam 2 MG/ML SDV IVPUSH PRN ×2 (06:50→11:11)
[2023-06-07] MEDS ORDERED: Ondansetron 4 MG/2 ML SDV ONE (08:30)
[2023-06-07] MEDS ORDERED: Propofol 200 MG/20 ML SDV ONE (08:30)
[2023-06-07] MEDS ORDERED: fentaNYL 250 MCG/5 ML SDV ONE ×2 (08:30→12:33)
[2023-06-07] MEDS ORDERED: Glycopyrrolate 0.2 MG/ML 5 ML MDV ONE (08:30)
[2023-06-07] MEDS ORDERED: Rocuronium 50 MG/5 ML Vial ONE ×2 (08:30→12:53)
[2023-06-07] MEDS ORDERED: Succinylcholine 200 MG/10 ML MDV ONE (08:30)
[2023-06-07] MEDS ORDERED: Dexamethasone 4 MG/ML SDV ONE (08:30)
[2023-06-07] MEDS ORDERED: Neostigmine Methylsulfate 1 MG/ML 5 ML Syringe ONE (08:30)
[2023-06-07] MEDS ORDERED: Lidocaine 1% with EPINEPHrine 1:100,000 50 ML MDV ONE (09:49)
[2023-06-07] MEDS ORDERED: Bupivacaine 0.5% 50 ML MDV ONE (09:49)
[2023-06-07] MEDS ORDERED: Meropenem 500 MG SDV ONE (09:49)
[2023-06-07] MEDS: Pantoprazole 40 MG Vial IV SCH (09:53)
[2023-06-07] MEDS ORDERED: Ketamine 16 MG in Sodium Chloride 0.9% 19.84 ML IV SCH (10:30)
[2023-06-07] MEDS ORDERED: cefOXitin 2 GM in Sodium Chloride 0.9% 50 ML IV ONE (10:30)
[2023-06-07] MEDS ORDERED: Ketamine 500 MG/5 ML MDV IV SCH (10:30)
[2023-06-07] MEDS ORDERED: Lactated Ringers 1,000 ML IV SCH (11:00)
[2023-06-07] MEDS ORDERED: Lactated Ringers 1,000 ML ONE (13:29)
[2023-06-07] MEDS ORDERED: Linezolid 600 MG/300 ML Premix Bag IRR ONE (14:16)
[2023-06-07] MEDS ORDERED: diphenhydrAMINE 25 MG Cap PO PRN (14:56)
[2023-06-07] MEDS ORDERED: diphenhydrAMINE 50 MG/ML SDV IVPUSH PRN ×2 (14:56→16:00)
[2023-06-07] MEDS ORDERED: Ondansetron 4 MG/2 ML SDV IVPUSH PRN ×2 (14:56→16:00)
[2023-06-07] MEDS ORDERED: Naloxone 0.4 MG/ML SDV IVPUSH PRN (14:56)
[2023-06-07] MEDS ORDERED: Naloxone 0.4 MG/ML SDV IV PRN (15:00)
[2023-06-07] MEDS: HYDROmorphone/Normal Saline 6 MG/30 ML PCA Vial IV PRN ×2 (15:04→18:58)
[2023-06-07] MEDS ORDERED: hydrOXYzine HCL 100 MG/2 ML SDV IM PRN ×2 (16:00→16:06)
[2023-06-07] MEDS ORDERED: Labetalol 20 MG/4 ML Syringe IVPUSH PRN (16:00)
[2023-06-07] MEDS ORDERED: Metoclopramide 10 MG/2 ML SDV IVPUSH PRN (16:00)
[2023-06-07] MEDS ORDERED: Dextrose 5%-Lactated Ringers 1,000 ML IV SCH ×2 (16:00→17:30)
[2023-06-07] MEDS: Cyclobenzaprine 10 MG Tab PO PRN (16:51)
[2023-06-07] MEDS: Citalopram 20 MG Tab PO SCH (18:10)
[2023-06-07] MEDS: busPIRone 10 MG Tab PO SCH ×2 (18:10→21:56)
[2023-06-07] MEDS: cefOXitin 2 GM in Sodium Chloride 0.9% 50 ML IV SCH (18:18)
[2023-06-07] MEDS: 1: AA 5%/Calcium/D15W/Lytes 1,000 ML with MVI, Adult with Vitamin K 10 ML, Zinc/Copper/M IV SCH ×3 (18:22)
[2023-06-07] MEDS: Sennosides/Docusate Sodium 50-8.6 MG Tab PO SCH (21:56)
[2023-06-07] MEDS: traZODone 50 MG Tab PO SCH (21:56)
[2023-06-07] MEDS: Acetaminophen 500 MG Tab PO SCH (21:56)
[2023-06-07] MEDS: LORazepam 0.5 MG Tab PO PRN (22:06)
[2023-06-08] MEDS: cefOXitin 2 GM in Sodium Chloride 0.9% 50 ML IV SCH ×4 (00:31→18:10)
[2023-06-08] MEDS: HYDROmorphone/Normal Saline 6 MG/30 ML PCA Vial IV PRN ×2 (01:05→11:41)
[2023-06-08] MEDS: LORazepam 0.5 MG Tab PO PRN ×4 (02:20→18:10)
[2023-06-08] MEDS ORDERED: Iopamidol 612 MG/ML 50 ML SDV PO ONE (04:02)
[2023-06-08 04:39] LABS: HEMATOCRIT 30.1 % (34.3-46.0); HEMOGLOBIN 10.2 g/dL (11.2-15.5); IMMATURE GRAN ABSOLUTE AUTO 0.06 K/uL (0.00-0.23); IMMATURE GRAN PERCENT AUTO 0.7 % (0.0-0.7); LYMPHOCYTES PERCENT AUTO 5.7 % (11.4-47.7); MEAN CORPUSCULAR HEMOGLOBIN 31.2 pg (31.6-35.5); MEAN CORPUSCULAR HGB CONC 33.9 g/dL (31.6-35.5); MONOCYTES ABSOLUTE AUTO 0.55 K/uL (0.20-0.90); MONOCYTES PERCENT AUTO 6.3 % (3.3-12.6); NEUTROPHILS ABSOLUTE AUTO 7.63 K/uL (1.0-7.6); NEUTROPHILS PERCENT AUTO 87.3 % (40.0-78.1); PLATELET COUNT,PLT 152 K/uL (130-375); RED BLOOD CELL COUNT 3.27 M/uL (3.77-5.24); WHITE BLOOD CELL COUNT,WBC 8.7 K/uL (3.2-11.0)
[2023-06-08 05:24] LABS: A/G RATIO 0.8 (1.2-2.2); ALANINE AMINOTRANSFERASE,ALT 21 U/L (12-78); ALBUMIN 2.5 g/dL (3.4-5.0); ALKALINE PHOSPHATASE 76 U/L (46-116); ASPARTATE AMNIOTRANSFERASE,AST 20 U/L (15-37); BILIRUBIN TOTAL 0.3 mg/dL (0.2-1.0); BLOOD UREA NITROGEN,BUN 10 mg/dL (7-18); CALCIUM 7.8 mg/dL (8.5-10.1); CARBON DIOXIDE,CO2 25 mmol/L (21-32); CHLORIDE,CL 104 mmol/L (100-108); CREATININE 0.6 mg/dL (0.6-1.0); EST CRCL DRUG DOSING (CG) 73.72 mL/min; ESTIMATED GFR 95 mL/min (>60); GLUCOSE RANDOM 229 mg/dL (74-106); MAGNESIUM 1.7 mg/dL (1.8-2.4); PHOSPHORUS 3.5 mg/dL (2.5-4.9); POTASSIUM,K 3.5 mmol/L (3.6-5.2); PRO B-TYPE NATRIUR PEPT,BNPPRO 1335 pg/mL (5-125); PROTEIN TOTAL,TP 5.5 g/dL (6.4-8.2); SODIUM,NA 137 mmol/L (140-148)
[2023-06-08] MEDS: Acetaminophen 500 MG Tab PO SCH ×3 (05:47→21:12)
[2023-06-08 06:07] LABS: ANION GAP 11.5 mmol/L (5.0-14.0)
[2023-06-08] MEDS ORDERED: Dextrose 5%-Lactated Ringers 1,000 ML IV SCH (06:45)
[2023-06-08] MEDS ORDERED: Magnesium Sulfate/Water 2 GM/50 ML BAG IV SCH (06:45)
[2023-06-08] MEDS ORDERED: Central Total Parenteral Nutrition Bag SCH (07:15)
[2023-06-08] MEDS ORDERED: hydrOXYzine HCl 25 MG Tab PO SCH (07:15)
[2023-06-08] MEDS: Cyclobenzaprine 10 MG Tab PO PRN ×2 (07:41→21:12)
[2023-06-08] MEDS: Lactated Ringers 1,000 ML IV SCH (07:43)
[2023-06-08] MEDS: Magnesium Sulfate/Water 2 GM/50 ML BAG IV SCH ×3 (07:49→20:31)
[2023-06-08] MEDS ORDERED: Pantoprazole 40 MG Vial IVPUSH SCH (09:00)
[2023-06-08] MEDS: Pantoprazole 40 MG Vial IVPUSH SCH ×2 (09:44→20:48)
[2023-06-08] MEDS: busPIRone 10 MG Tab PO SCH ×3 (09:44→20:44)
[2023-06-08] MEDS: Citalopram 20 MG Tab PO SCH (09:44)
[2023-06-08] MEDS: Sennosides/Docusate Sodium 50-8.6 MG Tab PO SCH ×2 (09:44→20:44)
[2023-06-08] MEDS: hydrOXYzine HCl 25 MG Tab PO SCH ×3 (09:47→21:12)
[2023-06-08] MEDS: 1: AA 5%/Calcium/D15W/Lytes 1,000 ML with MVI, Adult with Vitamin K 10 ML, Zinc/Copper/M IV SCH ×3 (10:26)
[2023-06-08] MEDS: traZODone 50 MG Tab PO SCH (20:48)
[2023-06-08] MEDS: oxyCODONE 5 MG Tab PO PRN (21:15)
[2023-06-09] MEDS: cefOXitin 2 GM in Sodium Chloride 0.9% 50 ML IV SCH ×3 (00:02→12:46)
[2023-06-09] MEDS: LORazepam 0.5 MG Tab PO PRN ×5 (00:02→21:20)
[2023-06-09] MEDS: oxyCODONE 5 MG Tab PO PRN ×6 (01:12→21:58)
[2023-06-09] MEDS: Magnesium Sulfate/Water 2 GM/50 ML BAG IV SCH ×4 (01:14→21:00)
[2023-06-09] MEDS: 1: AA 5%/Calcium/D15W/Lytes 1,000 ML with MVI, Adult with Vitamin K 10 ML, Zinc/Copper/M IV SCH ×6 (02:35→18:02)
[2023-06-09] MEDS: hydrOXYzine HCl 25 MG Tab PO SCH ×4 (03:52→19:42)
[2023-06-09 04:30] LABS: HEMATOCRIT 31.2 % (34.3-46.0); HEMOGLOBIN 10.7 g/dL (11.2-15.5); MEAN CORPUSCULAR HEMOGLOBIN 31.6 pg (31.6-35.5); MEAN CORPUSCULAR HGB CONC 34.3 g/dL (31.6-35.5); RED BLOOD CELL COUNT 3.39 M/uL (3.77-5.24); WHITE BLOOD CELL COUNT,WBC 9.7 K/uL (3.2-11.0)
[2023-06-09 05:09] LABS: A/G RATIO 0.8 (1.2-2.2); ALANINE AMINOTRANSFERASE,ALT 22 U/L (12-78); ALBUMIN 2.6 g/dL (3.4-5.0); ALKALINE PHOSPHATASE 80 U/L (46-116); ASPARTATE AMNIOTRANSFERASE,AST 20 U/L (15-37); BILIRUBIN TOTAL 0.3 mg/dL (0.2-1.0); BLOOD UREA NITROGEN,BUN 10 mg/dL (7-18); CALCIUM 7.8 mg/dL (8.5-10.1); CARBON DIOXIDE,CO2 29 mmol/L (21-32); CHLORIDE,CL 102 mmol/L (100-108); CREATININE 0.6 mg/dL (0.6-1.0); EST CRCL DRUG DOSING (CG) 73.72 mL/min; ESTIMATED GFR 95 mL/min (>60); GLUCOSE RANDOM 117 mg/dL (74-106); POTASSIUM,K 3.6 mmol/L (3.6-5.2); PRO B-TYPE NATRIUR PEPT,BNPPRO 964 pg/mL (5-125); SODIUM,NA 139 mmol/L (140-148)
[2023-06-09 05:17] LABS: ANION GAP 11.6 mmol/L (5.0-14.0)
[2023-06-09] MEDS: Acetaminophen 500 MG Tab PO SCH ×3 (06:00→21:02)
[2023-06-09] MEDS ORDERED: Central Total Parenteral Nutrition Bag SCH (07:15)
[2023-06-09] MEDS: Cyclobenzaprine 10 MG Tab PO PRN ×2 (08:50→17:23)
[2023-06-09] MEDS: Bisacodyl 5 MG Tab PO SCH ×2 (08:51→21:01)
[2023-06-09] MEDS: Docusate Sodium 100 MG Cap PO SCH ×2 (08:52→21:02)
[2023-06-09] MEDS: Citalopram 20 MG Tab PO SCH (08:53)
[2023-06-09] MEDS: Sennosides/Docusate Sodium 50-8.6 MG Tab PO SCH ×2 (08:53→21:00)
[2023-06-09] MEDS: busPIRone 10 MG Tab PO SCH ×3 (08:53→21:02)
[2023-06-09] MEDS ORDERED: Cyanocobalamin (Vitamin B12) 1,000 MCG/ML SDV IM ONE (09:00)
[2023-06-09] MEDS: Pantoprazole 40 MG Vial IVPUSH SCH (09:05)
[2023-06-09] MEDS: Lactated Ringers 1,000 ML IV SCH (10:01)
[2023-06-09] MEDS: Pantoprazole 40 MG Tab.CR PO SCH (21:00)
[2023-06-09] MEDS: traZODone 50 MG Tab PO SCH (21:01)
[2023-06-10] MEDS: hydrOXYzine HCl 25 MG Tab PO SCH ×6 (00:23→20:05)
[2023-06-10] MEDS: LORazepam 0.5 MG Tab PO PRN ×5 (01:20→19:07)
[2023-06-10] MEDS: Magnesium Sulfate/Water 2 GM/50 ML BAG IV SCH ×4 (02:26→20:06)
[2023-06-10] MEDS: oxyCODONE 5 MG Tab PO PRN ×5 (02:55→20:05)
[2023-06-10 04:35] LABS: HEMATOCRIT 32.2 % (34.3-46.0); HEMOGLOBIN 10.7 g/dL (11.2-15.5); MEAN CORPUSCULAR HGB CONC 33.2 g/dL (31.6-35.5); MEAN CORPUSCULAR VOLUME 93.3 fL (81.4-99.0); RED BLOOD CELL COUNT 3.45 M/uL (3.77-5.24); WHITE BLOOD CELL COUNT,WBC 9.5 K/uL (3.2-11.0)
[2023-06-10] MEDS: Acetaminophen 500 MG Tab PO SCH ×4 (04:40→22:09)
[2023-06-10 05:01] LABS: A/G RATIO 0.7 (1.2-2.2); ALANINE AMINOTRANSFERASE,ALT 21 U/L (12-78); ALBUMIN 2.4 g/dL (3.4-5.0); ALKALINE PHOSPHATASE 82 U/L (46-116); ASPARTATE AMNIOTRANSFERASE,AST 17 U/L (15-37); BILIRUBIN TOTAL 0.3 mg/dL (0.2-1.0); BLOOD UREA NITROGEN,BUN 14 mg/dL (7-18); CALCIUM 7.8 mg/dL (8.5-10.1); CARBON DIOXIDE,CO2 28 mmol/L (21-32); CHLORIDE,CL 101 mmol/L (100-108); CREATININE 0.6 mg/dL (0.6-1.0); EST CRCL DRUG DOSING (CG) 73.72 mL/min; ESTIMATED GFR 95 mL/min (>60); GLUCOSE RANDOM 116 mg/dL (74-106); PHOSPHORUS 5.3 mg/dL (2.5-4.9); POTASSIUM,K 3.9 mmol/L (3.6-5.2); PRO B-TYPE NATRIUR PEPT,BNPPRO 375 pg/mL (5-125); PROTEIN TOTAL,TP 5.9 g/dL (6.4-8.2); SODIUM,NA 137 mmol/L (140-148)
[2023-06-10 05:05] LABS: ANION GAP 11.9 mmol/L (5.0-14.0)
[2023-06-10] MEDS: Pantoprazole 40 MG Tab.CR PO SCH ×2 (07:09→20:46)
[2023-06-10] MEDS: Sennosides/Docusate Sodium 50-8.6 MG Tab PO SCH ×2 (08:55→20:46)
[2023-06-10] MEDS: Docusate Sodium 100 MG Cap PO SCH ×2 (08:55→20:47)
[2023-06-10] MEDS: Bisacodyl 5 MG Tab PO SCH ×2 (08:55→20:47)
[2023-06-10] MEDS: busPIRone 10 MG Tab PO SCH ×3 (08:55→20:46)
[2023-06-10] MEDS: Citalopram 20 MG Tab PO SCH (08:55)
[2023-06-10] MEDS: Bisacodyl 10 MG Supp RECTAL ONE ×2 (08:56→08:58)
[2023-06-10] MEDS: Lactated Ringers 1,000 ML IV SCH (09:57)
[2023-06-10] MEDS: 1: AA 5%/Calcium/D15W/Lytes 1,000 ML with MVI, Adult with Vitamin K 10 ML, Zinc/Copper/M IV SCH ×3 (10:08)
[2023-06-10 11:08] LABS: BODY FLUID TYPE JP DRAINAGE
[2023-06-10 11:10] LABS: AMYLASE BODY FLUID TYPE JP DRAINAGE #1; AMYLASE,BODY FLUID 0 U/L
[2023-06-10] MEDS ORDERED: Phenol/Sodium Phenolate Spray 180 ML Bottle MUCMEM PRN (11:35)
[2023-06-10] MEDS: Benzocaine/Cetylpyridinium/Menthol Lozenge MUCMEM PRN (12:19)
[2023-06-10] MEDS ORDERED: Bisacodyl 10 MG Supp RECTAL PRN (14:00)
[2023-06-10] MEDS: Acetaminophen 500 MG Tab PO PRN (20:47)
[2023-06-10] MEDS: traZODone 50 MG Tab PO SCH (20:47)
[2023-06-11] MEDS: hydrOXYzine HCl 25 MG Tab PO SCH ×7 (00:13→23:30)
[2023-06-11] MEDS: LORazepam 0.5 MG Tab PO PRN ×6 (00:15→23:30)
[2023-06-11] MEDS: oxyCODONE 5 MG Tab PO PRN ×6 (00:17→21:24)
[2023-06-11] MEDS: 1: AA 5%/Calcium/D15W/Lytes 1,000 ML with MVI, Adult with Vitamin K 10 ML, Zinc/Copper/M IV SCH ×3 (02:29)
[2023-06-11] MEDS: Magnesium Sulfate/Water 2 GM/50 ML BAG IV SCH (02:29)
[2023-06-11 05:02] LABS: BASOPHILS ABSOLUTE AUTO 0.03 K/uL (0.00-0.10); BASOPHILS PERCENT AUTO 0.3 % (0.1-1.3); EOSINOPHILS ABSOLUTE AUTO 0.49 K/uL (0.00-0.40); EOSINOPHILS PERCENT AUTO 4.5 % (0.0-5.4); HEMATOCRIT 31.1 % (34.3-46.0); HEMOGLOBIN 10.2 g/dL (11.2-15.5); IMMATURE GRAN ABSOLUTE AUTO 0.06 K/uL (0.00-0.23); IMMATURE GRAN PERCENT AUTO 0.5 % (0.0-0.7); LYMPHOCYTES ABSOLUTE AUTO 0.98 K/uL (0.8-3.3); MEAN CORPUSCULAR HEMOGLOBIN 31.3 pg (31.6-35.5); MEAN CORPUSCULAR HGB CONC 32.8 g/dL (31.6-35.5); MEAN CORPUSCULAR VOLUME 95.4 fL (81.4-99.0); MONOCYTES ABSOLUTE AUTO 1.52 K/uL (0.20-0.90); MONOCYTES PERCENT AUTO 13.9 % (3.3-12.6); NEUTROPHILS ABSOLUTE AUTO 7.86 K/uL (1.0-7.6); NEUTROPHILS PERCENT AUTO 71.8 % (40.0-78.1); PLATELET COUNT,PLT 138 K/uL (130-375); RED BLOOD CELL COUNT 3.26 M/uL (3.77-5.24); WHITE BLOOD CELL COUNT,WBC 10.9 K/uL (3.2-11.0)
[2023-06-11 05:10] LABS: A/G RATIO 0.6 (1.2-2.2); ALANINE AMINOTRANSFERASE,ALT 20 U/L (12-78); ALBUMIN 2.3 g/dL (3.4-5.0); ALKALINE PHOSPHATASE 85 U/L (46-116); ASPARTATE AMNIOTRANSFERASE,AST 17 U/L (15-37); BILIRUBIN TOTAL 0.3 mg/dL (0.2-1.0); BLOOD UREA NITROGEN,BUN 19 mg/dL (7-18); CALCIUM 7.9 mg/dL (8.5-10.1); CARBON DIOXIDE,CO2 28 mmol/L (21-32); CHLORIDE,CL 102 mmol/L (100-108); CREATININE 0.6 mg/dL (0.6-1.0); EST CRCL DRUG DOSING (CG) 73.72 mL/min; ESTIMATED GFR 95 mL/min (>60); GLUCOSE RANDOM 108 mg/dL (74-106); MAGNESIUM 3.7 mg/dL (1.8-2.4); POTASSIUM,K 4.3 mmol/L (3.6-5.2); PRO B-TYPE NATRIUR PEPT,BNPPRO 106 pg/mL (5-125); PROTEIN TOTAL,TP 6.1 g/dL (6.4-8.2); SODIUM,NA 137 mmol/L (140-148)
[2023-06-11 05:30] LABS: ANION GAP 11.3 mmol/L (5.0-14.0)
[2023-06-11] MEDS: Acetaminophen 500 MG Tab PO SCH ×3 (05:56→23:31)
[2023-06-11] MEDS: Benzocaine/Cetylpyridinium/Menthol Lozenge MUCMEM PRN (06:02)
[2023-06-11] MEDS ORDERED: Central Total Parenteral Nutrition Bag SCH (07:15)
[2023-06-11] MEDS: Pantoprazole 40 MG Tab.CR PO SCH ×2 (07:48→20:06)
[2023-06-11] MEDS: busPIRone 10 MG Tab PO SCH ×3 (08:31→20:05)
[2023-06-11] MEDS: Sennosides/Docusate Sodium 50-8.6 MG Tab PO SCH ×2 (08:31→20:07)
[2023-06-11] MEDS: Bisacodyl 5 MG Tab PO SCH ×2 (08:31→20:06)
[2023-06-11] MEDS: Docusate Sodium 100 MG Cap PO SCH ×2 (08:32→20:07)
[2023-06-11] MEDS: Citalopram 20 MG Tab PO SCH (08:32)
[2023-06-11] MEDS: Lactated Ringers 1,000 ML IV SCH (11:17)
[2023-06-11] MEDS: Acetaminophen 500 MG Tab PO PRN (18:26)
[2023-06-11] MEDS: traZODone 50 MG Tab PO SCH (20:06)
[2023-06-11] MEDS ORDERED: 1: AA 5%/Calcium/D15W/Lytes 1,000 ML with MVI, Adult with Vitamin K 10 ML, Zinc/Copper/M IV SCH ×6 (22:00)
[2023-06-12] MEDS: oxyCODONE 5 MG Tab PO PRN ×5 (03:29→20:24)
[2023-06-12] MEDS: hydrOXYzine HCl 25 MG Tab PO SCH ×5 (03:30→20:24)
[2023-06-12 04:43] LABS: HEMATOCRIT 27.7 % (34.3-46.0); MEAN CORPUSCULAR HEMOGLOBIN 30.8 pg (31.6-35.5); MEAN CORPUSCULAR HGB CONC 32.5 g/dL (31.6-35.5); MEAN CORPUSCULAR VOLUME 94.9 fL (81.4-99.0); RED BLOOD CELL COUNT 2.92 M/uL (3.77-5.24); WHITE BLOOD CELL COUNT,WBC 8.3 K/uL (3.2-11.0)
[2023-06-12] MEDS: LORazepam 0.5 MG Tab PO PRN ×3 (04:51→17:02)
[2023-06-12 05:00] LABS: A/G RATIO 0.5 (1.2-2.2); ALANINE AMINOTRANSFERASE,ALT 17 U/L (12-78); ALKALINE PHOSPHATASE 82 U/L (46-116); ASPARTATE AMNIOTRANSFERASE,AST 16 U/L (15-37); BILIRUBIN TOTAL 0.2 mg/dL (0.2-1.0); BLOOD UREA NITROGEN,BUN 19 mg/dL (7-18); CALCIUM 7.7 mg/dL (8.5-10.1); CARBON DIOXIDE,CO2 27 mmol/L (21-32); CHLORIDE,CL 106 mmol/L (100-108); CREATININE 0.6 mg/dL (0.6-1.0); EST CRCL DRUG DOSING (CG) 73.19 mL/min; ESTIMATED GFR 95 mL/min (>60); GLUCOSE RANDOM 111 mg/dL (74-106); MAGNESIUM 2.7 mg/dL (1.8-2.4); PHOSPHORUS 4.5 mg/dL (2.5-4.9); POTASSIUM,K 4.7 mmol/L (3.6-5.2); PROTEIN TOTAL,TP 5.8 g/dL (6.4-8.2); SODIUM,NA 138 mmol/L (140-148)
[2023-06-12 05:09] LABS: ANION GAP 9.7 mmol/L (5.0-14.0)
[2023-06-12] MEDS: Acetaminophen 500 MG Tab PO SCH ×3 (05:09→21:26)
[2023-06-12] MEDS ORDERED: Central Total Parenteral Nutrition Bag SCH (07:15)
[2023-06-12] MEDS: Dextrose 5%-Lactated Ringers 1,000 ML IV SCH (07:57)
[2023-06-12] MEDS: busPIRone 10 MG Tab PO SCH ×3 (08:01→20:24)
[2023-06-12] MEDS: Pantoprazole 40 MG Tab.CR PO SCH ×2 (08:02→20:25)
[2023-06-12] MEDS: Sennosides/Docusate Sodium 50-8.6 MG Tab PO SCH ×2 (08:02→20:25)
[2023-06-12] MEDS: Citalopram 20 MG Tab PO SCH (08:02)
[2023-06-12] MEDS: Docusate Sodium 100 MG Cap PO SCH ×2 (08:02→20:25)
[2023-06-12] MEDS: Bisacodyl 5 MG Tab PO SCH ×2 (08:02→20:24)
[2023-06-12] MEDS: Benzocaine/Cetylpyridinium/Menthol Lozenge MUCMEM PRN (11:34)
[2023-06-12] MEDS: traZODone 50 MG Tab PO SCH (20:25)
[2023-06-13] MEDS: hydrOXYzine HCl 25 MG Tab PO SCH ×7 (00:12→23:05)
[2023-06-13] MEDS: LORazepam 0.5 MG Tab PO PRN ×4 (00:12→19:19)
[2023-06-13] MEDS: oxyCODONE 5 MG Tab PO PRN ×5 (02:32→20:27)
[2023-06-13 04:43] LABS: HEMATOCRIT 30.3 % (34.3-46.0); HEMOGLOBIN 9.4 g/dL (11.2-15.5); MEAN CORPUSCULAR HEMOGLOBIN 30.7 pg (31.6-35.5); RED BLOOD CELL COUNT 3.06 M/uL (3.77-5.24); WHITE BLOOD CELL COUNT,WBC 7.4 K/uL (3.2-11.0)
[2023-06-13 05:19] LABS: A/G RATIO 0.5 (1.2-2.2); ALANINE AMINOTRANSFERASE,ALT 25 U/L (12-78); ALBUMIN 2.1 g/dL (3.4-5.0); ALKALINE PHOSPHATASE 93 U/L (46-116); ASPARTATE AMNIOTRANSFERASE,AST 22 U/L (15-37); BILIRUBIN TOTAL 0.2 mg/dL (0.2-1.0); BLOOD UREA NITROGEN,BUN 15 mg/dL (7-18); CALCIUM 8.1 mg/dL (8.5-10.1); CARBON DIOXIDE,CO2 23 mmol/L (21-32); CHLORIDE,CL 106 mmol/L (100-108); CREATININE 0.6 mg/dL (0.6-1.0); EST CRCL DRUG DOSING (CG) 73.19 mL/min; ESTIMATED GFR 95 mL/min (>60); GLUCOSE RANDOM 98 mg/dL (74-106); MAGNESIUM 2.4 mg/dL (1.8-2.4); PHOSPHORUS 4.6 mg/dL (2.5-4.9); PRO B-TYPE NATRIUR PEPT,BNPPRO 97 pg/mL (5-125); SODIUM,NA 137 mmol/L (140-148)
[2023-06-13] MEDS: Acetaminophen 500 MG Tab PO SCH ×3 (05:29→23:04)
[2023-06-13] MEDS: Pantoprazole 40 MG Tab.CR PO SCH (07:11)
[2023-06-13] MEDS: Dextrose 5%-Lactated Ringers 1,000 ML IV SCH (07:13)
[2023-06-13] MEDS: Citalopram 20 MG Tab PO SCH (09:22)
[2023-06-13] MEDS: busPIRone 10 MG Tab PO SCH ×3 (09:22→20:28)
[2023-06-13] MEDS: Docusate Sodium 100 MG Cap PO SCH ×2 (09:23→20:28)
[2023-06-13] MEDS: Bisacodyl 5 MG Tab PO SCH ×2 (09:23→20:28)
[2023-06-13] MEDS: Sennosides/Docusate Sodium 50-8.6 MG Tab PO SCH ×2 (09:23→20:28)
[2023-06-13] MEDS: traZODone 50 MG Tab PO SCH (20:29)
[2023-06-14] MEDS: oxyCODONE 5 MG Tab PO PRN ×6 (01:09→22:31)
[2023-06-14] MEDS: LORazepam 0.5 MG Tab PO PRN ×4 (01:40→22:31)
[2023-06-14] MEDS: hydrOXYzine HCl 25 MG Tab PO SCH ×6 (03:23→23:31)
[2023-06-14 05:05] LABS: BASOPHILS ABSOLUTE AUTO 0.04 K/uL (0.00-0.10); BASOPHILS PERCENT AUTO 0.7 % (0.1-1.3); EOSINOPHILS PERCENT AUTO 9.1 % (0.0-5.4); HEMATOCRIT 26.1 % (34.3-46.0); HEMOGLOBIN 8.4 g/dL (11.2-15.5); IMMATURE GRAN PERCENT AUTO 0.2 % (0.0-0.7); LYMPHOCYTES ABSOLUTE AUTO 1.32 K/uL (0.8-3.3); MEAN CORPUSCULAR HEMOGLOBIN 30.7 pg (31.6-35.5); MEAN CORPUSCULAR HGB CONC 32.2 g/dL (31.6-35.5); MEAN CORPUSCULAR VOLUME 95.3 fL (81.4-99.0); MONOCYTES ABSOLUTE AUTO 0.88 K/uL (0.20-0.90); NEUTROPHILS ABSOLUTE AUTO 2.75 K/uL (1.0-7.6); PLATELET COUNT,PLT 201 K/uL (130-375); RED BLOOD CELL COUNT 2.74 M/uL (3.77-5.24); WHITE BLOOD CELL COUNT,WBC 5.5 K/uL (3.2-11.0)
[2023-06-14 05:14] LABS: IMMATURE GRAN ABSOLUTE AUTO 0.01 K/uL (0.00-0.23)
[2023-06-14] MEDS: Acetaminophen 500 MG Tab PO SCH ×3 (05:22→21:00)
[2023-06-14 05:29] LABS: A/G RATIO 0.8 (1.2-2.2); ALANINE AMINOTRANSFERASE,ALT 26 U/L (12-78); ALBUMIN 2.8 g/dL (3.4-5.0); ALKALINE PHOSPHATASE 94 U/L (46-116); ANION GAP 14.2 mmol/L (5.0-14.0); ASPARTATE AMNIOTRANSFERASE,AST 16 U/L (15-37); BILIRUBIN TOTAL 0.3 mg/dL (0.2-1.0); BLOOD UREA NITROGEN,BUN 12 mg/dL (7-18); CALCIUM 8.3 mg/dL (8.5-10.1); CARBON DIOXIDE,CO2 22 mmol/L (21-32); CHLORIDE,CL 106 mmol/L (100-108); CREATININE 0.7 mg/dL (0.6-1.0); EST CRCL DRUG DOSING (CG) 62.73 mL/min; ESTIMATED GFR 92 mL/min (>60); GLUCOSE RANDOM 92 mg/dL (74-106); MAGNESIUM 2.4 mg/dL (1.8-2.4); PHOSPHORUS 4.4 mg/dL (2.5-4.9); POTASSIUM,K 4.2 mmol/L (3.6-5.2); PROTEIN TOTAL,TP 6.4 g/dL (6.4-8.2); SODIUM,NA 138 mmol/L (140-148)
[2023-06-14] MEDS: busPIRone 10 MG Tab PO SCH ×3 (08:44→20:57)
[2023-06-14] MEDS: Citalopram 20 MG Tab PO SCH (08:44)
[2023-06-14] MEDS: Pantoprazole 40 MG Tab.CR PO SCH (08:44)
[2023-06-14] MEDS: Docusate Sodium 100 MG Cap PO SCH ×2 (08:44→20:56)
[2023-06-14] MEDS: Sennosides/Docusate Sodium 50-8.6 MG Tab PO SCH ×2 (08:45→20:57)
[2023-06-14] MEDS: Bisacodyl 5 MG Tab PO SCH ×2 (08:45→20:57)
[2023-06-14] MEDS: traZODone 50 MG Tab PO SCH (20:56)
[2023-06-14] MEDS: Dextrose 5%-Lactated Ringers 1,000 ML IV SCH (21:03)
[2023-06-15] MEDS: oxyCODONE 5 MG Tab PO PRN ×5 (03:31→23:15)
[2023-06-15] MEDS: hydrOXYzine HCl 25 MG Tab PO SCH ×6 (03:31→23:18)
[2023-06-15] MEDS: LORazepam 0.5 MG Tab PO PRN ×4 (03:32→23:15)
[2023-06-15 04:51] LABS: BASOPHILS ABSOLUTE AUTO 0.03 K/uL (0.00-0.10); BASOPHILS PERCENT AUTO 0.6 % (0.1-1.3); EOSINOPHILS ABSOLUTE AUTO 0.38 K/uL (0.00-0.40); EOSINOPHILS PERCENT AUTO 7.9 % (0.0-5.4); HEMATOCRIT 26.6 % (34.3-46.0); HEMOGLOBIN 8.4 g/dL (11.2-15.5); IMMATURE GRAN PERCENT AUTO 0.4 % (0.0-0.7); LYMPHOCYTES ABSOLUTE AUTO 1.02 K/uL (0.8-3.3); LYMPHOCYTES PERCENT AUTO 21.1 % (11.4-47.7); MEAN CORPUSCULAR HEMOGLOBIN 30.4 pg (31.6-35.5); MEAN CORPUSCULAR HGB CONC 31.6 g/dL (31.6-35.5); MEAN CORPUSCULAR VOLUME 96.4 fL (81.4-99.0); MONOCYTES PERCENT AUTO 14.5 % (3.3-12.6); NEUTROPHILS ABSOLUTE AUTO 2.69 K/uL (1.0-7.6); NEUTROPHILS PERCENT AUTO 55.5 % (40.0-78.1); PLATELET COUNT,PLT 242 K/uL (130-375); RED BLOOD CELL COUNT 2.76 M/uL (3.77-5.24); WHITE BLOOD CELL COUNT,WBC 4.8 K/uL (3.2-11.0)
[2023-06-15 04:52] LABS: IMMATURE GRAN ABSOLUTE AUTO 0.02 K/uL (0.00-0.23)
[2023-06-15 05:13] LABS: ALANINE AMINOTRANSFERASE,ALT 25 U/L (12-78); ALBUMIN 3.3 g/dL (3.4-5.0); ALKALINE PHOSPHATASE 92 U/L (46-116); ASPARTATE AMNIOTRANSFERASE,AST 16 U/L (15-37); BILIRUBIN TOTAL 0.3 mg/dL (0.2-1.0); BLOOD UREA NITROGEN,BUN 12 mg/dL (7-18); CALCIUM 8.4 mg/dL (8.5-10.1); CARBON DIOXIDE,CO2 23 mmol/L (21-32); CHLORIDE,CL 107 mmol/L (100-108); CREATININE 0.7 mg/dL (0.6-1.0); EST CRCL DRUG DOSING (CG) 62.73 mL/min; ESTIMATED GFR 92 mL/min (>60); GLUCOSE RANDOM 90 mg/dL (74-106); MAGNESIUM 2.3 mg/dL (1.8-2.4); PHOSPHORUS 4.6 mg/dL (2.5-4.9); POTASSIUM,K 4.3 mmol/L (3.6-5.2); PROTEIN TOTAL,TP 6.7 g/dL (6.4-8.2); SODIUM,NA 139 mmol/L (140-148)
[2023-06-15 05:17] LABS: ANION GAP 13.3 mmol/L (5.0-14.0)
[2023-06-15] MEDS: Acetaminophen 500 MG Tab PO SCH ×3 (05:20→23:15)
[2023-06-15] MEDS: Pantoprazole 40 MG Tab.CR PO SCH (08:14)
[2023-06-15] MEDS: Docusate Sodium 100 MG Cap PO SCH ×2 (08:25→20:45)
[2023-06-15] MEDS: Sennosides/Docusate Sodium 50-8.6 MG Tab PO SCH ×2 (08:25→20:46)
[2023-06-15] MEDS: Bisacodyl 5 MG Tab PO SCH ×2 (08:25→20:45)
[2023-06-15] MEDS: Citalopram 20 MG Tab PO SCH (08:27)
[2023-06-15] MEDS: busPIRone 10 MG Tab PO SCH ×3 (08:27→20:45)
[2023-06-15] MEDS: Dextrose 5%-Lactated Ringers 1,000 ML IV SCH (18:33)
[2023-06-15] MEDS: traZODone 50 MG Tab PO SCH (20:46)
[2023-06-16] MEDS: oxyCODONE 5 MG Tab PO PRN ×6 (03:23→23:41)
[2023-06-16] MEDS: hydrOXYzine HCl 25 MG Tab PO SCH ×6 (03:23→23:41)
[2023-06-16 04:41] LABS: BASOPHILS ABSOLUTE AUTO 0.04 K/uL (0.00-0.10); EOSINOPHILS ABSOLUTE AUTO 0.38 K/uL (0.00-0.40); HEMATOCRIT 30.2 % (34.3-46.0); HEMOGLOBIN 9.8 g/dL (11.2-15.5); IMMATURE GRAN PERCENT AUTO 0.2 % (0.0-0.7); MEAN CORPUSCULAR HEMOGLOBIN 30.4 pg (31.6-35.5); MEAN CORPUSCULAR HGB CONC 32.5 g/dL (31.6-35.5); MEAN CORPUSCULAR VOLUME 93.8 fL (81.4-99.0); MONOCYTES ABSOLUTE AUTO 0.58 K/uL (0.20-0.90); MONOCYTES PERCENT AUTO 13.8 % (3.3-12.6); NEUTROPHILS ABSOLUTE AUTO 1.89 K/uL (1.0-7.6); PLATELET COUNT,PLT 307 K/uL (130-375); RED BLOOD CELL COUNT 3.22 M/uL (3.77-5.24); WHITE BLOOD CELL COUNT,WBC 4.2 K/uL (3.2-11.0)
[2023-06-16 04:43] LABS: IMMATURE GRAN ABSOLUTE AUTO 0.01 K/uL (0.00-0.23)
[2023-06-16 05:07] LABS: A/G RATIO 0.9 (1.2-2.2); ALANINE AMINOTRANSFERASE,ALT 25 U/L (12-78); ALKALINE PHOSPHATASE 99 U/L (46-116); ASPARTATE AMNIOTRANSFERASE,AST 17 U/L (15-37); BILIRUBIN TOTAL 0.3 mg/dL (0.2-1.0); BLOOD UREA NITROGEN,BUN 13 mg/dL (7-18); CALCIUM 8.4 mg/dL (8.5-10.1); CARBON DIOXIDE,CO2 23 mmol/L (21-32); CHLORIDE,CL 105 mmol/L (100-108); CREATININE 0.8 mg/dL (0.6-1.0); EST CRCL DRUG DOSING (CG) 54.89 mL/min; ESTIMATED GFR 78 mL/min (>60); FERRITIN 102 ng/ml (8-388); GLUCOSE RANDOM 91 mg/dL (74-106); MAGNESIUM 2.3 mg/dL (1.8-2.4); PHOSPHORUS 4.5 mg/dL (2.5-4.9); POTASSIUM,K 4.4 mmol/L (3.6-5.2); PROTEIN TOTAL,TP 6.4 g/dL (6.4-8.2); SODIUM,NA 138 mmol/L (140-148)
[2023-06-16 05:09] LABS: ANION GAP 14.4 mmol/L (5.0-14.0)
[2023-06-16] MEDS: LORazepam 0.5 MG Tab PO PRN ×4 (05:21→23:41)
[2023-06-16] MEDS: Acetaminophen 500 MG Tab PO SCH ×3 (05:21→21:19)
[2023-06-16] MEDS: Pantoprazole 40 MG Tab.CR PO SCH (07:41)
[2023-06-16] MEDS: busPIRone 10 MG Tab PO SCH ×3 (08:29→21:19)
[2023-06-16] MEDS: Sennosides/Docusate Sodium 50-8.6 MG Tab PO SCH ×2 (08:29→21:19)
[2023-06-16] MEDS: Docusate Sodium 100 MG Cap PO SCH ×2 (08:29→21:19)
[2023-06-16] MEDS: Citalopram 20 MG Tab PO SCH (08:29)
[2023-06-16] MEDS: Bisacodyl 5 MG Tab PO SCH ×2 (08:29→21:19)
[2023-06-16] MEDS: traZODone 50 MG Tab PO SCH (21:19)
[2023-06-17] MEDS: hydrOXYzine HCl 25 MG Tab PO SCH ×6 (04:12→23:11)
[2023-06-17] MEDS: oxyCODONE 5 MG Tab PO PRN ×4 (04:12→23:12)
[2023-06-17 04:56] LABS: BASOPHILS ABSOLUTE AUTO 0.05 K/uL (0.00-0.10); BASOPHILS PERCENT AUTO 0.6 % (0.1-1.3); EOSINOPHILS ABSOLUTE AUTO 0.37 K/uL (0.00-0.40); EOSINOPHILS PERCENT AUTO 4.6 % (0.0-5.4); HEMOGLOBIN 12.3 g/dL (11.2-15.5); IMMATURE GRAN ABSOLUTE AUTO 0.04 K/uL (0.00-0.23); IMMATURE GRAN PERCENT AUTO 0.5 % (0.0-0.7); LYMPHOCYTES ABSOLUTE AUTO 1.22 K/uL (0.8-3.3); LYMPHOCYTES PERCENT AUTO 15.2 % (11.4-47.7); MEAN CORPUSCULAR HEMOGLOBIN 30.5 pg (31.6-35.5); MEAN CORPUSCULAR HGB CONC 32.4 g/dL (31.6-35.5); MEAN CORPUSCULAR VOLUME 94.3 fL (81.4-99.0); MONOCYTES ABSOLUTE AUTO 0.99 K/uL (0.20-0.90); MONOCYTES PERCENT AUTO 12.3 % (3.3-12.6); NEUTROPHILS ABSOLUTE AUTO 5.36 K/uL (1.0-7.6); NEUTROPHILS PERCENT AUTO 66.8 % (40.0-78.1); PLATELET COUNT,PLT 380 K/uL (130-375); RED BLOOD CELL COUNT 4.03 M/uL (3.77-5.24)
[2023-06-17] MEDS: Acetaminophen 500 MG Tab PO SCH ×3 (06:04→23:10)
[2023-06-17] MEDS: Pantoprazole 40 MG Tab.CR PO SCH (07:38)
[2023-06-17] MEDS: LORazepam 0.5 MG Tab PO PRN ×3 (08:28→20:21)
[2023-06-17] MEDS: Bisacodyl 5 MG Tab PO SCH ×2 (08:28→20:23)
[2023-06-17] MEDS: busPIRone 10 MG Tab PO SCH ×3 (08:28→20:22)
[2023-06-17] MEDS: Sennosides/Docusate Sodium 50-8.6 MG Tab PO SCH ×2 (08:28→20:22)
[2023-06-17] MEDS: Docusate Sodium 100 MG Cap PO SCH ×2 (08:28→20:22)
[2023-06-17] MEDS: Citalopram 20 MG Tab PO SCH (08:29)
[2023-06-17] MEDS: traZODone 50 MG Tab PO SCH (20:23)
[2023-06-18] MEDS: LORazepam 0.5 MG Tab PO PRN (03:47)
[2023-06-18] MEDS: hydrOXYzine HCl 25 MG Tab PO SCH ×2 (03:47→08:09)
[2023-06-18] MEDS: oxyCODONE 5 MG Tab PO PRN (05:52)
[2023-06-18] MEDS: Acetaminophen 500 MG Tab PO SCH (05:52)
[2023-06-18 06:22] VITALS: BP 109/63; PULSE 63
[2023-06-18] MEDS: Pantoprazole 40 MG Tab.CR PO SCH (08:08)
[2023-06-18] MEDS: Docusate Sodium 100 MG Cap PO SCH (08:09)
[2023-06-18] MEDS: busPIRone 10 MG Tab PO SCH (08:09)
[2023-06-18] MEDS: Bisacodyl 5 MG Tab PO SCH (08:09)
[2023-06-18] MEDS: Citalopram 20 MG Tab PO SCH (08:09)
[2023-06-18] MEDS: Sennosides/Docusate Sodium 50-8.6 MG Tab PO SCH (08:10)
== END 2023-06-18 10:32 | disposition home or self-care (01) | DRG 327 ==
LOC: JP.ED 14:43 → JP.ICU 17:34
PROVIDERS: ADMIT Internal Medicine; ATTEND Internal Medicine
PROC: 0DT60ZZ Resection of Stomach, Open Approach (ICD-10-PCS; 2023-06-05)
PROC: 0DJ08ZZ Inspection of Upper Intestinal Tract, Via Natural or Artificial Opening Endoscopic (ICD-10-PCS; 2023-06-06)
PROC: 30233N1 Transfusion of Nonautologous Red Blood Cells into Peripheral Vein, Percutaneous Approach (ICD-10-PCS; 2023-06-06)
PROC: 0DT80ZZ Resection of Small Intestine, Open Approach (ICD-10-PCS; principal; 2023-06-07)
PROC: 0WQF0ZZ Repair Abdominal Wall, Open Approach (ICD-10-PCS; 2023-06-07)
PROC: 3E0M05Z Introduction of Adhesion Barrier into Peritoneal Cavity, Open Approach (ICD-10-PCS; 2023-06-07)
PROC: 02HV33Z Insertion of Infusion Device into Superior Vena Cava, Percutaneous Approach (ICD-10-PCS; 2023-06-07)
PROC: 3E0436Z Introduction of Nutritional Substance into Central Vein, Percutaneous Approach (ICD-10-PCS; 2023-06-07)
DX: K95.89 Other complications of other bariatric procedure (principal); D62 Acute posthemorrhagic anemia; K92.2 Gastrointestinal hemorrhage, unspecified; K43.0 Incisional hernia with obstruction, without gangrene; E86.0 Dehydration; M19.90 Unspecified osteoarthritis, unspecified site; F32.A Depression, unspecified; E53.8 Deficiency of other specified B group vitamins; Z20.822 Contact with and (suspected) exposure to COVID-19; F41.1 Generalized anxiety disorder; E83.42 Hypomagnesemia; J02.9 Acute pharyngitis, unspecified; E88.09 Other disorders of plasma-protein metabolism, not elsewhere classified; Z90.49 Acquired absence of other specified parts of digestive tract; Z88.5 Allergy status to narcotic agent; Z88.2 Allergy status to sulfonamides; Z98.890 Other specified postprocedural states; K21.9 Gastro-esophageal reflux disease without esophagitis; Z87.440 Personal history of urinary (tract) infections; Z98.84 Bariatric surgery status; Z90.710 Acquired absence of both cervix and uterus; Z90.79 Acquired absence of other genital organ(s); Z90.722 Acquired absence of ovaries, bilateral; F17.210 Nicotine dependence, cigarettes, uncomplicated; Z79.899 Other long term (current) drug therapy; Z87.11 Personal history of peptic ulcer disease
CPT/HCPCS: 36415; 80053; 82728; 83550; 83605; 83880; 85027; 85610; 86850; 86900; 86901; 86920 ×2; 86922 ×2; 99285 ×2; J2060; J7030; U0002; 36430; 71045; 71045-26; 74240; 74240-26; 80048; 82150; 83735; 84100; 85018; 85025; 87070; 87205; 87651-QW; 88307; 96361; 96374; 99222; 99232; A9270-GY; C1751; C9113; J0131; J0171; J0330; J0694; J1100; J1170; J1642; J2020; J2185; J2405; J2704; J2710; J2765; J2795; J3010; J3420; J3475; J3490; J7120; J7121; P9016; P9047; Q9967

== ENCOUNTER 2023-07-05 08:41 | Emergency (ER) | payer MEDICARE ==
[2023-07-05 09:40] LABS: BASOPHILS PERCENT AUTO 0.1 % (0.1-1.3); EOSINOPHILS ABSOLUTE AUTO 0.13 K/uL (0.00-0.40); EOSINOPHILS PERCENT AUTO 1.8 % (0.0-5.4); HEMATOCRIT 25.7 % (34.3-46.0); HEMOGLOBIN 8.7 g/dL (11.2-15.5); IMMATURE GRAN ABSOLUTE AUTO 0.05 K/uL (0.00-0.23); IMMATURE GRAN PERCENT AUTO 0.7 % (0.0-0.7); LYMPHOCYTES ABSOLUTE AUTO 0.98 K/uL (0.8-3.3); LYMPHOCYTES PERCENT AUTO 13.4 % (11.4-47.7); MEAN CORPUSCULAR HEMOGLOBIN 30.3 pg (31.6-35.5); MEAN CORPUSCULAR HGB CONC 33.9 g/dL (31.6-35.5); MEAN CORPUSCULAR VOLUME 89.5 fL (81.4-99.0); MONOCYTES ABSOLUTE AUTO 0.43 K/uL (0.20-0.90); MONOCYTES PERCENT AUTO 5.9 % (3.3-12.6); NEUTROPHILS ABSOLUTE AUTO 5.72 K/uL (1.0-7.6); NEUTROPHILS PERCENT AUTO 78.1 % (40.0-78.1); PLATELET COUNT,PLT 310 K/uL (130-375); RED BLOOD CELL COUNT 2.87 M/uL (3.77-5.24); WHITE BLOOD CELL COUNT,WBC 7.3 K/uL (3.2-11.0)
[2023-07-05 09:44] LABS: BASOPHILS ABSOLUTE AUTO 0.01 K/uL (0.00-0.10)
[2023-07-05 10:01] LABS: A/G RATIO 0.6 (1.2-2.2); ALANINE AMINOTRANSFERASE,ALT 199 U/L (12-78); ALBUMIN 2.5 g/dL (3.4-5.0); ALKALINE PHOSPHATASE 187 U/L (46-116); ASPARTATE AMNIOTRANSFERASE,AST 162 U/L (15-37); BILIRUBIN TOTAL 0.5 mg/dL (0.2-1.0); BLOOD UREA NITROGEN,BUN 19 mg/dL (7-18); CALCIUM 8.3 mg/dL (8.5-10.1); CHLORIDE,CL 106 mmol/L (100-108); CREATININE 0.7 mg/dL (0.6-1.0); EST CRCL DRUG DOSING (CG) 60.09 mL/min; ESTIMATED GFR 92 mL/min (>60); GLUCOSE RANDOM 96 mg/dL (74-106); POTASSIUM,K 3.7 mmol/L (3.6-5.2); PROTEIN TOTAL,TP 6.5 g/dL (6.4-8.2); SODIUM,NA 138 mmol/L (140-148)
[2023-07-05 10:14] LABS: ANION GAP 20.7 mmol/L (5.0-14.0); CARBON DIOXIDE,CO2 15 mmol/L (21-32)
[2023-07-05] MEDS ORDERED: LORazepam 1 MG Tab PO ONE (10:32)
[2023-07-05 11:26] VITALS: BP 113/67; PULSE 74
== END 2023-07-05 11:20 | disposition home or self-care (01) ==
LOC: JP.ED 08:41
DX: F41.1 Generalized anxiety disorder (principal); D64.9 Anemia, unspecified; Z88.2 Allergy status to sulfonamides; Z88.5 Allergy status to narcotic agent; Z79.899 Other long term (current) drug therapy; Z87.891 Personal history of nicotine dependence
CPT/HCPCS: 36415; 71046; 80053; 83605; 85025; 99283; A9270

== ENCOUNTER 2023-07-15 14:18 | Emergency (ER) | payer MEDICARE | END 2023-07-15 16:52 | disposition left against medical advice (07) | LOC: JP.ED 14:18 | DX: Z53.21 Procedure and treatment not carried out due to patient leaving prior to being seen by health care provider (principal) ==

== ENCOUNTER 2023-08-06 12:54 | Emergency (ER) | payer MEDICARE ==
[2023-08-06 14:07] LABS: BASOPHILS PERCENT AUTO 0.2 % (0.1-1.3); EOSINOPHILS PERCENT AUTO 0.2 % (0.0-5.4); IMMATURE GRAN ABSOLUTE AUTO 0.04 K/uL (0.00-0.23); IMMATURE GRAN PERCENT AUTO 0.9 % (0.0-0.7); LYMPHOCYTES ABSOLUTE AUTO 0.82 K/uL (0.8-3.3); LYMPHOCYTES PERCENT AUTO 17.5 % (11.4-47.7); MEAN CORPUSCULAR HEMOGLOBIN 33.7 pg (31.6-35.5); MEAN CORPUSCULAR HGB CONC 31.6 g/dL (31.6-35.5); MEAN CORPUSCULAR VOLUME 106.7 fL (81.4-99.0); MONOCYTES ABSOLUTE AUTO 0.46 K/uL (0.20-0.90); MONOCYTES PERCENT AUTO 9.8 % (3.3-12.6); NEUTROPHILS ABSOLUTE AUTO 3.34 K/uL (1.0-7.6); NEUTROPHILS PERCENT AUTO 71.4 % (40.0-78.1); PLATELET COUNT,PLT 326 K/uL (130-375); RED BLOOD CELL COUNT 1.78 M/uL (3.77-5.24); WHITE BLOOD CELL COUNT,WBC 4.7 K/uL (3.2-11.0)
[2023-08-06 14:10] LABS: BASOPHILS ABSOLUTE AUTO 0.01 K/uL (0.00-0.10); EOSINOPHILS ABSOLUTE AUTO 0.01 K/uL (0.00-0.40)
[2023-08-06 14:28] LABS: A/G RATIO 0.7 (1.2-2.2); ALANINE AMINOTRANSFERASE,ALT 46 U/L (12-78); ALBUMIN 2.1 g/dL (3.4-5.0); ALKALINE PHOSPHATASE 145 U/L (46-116); ASPARTATE AMNIOTRANSFERASE,AST 48 U/L (15-37); BILIRUBIN TOTAL 0.4 mg/dL (0.2-1.0); BLOOD UREA NITROGEN,BUN 32 mg/dL (7-18); CALCIUM 7.3 mg/dL (8.5-10.1); CARBON DIOXIDE,CO2 22 mmol/L (21-32); CHLORIDE,CL 109 mmol/L (100-108); CREATININE 0.9 mg/dL (0.6-1.0); EST CRCL DRUG DOSING (CG) 48.79 mL/min; ESTIMATED GFR 68 mL/min (>60); GLUCOSE RANDOM 108 mg/dL (74-106); POTASSIUM,K 3.8 mmol/L (3.6-5.2); PROTEIN TOTAL,TP 5.3 g/dL (6.4-8.2); SODIUM,NA 139 mmol/L (140-148)
[2023-08-06 14:29] LABS: ANION GAP 11.8 mmol/L (5.0-14.0)
[2023-08-06] MEDS ORDERED: Sodium Chloride 0.9% 1,000 ML IV SCH (14:45)
[2023-08-06 15:33] VITALS: BP 108/60; PULSE 81
== END 2023-08-06 15:54 ==
LOC: JP.ED 12:54
DX: E88.09 Other disorders of plasma-protein metabolism, not elsewhere classified (principal); D64.9 Anemia, unspecified; Z88.5 Allergy status to narcotic agent
CPT/HCPCS: 36415; 36430; 80053; 83605; 85025; 86850; 86900; 86901; 86920; 86922; 93005; 93010; 99284; 99285; J7030; P9016

== ENCOUNTER 2023-08-21 17:39 | Inpatient (IN) | payer MEDICARE ==
[2023-08-21] MEDS ORDERED: Sodium Chloride 0.9% 10 ML Syringe FLUSH PRN (17:51)
[2023-08-21 18:06] LABS: BASOPHILS PERCENT AUTO 0.6 % (0.1-1.3); EOSINOPHILS ABSOLUTE AUTO 0.04 K/uL (0.00-0.40); EOSINOPHILS PERCENT AUTO 1.1 % (0.0-5.4); HEMATOCRIT 24.6 % (34.3-46.0); HEMOGLOBIN 7.9 g/dL (11.2-15.5); IMMATURE GRAN PERCENT AUTO 0.6 % (0.0-0.7); LYMPHOCYTES ABSOLUTE AUTO 1.38 K/uL (0.8-3.3); LYMPHOCYTES PERCENT AUTO 38.5 % (11.4-47.7); MEAN CORPUSCULAR HGB CONC 32.1 g/dL (31.6-35.5); MEAN CORPUSCULAR VOLUME 99.6 fL (81.4-99.0); MONOCYTES ABSOLUTE AUTO 0.33 K/uL (0.20-0.90); MONOCYTES PERCENT AUTO 9.2 % (3.3-12.6); NEUTROPHILS ABSOLUTE AUTO 1.79 K/uL (1.0-7.6); PLATELET COUNT,PLT 349 K/uL (130-375); RED BLOOD CELL COUNT 2.47 M/uL (3.77-5.24); WHITE BLOOD CELL COUNT,WBC 3.6 K/uL (3.2-11.0)
[2023-08-21 18:08] LABS: BASOPHILS ABSOLUTE AUTO 0.02 K/uL (0.00-0.10); IMMATURE GRAN ABSOLUTE AUTO 0.02 K/uL (0.00-0.23)
[2023-08-21 18:30] LABS: INR 1.2; PROTHROMBIN TIME 11.9 sec (9.2-10.6)
[2023-08-21 18:34] LABS: A/G RATIO 0.7 (1.2-2.2); ALANINE AMINOTRANSFERASE,ALT 65 U/L (12-78); ALBUMIN 2.2 g/dL (3.4-5.0); ALKALINE PHOSPHATASE 115 U/L (46-116); ANION GAP 16.1 mmol/L (5.0-14.0); ASPARTATE AMNIOTRANSFERASE,AST 125 U/L (15-37); BILIRUBIN TOTAL 0.5 mg/dL (0.2-1.0); BLOOD UREA NITROGEN,BUN 22 mg/dL (7-18); CALCIUM 7.5 mg/dL (8.5-10.1); CARBON DIOXIDE,CO2 19 mmol/L (21-32); CHLORIDE,CL 105 mmol/L (100-108); CREATININE 0.9 mg/dL (0.6-1.0); EST CRCL DRUG DOSING (CG) 48.79 mL/min; ESTIMATED GFR 68 mL/min (>60); GLUCOSE RANDOM 143 mg/dL (74-106); POTASSIUM,K 4.1 mmol/L (3.6-5.2); PROTEIN TOTAL,TP 5.6 g/dL (6.4-8.2); SODIUM,NA 136 mmol/L (140-148); TROPONIN I HIGH SENSITIVITY 7.8 pg/mL (<=60.3)
[2023-08-21 18:42] LABS: LACTIC ACID 5.2 mmol/L (0.4-2.0)
[2023-08-21] MEDS ORDERED: Sodium Chloride 0.9% 1,000 ML IV SCH (19:45)
[2023-08-21] MEDS ORDERED: Sodium Chloride 0.9% 1,000 ML IV ONE ×2 (19:45→21:45)
[2023-08-21] MEDS ORDERED: Albuterol 0.083% 2.5 MG/3 ML Neb Soln NEB PRN (21:33)
[2023-08-21] MEDS ORDERED: Non-Formulary Medication 1 Each (Trazodone [Trazodone] 100 MG Tablet) PO SCH (21:33)
[2023-08-21] MEDS ORDERED: Acetaminophen 325 MG Tab PO PRN (21:33)
[2023-08-21] MEDS ORDERED: Docusate Sodium 100 MG Cap PO PRN (21:33)
[2023-08-21] MEDS ORDERED: oxyCODONE 5 MG Tab PO PRN (21:33)
[2023-08-21] MEDS ORDERED: Bisacodyl 5 MG Tab PO PRN (21:33)
[2023-08-21] MEDS ORDERED: LORazepam 0.5 MG Tab PO PRN (21:33)
[2023-08-21] MEDS ORDERED: hydrOXYzine HCl 25 MG Tab PO PRN (21:33)
[2023-08-21] MEDS: Sodium Chloride 0.9% 1,000 ML IV SCH (22:09)
[2023-08-21] MEDS: Pantoprazole 40 MG Vial IVPUSH SCH (22:50)
[2023-08-21] MEDS: busPIRone 10 MG Tab PO SCH (22:51)
[2023-08-21] MEDS: Acetaminophen 500 MG Tab PO SCH (22:52)
[2023-08-21] MEDS: Melatonin 3 MG Tab PO SCH (22:52)
[2023-08-21] MEDS: traZODone 50 MG Tab PO SCH (22:52)
[2023-08-21] MEDS: Ondansetron 4 MG Tab.DIS PO PRN (23:00)
[2023-08-22 05:41] LABS: BASOPHILS PERCENT AUTO 0.2 % (0.1-1.3); EOSINOPHILS ABSOLUTE AUTO 0.15 K/uL (0.00-0.40); EOSINOPHILS PERCENT AUTO 3.5 % (0.0-5.4); IMMATURE GRAN PERCENT AUTO 0.2 % (0.0-0.7); LYMPHOCYTES ABSOLUTE AUTO 1.19 K/uL (0.8-3.3); LYMPHOCYTES PERCENT AUTO 27.9 % (11.4-47.7); MEAN CORPUSCULAR HGB CONC 32.4 g/dL (31.6-35.5); MEAN CORPUSCULAR VOLUME 98.8 fL (81.4-99.0); MONOCYTES ABSOLUTE AUTO 0.63 K/uL (0.20-0.90); MONOCYTES PERCENT AUTO 14.8 % (3.3-12.6); NEUTROPHILS ABSOLUTE AUTO 2.28 K/uL (1.0-7.6); NEUTROPHILS PERCENT AUTO 53.4 % (40.0-78.1); PLATELET COUNT,PLT 251 K/uL (130-375); RED BLOOD CELL COUNT 1.72 M/uL (3.77-5.24); WHITE BLOOD CELL COUNT,WBC 4.3 K/uL (3.2-11.0)
[2023-08-22 05:50] LABS: BASOPHILS ABSOLUTE AUTO 0.01 K/uL (0.00-0.10); HEMOGLOBIN 5.5 g/dL (11.2-15.5); IMMATURE GRAN ABSOLUTE AUTO 0.01 K/uL (0.00-0.23)
[2023-08-22] MEDS: Acetaminophen 500 MG Tab PO SCH ×3 (05:53→22:31)
[2023-08-22 06:06] LABS: A/G RATIO 0.7 (1.2-2.2); ALANINE AMINOTRANSFERASE,ALT 39 U/L (12-78); ALBUMIN 1.7 g/dL (3.4-5.0); ALKALINE PHOSPHATASE 86 U/L (46-116); ASPARTATE AMNIOTRANSFERASE,AST 53 U/L (15-37); BILIRUBIN TOTAL 0.3 mg/dL (0.2-1.0); BLOOD UREA NITROGEN,BUN 19 mg/dL (7-18); CARBON DIOXIDE,CO2 21 mmol/L (21-32); CHLORIDE,CL 110 mmol/L (100-108); CREATININE 0.6 mg/dL (0.6-1.0); EST CRCL DRUG DOSING (CG) 73.19 mL/min; ESTIMATED GFR 95 mL/min (>60); GLUCOSE RANDOM 99 mg/dL (74-106); POTASSIUM,K 3.2 mmol/L (3.6-5.2); SODIUM,NA 139 mmol/L (140-148)
[2023-08-22 06:09] LABS: ANION GAP 11.2 mmol/L (5.0-14.0)
[2023-08-22 06:10] LABS: CALCIUM 6.6 mg/dL (8.5-10.1)
[2023-08-22] MEDS ORDERED: Multivitamins with Iron/Calcium/Folic Acid/Minerals Tab PO SCH (09:00)
[2023-08-22] MEDS ORDERED: Non-Formulary Medication 1 Each (Multivitamin [Multi-Vitamin Daily] 1 EACH Tablet) PO SCH (09:00)
[2023-08-22] MEDS: Pantoprazole 40 MG Vial IVPUSH SCH ×2 (09:26→22:31)
[2023-08-22] MEDS: busPIRone 10 MG Tab PO SCH ×3 (09:35→20:10)
[2023-08-22] MEDS: Cholecalciferol (Vitamin D3) 25 MCG Tab PO SCH (09:35)
[2023-08-22] MEDS: Multivitamins with Iron/Calcium/Folic Acid/Minerals Tab PO SCH (09:37)
[2023-08-22] MEDS: Citalopram 20 MG Tab PO SCH (09:37)
[2023-08-22] MEDS ORDERED: Calcium Gluconate 2 GM in Sodium Chloride 0.9% 100 ML IV ONE (10:00)
[2023-08-22] MEDS: Sodium Chloride 0.9% 1,000 ML IV SCH (10:27)
[2023-08-22] MEDS: Potassium Chloride 10 MEQ in Premix Bag 1 BAG IV SCH ×4 (11:59→20:07)
[2023-08-22] MEDS: Ondansetron 4 MG Tab.DIS PO PRN (16:15)
[2023-08-22] MEDS ORDERED: Sodium Chloride 0.9% 1,000 ML IV SCH (16:15)
[2023-08-22] MEDS: Melatonin 3 MG Tab PO SCH (20:10)
[2023-08-22] MEDS: traZODone 50 MG Tab PO SCH (20:10)
[2023-08-23 05:06] LABS: BASOPHILS ABSOLUTE AUTO 0.03 K/uL (0.00-0.10); BASOPHILS PERCENT AUTO 0.5 % (0.1-1.3); EOSINOPHILS ABSOLUTE AUTO 0.28 K/uL (0.00-0.40); EOSINOPHILS PERCENT AUTO 4.3 % (0.0-5.4); HEMATOCRIT 27.3 % (34.3-46.0); HEMOGLOBIN 9.3 g/dL (11.2-15.5); IMMATURE GRAN ABSOLUTE AUTO 0.03 K/uL (0.00-0.23); IMMATURE GRAN PERCENT AUTO 0.5 % (0.0-0.7); LYMPHOCYTES ABSOLUTE AUTO 1.66 K/uL (0.8-3.3); LYMPHOCYTES PERCENT AUTO 25.8 % (11.4-47.7); MEAN CORPUSCULAR HEMOGLOBIN 31.4 pg (31.6-35.5); MEAN CORPUSCULAR HGB CONC 34.1 g/dL (31.6-35.5); MEAN CORPUSCULAR VOLUME 92.2 fL (81.4-99.0); MONOCYTES ABSOLUTE AUTO 0.79 K/uL (0.20-0.90); MONOCYTES PERCENT AUTO 12.3 % (3.3-12.6); NEUTROPHILS ABSOLUTE AUTO 3.65 K/uL (1.0-7.6); NEUTROPHILS PERCENT AUTO 56.6 % (40.0-78.1); PLATELET COUNT,PLT 249 K/uL (130-375); RED BLOOD CELL COUNT 2.96 M/uL (3.77-5.24); WHITE BLOOD CELL COUNT,WBC 6.4 K/uL (3.2-11.0)
[2023-08-23 05:22] LABS: CALCIUM 7.4 mg/dL (8.5-10.1); CREATININE 0.7 mg/dL (0.6-1.0); EST CRCL DRUG DOSING (CG) 62.73 mL/min; POTASSIUM,K 3.8 mmol/L (3.6-5.2)
[2023-08-23 05:28] LABS: ANION GAP 11.8 mmol/L (5.0-14.0)
[2023-08-23] MEDS: Acetaminophen 500 MG Tab PO SCH ×3 (06:16→21:52)
[2023-08-23] MEDS: Ondansetron 4 MG Tab.DIS PO PRN ×2 (06:26→17:53)
[2023-08-23] MEDS: Citalopram 20 MG Tab PO SCH (08:11)
[2023-08-23] MEDS: Multivitamins with Iron/Calcium/Folic Acid/Minerals Tab PO SCH (08:11)
[2023-08-23] MEDS: Cholecalciferol (Vitamin D3) 25 MCG Tab PO SCH (08:11)
[2023-08-23] MEDS: busPIRone 10 MG Tab PO SCH ×3 (08:11→21:51)
[2023-08-23] MEDS: LORazepam 0.5 MG Tab PO PRN ×3 (08:58→21:56)
[2023-08-23] MEDS: Pantoprazole 40 MG Vial IVPUSH SCH ×2 (09:02→21:51)
[2023-08-23] MEDS: Melatonin 3 MG Tab PO SCH (21:52)
[2023-08-23] MEDS: traZODone 50 MG Tab PO SCH (21:52)
[2023-08-24] MEDS: LORazepam 0.5 MG Tab PO PRN ×4 (05:27→23:40)
[2023-08-24] MEDS: Acetaminophen 500 MG Tab PO SCH ×3 (05:48→22:24)
[2023-08-24 05:50] LABS: BASOPHILS PERCENT AUTO 0.4 % (0.1-1.3); EOSINOPHILS ABSOLUTE AUTO 0.18 K/uL (0.00-0.40); HEMATOCRIT 28.4 % (34.3-46.0); HEMOGLOBIN 9.5 g/dL (11.2-15.5); IMMATURE GRAN PERCENT AUTO 0.4 % (0.0-0.7); LYMPHOCYTES ABSOLUTE AUTO 1.17 K/uL (0.8-3.3); LYMPHOCYTES PERCENT AUTO 26.1 % (11.4-47.7); MEAN CORPUSCULAR HEMOGLOBIN 30.7 pg (31.6-35.5); MEAN CORPUSCULAR HGB CONC 33.5 g/dL (31.6-35.5); MEAN CORPUSCULAR VOLUME 91.9 fL (81.4-99.0); MONOCYTES ABSOLUTE AUTO 0.62 K/uL (0.20-0.90); MONOCYTES PERCENT AUTO 13.8 % (3.3-12.6); NEUTROPHILS ABSOLUTE AUTO 2.48 K/uL (1.0-7.6); NEUTROPHILS PERCENT AUTO 55.3 % (40.0-78.1); PLATELET COUNT,PLT 188 K/uL (130-375); RED BLOOD CELL COUNT 3.09 M/uL (3.77-5.24); WHITE BLOOD CELL COUNT,WBC 4.5 K/uL (3.2-11.0)
[2023-08-24 05:54] LABS: BASOPHILS ABSOLUTE AUTO 0.02 K/uL (0.00-0.10); IMMATURE GRAN ABSOLUTE AUTO 0.02 K/uL (0.00-0.23)
[2023-08-24 06:09] LABS: CREATININE 0.7 mg/dL (0.6-1.0); EST CRCL DRUG DOSING (CG) 62.73 mL/min; POTASSIUM,K 3.3 mmol/L (3.6-5.2)
[2023-08-24 06:14] LABS: ANION GAP 12.3 mmol/L (5.0-14.0)
[2023-08-24] MEDS: Multivitamins with Iron/Calcium/Folic Acid/Minerals Tab PO SCH (08:24)
[2023-08-24] MEDS: busPIRone 10 MG Tab PO SCH ×3 (08:25→20:54)
[2023-08-24] MEDS: Citalopram 20 MG Tab PO SCH (08:25)
[2023-08-24] MEDS: Cholecalciferol (Vitamin D3) 25 MCG Tab PO SCH (08:25)
[2023-08-24] MEDS ORDERED: Potassium Phosphates 3 mMole/ML 15 ML SDV IV ONE (08:27)
[2023-08-24] MEDS ORDERED: Potassium Chloride 40 MEQ, Lidocaine 1% 2 ML in Sodium Chloride 0.9% 100 ML IV SCH (08:30)
[2023-08-24] MEDS: Ondansetron 4 MG Tab.DIS PO PRN (08:31)
[2023-08-24] MEDS ORDERED: Potassium Chloride 20 MEQ Tab.ER PO ONE (09:00)
[2023-08-24] MEDS: Pantoprazole 40 MG Vial IVPUSH SCH ×2 (09:43→22:24)
[2023-08-24] MEDS: traZODone 50 MG Tab PO SCH (20:53)
[2023-08-24] MEDS: Melatonin 3 MG Tab PO SCH (20:54)
[2023-08-25] MEDS: LORazepam 0.5 MG Tab PO PRN ×3 (05:26→19:40)
[2023-08-25] MEDS: Acetaminophen 500 MG Tab PO SCH (05:27)
[2023-08-25 05:29] LABS: BASOPHILS PERCENT AUTO 0.3 % (0.1-1.3); EOSINOPHILS ABSOLUTE AUTO 0.22 K/uL (0.00-0.40); EOSINOPHILS PERCENT AUTO 3.6 % (0.0-5.4); HEMATOCRIT 32.8 % (34.3-46.0); HEMOGLOBIN 10.9 g/dL (11.2-15.5); IMMATURE GRAN ABSOLUTE AUTO 0.03 K/uL (0.00-0.23); IMMATURE GRAN PERCENT AUTO 0.5 % (0.0-0.7); LYMPHOCYTES ABSOLUTE AUTO 1.19 K/uL (0.8-3.3); LYMPHOCYTES PERCENT AUTO 19.6 % (11.4-47.7); MEAN CORPUSCULAR HEMOGLOBIN 30.4 pg (31.6-35.5); MEAN CORPUSCULAR HGB CONC 33.2 g/dL (31.6-35.5); MEAN CORPUSCULAR VOLUME 91.4 fL (81.4-99.0); MONOCYTES ABSOLUTE AUTO 0.68 K/uL (0.20-0.90); MONOCYTES PERCENT AUTO 11.2 % (3.3-12.6); NEUTROPHILS ABSOLUTE AUTO 3.93 K/uL (1.0-7.6); NEUTROPHILS PERCENT AUTO 64.8 % (40.0-78.1); PLATELET COUNT,PLT 189 K/uL (130-375); RED BLOOD CELL COUNT 3.59 M/uL (3.77-5.24); WHITE BLOOD CELL COUNT,WBC 6.1 K/uL (3.2-11.0)
[2023-08-25 05:49] LABS: A/G RATIO 0.7 (1.2-2.2); ALANINE AMINOTRANSFERASE,ALT 35 U/L (12-78); ALKALINE PHOSPHATASE 112 U/L (46-116); ASPARTATE AMNIOTRANSFERASE,AST 33 U/L (15-37); BILIRUBIN TOTAL 0.5 mg/dL (0.2-1.0); BLOOD UREA NITROGEN,BUN 7 mg/dL (7-18); CALCIUM 7.2 mg/dL (8.5-10.1); CARBON DIOXIDE,CO2 24 mmol/L (21-32); CHLORIDE,CL 109 mmol/L (100-108); CREATININE 0.6 mg/dL (0.6-1.0); EST CRCL DRUG DOSING (CG) 73.19 mL/min; ESTIMATED GFR 95 mL/min (>60); GLUCOSE RANDOM 90 mg/dL (74-106); MAGNESIUM 1.8 mg/dL (1.8-2.4); PHOSPHORUS 3.5 mg/dL (2.5-4.9); POTASSIUM,K 3.6 mmol/L (3.6-5.2); SODIUM,NA 139 mmol/L (140-148)
[2023-08-25 06:08] LABS: ANION GAP 9.6 mmol/L (5.0-14.0); BASOPHILS ABSOLUTE AUTO 0.02 K/uL (0.00-0.10)
[2023-08-25] MEDS ORDERED: Bupivacaine 0.5% 50 ML MDV ONE (06:26)
[2023-08-25] MEDS ORDERED: Meropenem 500 MG SDV ONE (06:26)
[2023-08-25] MEDS ORDERED: Lidocaine 1% with EPINEPHrine 1:100,000 50 ML MDV ONE (06:27)
[2023-08-25] MEDS ORDERED: Propofol 200 MG/20 ML SDV ONE (07:14)
[2023-08-25] MEDS ORDERED: Ondansetron 4 MG/2 ML SDV ONE (07:14)
[2023-08-25] MEDS ORDERED: Succinylcholine 200 MG/10 ML MDV ONE (07:14)
[2023-08-25] MEDS ORDERED: Glycopyrrolate 0.2 MG/ML 5 ML MDV ONE (07:14)
[2023-08-25] MEDS ORDERED: Neostigmine Methylsulfate 1 MG/ML 5 ML Syringe ONE (07:14)
[2023-08-25] MEDS ORDERED: Dexamethasone 4 MG/ML SDV ONE (07:14)
[2023-08-25] MEDS ORDERED: Rocuronium 50 MG/5 ML Vial ONE (07:14)
[2023-08-25] MEDS ORDERED: fentaNYL 250 MCG/5 ML SDV ONE ×2 (07:15→08:42)
[2023-08-25] MEDS ORDERED: Ketamine 16 MG in Sodium Chloride 0.9% 19.84 ML IV SCH (08:00)
[2023-08-25] MEDS ORDERED: Ketamine 500 MG/5 ML MDV IV SCH ×3 (08:00→08:30)
[2023-08-25] MEDS ORDERED: Potassium Chloride 20 MEQ Tab.ER PO SCH (08:00)
[2023-08-25] MEDS ORDERED: cefOXitin 2 GM in Sodium Chloride 0.9% 50 ML IV ONE (08:30)
[2023-08-25] MEDS ORDERED: Linezolid 600 MG/300 ML Premix Bag IRR ONE (09:15)
[2023-08-25] MEDS ORDERED: Lactated Ringers 1,000 ML ONE (09:36)
[2023-08-25] MEDS ORDERED: Scopolamine 1.5 MG Transdermal Patch ONE (10:07)
[2023-08-25] MEDS ORDERED: diphenhydrAMINE 25 MG Cap PO PRN (10:11)
[2023-08-25] MEDS ORDERED: Naloxone 0.4 MG/ML SDV IVPUSH PRN (10:11)
[2023-08-25] MEDS ORDERED: diphenhydrAMINE 50 MG/ML SDV IVPUSH PRN (10:11)
[2023-08-25] MEDS ORDERED: Ondansetron 4 MG/2 ML SDV IVPUSH ONE (10:22)
[2023-08-25] MEDS: HYDROmorphone/Normal Saline 6 MG/30 ML PCA Vial IV PRN ×2 (10:30→15:35)
[2023-08-25] MEDS: Pantoprazole 40 MG Vial IVPUSH SCH (11:26)
[2023-08-25] MEDS: Multivitamins with Iron/Calcium/Folic Acid/Minerals Tab PO SCH (11:36)
[2023-08-25] MEDS: Citalopram 20 MG Tab PO SCH (11:36)
[2023-08-25] MEDS: busPIRone 10 MG Tab PO SCH ×3 (11:36→20:29)
[2023-08-25] MEDS: Cholecalciferol (Vitamin D3) 25 MCG Tab PO SCH (11:36)
[2023-08-25] MEDS ORDERED: Albuterol/Ipratropium 3.0-0.5 MG/3 ML Neb Soln INH PRN (13:00)
[2023-08-25] MEDS: Acetaminophen 1,000 MG in Premix Bag 1 BAG IV SCH ×2 (13:58→21:44)
[2023-08-25] MEDS ORDERED: Labetalol 20 MG/4 ML Syringe IVPUSH PRN (14:00)
[2023-08-25] MEDS ORDERED: hydrOXYzine HCL 100 MG/2 ML SDV IM PRN (14:00)
[2023-08-25] MEDS ORDERED: Metoclopramide 10 MG/2 ML SDV IVPUSH PRN (14:00)
[2023-08-25] MEDS: cefOXitin 2 GM in Sodium Chloride 0.9% 50 ML IV SCH ×2 (14:43→19:16)
[2023-08-25] MEDS: Albuterol/Ipratropium 3.0-0.5 MG/3 ML Neb Soln INH SCH ×2 (15:37→20:30)
[2023-08-25] MEDS ORDERED: MVI, Adult with Vitamin K 10 ML, Thiamine 200 MG, Zinc/Copper/Manganese/Selenium 1 ML i... IV SCH ×4 (16:00)
[2023-08-25] MEDS: traZODone 50 MG Tab PO SCH (20:30)
[2023-08-25] MEDS: Melatonin 3 MG Tab PO SCH (20:30)
[2023-08-25] MEDS: Dextrose 5%-Lactated Ringers 1,000 ML IV SCH (22:52)
[2023-08-26] MEDS: LORazepam 0.5 MG Tab PO PRN ×4 (01:28→19:45)
[2023-08-26] MEDS: cefOXitin 2 GM in Sodium Chloride 0.9% 50 ML IV SCH ×2 (01:28→07:56)
[2023-08-26] MEDS ORDERED: Iopamidol 612 MG/ML 30 ML SDV PO ONE (04:40)
[2023-08-26 04:50] LABS: HEMATOCRIT 28.5 % (34.3-46.0); HEMOGLOBIN 9.6 g/dL (11.2-15.5); IMMATURE GRAN ABSOLUTE AUTO 0.05 K/uL (0.00-0.23); IMMATURE GRAN PERCENT AUTO 0.5 % (0.0-0.7); LYMPHOCYTES ABSOLUTE AUTO 0.67 K/uL (0.8-3.3); LYMPHOCYTES PERCENT AUTO 6.5 % (11.4-47.7); MEAN CORPUSCULAR HEMOGLOBIN 30.9 pg (31.6-35.5); MEAN CORPUSCULAR HGB CONC 33.7 g/dL (31.6-35.5); MEAN CORPUSCULAR VOLUME 91.6 fL (81.4-99.0); MONOCYTES ABSOLUTE AUTO 1.04 K/uL (0.20-0.90); MONOCYTES PERCENT AUTO 10.1 % (3.3-12.6); NEUTROPHILS ABSOLUTE AUTO 8.52 K/uL (1.0-7.6); NEUTROPHILS PERCENT AUTO 82.9 % (40.0-78.1); PLATELET COUNT,PLT 229 K/uL (130-375); RED BLOOD CELL COUNT 3.11 M/uL (3.77-5.24); WHITE BLOOD CELL COUNT,WBC 10.3 K/uL (3.2-11.0)
[2023-08-26] MEDS: Acetaminophen 1,000 MG in Premix Bag 1 BAG IV SCH (05:18)
[2023-08-26 05:20] LABS: A/G RATIO 0.6 (1.2-2.2); ALANINE AMINOTRANSFERASE,ALT 28 U/L (12-78); ALBUMIN 1.8 g/dL (3.4-5.0); ALKALINE PHOSPHATASE 97 U/L (46-116); ASPARTATE AMNIOTRANSFERASE,AST 21 U/L (15-37); BILIRUBIN TOTAL 0.5 mg/dL (0.2-1.0); BLOOD UREA NITROGEN,BUN 8 mg/dL (7-18); CALCIUM 7.3 mg/dL (8.5-10.1); CARBON DIOXIDE,CO2 23 mmol/L (21-32); CHLORIDE,CL 105 mmol/L (100-108); CREATININE 0.8 mg/dL (0.6-1.0); EST CRCL DRUG DOSING (CG) 54.89 mL/min; ESTIMATED GFR 78 mL/min (>60); GLUCOSE RANDOM 143 mg/dL (74-106); MAGNESIUM 1.6 mg/dL (1.8-2.4); PHOSPHORUS 3.6 mg/dL (2.5-4.9); POTASSIUM,K 3.6 mmol/L (3.6-5.2); PRO B-TYPE NATRIUR PEPT,BNPPRO 373 pg/mL (5-125); PROTEIN TOTAL,TP 4.9 g/dL (6.4-8.2); SODIUM,NA 136 mmol/L (140-148)
[2023-08-26 05:22] LABS: ANION GAP 11.6 mmol/L (5.0-14.0)
[2023-08-26] MEDS: Dextrose 5%-Lactated Ringers 1,000 ML IV SCH (07:14)
[2023-08-26] MEDS ORDERED: Dextrose 5%-Lactated Ringers 1,000 ML IV SCH (09:00)
[2023-08-26] MEDS: Potassium Phos in 0.9 % NaCl 15 MMOL in Premix Bag 1 BAG IV SCH ×4 (09:20→12:20)
[2023-08-26] MEDS: Ondansetron 4 MG/2 ML SDV IVPUSH PRN ×2 (09:21→16:14)
[2023-08-26] MEDS: busPIRone 10 MG Tab PO SCH ×3 (09:33→21:50)
[2023-08-26] MEDS: Citalopram 20 MG Tab PO SCH (09:33)
[2023-08-26] MEDS: Bisacodyl 5 MG Tab PO SCH ×2 (09:34→21:50)
[2023-08-26] MEDS: Docusate Sodium 100 MG Cap PO SCH ×2 (09:34→21:50)
[2023-08-26] MEDS: Albuterol/Ipratropium 3.0-0.5 MG/3 ML Neb Soln INH SCH ×4 (09:47→21:55)
[2023-08-26] MEDS: SCOPOLAMINE PATCH CHECK TOP SCH (09:48)
[2023-08-26] MEDS: HYDROmorphone/Normal Saline 6 MG/30 ML PCA Vial IV PRN ×2 (10:04→18:51)
[2023-08-26] MEDS: Magnesium Sulfate/Water 2 GM in Premix Bag 1 BAG IV SCH ×3 (10:26→22:03)
[2023-08-26] MEDS ORDERED: Pantoprazole 40 MG Vial IVPUSH SCH (11:00)
[2023-08-26] MEDS ORDERED: Scopolamine 1.5 MG Transdermal Patch TOP SCH (12:15)
[2023-08-26] MEDS ORDERED: MVI, Adult with Vitamin K 10 ML, Thiamine 200 MG, Zinc/Copper/Manganese/Selenium 1 ML i... IV SCH ×4 (16:00)
[2023-08-26] MEDS: traZODone 50 MG Tab PO SCH (21:50)
[2023-08-26] MEDS: Melatonin 3 MG Tab PO SCH (21:50)
[2023-08-27] MEDS: LORazepam 0.5 MG Tab PO PRN ×4 (04:13→23:52)
[2023-08-27 04:41] LABS: EOSINOPHILS PERCENT AUTO 0.1 % (0.0-5.4); HEMATOCRIT 28.3 % (34.3-46.0); HEMOGLOBIN 9.4 g/dL (11.2-15.5); IMMATURE GRAN ABSOLUTE AUTO 0.05 K/uL (0.00-0.23); IMMATURE GRAN PERCENT AUTO 0.6 % (0.0-0.7); LYMPHOCYTES ABSOLUTE AUTO 1.27 K/uL (0.8-3.3); MEAN CORPUSCULAR HEMOGLOBIN 30.8 pg (31.6-35.5); MEAN CORPUSCULAR HGB CONC 33.2 g/dL (31.6-35.5); MEAN CORPUSCULAR VOLUME 92.8 fL (81.4-99.0); MONOCYTES ABSOLUTE AUTO 0.74 K/uL (0.20-0.90); MONOCYTES PERCENT AUTO 8.1 % (3.3-12.6); NEUTROPHILS ABSOLUTE AUTO 7.01 K/uL (1.0-7.6); NEUTROPHILS PERCENT AUTO 77.2 % (40.0-78.1); PLATELET COUNT,PLT 175 K/uL (130-375); RED BLOOD CELL COUNT 3.05 M/uL (3.77-5.24); WHITE BLOOD CELL COUNT,WBC 9.1 K/uL (3.2-11.0)
[2023-08-27 04:53] LABS: EOSINOPHILS ABSOLUTE AUTO 0.01 K/uL (0.00-0.40)
[2023-08-27 05:00] LABS: A/G RATIO 0.5 (1.2-2.2); ALANINE AMINOTRANSFERASE,ALT 20 U/L (12-78); ALBUMIN 1.7 g/dL (3.4-5.0); ALKALINE PHOSPHATASE 109 U/L (46-116); ASPARTATE AMNIOTRANSFERASE,AST 18 U/L (15-37); BILIRUBIN TOTAL 0.3 mg/dL (0.2-1.0); BLOOD UREA NITROGEN,BUN 8 mg/dL (7-18); CARBON DIOXIDE,CO2 25 mmol/L (21-32); CHLORIDE,CL 106 mmol/L (100-108); CREATININE 0.7 mg/dL (0.6-1.0); EST CRCL DRUG DOSING (CG) 62.73 mL/min; ESTIMATED GFR 92 mL/min (>60); GLUCOSE RANDOM 103 mg/dL (74-106); PHOSPHORUS 3.2 mg/dL (2.5-4.9); POTASSIUM,K 3.5 mmol/L (3.6-5.2); PROTEIN TOTAL,TP 5.1 g/dL (6.4-8.2); SODIUM,NA 138 mmol/L (140-148)
[2023-08-27 05:07] LABS: ANION GAP 10.5 mmol/L (5.0-14.0)
[2023-08-27 05:08] LABS: CALCIUM 6.9 mg/dL (8.5-10.1)
[2023-08-27] MEDS: Magnesium Sulfate/Water 2 GM in Premix Bag 1 BAG IV SCH ×2 (05:11→10:57)
[2023-08-27] MEDS: HYDROmorphone/Normal Saline 6 MG/30 ML PCA Vial IV PRN (07:43)
[2023-08-27] MEDS ORDERED: Potassium Phosphates 45 MMOLE in Sodium Chloride 0.9% 250 ML IV ONE (07:58)
[2023-08-27] MEDS ORDERED: Dextrose 5%-Lactated Ringers 1,000 ML IV SCH (08:00)
[2023-08-27] MEDS: Albuterol/Ipratropium 3.0-0.5 MG/3 ML Neb Soln INH SCH ×4 (08:03→20:44)
[2023-08-27] MEDS: Potassium Phos in 0.9 % NaCl 15 MMOL in Premix Bag 1 BAG IV SCH ×4 (08:39→13:21)
[2023-08-27] MEDS: busPIRone 10 MG Tab PO SCH ×3 (08:50→20:44)
[2023-08-27] MEDS: Citalopram 20 MG Tab PO SCH (08:50)
[2023-08-27] MEDS: Docusate Sodium 100 MG Cap PO SCH ×2 (08:50→20:44)
[2023-08-27] MEDS: Bisacodyl 5 MG Tab PO SCH ×2 (08:50→20:44)
[2023-08-27] MEDS: SCOPOLAMINE PATCH CHECK TOP SCH (08:51)
[2023-08-27] MEDS ORDERED: Cyanocobalamin (Vitamin B12) 1,000 MCG/ML SDV IM ONE (09:00)
[2023-08-27] MEDS ORDERED: Pantoprazole 40 MG Delayed-Release Granules 1 Packet PO SCH (11:00)
[2023-08-27] MEDS: oxyCODONE 5 MG Tab PO PRN ×2 (12:07→18:38)
[2023-08-27] MEDS: Dextrose 5%-Lactated Ringers 1,000 ML IV SCH (13:21)
[2023-08-27] MEDS: Albumin Human 25 GM in Premix Bag 1 BAG IV SCH ×2 (16:33→20:44)
[2023-08-27] MEDS: Cyclobenzaprine 10 MG Tab PO PRN (20:43)
[2023-08-27] MEDS: Melatonin 3 MG Tab PO SCH (20:45)
[2023-08-27] MEDS: traZODone 50 MG Tab PO SCH (20:45)
[2023-08-28] MEDS: oxyCODONE 5 MG Tab PO PRN ×3 (01:52→18:08)
[2023-08-28] MEDS ORDERED: Potassium Phos in 0.9 % NaCl 15 MMOL in Premix Bag 1 BAG IV ONE ×2 (02:00)
[2023-08-28] MEDS: Magnesium Sulfate/Water 2 GM in Premix Bag 1 BAG IV SCH ×3 (04:50→14:41)
[2023-08-28 05:08] LABS: HEMATOCRIT 25.8 % (34.3-46.0); HEMOGLOBIN 8.6 g/dL (11.2-15.5); MEAN CORPUSCULAR HEMOGLOBIN 30.9 pg (31.6-35.5); MEAN CORPUSCULAR HGB CONC 33.3 g/dL (31.6-35.5); MEAN CORPUSCULAR VOLUME 92.8 fL (81.4-99.0); RED BLOOD CELL COUNT 2.78 M/uL (3.77-5.24)
[2023-08-28] MEDS: Albuterol/Ipratropium 3.0-0.5 MG/3 ML Neb Soln INH SCH ×4 (07:31→20:51)
[2023-08-28] MEDS: LORazepam 0.5 MG Tab PO PRN ×3 (07:49→20:49)
[2023-08-28] MEDS: Docusate Sodium 100 MG Cap PO SCH ×2 (08:00→20:49)
[2023-08-28] MEDS: busPIRone 10 MG Tab PO SCH ×3 (08:00→20:49)
[2023-08-28] MEDS: Citalopram 20 MG Tab PO SCH (08:00)
[2023-08-28] MEDS: Bisacodyl 5 MG Tab PO SCH ×2 (08:00→20:50)
[2023-08-28] MEDS: Pantoprazole 40 MG Tab.CR PO SCH (10:53)
[2023-08-28] MEDS: Albumin Human 25 GM in Premix Bag 1 BAG IV SCH ×2 (17:17→21:56)
[2023-08-28] MEDS: Ondansetron 4 MG/2 ML SDV IVPUSH PRN (19:22)
[2023-08-28] MEDS: Melatonin 3 MG Tab PO SCH (20:50)
[2023-08-28] MEDS: traZODone 50 MG Tab PO SCH (20:51)
[2023-08-28] MEDS: Cyclobenzaprine 10 MG Tab PO PRN (23:54)
[2023-08-29] MEDS: oxyCODONE 5 MG Tab PO PRN ×3 (01:16→14:32)
[2023-08-29] MEDS: LORazepam 0.5 MG Tab PO PRN ×3 (02:55→15:56)
[2023-08-29] MEDS: Dextrose 5%-Lactated Ringers 1,000 ML IV SCH (02:59)
[2023-08-29 04:19] LABS: HEMATOCRIT 27.1 % (34.3-46.0); MEAN CORPUSCULAR HEMOGLOBIN 30.4 pg (31.6-35.5); MEAN CORPUSCULAR HGB CONC 33.2 g/dL (31.6-35.5); MEAN CORPUSCULAR VOLUME 91.6 fL (81.4-99.0); RED BLOOD CELL COUNT 2.96 M/uL (3.77-5.24); WHITE BLOOD CELL COUNT,WBC 5.5 K/uL (3.2-11.0)
[2023-08-29 04:49] LABS: A/G RATIO 1.3 (1.2-2.2); ALANINE AMINOTRANSFERASE,ALT 17 U/L (12-78); ALBUMIN 3.1 g/dL (3.4-5.0); ALKALINE PHOSPHATASE 92 U/L (46-116); ASPARTATE AMNIOTRANSFERASE,AST 21 U/L (15-37); BLOOD UREA NITROGEN,BUN 5 mg/dL (7-18); CALCIUM 7.5 mg/dL (8.5-10.1); CARBON DIOXIDE,CO2 29 mmol/L (21-32); CHLORIDE,CL 103 mmol/L (100-108); CREATININE 0.6 mg/dL (0.6-1.0); EST CRCL DRUG DOSING (CG) 73.19 mL/min; ESTIMATED GFR 95 mL/min (>60); GLUCOSE RANDOM 84 mg/dL (74-106); MAGNESIUM 2.4 mg/dL (1.8-2.4); PHOSPHORUS 3.8 mg/dL (2.5-4.9); POTASSIUM,K 3.6 mmol/L (3.6-5.2); PROTEIN TOTAL,TP 5.5 g/dL (6.4-8.2); SODIUM,NA 139 mmol/L (140-148)
[2023-08-29 05:25] LABS: ANION GAP 10.6 mmol/L (5.0-14.0)
[2023-08-29] MEDS: Albuterol/Ipratropium 3.0-0.5 MG/3 ML Neb Soln INH SCH ×3 (07:06→16:26)
[2023-08-29] MEDS: Citalopram 20 MG Tab PO SCH (08:38)
[2023-08-29] MEDS: busPIRone 10 MG Tab PO SCH ×2 (08:38→14:32)
[2023-08-29] MEDS: Bisacodyl 5 MG Tab PO SCH (08:39)
[2023-08-29] MEDS: Docusate Sodium 100 MG Cap PO SCH (08:39)
[2023-08-29] MEDS: Ondansetron 4 MG/2 ML SDV IVPUSH PRN (09:04)
[2023-08-29] MEDS: Pantoprazole 40 MG Tab.CR PO SCH (12:10)
[2023-08-29 14:36] VITALS: BP 154/77; PULSE 71
== END 2023-08-29 17:30 | disposition home or self-care (01) | DRG 908 ==
LOC: JP.ED 17:39 → JP.MS 20:00
PROVIDERS: ADMIT Hospitalist; ATTEND Hospitalist
PROC: 30233N1 Transfusion of Nonautologous Red Blood Cells into Peripheral Vein, Percutaneous Approach (ICD-10-PCS; 2023-08-22)
PROC: 30233N1 Transfusion of Nonautologous Red Blood Cells into Peripheral Vein, Percutaneous Approach (ICD-10-PCS; 2023-08-23)
PROC: 30233N1 Transfusion of Nonautologous Red Blood Cells into Peripheral Vein, Percutaneous Approach (ICD-10-PCS; 2023-08-24)
PROC: 0D160ZA Bypass Stomach to Jejunum, Open Approach (ICD-10-PCS; principal; 2023-08-25)
PROC: 0DB80ZZ Excision of Small Intestine, Open Approach (ICD-10-PCS; 2023-08-25)
PROC: 0DBA0ZZ Excision of Jejunum, Open Approach (ICD-10-PCS; 2023-08-25)
PROC: 0DBL0ZX Excision of Transverse Colon, Open Approach, Diagnostic (ICD-10-PCS; 2023-08-25)
PROC: 0DBW0ZZ Excision of Peritoneum, Open Approach (ICD-10-PCS; 2023-08-25)
PROC: 3E0M05Z Introduction of Adhesion Barrier into Peritoneal Cavity, Open Approach (ICD-10-PCS; 2023-08-25)
PROC: 30233N1 Transfusion of Nonautologous Red Blood Cells into Peripheral Vein, Percutaneous Approach (ICD-10-PCS; 2023-08-26)
PROC: 30233N1 Transfusion of Nonautologous Red Blood Cells into Peripheral Vein, Percutaneous Approach (ICD-10-PCS; 2023-08-28)
PROC: 30233N1 Transfusion of Nonautologous Red Blood Cells into Peripheral Vein, Percutaneous Approach (ICD-10-PCS; 2023-08-29)
DX: R53.1 Weakness (principal); K91.870 Postprocedural hematoma of a digestive system organ or structure following a digestive system procedure; K92.2 Gastrointestinal hemorrhage, unspecified; K21.9 Gastro-esophageal reflux disease without esophagitis; F32.9 Major depressive disorder, single episode, unspecified; M19.90 Unspecified osteoarthritis, unspecified site; F41.1 Generalized anxiety disorder; E83.51 Hypocalcemia; Z20.822 Contact with and (suspected) exposure to COVID-19; D64.9 Anemia, unspecified; E86.0 Dehydration; E87.6 Hypokalemia; Z88.5 Allergy status to narcotic agent; Z88.2 Allergy status to sulfonamides; Z79.899 Other long term (current) drug therapy; Z87.11 Personal history of peptic ulcer disease; Z87.440 Personal history of urinary (tract) infections; Z90.49 Acquired absence of other specified parts of digestive tract; Z90.710 Acquired absence of both cervix and uterus; Z90.721 Acquired absence of ovaries, unilateral; Z98.890 Other specified postprocedural states; Z98.84 Bariatric surgery status
CPT/HCPCS: 36415; 80053; 83605; 83690; 84484; 85025; 85610; 85730; 86850; 86900; 86901; 86920 ×3; 86922 ×3; 87040 ×2; 93005; 93010; 99285 ×2; J7030; U0002; 36430; 36569; 74240; 74240-26; 80048; 82272; 82330; 83735; 83880; 84100; 85018; 85027; 94640; 97161-GP; 97165-GO; 97530-GP; A9270-GY; C1751; C9113; J0131; J0171; J0330; J0612; J0694; J1100; J1170; J2020; J2185; J2405; J2704; J2710; J2795; J3010; J3411; J3420; J3475; J3480; J3490; J7120; J7121; J7620; P9016; P9047; Q0162; Q9967

== ENCOUNTER 2023-09-01 10:56 | Emergency (ER) | payer MEDICARE ==
[2023-09-01 12:36] VITALS: BP 155/73; PULSE 89
[2023-09-01 13:38] LABS: BASOPHILS ABSOLUTE AUTO 0.04 K/uL (0.00-0.10); BASOPHILS PERCENT AUTO 0.5 % (0.1-1.3); EOSINOPHILS ABSOLUTE AUTO 0.04 K/uL (0.00-0.40); EOSINOPHILS PERCENT AUTO 0.5 % (0.0-5.4); HEMATOCRIT 35.1 % (34.3-46.0); HEMOGLOBIN 11.7 g/dL (11.2-15.5); IMMATURE GRAN ABSOLUTE AUTO 0.04 K/uL (0.00-0.23); IMMATURE GRAN PERCENT AUTO 0.5 % (0.0-0.7); LYMPHOCYTES ABSOLUTE AUTO 1.26 K/uL (0.8-3.3); LYMPHOCYTES PERCENT AUTO 15.6 % (11.4-47.7); MEAN CORPUSCULAR HEMOGLOBIN 30.5 pg (31.6-35.5); MEAN CORPUSCULAR HGB CONC 33.3 g/dL (31.6-35.5); MEAN CORPUSCULAR VOLUME 91.6 fL (81.4-99.0); MONOCYTES ABSOLUTE AUTO 0.87 K/uL (0.20-0.90); MONOCYTES PERCENT AUTO 10.8 % (3.3-12.6); NEUTROPHILS ABSOLUTE AUTO 5.82 K/uL (1.0-7.6); NEUTROPHILS PERCENT AUTO 72.1 % (40.0-78.1); PLATELET COUNT,PLT 226 K/uL (130-375); RED BLOOD CELL COUNT 3.83 M/uL (3.77-5.24); WHITE BLOOD CELL COUNT,WBC 8.1 K/uL (3.2-11.0)
[2023-09-01 14:00] LABS: ALANINE AMINOTRANSFERASE,ALT 14 U/L (12-78); ALKALINE PHOSPHATASE 114 U/L (46-116); ASPARTATE AMNIOTRANSFERASE,AST 17 U/L (15-37); BILIRUBIN TOTAL 0.9 mg/dL (0.2-1.0); BLOOD UREA NITROGEN,BUN 15 mg/dL (7-18); CALCIUM 7.8 mg/dL (8.5-10.1); CARBON DIOXIDE,CO2 26 mmol/L (21-32); CHLORIDE,CL 104 mmol/L (100-108); CREATININE 0.7 mg/dL (0.6-1.0); EST CRCL DRUG DOSING (CG) 62.73 mL/min; ESTIMATED GFR 92 mL/min (>60); GLUCOSE RANDOM 97 mg/dL (74-106); POTASSIUM,K 3.6 mmol/L (3.6-5.2); SODIUM,NA 138 mmol/L (140-148)
[2023-09-01 14:05] LABS: ANION GAP 11.6 mmol/L (5.0-14.0)
== END 2023-09-01 14:18 | disposition home or self-care (01) ==
LOC: JP.ED 10:56
DX: K92.2 Gastrointestinal hemorrhage, unspecified (principal); K21.9 Gastro-esophageal reflux disease without esophagitis; Z88.5 Allergy status to narcotic agent; Z88.2 Allergy status to sulfonamides
CPT/HCPCS: 36415; 80053; 85025; 99284

== ENCOUNTER 2023-09-08 11:15 | Emergency (ER) | payer MEDICARE ==
[2023-09-08 12:12] LABS: BASOPHILS PERCENT AUTO 0.3 % (0.1-1.3); EOSINOPHILS PERCENT AUTO 0.1 % (0.0-5.4); HEMATOCRIT 19.9 % (34.3-46.0); IMMATURE GRAN ABSOLUTE AUTO 0.08 K/uL (0.00-0.23); LYMPHOCYTES ABSOLUTE AUTO 0.58 K/uL (0.8-3.3); LYMPHOCYTES PERCENT AUTO 7.4 % (11.4-47.7); MEAN CORPUSCULAR HEMOGLOBIN 31.6 pg (31.6-35.5); MEAN CORPUSCULAR HGB CONC 32.7 g/dL (31.6-35.5); MEAN CORPUSCULAR VOLUME 96.6 fL (81.4-99.0); MONOCYTES PERCENT AUTO 6.3 % (3.3-12.6); NEUTROPHILS PERCENT AUTO 84.9 % (40.0-78.1); PLATELET COUNT,PLT 376 K/uL (130-375); RED BLOOD CELL COUNT 2.06 M/uL (3.77-5.24); WHITE BLOOD CELL COUNT,WBC 7.9 K/uL (3.2-11.0)
[2023-09-08 12:14] LABS: BASOPHILS ABSOLUTE AUTO 0.02 K/uL (0.00-0.10); EOSINOPHILS ABSOLUTE AUTO 0.01 K/uL (0.00-0.40); HEMOGLOBIN 6.5 g/dL (11.2-15.5)
[2023-09-08 12:26] LABS: CALCIUM 7.4 mg/dL (8.5-10.1); CREATININE 0.7 mg/dL (0.6-1.0); EST CRCL DRUG DOSING (CG) 62.73 mL/min; POTASSIUM,K 3.6 mmol/L (3.6-5.2)
[2023-09-08 12:28] LABS: ANION GAP 16.6 mmol/L (5.0-14.0)
[2023-09-08] MEDS ORDERED: LORazepam 2 MG/ML SDV IVPUSH ONE ×2 (13:42→16:05)
[2023-09-08 15:56] VITALS: BP 127/67; PULSE 96
== END 2023-09-08 16:21 | disposition other institution (70) ==
LOC: JP.ED 11:15
DX: S00.83XA Contusion of other part of head, initial encounter (principal); K92.2 Gastrointestinal hemorrhage, unspecified; F17.210 Nicotine dependence, cigarettes, uncomplicated; Z88.5 Allergy status to narcotic agent; K21.9 Gastro-esophageal reflux disease without esophagitis; Z88.2 Allergy status to sulfonamides; Z79.899 Other long term (current) drug therapy; W01.198A Fall on same level from slipping, tripping and stumbling with subsequent striking against other object, initial encounter
CPT/HCPCS: 36415; 36430; 80048; 85025; 86850; 86900; 86901; 86920; 86922; 96374; 96376; 99285; J2060; P9016

== ENCOUNTER 2023-12-21 12:42 | Emergency (ER) | payer MEDICARE ==
[2023-12-21 13:01] LABS: HEMATOCRIT 23.7 % (34.3-46.0); MEAN CORPUSCULAR HGB CONC 33.8 g/dL (31.6-35.5); MEAN CORPUSCULAR VOLUME 121.5 fL (81.4-99.0); PLATELET COUNT,PLT 32 K/uL (130-375); RED BLOOD CELL COUNT 1.95 M/uL (3.77-5.24); WHITE BLOOD CELL COUNT,WBC 1.2 K/uL (3.2-11.0)
[2023-12-21 13:25] LABS: BAND ABSOLUTE MAN 0.08 K/uL; BAND PERCENT MAN 7 % (5-11); EOSINOPHILS ABSOLUTE MAN 0.01 K/uL (0.00-0.40); EOSINOPHILS PERCENT MAN 1 % (2-4); LYMPHOCYTES ABSOLUTE MAN 0.36 K/uL (0.8-3.3); LYMPHOCYTES PERCENT MAN 30 % (24-44); MONOCYTES PERCENT MAN 8 % (2-6); NEUTROPHILS ABSOLUTE MAN 0.65 K/uL (1.0-7.6); SEG NEUTROPHILS PERCENT MAN 54 % (36-66)
[2023-12-21 13:26] LABS: ATYPICAL LYMPHOCYTES FEW; NRBC MANUAL 66
[2023-12-21 13:27] LABS: LACTIC ACID 5.4 mmol/L (0.4-2.0)
[2023-12-21 13:33] LABS: A/G RATIO 0.6 (1.2-2.2); ALANINE AMINOTRANSFERASE,ALT 32 U/L (12-78); ALBUMIN 1.7 g/dL (3.4-5.0); ALKALINE PHOSPHATASE 86 U/L (46-116); ASPARTATE AMNIOTRANSFERASE,AST 38 U/L (15-37); BILIRUBIN TOTAL 1.1 mg/dL (0.2-1.0); BLOOD UREA NITROGEN,BUN 13 mg/dL (7-18); C-REACTIVE PROTEIN 5.99 mg/dL (<0.50); CARBON DIOXIDE,CO2 18 mmol/L (21-32); CHLORIDE,CL 105 mmol/L (100-108); CREATININE 0.8 mg/dL (0.6-1.0); EST CRCL DRUG DOSING (CG) 54.89 mL/min; ESTIMATED GFR 78 mL/min (>60); GLUCOSE RANDOM 98 mg/dL (74-106); PROTEIN TOTAL,TP 4.7 g/dL (6.4-8.2); SODIUM,NA 139 mmol/L (140-148)
[2023-12-21 13:34] LABS: ANION GAP 18.4 mmol/L (5.0-14.0); POTASSIUM,K 2.4 mmol/L (3.6-5.2)
[2023-12-21 13:48] LABS: CORONAVIRUS COVID-19 NAA NEGATIVE (NEGATIVE); INFLUENZA A NAA NEGATIVE (NEGATIVE); INFLUENZA B NAA NEGATIVE (NEGATIVE); RESPIRATORY SYNCYTIAL VIR NAA NEGATIVE (NEGATIVE)
[2023-12-21] MEDS: Sodium Chloride 0.9% 1,000 ML IV ONE (13:53)
[2023-12-21] MEDS: Piperacillin/Tazobactam 4.5 GM in Sodium Chloride 0.9% 100 ML IV ONE (13:53)
[2023-12-21] MEDS: Sodium Chloride 0.9% 10 ML Syringe FLUSH PRN (13:54)
[2023-12-21 14:46] LABS: APPEARANCE,URINE CLEAR (CLEAR); BILIRUBIN,URINE NEGATIVE (NEGATIVE); COLOR,URINE YELLOW (YELLOW); GLUCOSE,URINE NEGATIVE (NEGATIVE); KETONES,URINE NEGATIVE (NEGATIVE); LEUKOCYTE ESTERASE,URINE NEGATIVE (NEGATIVE); NITRITE,URINE NEGATIVE (NEGATIVE); OCCULT BLOOD,URINE NEGATIVE (NEGATIVE); PH,URINE 5.5 (5.0-8.0); PROTEIN,URINE NEGATIVE (NEGATIVE); UROBILINOGEN,URINE 0.2 EU/dL (0.2-1.0)
[2023-12-21 14:55] LABS: AMORPHOUS SEDIMENT,URINE NOT SEEN; BACTERIA,URINE FEW; EPITHELIAL CELLS,URINE RARE; MUCUS,URINE FEW; RBC,URINE 0-5 (0-5); WBC,URINE 0-5 (0-5)
[2023-12-21] MEDS: Norepinephrine 8 MG in Dextrose 5% in Water 250 ML IV SCH (15:13)
[2023-12-21] MEDS: Magnesium Sulfate/Water 2 GM in Premix Bag 1 BAG IV ONE (15:27)
[2023-12-21] MEDS: Potassium Chloride 20 MEQ in Premix Bag 1 BAG IV ONE (15:33)
[2023-12-21] MEDS: Vasopressin 100 UNITS in Dextrose 5% in Water 250 ML IV SCH (16:48)
[2023-12-21 17:39] VITALS: BP 91/48; PULSE 99
== END 2023-12-21 18:00 ==
LOC: JP.ED 12:42
DX: A41.9 Sepsis, unspecified organism (principal); R65.21 Severe sepsis with septic shock; I95.89 Other hypotension; I45.81 Long QT syndrome; E87.6 Hypokalemia; E83.42 Hypomagnesemia; R09.02 Hypoxemia; D61.818 Other pancytopenia; K21.9 Gastro-esophageal reflux disease without esophagitis; Z90.49 Acquired absence of other specified parts of digestive tract; Z90.710 Acquired absence of both cervix and uterus; Z79.82 Long term (current) use of aspirin; Z79.899 Other long term (current) drug therapy; Z88.5 Allergy status to narcotic agent; Z88.2 Allergy status to sulfonamides
CPT/HCPCS: 0241U; 36415; 51702; 71045; 80053; 81001; 83605; 83735; 83880; 84145; 85025; 86140; 87040; 93005; 93010; 96361; 96365; 96366; 96367; 96368; 99285; 99291; J2543; J3370; J3475; J3480; J3490; J7030; J7050; J7060